=== PATIENT | female | born 1960 | race Hispanic/Latino ===

== ENCOUNTER 2017-02-26 17:15 | Observation (INO) | payer MEDICARE ==
[2017-02-26] MEDS ORDERED: Ondansetron HCl/PF 4 MG/2 ML Vial ONE (17:44)
[2017-02-26 17:45] LABS: #Basophils 0.1 thou/uL (0.0-0.2); #Eosinphils 0.2 thou/uL (0.0-0.7); #Lymphocytes 1.8 thou/uL (1.20-3.40); #Monocytes 0.5 thou/uL (0.11-0.59); #Neutrophils 5.7 thou/uL (1.40-6.50); %Basophils 0.7 % (0.0-1.0); %Eosinophils 2.9 % (0.0-10.0); %Lymphocytes 21.5 % (21.0-51.0); %Monocytes 6.2 % (0.0-10.0); Hematocrit 33.7 % (36.0-47.0); Red Blood Cell (RBC) Count 3.42 mill/uL (4.20-5.40); White Blood Cell (WBC) Count 8.3 thou/uL (4.8-10.8)
[2017-02-26 18:09] LABS: ALT (SGPT) 11 U/L (8-55); AST (SGOT) 10 U/L (5-34); Alkaline Phosphatase 232 U/L (40-150); Anion Gap 18 mmol/L (10-20); BUN (Urea Nitrogen) 46 mg/dL (9.8-20.1); Bilirubin, Total 0.7 mg/dL (0.2-1.2); CK (CPK) 34 U/L (29-168); Calc. Creatinine Clearance 0 mL/min (70-130); Calcium 9.4 mg/dL (7.8-10.44); Carbon Dioxide 32 mmol/L (22-29); Chloride 95 mmol/L (98-107); Estimated GFR-MDRD 6; Globulin 4.1 g/dL (2.4-3.5); Protein, Total 8.2 g/dL (6.0-8.3)
[2017-02-26 18:13] LABS: Troponin I Less than 0.010 ng/mL (< 0.028)
--- NOTE | 2017-02-26 20:18 | RAD ---
RADIOGRAPH CHEST 1 VIEW: Date: 02/26/17 Time: 5:49 p.m. HISTORY: 56-year-old female with acute chest pain. COMPARISON: 10/01/16. FINDINGS: Again demonstrated is the moderate to severe cardiomegaly. Previously, there were air space densities in the left lower lung zone. These are again demonstrated but appear to have improved. Left pleural effusion is again demonstrated, similar size to the previous study. There is haziness and increased a ttenuation in general of the right mid and lower lung zones laterally. Left perihilar increased atten uation. No pneumothorax. IMPRESSION: 1. Cardiomegaly. 2. Nonspecific, mild pulmonary densities at the bilateral lower lung zones. 3. Left pleural effusion. FOREIGN [] POS: [facility]
--- NOTE | 2017-02-26 20:50 | PDOC.EVN ---
Event Note - Event Note Event Note: [id number] H&p Dictated 1. ESRD 2. HTN 3. AOCD 4. DM type 2 5. Chest pain plan: see orders
[2017-02-26] MEDS ORDERED: Ondansetron ODT 4 MG TAB SL PRN (21:04)
[2017-02-26] MEDS ORDERED: Ondansetron HCl/PF 4 MG/2 ML Vial IVP PRN (21:04)
[2017-02-26] MEDS ORDERED: Acetaminophen 325 MG TAB PO PRN (21:04)
[2017-02-26 21:26] LABS: Troponin I 0.014 ng/mL (< 0.028)
[2017-02-26] MEDS ORDERED: ALPRAZolam 0.25 MG TAB PO PRN (21:47)
[2017-02-26] MEDS: Nitroglycerin 2% Ointment 1 INCH/1 GM Packet TOP SCH (22:07)
[2017-02-26 22:13] VITALS: BMI 41.7
[2017-02-27 00:26] LABS: Troponin I 0.018 ng/mL (< 0.028)
[2017-02-27 04:57] LABS: Troponin I 0.016 ng/mL (< 0.028)
[2017-02-27] MEDS ORDERED: Carvedilol 6.25 MG TAB PO SCH ×3 (08:00→20:15)
[2017-02-27] MEDS: Nitroglycerin 2% Ointment 1 INCH/1 GM Packet TOP SCH ×3 (08:09→20:30)
--- NOTE | 2017-02-27 08:10 | HP ---
DATE OF ADMISSION: 02/26/2017 CHIEF COMPLAINT: Chest pain, dyspnea. HISTORY OF PRESENT ILLNESS: The patient is a 56-year-old female with past medical history of end-stage renal disease, hypertension, diabetes type 2, coronary artery disease, now came to the ER because of chest pain and dyspnea. The patient all of a sudden started having chest pain, dyspnea, substernal pressure kind of pain, moderate in intensity, initial 10/10, currently the pain resolved. No aggravating factors. No alleviating factors. Denies any radiation. Chest pain associated with an episode of vomiting also, the whole episode lasted a few minutes. Denies any sweating, denies any dizziness. PAST MEDICAL HISTORY: As per HPI. PAST SURGICAL HISTORY: AV fistula placement, cardiac stent, cholecystectomy, left great toe amputation. SOCIAL HISTORY: Denies smoking, denies alcohol, denies any drugs. MEDICATIONS: Reviewed. FAMILY HISTORY: Positive for heart problems. REVIEW OF SYSTEMS: Constitutional: Denies any fever, denies any chills. Ears: Denies any vision problems. Ears: Denies any hearing loss. Neck: Denies any neck pain. Cardiovascular System: Positive for chest pain. Respiratory System: Positive for dyspnea. Gastrointestinal: Denies nausea. Positive for vomiting. Musculoskeletal: Denies any joint deformities. Cranial Nerve System: Denies syncope. Psychiatric: Denies anxiety. Integumentary: Denies any rash. All other review of systems are reviewed and are negative. PHYSICAL EXAMINATION: CONSTITUTIONAL/VITAL SIGNS: At the time of H&P performed, blood pressure is 167 /73, pulse ox 100%, heart rate 72. GENERAL: The patient appears tired. HEENT: Anterior nares patent, nose normal, and positive for nasal cannula. NECK: Supple. No JVD. CARDIOVASCULAR SYSTEM: S1, S2 present. Positive for murmur. No rubs, no gallops. Regular rate and rhythm. RESPIRATORY SYSTEM: Diminished breath sounds present bilaterally. No wheezing , no rhonchi, occasional crackles. GASTROINTESTINAL: Soft, nontender, no guarding, no organomegaly, no masses felt. MUSCULOSKELETAL: Trace edema. Positive for left great toe partial amputation. PSYCHIATRIC: Mood is appropriate at this time. INTEGUMENTARY: No rashes seen. CRANIAL NERVE SYSTEM: Cranial nerves intact. Follows commands. Strength intact, sensory intact. LABORATORY DATA: At the time of H&P performed, sodium 140, potassium 4.5, chloride 95, CO2 of 32, BUN of 46, creatinine 6.92, glucose 206, calcium 9.4, AST 10, ALT 11, alkaline phosphatase 232. CK-MB 0.7. Serum protein 8.2, albumin 4.1. White count 8.3, hemoglobin 11.1, platelet count is 118. Chest x- ray, no obvious infiltrates seen. EKG: Positive for normal sinus rhythm, positive for T-wave inversion. ASSESSMENT AND PLAN: The patient is a 56-year-old female. 1. Chest pain, need to rule out cardiac etiology. Plan to check cardiac enzymes. Plan to consult Cardiology as an outpatient. Plan to monitor the patient closely. 2. Hypertension. Monitor blood pressures. Continue home blood pressure meds. 3. End-stage renal disease plus left pleural effusion. Monitor closely. Plan to consult Nephrology patient. 4. Diabetes mellitus type 2. Monitor blood sugars. We will give insulin sliding scale. 5. Coronary artery disease. Continue aspirin. The case was discussed in detail with the patient. RODOLFO
[2017-02-27] MEDS: Docusate 100 MG CAP PO SCH ×2 (08:20→20:29)
[2017-02-27] MEDS: Aspirin 325 mg Enteric Coated Tablet PO SCH (08:21)
[2017-02-27] MEDS: Clopidogrel Bisulfate 75 MG TAB PO SCH (08:21)
[2017-02-27] MEDS: Insulin NPH/Reg Insulin Hm 300 UNITS/3 ML VIAL SC SCH ×2 (08:24→17:34)
[2017-02-27] MEDS: Sevelamer Carbonate 800 MG TAB PO SCH ×3 (08:25→17:35)
[2017-02-27] MEDS: cloNIDine 0.2 MG TAB PO SCH ×2 (08:25→20:27)
[2017-02-27] MEDS ORDERED: Aspirin 325 MG TAB PO SCH (09:00)
--- NOTE | 2017-02-27 12:19 | CON ---
DATE OF CONSULTATION: 02/27/2017 RENAL MEDICINE HISTORY OF PRESENT ILLNESS: Ms. Avila is a 56-year-old female with history of ESRD and a dmitted for chest pain. She was also seemed to be in mild shortness of breath. The pain described a s epigastric and as a burning characteristics, which goes and radiates to the throat. Denies any syn copal episode with this. Previously, patient has been evaluated by her contact lens technician and was told mina t from a cardiac statue she remains stable. We are being consulted for her maintenance hemodialysis. REVIEW OF SYSTEMS: Positive for chest pain. No nausea, no vomiting, mild shortness of breath. No s yncopal episode, no productive fever, positive for epigastric discomfort - with burping. No diarrhea , no constipation, no gross hematuria, no headache, no sore throat. No fever or chills. Occasional joint pains. No new skin rash, no diplopia, no earache, no hematochezia, no melena, no hematemesis, no gross hematuria. MEDICATIONS: Currently on Xanax 0.25 mg daily p.r.n., Ecotrin 325 mg once a day, Coreg 6.25 mg b.i.d ., Catapres 0.2 mg p.o. b.i.d., Plavix 75 mg once a day, Humulin 70/30 thirty units subcutaneous b.i. d., Imdur ER 30 mg daily, famotidine 40 mg tab once a day, Nitro-Bid 2% half an inch q.8, Protonix 40 mg tab daily, Renvela 800 mg 4 tabs t.i.d. with meals. PAST MEDICAL HISTORY: 1. ESRD, currently on maintenance hemodialysis. 2. Status post CHF. 3. Coronary artery disease. 4. GERD. 5. Type 2 diabetes mellitus. 6. Peripheral vascular disease. 7. Diabetic neuropathy. PAST SURGICAL HISTORY: 1. Status post upper GI endoscopy. 2. Status post cholecystectomy. 3. Status post cardiac catheterization. 4. Status post coronary stent placement. 5. Status post PD catheter with subsequent removal. 6. Status post AV fistula placement. 7. Status post cuffed dialysis catheter. ALLERGIES: LEVAQUIN, LATEX, and SHELLFISH. TRAUMA: None. IMMUNIZATIONS: Up to date. HOSPITALIZATIONS: Please see past medical history. 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 Four children. Marri ed, sedentary lifestyle. Education, high school. Status post blood transfusion. No alcohol use. N o history of smoking, no drug abuse. FAMILY HISTORY: No family history of ESRD. PHYSICAL EXAMINATION: VITAL SIGNS: Blood pressure is noted at 151/66, heart rate 70, respiratory rate 20, pulse ox 96%, te mperature 97.5. GENERAL: Awake, alert, obese, not in distress. SKIN: Adequate turgor. HEENT: Pinkish conjunctivae, anicteric sclerae. NECK: No neck mass, no carotid bruits, no JVD. CHEST: No deformities. LUNGS: Clear breath sounds. No wheezing, no crackles. HEART: Normal sinus rhythm. No murmur, no gallops, no rubs. ABDOMEN: Globular, soft, nontender, no masses. EXTREMITIES: No edema, no deformities. NEUROLOGIC: Moving all extremities. No tremors, no asterixis, no ataxia. LABORATORY DATA: Laboratories of 02/26/2017; white count 8.3, hemoglobin 11.1. Sodium 140, potassiu m 4.5, chloride 95, carbon dioxide 32, BUN 46, creatinine 6.92, glucose 206, calcium 9.4, AST 10, and ALT 11. Troponin I 0.016. IMAGING DATA: On 02/26/2017, chest x-ray shows left pleural effusion, cardiomegaly, and nonspecific mild pulmonary densities. ASSESSMENT AND PLAN: 1. End-stage renal disease - we will schedule her for her regular 4-hour hemodialysis with fluid rem oval. In the past, the patient has been in volume overload. We will try to max out fluid as tolerat ed by the patient. 2. Chest pain, being ruled out for myocardial infarction. Cardiology consult has been done. 3. Type 2 diabetes mellitus. Continue current insulin regimen. 4. Review of the last Kt/V suggests she is adequately dialyzed with current dialysis regimen.
[2017-02-27] MEDS ORDERED: Lidocaine 2% Viscous Solution 20 ML, Aluminum & Magnesium Hydroxide 30 ML, Donnatal Eli... SSW SCH ×3 (14:30)
--- NOTE | 2017-02-27 14:54 | PRG ---
DATE OF SERVICE: 02/27/2017 SUBJECTIVE: The patient is seen and examined at the bedside. She is having some chest discomfort, w hich is located under her left breast, which is worse when she takes deep breath and gets better when she exhales and she also has some abdominal discomfort in the left part of the abdomen in the mid po rtion. Apparently, she vomited once yesterday. She has run out of her Protonix couple of days ago. OBJECTIVE: VITAL SIGNS: Blood pressure is 172/68, pulse is 75, temperature is 98.6, respiratory rate is 20, O2 saturation is 95% on room air. GENERAL: She is obese lady with a BMI of 41.7. HEENT: Head is atraumatic, normocephalic. Eyes PERRLA. Conjunctivae pinkish. Oral mucosa is moist . NECK: Supple. LUNGS: Clear. HEART: S1, S2 normal, no S3, no S4. ABDOMEN: Obese, soft, mildly tender in the left part of the abdomen. There is no guarding or masses . EXTREMITIES: No clubbing, cyanosis or edema. NEUROLOGIC: She is alert and oriented x4. There is no any motor deficit. Cranial nerves are intact . LABORATORY DATA: Showed a glycemia ranging from 178-260. She had 3 sets of troponins, all of them a re negative. Lipids showed triglycerides 122, cholesterol 114, LDL 48 and HDL 42. Microbiology nega tive testing for type A and B influenza. IMPRESSION: 1. Chest pain, which is atypical, more pleuritic than cardiac with normal troponins x3, very unlikel y this is cardiac in origin. 2. Hypertension, labile. We will try to modify her blood pressure regimen. 3. End-stage renal disease with some left pleural effusion. 4. Diabetes mellitus type 2. Her diabetes is not controlled yet, but she used to run more than 300 on her Accu-Cheks, now she is down to 180s-190s and when she gets down to 150, she gets clammy and di zzy and she does not feel good. 5. Coronary artery disease. PLAN: So plan is to obtain Cardiology consultation regarding her chest pain. We also will try to mo dify her blood pressure regimen and she will have to gradually work on her Accu-Cheks and glycemia wi th weight reduction.
[2017-02-27] MEDS: Acetaminophen 325 MG TAB PO PRN (21:32)
[2017-02-28] MEDS: Acetaminophen 325 MG TAB PO PRN (04:07)
[2017-02-28] MEDS: Nitroglycerin 2% Ointment 1 INCH/1 GM Packet TOP SCH (04:42)
[2017-02-28] MEDS ORDERED: Carvedilol 6.25 MG TAB PO SCH (08:00)
[2017-02-28] MEDS: Insulin NPH/Reg Insulin Hm 300 UNITS/3 ML VIAL SC SCH (09:31)
[2017-02-28] MEDS: Docusate 100 MG CAP PO SCH (09:32)
[2017-02-28] MEDS: Sevelamer Carbonate 800 MG TAB PO SCH (09:32)
[2017-02-28] MEDS: cloNIDine 0.2 MG TAB PO SCH (09:33)
[2017-02-28] MEDS: Aspirin 325 mg Enteric Coated Tablet PO SCH (09:33)
[2017-02-28] MEDS: Clopidogrel Bisulfate 75 MG TAB PO SCH (09:33)
[2017-02-28 11:15] VITALS: BP 147/68; TEMP 97.9
[2017-02-28] MEDS ORDERED: Ibuprofen 200 MG TAB PO SCH (11:45)
--- NOTE | 2017-02-28 13:41 | CON ---
DATE OF CONSULTATION: 02/28/2017 HISTORY: Danielle Avila is a 56-year-old female with end- stage renal disease and coronary artery disease. In 09/2011, she underwent placement of a Taxus 3.0 x 16 mm stent in the proximal LAD, postdilated with 3.5 mm balloon. In 11/2014, she underwent catheterization again. She was premedicated due to DYE allergy. The proximal LAD stent continues to show good result; however, there was a 70%-80% lesion distal to the stent. She underwent placement of a Taxus 3.0 x 12 mm stent postdilated with a 3.5 x 8 mm noncompliant balloon. In 11/2015, she again presented with atypical chest discomfort that will last for several seconds at a time. She did undergo Lexiscan Cardiolite testing in 12/2015, which was probably abnormal with scar present on the inferior wall as well as small area of ischemia present along the anteroseptal wall. She did well until she was admitted again in 06/2016 with central chest pressure associated with diaphoresis with episodes lasting approximately 5 minutes. Her usual product inspection coordinator is Dr. Lerma; however, in his absence, I took her to the microbiological laboratory technician on 06/26/2016. This revealed minimal coronary artery disease with continued good LAD stent result and normal left ventricular function. She now presents complaining of left lower rib discomfort. She states she has had the flu with coughing of clear sputum. She then began to develop pain in his left lower rib area which is definitely worse with deep breath. The pain would last for hours at a time. She came to the hospital and cardiac enzymes have been fairly unremarkable. PAST MEDICAL HISTORY: End-stage renal disease, coronary artery disease, placement of LAD stents in 2011 and 2014, diabetes, hypertension, hyperlipidemia , obesity. OPERATIONS: Cholecystectomy, peritoneal dialysis catheter placement with subsequent removal, incision and drainage of nasal abscesses, adenoidectomy, amputation of left big toe due to nonhealing diabetic ulcer and tonsillectomy. MEDICATIONS: Xanax 0.25 b.i.d. p.r.n., carvedilol 6.25 b.i.d., aspirin 325 daily, insulin, Colace 100 b.i.d., Plavix 75 daily, Renvela 3200 mg t.i.d., Protonix 40 daily, Nitrostat p.r.n., Cozaar 50 mg daily, isosorbide mononitrate 30 daily, clonidine 0.2 b.i.d. ALLERGIES: SHELLFISH, IODINE, LEVAQUIN, and LATEX. SOCIAL HISTORY: She does not smoke or drink. FAMILY HISTORY: Positive for coronary artery disease. REVIEW OF SYSTEMS: Twelve point review of systems otherwise unremarkable. PHYSICAL EXAMINATION: VITAL SIGNS: 151/87, pulse of 70. HEENT: PERRL. NECK: Supple. LUNGS: Chest is clear. CARDIAC: S1 and S2 are normal, without any S3, S4 or murmurs. ABDOMEN: Normal bowel sounds, without tenderness. The abdomen is obese. EXTREMITIES: Revealed no clubbing, cyanosis or edema. NEUROLOGIC: Grossly intact. SKIN: Warm and dry. MUSCULOSKELETAL: Examination revealed palpable lower left rib pain that reproduces her symptoms. IMAGING DATA AND LABORATORY DATA: EKG revealed normal sinus rhythm with nonspecific ST and T-wave changes. Hemoglobin 11.1, hematocrit 33.7, white count 8,300, platelets 188,000. Cholesterol 114, triglycerides 122, HDL 42, and LDL 48. Cardiac enzymes are unremarkable x4. Sodium 140, potassium 4.5, chloride 95, carbon dioxide 32, BUN 46, creatinine 6.92. IMPRESSION: 1. Pleuritic chest pain with palpable chest wall tenderness, probably related to increased coughing from upper respiratory infection. 2. History of proximal LAD stent placement in 09/2011 and placement of another stent distal to this in 11/2014. In 06/2016, she underwent catheterization and had continued good results with only minimal disease. 3. Hypertension. 4. End-stage renal disease on dialysis. 5. Hyperlipidemia. 6. Diabetes. 7. Positive family history. 8. DYE allergy. RECOMMENDATIONS: With cardiac catheterization 8 months ago without significant disease and with this episode being pleuritic in nature with negative cardiac enzymes and lasting for hours, I do not feel any further cardiac evaluation is warranted. Consideration can be given to treat her with nonsteroidal anti- inflammatory drugs. MTDD
--- NOTE | 2017-02-28 19:44 | DIS ---
DATE OF ADMISSION: 02/26/2017 DATE OF DISCHARGE: 02/28/2017 MATERIAL CONTROLLER: Jacobo Angel M.D., Cardiology Service and Florian Talley M.D., Nephrology service. IMAGES: 1. Chest x-ray showed cardiomegaly and left pleural effusion and nonspecific mild pulmonary densitie s at the bilateral lower lung bases. 2. Echocardiogram showed technically difficult examination. Overall, left ventricular function is m ildly depressed. Ejection fraction visualized estimated at 40%-45%. The left atrium was mildly dila yohana and there was mild mitral regurgitation and mild tricuspid regurgitation. FINAL DIAGNOSES AT THE TIME OF DISCHARGE: 1. Chest pain of noncardiac origin, most likely is GI related since response to Protonix, acute chacho nary syndrome was ruled out with troponins x3. 2. Hypertension, labile 3. End-stage renal disease. 4. Diabetes mellitus type 2. 5. Coronary artery disease, stable. 6. Peripheral vascular disease. 7. Diabetic neuropathy. 8. Gastroesophageal reflux disease. HOSPITAL COURSE: The patient is a 56-year-old female who was admitted to the hospital with chest pain and dyspnea. She has a history of end-stage renal disease, hypertension, diabetes mellitu s type 2, coronary artery disease. She presented with sudden onset of chest pain, dyspnea and subste rnally located pressure, moderate in intensity without any aggravating factors, without any radiation . Chest pain was associated with an episode of vomiting and the whole episode lasted approximately a few minutes. She denied any sweating. Denied any dizziness. At the time of emergency room evaluat ion, her sodium was 140, potassium 4.5, chloride 95, CO2 of 32, BUN 46 and creatinine 6.92, glucose w as 206. Liver function tests were within normal limits. CK-MB was 0.7. EKG showed normal sinus rhy thm with positive T-wave inversion and chest x-ray did not show any obvious infiltrate. The patient got admitted to the observation [place]. Cardiology was consulted and Dr. Talley, Nephrology was consulted . She was continued on aspirin. She had additional 2 sets of cardiac enzymes which included troponi n I and all of them were within normal limits. Her cholesterol came back at 114, LDL 48, HDL 42 and heart disease risk ratio was 2.7. Her blood glucose was 206. [facility] showed decreased left ventricle systolic function, estimated visually at 45%. The patient was s een by business continuity strategy director who did not feel that this was related to her heart and he offered nonsteroidal a nti-inflammatory agents since the pain sounded to him like more pleuritic. The pain improved with Pr otonix and apparently somebody took her Protonix from the pharmacy and the insurance did not want to pay for a new prescription, but definitely she got some relief from Protonix which was used in the ho spital which is more suggestive of GI as etiology of the pain than anything else. PHYSICAL EXAMINATION: GENERAL: She is doing well. VITAL SIGNS: Her blood pressure is 147/68, pulse is 63, temperature is 97.9, respirations 20, O2 sat uration is 92. She is obese, BMI of more than 30. Her weight is 238 pounds. LUNGS: Showed decreased breath sounds at the left base, a few crackles, no wheezing. CARDIOVASCULAR: S1, S2 normal. ABDOMEN: Obese, nontender, bowel sounds are present, no organomegaly. The patient is discharged home on diabetic diet. ACTIVITIES: As tolerated. MEDICATIONS: At the time of discharge, prescription for Protonix 40 mg once a day, then continue alp razolam 0.25 mg twice a day as needed, aspirin 325 mg once a day, carvedilol 6.25 mg twice a day, lashanda nidine 0.2 mg tablets twice a day, clopidogrel 75 mg once a day, docusate 100 mg twice a day. Insuli n 30 units, this is 70/30 insulin 30 units twice a day, isosorbide mononitrate 30 mg once a day, nathan lamer carbonate 3200 mg 3 times a day, vitamin D3 of 2000 units once a day, losartan 50 mg once a day , nitroglycerin p.r.n. 0.4 mg sublingual every 5 minutes, and pantoprazole 40 mg once a day as thalia aldridge above. The patient was seen and examined before she was discharged and discharge time is less than 30 minute s.
--- NOTE | 2017-03-13 15:00 | EKG ---
Test Reason : CP Blood Pressure : / mmHG Vent. Rate : 098 BPM Atrial Rate : 098 BPM P-R Int : 174 ms QRS Dur : 090 ms QT Int : 372 ms P-R-T Axes : 050 006 103 degrees QTc Int : 474 ms Normal sinus rhythm Nonspecific ST and T wave abnormality Prolonged QT Abnormal ECG Confirmed by GWEN DEGROOT D.O. ([id number]), offline editor SUSY VIDAL ([id number]) on 03/13/2017 2:59:24 PM Referred By: Confirmed By:GWEN DEGROOT D.O.
== END 2017-02-28 14:01 | disposition home or self-care (01) ==
LOC: ERS 17:15 → 2SW 19:00
PROVIDERS: ADMIT Internal Medicine Addiction Medicine; ATTEND Internal Medicine Addiction Medicine
DX: R07.89 Other chest pain (principal); I12.0 Hypertensive chronic kidney disease with stage 5 chronic kidney disease or end stage renal disease; E11.22 Type 2 diabetes mellitus with diabetic chronic kidney disease; N18.6 End stage renal disease; I25.10 Atherosclerotic heart disease of native coronary artery without angina pectoris; E11.51 Type 2 diabetes mellitus with diabetic peripheral angiopathy without gangrene; E11.40 Type 2 diabetes mellitus with diabetic neuropathy, unspecified; K21.9 Gastro-esophageal reflux disease without esophagitis; Z88.1 Allergy status to other antibiotic agents; Z88.8 Allergy status to other drugs, medicaments and biological substances; Z91.040 Latex allergy status; Z91.048 Other nonmedicinal substance allergy status; Z79.82 Long term (current) use of aspirin; Z79.899 Other long term (current) drug therapy; Z95.5 Presence of coronary angioplasty implant and graft; Z90.49 Acquired absence of other specified parts of digestive tract; Z98.890 Other specified postprocedural states; Z99.2 Dependence on renal dialysis
CPT/HCPCS: 71010; 80053; 80061; 82550; 82553; 82962 ×2; 84484 ×3; 85025; 87804 ×2; 93005; 93306; 94760 ×4; 96374; 99285; G0378; 36415; 36416; 90935; A4216; G0257; J2405

== ENCOUNTER 2017-03-02 10:27 | Inpatient (IN) | payer MEDICARE ==
[2017-03-02 10:55] LABS: #Eosinphils 0.1 thou/uL (0.0-0.7); #Lymphocytes 0.3 thou/uL (1.20-3.40); #Monocytes 0.5 thou/uL (0.11-0.59); #Neutrophils 4.9 thou/uL (1.40-6.50); %Basophils 0.1 % (0.0-1.0); %Eosinophils 0.9 % (0.0-10.0); %Lymphocytes 5.4 % (21.0-51.0); %Monocytes 8.2 % (0.0-10.0); %Neutrophils 85.4 % (42.0-75.0); Hemoglobin 10.7 g/dL (12.0-16.0); Mean Corpuscular Hemoglobin 31.8 pg (27.0-31.0); Mean Corpuscular Volume 96.6 fl (81.0-99.0); Mean Platelet Volume 10.4 fL (7.4-10.4); Platelet Count 188 thou/uL (130-400); RBC Distribution Width 16.1 % (11.5-14.5); Red Blood Cell (RBC) Count 3.36 mill/uL (4.20-5.40); White Blood Cell (WBC) Count 5.8 thou/uL (4.8-10.8)
[2017-03-02 11:17] LABS: ALT (SGPT) 7 U/L (8-55); AST (SGOT) 9 U/L (5-34); Albumin 3.9 g/dL (3.5-5.0); Alkaline Phosphatase 193 U/L (40-150); Anion Gap 24 mmol/L (10-20); BUN (Urea Nitrogen) 95 mg/dL (9.8-20.1); Bilirubin, Total 0.6 mg/dL (0.2-1.2); Calc. Creatinine Clearance 0 mL/min (70-130); Calcium 8.5 mg/dL (7.8-10.44); Carbon Dioxide 24 mmol/L (22-29); Chloride 95 mmol/L (98-107); Estimated GFR-MDRD 4; Globulin 3.5 g/dL (2.4-3.5); Glucose 251 mg/dL (70-105); Lipase 25 U/L (8-78); Potassium 5.6 mmol/L (3.5-5.1); Protein, Total 7.4 g/dL (6.0-8.3); Sodium 137 mmol/L (136-145)
[2017-03-02] MEDS ORDERED: Morphine 4 MG/ML VIAL ONE ×2 (11:37→16:21)
[2017-03-02] MEDS ORDERED: Ondansetron HCl/PF 4 MG/2 ML Vial ONE (11:37)
--- NOTE | 2017-03-02 12:00 | RAD ---
ONE VIEW CHEST: Date: 02-26-17 History: Sepsis activation. FINDINGS: Portable upright chest demonstrates cardiomegaly. Pulmonary vessels are slightly prominent. Patchy in terstitial and alveolar opacities. Minimal blunting of the left costophrenic angle, unchanged. Right costophrenic angle is clear. No pneumothorax. IMPRESSION: 1. Cardiomegaly. Pulmonary vascular prominence. Interstitial and alveolar opacities. Congestive heart failure. 2. Small left sided pleural effusion. POS: [facility]
[2017-03-02] MEDS ORDERED: Labetalol HCl 100 MG/20 ML VIAL ONE (12:32)
[2017-03-02] MEDS ORDERED: Fentanyl 100 MCG/2 ML VIAL ONE ×2 (12:32→14:03)
[2017-03-02] MEDS ORDERED: Calcium Gluc 4.6 MEQ/10 ML (100 MG/ML) ONE (15:16)
--- NOTE | 2017-03-02 15:57 | CT ---
CT ABDOMEN AND PELVIS NONCONTRAST: History: Right flank pain. FINDINGS: Each renal collecting system, ureter, and urinary bladder are decompressed without stone apparent. Lack of contrast limits evaluation for other abnormalities. There is calcification within the arteria l structures, including the renal arteries. Minimal scarring remains at the left lung base. No signif icant pleural fluid is visible. There is no evidence of bowel obstruction. Degenerative changes invol ve the lumbar spine. IMPRESSION: 1. No CT evidence of urinary tract obstruction or calcification. 2. Atherosclerosis. POS: [facility]
[2017-03-02 16:18] LABS: Bilirubin Negative (Negative); Blood, Urine Negative (Negative); Clarity CLEAR (Clear); Glucose, Urine (Dipstick) 250 mg/dL (Negative); Leukocyte Negative (Negative); Nitrite Negative (Negative); Protein, Urine (Dipstick) > or equal to 300 mg/dL (Neg-Trace); Specific Gravity, Urine 1.015 (1.002-1.036); Urobilinogen 0.2 mg/dL (0.2-1.0)
[2017-03-02 16:21] LABS: Bacteria/HPF 1+ HPF (None Seen); Hyaline Casts/LPF 7-10 HYALINE CAST LPF (0-3 Hyaline); WBC/HPF 0-3 HPF (0-3)
[2017-03-02] MEDS ORDERED: Lidocaine 2% Viscous Solution 10 ML, Aluminum & Magnesium Hydroxide 20 ML, Donnatal Eli... SSW SCH ×3 (16:30)
[2017-03-02] MEDS ORDERED: Nitroglycerin 2% Ointment 1 INCH/1 GM Packet ONE (17:35)
[2017-03-02] MEDS ORDERED: Nitroglycerin 0.4 MG TAB (25 Tab Bottle) ONE (18:08)
[2017-03-02] MEDS ORDERED: Acetaminophen 325 MG TAB PO PRN (19:34)
[2017-03-02 19:46] VITALS: BMI 40.9
[2017-03-02] MEDS ORDERED: Clopidogrel Bisulfate 75 MG TAB PO SCH (23:45)
[2017-03-03] MEDS ORDERED: cloNIDine 0.2 MG TAB PO SCH (00:15)
[2017-03-03] MEDS ORDERED: HumaLOG 300 UNITS/3 ML VIAL SC PRN (01:11)
[2017-03-03] MEDS ORDERED: Dextrose 5% in Water 1,000 ML IV PRN (01:11)
[2017-03-03] MEDS ORDERED: ALPRAZolam 0.25 MG TAB PO PRN (01:11)
[2017-03-03] MEDS ORDERED: Insulin Regular 300 UNITS/3 ML VIAL SC PRN (01:11)
[2017-03-03] MEDS ORDERED: Ondansetron HCl/PF 4 MG/2 ML Vial IVP PRN (01:11)
[2017-03-03] MEDS ORDERED: Guaifenesin DM 100-10/5 ML UDCUP PO PRN (01:11)
[2017-03-03] MEDS ORDERED: Dextrose 50% Abboject 50 ML SYRINGE SLOW IVP PRN (01:11)
[2017-03-03] MEDS ORDERED: Nitroglycerin 0.4 MG TAB (25 Tab Bottle) SL PRN (01:11)
[2017-03-03] MEDS ORDERED: Sodium Chloride 0.9% 1,000 ML IV SCH (01:15)
--- NOTE | 2017-03-03 03:04 | HP ---
REASON FOR ADMISSION: Nausea, vomiting, and abdominal pain along with volume overload, missing hemodialysis yesterday. HISTORY OF PRESENT ILLNESS: Patient gives history of getting discharged on Wednesday. She says around 2 in the morning, she started developing nausea, vomiting, and had diarrheal episodes. She states nearly eight episodes of diarrhea from Wednesday morning. She has not been able to keep anything down. Complaints of epigastric pain, which is 4-5/10 in intensity. She could not go for dialysis yesterday that is Wednesday. No complaints of fever. No blood in either stool or vomitus. PAST MEDICAL AND SURGICAL HISTORY: History of end-stage renal disease on hemodialysis, hypertension, coronary artery disease with prior stent, cholecystectomy, left great toe amputation, dialysis access procedures, cataract surgery, dyslipidemia, diabetes mellitus type 2. PERSONAL HISTORY: Does not abuse alcohol or drugs. No history of smoking. CURRENT MEDICATIONS: Patient is on Xanax 0.25 mg p.o. q.6 hourly, aspirin 325 mg p.o. daily, Coreg 6.25 mg p.o. twice daily, vitamin D3 of 2000 units p.o. daily, clonidine 0.2 mg p.o. twice daily, Plavix 75 mg p.o. daily, Colace 100 mg p.o. twice daily, NovoLog 70/30 of 30 units subcutaneous twice daily, Imdur extended release 30 mg p.o. daily, Cozaar 50 mg p.o. daily, Singulair 10 mg p.o. at bedtime, Protonix 40 mg p.o. daily, Renvela 2400 mg p.o. 3 times daily. ALLERGIES: LATEX, LEVAQUIN, ADHESIVE IODINE, SHELLFISH. FAMILY HISTORY: There is history of coronary artery disease in the family. There is also diabetes and hypertension as well. REVIEW OF SYSTEMS: The following complete review of systems was negative, unless otherwise mentioned in the HPI or below: Constitutional: Weight loss or gain, ability to conduct usual activities. Skin: Rash, itching. Eyes: Double vision, pain. ENT/Mouth: Nose bleeding, neck stiffness, pain, tenderness. Cardiovascular: Palpitations, dyspnea on exertion, orthopnea. Respiratory: Shortness of breath, wheezing, cough, hemoptysis, fever, or night sweats. Gastrointestinal: Poor appetite, abdominal pain, heartburn, nausea, vomiting, constipation, or diarrhea. Genitourinary: Urgency, frequency, dysuria, nocturia. Musculoskeletal: Pain, swelling. Neurologic/Psychiatric: Anxiety, depression. Allergy/Immunologic: Skin rash, bleeding tendency. PHYSICAL EXAMINATION: GENERAL: Patient is a 56-year-old female who is currently in [id number] distress from abdominal discomfort in the epigastric area. VITAL SIGNS: Blood pressure on arrival was 200/70, currently 140/70, pulse 90 per minute, respiratory rate 20 per minute, temperature 98.1 degrees Fahrenheit , saturating 98% on room air. NECK: Supple, no elevated JVD. HEENT: Extraocular muscles intact. Pupils reacting to light. Oral cavity, mucous membranes are dry. No exudates or congestion. CARDIOVASCULAR SYSTEM: S1, S2 heard. RESPIRATORY SYSTEM: Air entry 1+ bilateral. No rales or rhonchi. ABDOMEN: Soft. The patient has tenderness in the epigastric area, otherwise, no rigidity or guarding. Bowel sounds are heard. EXTREMITIES: No peripheral edema or calf tenderness. VASCULAR SYSTEM: Peripheral pulses 1+ bilateral. No ischemic ulcerations or gangrene. CENTRAL NERVOUS SYSTEM: No gross focal deficits seen. Patient is alert, awake , oriented x3. PSYCHIATRIC SYSTEM: Patient's mood is a bit anxious, otherwise, no hallucinations or delusions. LABORATORY AND X-RAY FINDINGS: Chest x-ray done shows mild pulmonary vascular congestion. CT of the abdomen and pelvis without contrast done showed no urinary obstruction or calcification. White count of 5, H&H 10 and 32, platelet count 188 with 85% neutrophils. BUN 95, creatinine 10.6, serum bicarbonate 24, glucose 251. AST, ALT within normal limits. BNP is 1116, albumin is 3.9. CLINICAL IMPRESSION AND PLAN: Patient will be admitted to telemetry for intractable nausea and vomiting along with epigastric pain and volume overload with her missing hemodialysis yesterday. We will consult Dr. Talley for dialysis and likely patient will be getting it this morning. Her CT of the abdomen and pelvis has not revealed any acute abnormalities. She will be placed on Reglan 10 mg a.c. and at bedtime. We will also gently hydrate her and she will be closely monitored for volume overload in view of her missing dialysis yesterday. We will continue her Singulair, sevelamer, Cozaar, Imdur, clonidine , Coreg, aspirin, and Xanax as before. She will be on clear liquid diet until her epigastric pain resolves. We will obtain stool studies along with blood and urine cultures as well. The patient does not appear to be septic at present and she will be closely monitored. Please note I have seen and examined patient on 03/02/2017. RODOLFO
[2017-03-03 05:44] LABS: #Eosinphils 0.2 thou/uL (0.0-0.7); #Lymphocytes 1.5 thou/uL (1.20-3.40); #Monocytes 0.9 thou/uL (0.11-0.59); %Basophils 0.4 % (0.0-1.0); %Eosinophils 2.7 % (0.0-10.0); %Lymphocytes 22.4 % (21.0-51.0); %Monocytes 13.7 % (0.0-10.0); %Neutrophils 60.8 % (42.0-75.0); Mean Corpuscular HGB CONC 33.5 g/dL (32.0-36.0); Mean Corpuscular Hemoglobin 32.7 pg (27.0-31.0); Mean Corpuscular Volume 97.4 fl (81.0-99.0); Mean Platelet Volume 11.5 fL (7.4-10.4); Platelet Count 125 thou/uL (130-400); RBC Distribution Width 16.4 % (11.5-14.5); Red Blood Cell (RBC) Count 2.77 mill/uL (4.20-5.40); White Blood Cell (WBC) Count 6.6 thou/uL (4.8-10.8)
[2017-03-03 06:10] LABS: Anion Gap 25 mmol/L (10-20); BUN (Urea Nitrogen) 109 mg/dL (9.8-20.1); Calc. Creatinine Clearance 10 mL/min (70-130); Calcium 8.1 mg/dL (7.8-10.44); Carbon Dioxide 21 mmol/L (22-29); Chloride 95 mmol/L (98-107); Estimated GFR-MDRD 3; Glucose 180 mg/dL (70-105); Potassium 6.3 mmol/L (3.5-5.1); Sodium 135 mmol/L (136-145)
[2017-03-03 07:15] LABS: HBSAg Index 0.13 S/CO (0-0.99); Hep B Surf Ag Non-Reactive S/CO (NonReactive)
[2017-03-03] MEDS: Sevelamer Carbonate 800 MG TAB PO SCH ×3 (08:00→18:30)
[2017-03-03] MEDS: Carvedilol 6.25 MG TAB PO SCH ×2 (08:00→15:48)
[2017-03-03] MEDS: Metoclopramide HCl 10 MG TAB PO SCH ×4 (08:00→21:22)
[2017-03-03] MEDS ORDERED: Acetaminophen/Codeine 30-300mg Tablet PO PRN (08:36)
[2017-03-03] MEDS ORDERED: FLU VACC QS2017-18 36 mo. & older 0.5 ML SYRINGE IM ONE (09:00)
[2017-03-03] MEDS ORDERED: Heparin 5,000 UNITS/ML VIAL SC SCH (09:00)
[2017-03-03] MEDS: Docusate 100 MG CAP PO SCH ×2 (09:00→21:22)
[2017-03-03] MEDS ORDERED: Epoetin (ESRD) 20,000 UNITS/ML SC SCH (09:00)
[2017-03-03] MEDS: Insulin NPH/Reg Insulin Hm 300 UNITS/3 ML VIAL SC SCH ×2 (09:00→21:25)
[2017-03-03] MEDS: cloNIDine 0.2 MG TAB PO SCH ×2 (09:00→21:22)
--- NOTE | 2017-03-03 09:27 | PRG ---
DATE OF SERVICE: 03/03/2017. SUBJECTIVE: Ms. Avila is a 56-year-old female with ESRD, admitted for abdominal pain. S he underwent CT scan of the abdomen, which essentially showed no significant abdominal pathology. We are being consulted for her maintenance hemodialysis. She missed dialysis yesterday. Her potassium was noted to be 6.3 today. I am currently at the bedside dialyzing this patient. Her abdominal pain is much improved. She denies any chest pain or shortness of breath. PHYSICAL EXAMINATION: VITAL SIGNS: Blood pressure is 143/67, heart rate 73, respiratory rate 18, temperature 97.7, pulse o x 94%. GENERAL: Noted to be awake, alert, comfortable, not in overt distress. SKIN: Adequate turgor. HEENT: She has slightly pale conjunctivae, anicteric sclerae. NECK: No neck mass, no carotid bruits, no JVD. CHEST: No deformities. LUNGS: Clear breath sounds. No wheezing, no crackles. HEART: Normal sinus rhythm. No murmur, no gallops or rubs. ABDOMEN: Globular, soft, nontender, no masses. EXTREMITIES: Trace edema. NEUROLOGIC: Moving all extremities. No tremors or asterixis, no ataxia. MEDICATIONS: 03/03/2017 - Reviewed. LABORATORY: 03/03/2017 - White count 6.6, hemoglobin 9, sodium 135, potassium 6.3, chloride 95, carb on dioxide 21, BUN 109, creatinine 11.55, glucose 180, calcium is 8.1. BNP of 1116.7. CT scan of the abdomen and pelvis showed no evidence of intra-abdominal abnormality. Chest x-ray of 03/02/2017 shows cardiomegaly with increased lung markings. PHYSICAL EXAMINATION: 1. End-stage renal disease, stable. Currently undergoing 4-hour hemodialysis. The patient missed h er dialysis yesterday. We will attempt to max out fluid removal with this patient. Chest x-ray did show increased lung markings. We will then continue the 3 times a week hemodialysis with this patien t. 2. Anemia. Start Epogen 10,000 units subcu every week. 3. Abdominal pain - CT scan is negative. The pain is somewhat resolved spontaneously. 4. ? Congestive heart failure - maxing out fluid removal with dialysis.
[2017-03-03] MEDS: Acetaminophen 325 MG TAB PO PRN ×2 (10:12→15:45)
--- NOTE | 2017-03-03 12:22 | PDOC.PN ---
- Subjective Encounter Start Date: 03/03/17 Encounter Start Time: 09:40 -: old records requested/rev pt seen in dialysis room, she has nausea but no vomiting now, diarrhoea resolved , abdomen pain resolved, no chest pain or dyspnea - Objective Resuscitation Status: Resuscitation Status FULL:Full Resuscitation MAR Reviewed: Yes Vital Signs & Weight: Vital Signs (12 hours) Temp Pulse Resp BP Pulse Ox 03/03/17 12:00 97.1 F L 76 20 135/60 100 03/03/17 08:00 97.8 F 74 22 H 03/03/17 04:00 97.7 F 73 18 143/67 H 94 L 03/03/17 02:06 78 18 123/60 Weight Weight 246 lb Result Diagrams: 03/03/17 04:16 03/03/17 04:16 Additional Labs: Accuchecks 03/03/17 03/03/17 03/02/17 10:13 06:02 20:48 POC Glucose 119 H 185 H 184 H EKG Reviewed by me: Yes (nsr) Phys Exam - Physical Examination Constitutional: NAD HEENT: PERRLA, moist MMs, sclera anicteric Neck: no JVD, supple Respiratory: no wheezing, no rales, no rhonchi Cardiovascular: RRR, no significant murmur, no rub Gastrointestinal: soft, non-tender, no distention, positive bowel sounds Musculoskeletal: no edema, pulses present Neurological: non-focal, normal sensation, moves all 4 limbs Lymphatic: no nodes Psychiatric: normal affect, A&O x 3 Skin: no rash, normal turgor Dx/Plan (1) Abdominal pain Code(s): R10.9 - UNSPECIFIED ABDOMINAL PAIN Status: Resolved (2) Chronic combined systolic and diastolic congestive heart failure Code(s): I50.42 - CHRONIC COMBINED SYSTOLIC AND DIASTOLIC HRT FAIL Status: Chronic (3) Hyperkalemia, diminished renal excretion Code(s): E87.5 - HYPERKALEMIA Status: Acute (4) Metabolic acidosis Code(s): E87.2 - ACIDOSIS Status: Acute (5) Nausea & vomiting Code(s): R11.2 - NAUSEA WITH VOMITING, UNSPECIFIED Status: Acute (6) Thrombocytopenia Code(s): D69.6 - THROMBOCYTOPENIA, UNSPECIFIED Status: Acute (7) Volume overload Code(s): E87.70 - FLUID OVERLOAD, UNSPECIFIED Status: Acute (8) Anemia of renal disease Code(s): D63.1 - ANEMIA IN CHRONIC KIDNEY DISEASE Status: Chronic (9) DM type 2 (diabetes mellitus, type 2) Status: Chronic Comment: Continue NPH 30u SC BID, ISS, ADA (10) ESRD (end stage renal disease) on dialysis Code(s): N18.6 - END STAGE RENAL DISEASE; Z99.2 - DEPENDENCE ON RENAL DIALYSIS Status: Chronic Comment: HD per Renal service (11) HTN (hypertension) Code(s): I10 - ESSENTIAL (PRIMARY) HYPERTENSION Status: Chronic Comment: Continue Coreg and Clonidine, monitor clinical response (12) Peripheral neuropathy Code(s): G62.9 - POLYNEUROPATHY, UNSPECIFIED Status: Chronic (13) Secondary hyperparathyroidism of renal origin Code(s): N25.81 - SECONDARY HYPERPARATHYROIDISM OF RENAL ORIGIN Status: Chronic - Plan cont current plan of care * continue HD today and tomorrow * medication reviewed as below * symptomatic treatment * will adjust her meds * repeat labs tomorrow * monitor on tele today. Review of Systems - Review of Systems Constitutional: negative: fever, chills, sweats, weakness, malaise, other Eyes: negative: Pain, Vision Change, Conjunctivae Inflammation, Eyelid Inflammation, Redness, Other ENT: negative: Ear Pain, Ear Discharge, Nose Pain, Nose Discharge, Nose Congestion, Mouth Pain, Mouth Swelling, Throat Pain, Throat Swelling, Other Respiratory: negative: Cough, Dry, Shortness of Breath, Hemoptysis, SOB with Excertion, Pleuritic Pain, Sputum, Wheezing Cardiovascular: negative: chest pain, palpitations, orthopnea, paroxysmal nocturnal dyspnea, edema, light headedness, other Gastrointestinal: Nausea Genitourinary: negative: Dysuria, Frequency, Incontinence, Hematuria, Retention , Other Musculoskeletal: negative: Neck Pain, Shoulder Pain, Arm Pain, Back Pain, Hand Pain, Leg Pain, Foot Pain, Other Skin: negative: Rash, Lesions, Basilio, Bruising, Other - Medications/Allergies Allergies/Adverse Reactions: Allergies Allergy/AdvReac Type Severity Reaction Status Date / Time Latex, Natural Rubber Allergy Mild Rash Verified 06/25/16 02:59 levofloxacin [From Levaquin] Allergy Mild Hives Verified 06/25/16 02:59 adhesive tape Allergy Verified 02/26/17 21:45 Iodinated Contrast- Oral and Allergy Rash Verified 06/25/16 02:59 IV Dye [Iodinated Contrast Media - IV Dye] shellfish derived Allergy Rash Verified 06/25/16 02:59 Medications: Current Medications Acetaminophen (Tylenol) 650 mg PO Q4H PRN PRN Reason: Headache/Fever or Pain Last Admin: 03/03/17 10:12 Dose: 650 mg Acetaminophen/Codeine Phosphate (Tylenol #3) 1 tab PO Q4H PRN PRN Reason: Pain Alprazolam (Xanax) 0.25 mg PO Q6H PRN PRN Reason: anxiety Aspirin (Ecotrin) 325 mg PO DAILY [facility] Carvedilol (Coreg) 6.25 mg PO BID-WM [facility] Cholecalciferol (Vitamin D3) 2,000 units PO DAILY [facility] Clonidine (Catapres) 0.2 mg PO BID [facility] Clopidogrel Bisulfate (Plavix) 75 mg PO DAILY [facility] Dextrose/Water (Dextrose 50%) 25 gm SLOW IVP PRN PRN PRN Reason: Hypoglycemia Docusate Sodium (Colace) 100 mg PO BID [facility] Epoetin Krishna (Procrit) 10,000 units SC Q7D@0900 [facility] Famotidine (Pepcid) 20 mg PO DAILY [facility] Glucagon (Glucagon) 1 mg IM PRN PRN PRN Reason: Hypoglycemia Guaifenesin/Dextromethorphan (Robitussin Dm) 15 ml PO Q4H PRN PRN Reason: Cough Dextrose/Water (D5w) 1,000 mls @ 0 mls/hr IV .Q0M PRN; As Directed PRN Reason: Hypoglycemia Insulin Human Isoph/Insulin Regular (Humulin 70/30) 30 units SC BID [facility] Insulin Human Lispro (Humalog) 0 units SC .MODERATE SLIDING SC PRN PRN Reason: Moderate Correctional Scale Insulin Human Regular (Humulin R) 0 units SC .BEDTIME SLIDING SC PRN PRN Reason: Bedtime Correctional Scale Isosorbide Mononitrate (Imdur Er) 30 mg PO DAILY [facility] Losartan Potassium (Cozaar) 50 mg PO DAILY [facility] Metoclopramide HCl (Reglan) 10 mg PO ACHS [facility] Montelukast Sodium (Singulair) 10 mg PO HS [facility] Nitroglycerin (Nitrostat) 0.4 mg SL Q5MIN PRN PRN Reason: Chest Pain Ondansetron HCl (Zofran) 4 mg IVP Q6H PRN PRN Reason: Nausea/Vomiting Pantoprazole Sodium (Protonix) 40 mg PO DAILY [facility] Sevelamer Carbonate (Renvela) 2,400 mg PO TID-WM [facility] Sodium Chloride (Flush - Normal Saline) 10 ml IVF Q12HR [facility] Sodium Chloride (Flush - Normal Saline) 10 ml IVF PRN PRN PRN Reason: Saline Flush
[2017-03-03] MEDS: Losartan Potassium 25 MG TAB PO SCH (14:12)
[2017-03-03] MEDS: Famotidine 20 MG TAB PO SCH (15:45)
[2017-03-03] MEDS: Aspirin 325 mg Enteric Coated Tablet PO SCH (15:45)
[2017-03-03] MEDS: Clopidogrel Bisulfate 75 MG TAB PO SCH (15:45)
[2017-03-03] MEDS ORDERED: Montelukast Sodium 10 mg Tablet PO SCH (21:00)
[2017-03-04 05:27] LABS: #Eosinphils 0.3 thou/uL (0.0-0.7); #Lymphocytes 1.9 thou/uL (1.20-3.40); #Monocytes 0.9 thou/uL (0.11-0.59); #Neutrophils 3.4 thou/uL (1.40-6.50); %Basophils 0.6 % (0.0-1.0); %Eosinophils 4.3 % (0.0-10.0); %Lymphocytes 28.9 % (21.0-51.0); %Monocytes 13.6 % (0.0-10.0); %Neutrophils 52.6 % (42.0-75.0); Hemoglobin 9.4 g/dL (12.0-16.0); Mean Corpuscular HGB CONC 32.4 g/dL (32.0-36.0); Mean Corpuscular Hemoglobin 32.1 pg (27.0-31.0); Mean Corpuscular Volume 99.2 fl (81.0-99.0); Mean Platelet Volume 10.5 fL (7.4-10.4); Platelet Count 188 thou/uL (130-400); RBC Distribution Width 16.1 % (11.5-14.5); Red Blood Cell (RBC) Count 2.91 mill/uL (4.20-5.40); White Blood Cell (WBC) Count 6.5 thou/uL (4.8-10.8)
[2017-03-04 05:45] LABS: Albumin 3.4 g/dL (3.5-5.0); Anion Gap 19 mmol/L (10-20); BUN (Urea Nitrogen) 38 mg/dL (9.8-20.1); BUN/Creatinine Ratio 5.69; Calc. Creatinine Clearance 17 mL/min (70-130); Calcium 8.4 mg/dL (7.8-10.44); Carbon Dioxide 26 mmol/L (22-29); Chloride 98 mmol/L (98-107); Estimated GFR-MDRD 6; Glucose 180 mg/dL (70-105); Phosphorus 4.2 mg/dL (2.3-4.7); Potassium 4.7 mmol/L (3.5-5.1); Sodium 138 mmol/L (136-145)
--- NOTE | 2017-03-04 08:31 | PRG ---
DATE OF SERVICE: 03/04/2017 SUBJECTIVE: Ms. Avila is a 56-year-old female being followed up for her maintenance hemo dialysis. I am at the bedside supervising her dialysis. She was admitted for severe abdominal pain. Initial workup which included a CT scan of the abdomen was essentially negative. In review of her history, she had nausea, vomiting, and diarrhea after eating a certain food. She most likely had acu te gastroenteritis. Her abdominal pain is much better this morning. No other complaints. No chest pain or shortness of breath. PHYSICAL EXAMINATION: VITAL SIGNS: Blood pressure is 140/65, heart rate 67, respiratory rate 18, temperature 98.1, pulse o x 93%. GENERAL: Noted to be awake, alert, comfortable, not in distress. SKIN: Adequate turgor. HEENT: She has pinkish conjunctivae, anicteric sclerae. NECK: No neck mass, no carotid bruits, no JVD. CHEST: No deformities. LUNGS: Clear breath sounds. No wheezing, no crackles. HEART: Normal sinus rhythm. No murmur, no gallops, no rubs. ABDOMEN: Globular, soft, nontender, no masses. EXTREMITIES: No edema or deformities. MEDICATIONS: 03/04/2017 - Reviewed. LABORATORY: 03/04/2017 - White count 6.5, hemoglobin 9.4, sodium 138, potassium 4.7, chloride 98, ca rbon dioxide 26, BUN 38, creatinine 6.68, glucose 180, calcium 8.4, phosphorus 4.2, albumin 3.4. ASSESSMENT AND PLAN: 1. Abdominal pain - resolved, most likely from acute gastroenteritis. CT scan of the abdomen was n egative. 2. End-stage renal disease, stable. Tolerating current hemodialysis regimen. Fluid removal only as tolerated. No changes with the current dialysis bath. 3. Anemia on weekly Epogen.
[2017-03-04] MEDS: Acetaminophen 325 MG TAB PO PRN (09:53)
[2017-03-04] MEDS ORDERED: Heparin 10,000 UNITS/ 10 ML VIAL ONE ×2 (10:00→11:00)
--- NOTE | 2017-03-04 11:00 | DIS ---
PRIMARY CARE PHYSICIAN: [facility]. DATE OF ADMISSION: 03/02/2017 DATE OF DISCHARGE: 03/04/2017 DISCHARGE DISPOSITION: Home. PRIMARY DISCHARGE DIAGNOSES: 1. Nausea, vomiting, abdominal pain, likely due to gastroenteritis, resolved. 2. Hyperkalemia due to decrease renal excretion, resolved. 3. Thrombocytopenia volume overload, improved. SECONDARY DISCHARGE DIAGNOSES: Secondary hyperparathyroidism of renal origin, peripheral neuropathy, hypertension, end-stage renal disease on hemodialysis, diabetes type 2, chronic systolic and diastol ic heart failure, anemia of renal disease. PRIMARY PROCEDURE/OPERATION: Maintenance hemodialysis while in hospital. RADIOLOGICAL INVESTIGATION: Chest x-ray on admission showed cardiomegaly, pulmonary vascular promine nce; congestive heart failure, type of changes and left-sided pleural effusion. Abdomen and pelvis C T scan was negative for an acute abdominal process. SIGNIFICANT LABORATORY DATA: WBC 6.5, hemoglobin 9.4, platelets 188. Sodium 138, potassium 4.7, BUN 38, creatinine 6.68, calcium 8.4, phosphorus 4.2, albumin 3.4. Urinalysis unremarkable. Hepatitis B surface antigen negative. Blood culture showed gram positive jaclyn of 2 which is contaminant. Urine culture negative. Influenza negative. DISCHARGE MEDICATIONS: Tylenol 650 mg p.o. q.4 hourly p.r.n., Tylenol No. 3 one tablet q.4 hours p.r .n., Xanax 0.25 mg p.o. q.6 hourly p.r.n., aspirin 325 mg p.o. daily, Coreg 6.25 mg p.o. b.i.d., karyn min D3 2000 units p.o. daily, clonidine 0.2 mg p.o. b.i.d., Plavix 75 mg p.o. daily, Colace 100 mg p. o. b.i.d., NovoLog 70/30, 30 units subcu b.i.d., Imdur ER 30 mg p.o. daily, Cozaar 50 mg p.o. daily, Singulair 10 mg p.o. at bedtime, Protonix 40 mg p.o. daily, Renvela 2400 mg t.i.d. with meals and 160 0 mg p.o. b.i.d. with snack. CONTRAINDICATION: None. CODE STATUS: FULL CODE. INPATIENT CAR REPAIRMAN: Dr. Talley was consulted for dialysis. TEST RESULTS PENDING ON DISCHARGE: None. ALLERGIES: LEVOFLOXACIN. DISCHARGE PLAN: Post hospital, the patient will follow up with [facility]. The patient will res ume her maintenance hemodialysis. HOSPITAL COURSE: A 56-year-old female with above-mentioned medical problem who was admitted by Dr. Zavala, please see his H&P for further details. The patient was presented to emergency room with nausea, vomiting, abdominal pain. The patient also missed her hemodialysis yesterday becau se of these symptoms. In the emergency room, they did CT of the abdomen and pelvis, which was comple tely unremarkable. The patient had diarrhea at home, but since admission, she did not have any furth er diarrhea. We suspected viral gastroenteritis versus food poisoning, but the patient's symptomatol ogy clinically improved in hospital. She was not given any antibiotic therapy while in hospital, we consulted Dr. Talley for her volume overload and the Dr. Talley did 2 dialysis back to back and after that patient became euvolemic. The patient's symptomatology completely improved, her abdominal pain, reso lved, her nausea and vomiting resolved and she is tolerating p.o. well. At this point, the patient i s medically stable for discharge. Her hyperkalemia and metabolic acidosis also improved. Her thromb ocytopenia also resolved. The patient is advised to resume her regular maintenance dialysis. The patient is seen and examined at bedside today. All review of system was reviewed with her and sonu vernon. PHYSICAL EXAMINATION: VITAL SIGNS: Currently, temperature 98.1, pulse 67, respiratory rate 18, saturation 93%, blood press ure 140/65. Weight 236 pounds. GENERAL: The patient is currently alert, oriented, no acute distress. HEENT: Head: Normocephalic, atraumatic. LUNGS: Clear to auscultation without any rhonchi or rales. CARDIAC: S1, S2 regular without any murmur. ABDOMEN: Soft, bowel sounds present, nontender, nondistended. No organomegaly, no mass. EXTREMITIES: No edema. NEUROLOGIC: Nonfocal examination. Overall, the patient is medically stable for discharge today. We are not making any change in his [facility] medication.
--- NOTE | 2017-03-04 12:14 | PDOC.PN ---
- Subjective Encounter Start Date: 03/04/17 Encounter Start Time: 10:10 Patient seen and examined. No new complaints. No overnight events - Objective Resuscitation Status: Resuscitation Status FULL:Full Resuscitation MAR Reviewed: Yes Vital Signs & Weight: Vital Signs (12 hours) Temp Pulse Resp BP Pulse Ox 03/04/17 04:00 98.1 F 67 18 140/65 93 L Weight Weight 236 lb 8.896 oz I&O: 03/03/17 03/04/17 03/05/17 06:59 06:59 06:59 Intake Total 500 Balance 500 Result Diagrams: 03/04/17 04:09 03/04/17 04:09 Additional Labs: Accuchecks 03/04/17 03/03/17 03/03/17 05:39 20:42 16:09 POC Glucose 163 H 181 H 218 H 03/03/17 11:26 POC Glucose 160 H Phys Exam - Physical Examination Constitutional: NAD HEENT: PERRLA, moist MMs, sclera anicteric Neck: no JVD, supple Respiratory: no wheezing, no rales, no rhonchi Cardiovascular: RRR, no significant murmur, no rub Gastrointestinal: soft, non-tender, no distention, positive bowel sounds Musculoskeletal: no edema, pulses present Neurological: non-focal, normal sensation Psychiatric: normal affect, A&O x 3 Skin: no rash, normal turgor Dx/Plan (1) Abdominal pain Code(s): R10.9 - UNSPECIFIED ABDOMINAL PAIN Status: Resolved (2) Chronic combined systolic and diastolic congestive heart failure Code(s): I50.42 - CHRONIC COMBINED SYSTOLIC AND DIASTOLIC HRT FAIL Status: Chronic (3) Hyperkalemia, diminished renal excretion Code(s): E87.5 - HYPERKALEMIA Status: Acute (4) Metabolic acidosis Code(s): E87.2 - ACIDOSIS Status: Acute (5) Nausea & vomiting Code(s): R11.2 - NAUSEA WITH VOMITING, UNSPECIFIED Status: Acute (6) Thrombocytopenia Code(s): D69.6 - THROMBOCYTOPENIA, UNSPECIFIED Status: Acute (7) Volume overload Code(s): E87.70 - FLUID OVERLOAD, UNSPECIFIED Status: Acute (8) Anemia of renal disease Code(s): D63.1 - ANEMIA IN CHRONIC KIDNEY DISEASE Status: Chronic (9) DM type 2 (diabetes mellitus, type 2) Status: Chronic Comment: Continue NPH 30u SC BID, ISS, ADA (10) ESRD (end stage renal disease) on dialysis Code(s): N18.6 - END STAGE RENAL DISEASE; Z99.2 - DEPENDENCE ON RENAL DIALYSIS Status: Chronic Comment: HD per Renal service (11) HTN (hypertension) Code(s): I10 - ESSENTIAL (PRIMARY) HYPERTENSION Status: Chronic Comment: Continue Coreg and Clonidine, monitor clinical response (12) Peripheral neuropathy Code(s): G62.9 - POLYNEUROPATHY, UNSPECIFIED Status: Chronic (13) Secondary hyperparathyroidism of renal origin Code(s): N25.81 - SECONDARY HYPERPARATHYROIDISM OF RENAL ORIGIN Status: Chronic - Plan cont current plan of care * medication reviewed as below * symptomatic treatment * see discharge summery * medically stable for discharge.. Review of Systems - Review of Systems Respiratory: negative: Cough, Dry, Shortness of Breath, Hemoptysis, SOB with Excertion, Pleuritic Pain, Sputum, Wheezing Cardiovascular: negative: chest pain, palpitations, orthopnea, paroxysmal nocturnal dyspnea, edema, light headedness, other Gastrointestinal: negative: Nausea, Vomiting, Abdominal Pain, Diarrhea, Constipation, Melena, Hematochezia, Other Genitourinary: negative: Dysuria, Frequency, Incontinence, Hematuria, Retention , Other Musculoskeletal: negative: Neck Pain, Shoulder Pain, Arm Pain, Back Pain, Hand Pain, Leg Pain, Foot Pain, Other Skin: negative: Rash, Lesions, Basilio, Bruising, Other - Medications/Allergies Allergies/Adverse Reactions: Allergies Allergy/AdvReac Type Severity Reaction Status Date / Time Latex, Natural Rubber Allergy Mild Rash Verified 06/25/16 02:59 levofloxacin [From Levaquin] Allergy Mild Hives Verified 06/25/16 02:59 adhesive tape Allergy Verified 02/26/17 21:45 Iodinated Contrast- Oral and Allergy Rash Verified 06/25/16 02:59 IV Dye [Iodinated Contrast Media - IV Dye] shellfish derived Allergy Rash Verified 06/25/16 02:59 Medications: Current Medications Acetaminophen (Tylenol) 650 mg PO Q4H PRN PRN Reason: Headache/Fever or Pain Last Admin: 03/04/17 09:53 Dose: 650 mg Acetaminophen/Codeine Phosphate (Tylenol #3) 1 tab PO Q4H PRN PRN Reason: Pain Alprazolam (Xanax) 0.25 mg PO Q6H PRN PRN Reason: anxiety Aspirin (Ecotrin) 325 mg PO DAILY [facility] Last Admin: 03/03/17 15:45 Dose: 325 mg Carvedilol (Coreg) 6.25 mg PO BID-[facility] Last Admin: 03/03/17 15:48 Dose: 6.25 mg Cholecalciferol (Vitamin D3) 2,000 units PO DAILY [facility] Last Admin: 03/03/17 09:00 Dose: Not Given Clonidine (Catapres) 0.2 mg PO BID [facility] Last Admin: 03/03/17 21:22 Dose: 0.2 mg Clopidogrel Bisulfate (Plavix) 75 mg PO DAILY [facility] Last Admin: 03/03/17 15:45 Dose: 75 mg Dextrose/Water (Dextrose 50%) 25 gm SLOW IVP PRN PRN PRN Reason: Hypoglycemia Docusate Sodium (Colace) 100 mg PO BID [facility] Last Admin: 03/03/17 21:22 Dose: 100 mg Epoetin Krishna (Procrit) 10,000 units SC Q7D@0900 [facility] Last Admin: 03/03/17 13:03 Dose: 10,000 units Famotidine (Pepcid) 20 mg PO DAILY [facility] Last Admin: 03/03/17 15:45 Dose: 20 mg Glucagon (Glucagon) 1 mg IM PRN PRN PRN Reason: Hypoglycemia Guaifenesin/Dextromethorphan (Robitussin Dm) 15 ml PO Q4H PRN PRN Reason: Cough Dextrose/Water (D5w) 1,000 mls @ 0 mls/hr IV .Q0M PRN; As Directed PRN Reason: Hypoglycemia Insulin Human Isoph/Insulin Regular (Humulin 70/30) 30 units SC BID [facility] Last Admin: 03/03/17 21:25 Dose: Not Given Insulin Human Lispro (Humalog) 0 units SC .MODERATE SLIDING SC PRN PRN Reason: Moderate Correctional Scale Insulin Human Regular (Humulin R) 0 units SC .BEDTIME SLIDING SC PRN PRN Reason: Bedtime Correctional Scale Isosorbide Mononitrate (Imdur Er) 30 mg PO DAILY [facility] Last Admin: 03/03/17 09:00 Dose: Not Given Losartan Potassium (Cozaar) 50 mg PO DAILY [facility] Last Admin: 03/03/17 14:12 Dose: Not Given Metoclopramide HCl (Reglan) 10 mg PO ACHS [facility] Last Admin: 03/03/17 21:22 Dose: 10 mg Montelukast Sodium (Singulair) 10 mg PO HS [facility] Last Admin: 03/03/17 21:22 Dose: 10 mg Nitroglycerin (Nitrostat) 0.4 mg SL Q5MIN PRN PRN Reason: Chest Pain Ondansetron HCl (Zofran) 4 mg IVP Q6H PRN PRN Reason: Nausea/Vomiting Pantoprazole Sodium (Protonix) 40 mg PO DAILY [facility] Last Admin: 03/03/17 15:46 Dose: 40 mg Sevelamer Carbonate (Renvela) 2,400 mg PO TID-WM [facility] Last Admin: 03/03/17 18:30 Dose: Not Given Sodium Chloride (Flush - Normal Saline) 10 ml IVF Q12HR [facility] Last Admin: 03/03/17 21:25 Dose: 10 ml Sodium Chloride (Flush - Normal Saline) 10 ml IVF PRN PRN PRN Reason: Saline Flush
[2017-03-04] MEDS: Metoclopramide HCl 10 MG TAB PO SCH ×2 (12:26→12:28)
[2017-03-04] MEDS: Sevelamer Carbonate 800 MG TAB PO SCH ×2 (12:26→12:29)
[2017-03-04] MEDS: Carvedilol 6.25 MG TAB PO SCH (12:27)
[2017-03-04] MEDS: cloNIDine 0.2 MG TAB PO SCH (12:27)
[2017-03-04] MEDS: Aspirin 325 mg Enteric Coated Tablet PO SCH (12:27)
[2017-03-04] MEDS: Famotidine 20 MG TAB PO SCH (12:28)
[2017-03-04] MEDS: Clopidogrel Bisulfate 75 MG TAB PO SCH (12:28)
[2017-03-04] MEDS: Insulin NPH/Reg Insulin Hm 300 UNITS/3 ML VIAL SC SCH (12:28)
[2017-03-04] MEDS: Losartan Potassium 25 MG TAB PO SCH (12:28)
[2017-03-04] MEDS: Docusate 100 MG CAP PO SCH (12:31)
[2017-03-04 14:25] VITALS: BP 153/68
[2017-03-04 15:02] VITALS: TEMP 98.7
--- NOTE | 2017-03-11 18:36 | PQF ---
DIAMOND BUSH SALIM NOORJIBHAI MD [id number] [facility] [id number] CLINICAL DOCUMENTATION CLARIFICATION FORM: POST DISCHARGE Addendum to original discharge summary date: ____ Late entry note date: __ DATE: 03/11/17 ATTN: Ezra Alonzo MD Please exercise your independent, professional judgment in responding to the clarification form. Clinical indicators are provided on the bottom of this form for your review Patient with a history of CHF and ESRD presents with abdominal pain, fluid overload and missing dialysis. BNP was 1116.7, CXR showed congestive heart failure and Dr. Talley's progress note dated 03/04 states, "CHF, max out fluid removal with dialysis Please check appropriate box(s): Fluid overload is cardiogenic Fluid overload is noncardiogenic Unable to clinicaly determing Other [ ] addition, please specify: Present on Admission (POA): [ ] Yes [ ] No [ x ] Unable to determine (This form is maintained as a part of the permanent medical record) 2014 [employer]. All Rights Reserved Lucille [email or web address] [phone] RODOLFO
== END 2017-03-04 14:41 | disposition home or self-care (01) | DRG 640 ==
LOC: ERS 10:27 → 2NO 17:16
PROVIDERS: ADMIT Internal Medicine; ATTEND Internal Medicine
PROC: 5A1D70Z Performance of Urinary Filtration, Intermittent, Less than 6 Hours Per Day (ICD-10-PCS; principal; 2017-03-03)
DX: E87.70 Fluid overload, unspecified (principal); N18.6 End stage renal disease; I13.2 Hypertensive heart and chronic kidney disease with heart failure and with stage 5 chronic kidney disease, or end stage renal disease; D69.59 Other secondary thrombocytopenia; E87.2 Acidosis; N25.81 Secondary hyperparathyroidism of renal origin; I50.42 Chronic combined systolic (congestive) and diastolic (congestive) heart failure; E11.9 Type 2 diabetes mellitus without complications; E78.5 Hyperlipidemia, unspecified; E87.5 Hyperkalemia; D63.1 Anemia in chronic kidney disease; I25.10 Atherosclerotic heart disease of native coronary artery without angina pectoris; R19.7 Diarrhea, unspecified; Z91.15 Patient's noncompliance with renal dialysis; Z89.412 Acquired absence of left great toe; Z99.2 Dependence on renal dialysis; Z90.49 Acquired absence of other specified parts of digestive tract; Z88.1 Allergy status to other antibiotic agents; Z91.040 Latex allergy status; Z91.013 Allergy to seafood; Z91.09 Other allergy status, other than to drugs and biological substances; Z83.3 Family history of diabetes mellitus; Z82.49 Family history of ischemic heart disease and other diseases of the circulatory system
CPT/HCPCS: 36415; 36416; 71010; 74176; 80048; 80053; 80061; 80069; 81003; 81015; 82553; 83605; 83690; 83880; 84484; 85025; 87040; 87086; 87340; 90935; 93005; 93306; 94760; 96372; 96374; 96375; 96376; A4216; G0257; G0378; J1644; J2270; J2405; J3010; Q4081

== ENCOUNTER 2017-05-14 03:53 | Emergency (ER) | payer MEDICARE | END 2017-05-14 04:11 | disposition home or self-care (01) | LOC: ERS 03:53 | DX: L02.01 Cutaneous abscess of face (principal); I12.0 Hypertensive chronic kidney disease with stage 5 chronic kidney disease or end stage renal disease; N18.6 End stage renal disease; E11.9 Type 2 diabetes mellitus without complications; F41.9 Anxiety disorder, unspecified | CPT/HCPCS: 99283 ==

== ENCOUNTER 2017-05-28 00:34 | Inpatient (IN) | payer MEDICARE ==
[2017-05-28 01:07] LABS: #Eosinphils 0.2 thou/uL (0.0-0.7); #Lymphocytes 0.7 thou/uL (1.20-3.40); #Monocytes 0.8 thou/uL (0.11-0.59); #Neutrophils 9.1 thou/uL (1.40-6.50); %Basophils 0.3 % (0.0-1.0); %Eosinophils 1.7 % (0.0-10.0); %Lymphocytes 6.2 % (21.0-51.0); %Monocytes 7.2 % (0.0-10.0); %Neutrophils 84.6 % (42.0-75.0); Hemoglobin 9.9 g/dL (12.0-16.0); Mean Corpuscular HGB CONC 33.4 g/dL (32.0-36.0); Mean Corpuscular Hemoglobin 31.6 pg (27.0-31.0); Mean Corpuscular Volume 94.7 fl (81.0-99.0); Mean Platelet Volume 9.8 fL (7.4-10.4); Platelet Count 191 thou/uL (130-400); RBC Distribution Width 15.4 % (11.5-14.5); Red Blood Cell (RBC) Count 3.13 mill/uL (4.20-5.40); White Blood Cell (WBC) Count 10.7 thou/uL (4.8-10.8)
[2017-05-28 01:31] LABS: ALT (SGPT) Less than 7 U/L (8-55); AST (SGOT) 11 U/L (5-34); Albumin 3.8 g/dL (3.5-5.0); Alkaline Phosphatase 175 U/L (40-150); Anion Gap 15 mmol/L (10-20); BUN (Urea Nitrogen) 35 mg/dL (9.8-20.1); Bilirubin, Total 0.6 mg/dL (0.2-1.2); CK (CPK) 30 U/L (29-168); Calc. Creatinine Clearance 0 mL/min (70-130); Calcium 9.2 mg/dL (7.8-10.44); Carbon Dioxide 34 mmol/L (22-29); Chloride 93 mmol/L (98-107); Estimated GFR-MDRD 8; Globulin 3.9 g/dL (2.4-3.5); Glucose 172 mg/dL (70-105); Lipase 22 U/L (8-78); Magnesium 2.1 mg/dL (1.6-2.6); Potassium 4.8 mmol/L (3.5-5.1); Protein, Total 7.7 g/dL (6.0-8.3); Sodium 137 mmol/L (136-145)
[2017-05-28 01:35] LABS: CKMB 0.4 ng/mL (0-6.6); Troponin I 0.011 ng/mL (< 0.028)
[2017-05-28] MEDS ORDERED: Metoclopramide HCl 10 MG/2 ML VIAL ONE (02:25)
[2017-05-28] MEDS ORDERED: Nitroglycerin 0.4 MG TAB (25 Tab Bottle) ONE (02:25)
[2017-05-28] MEDS ORDERED: Ondansetron ODT 4 MG TAB ONE (02:25)
[2017-05-28] MEDS ORDERED: Morphine 4 MG/ML VIAL ONE (04:54)
[2017-05-28] MEDS ORDERED: Acetaminophen 325 MG TAB PO PRN (06:32)
[2017-05-28] MEDS ORDERED: Nitroglycerin 0.4 MG TAB (25 Tab Bottle) SL PRN (06:32)
[2017-05-28] MEDS ORDERED: Ondansetron ODT 4 MG TAB SL PRN ×2 (06:32→21:12)
[2017-05-28] MEDS ORDERED: Ondansetron HCl/PF 4 MG/2 ML Vial IVP PRN (06:32)
[2017-05-28 06:43] VITALS: BMI 41.5
[2017-05-28 06:50] LABS: Troponin I 0.028 ng/mL (< 0.028)
--- NOTE | 2017-05-28 08:48 | CT ---
PRELIMINARY REPORT/[facility]/EMERGENCY AFTER HOURS PROCEDURE: Addendum created by Bandar Ocasio MD on 05/28/2017 4:18 AM Central Time ([place] & [place]) Also included in the IMPRESSION should be "Hydrostatic interstitial pulmonary edema/CHF." Initial Report created on 05/28/2017 4:17 AM Central Time ([place] & [place]) EXAM: CT Abdomen and Pelvis Without Intravenous Contrast EXAM DATE/TIME: Exam ordered 05/28/2017 3:16 AM CLINICAL HISTORY: 57 years old, female; Pain; Abdominal pain; Generalized; Patient HX: 57 yo hf with pmh dm2 and esrd. Presents with chest pain that started at approximately 1000 on 05/27 at the end of her hd treatment. R eports substernal chest pressure, nausea, vomiting, and tingling in arms and hands. Reports this nicolle n feels similar to previous angina prior to stenting. Has had similar pain during hd in past. F/u wit h dr. Lerma who she says plans on performing stress test in next 2-3 weeks. TECHNIQUE: Axial computed tomography images of the abdomen and pelvis without intravenous contrast. All CT scans at this facility use one or more dose reduction techniques, viz.: automated exposure control; ma/kV adjustment per patient size (including targeted exams where dose is matched to indication; i.e. head) ; or iterative reconstruction technique. Coronal reformatted images were created and reviewed. COMPARISON: No relevant prior studies available. FINDINGS: Lower thorax: Mild ground glass opacity in the medial right lower lobe is suspicious for pneumonia/as piration. Cardiomegaly. Mild smooth interlobular septal thickening evident at the lung bases, compati ble with hydrostatic interstitial pulmonary edema/CHF. Left basilar subsegmental atelectasis. ABDOMEN: Liver: Unremarkable. Gallbladder and bile ducts: Gallbladder not visualized. No ductal dilation. Pancreas: Unremarkable. No ductal dilation. Spleen: Borderline splenomegaly. Adrenals: Unremarkable. No mass. Kidneys and ureters: Bilateral renal vascular calcifications. Chronic medical renal disease. No hydro nephrosis. Stomach and bowel: No bowel wall thickening or intestinal obstruction. Appendix: Appendix not visualized. No evidence of appendicitis. PELVIS: Bladder: Unremarkable. No stones. Reproductive: Uterus and ovaries are unremarkable. ABDOMEN and PELVIS: Intraperitoneal space: Unremarkable. No free air. No significant fluid collection. Bones/joints: No acute fracture. No dislocation. Soft tissues: Unremarkable. Vasculature: See above. Lymph nodes: Unremarkable. No enlarged lymph nodes. IMPRESSION: 1. Mild ground glass opacity in the medial right lower lobe is suspicious for pneumonia/aspiration. 2. Borderline splenomegaly. Thank you for allowing us to participate in the care of your patient. Dictated and Authenticated by: Bandar Ocasio MD 05/28/2017 4:17 AM Central Time ([place] & [place]) FINAL REPORT CT ABDOMEN AND PELVIS WITHOUT CONTRAST: Date: 05/28/17 HISTORY: Abdominal pain. COMPARISON: CT abdomen and pelvis without contrast dated 03/02/17. FINDINGS: Findings and impression are concordant with the preliminary report by Noé. Compression deformity at L1 is similar to the comparison examination.
--- NOTE | 2017-05-28 08:58 | RAD ---
CHEST 1 VIEW: Date: 05/28/17 HISTORY: Chest pain. COMPARISON: 03/02/17. FINDINGS: Cardiac silhouette is magnified and enlarged. Pulmonary vasculature is upper limits of normal with pa tchy bibasilar infiltrates. Mediastinum is midline. No lobar consolidation or evidence of pneumothora x. IMPRESSION: Patchy bibasilar infiltrates are favored to be related to pulmonary vascular congestion. Continued ra diographic follow-up is suggested. POS: [facility]
[2017-05-28 09:43] LABS: Troponin I 0.012 ng/mL (< 0.028)
[2017-05-28] MEDS ORDERED: Morphine 5 MG/ML SYRINGE SLOW IVP PRN (13:46)
[2017-05-28] MEDS ORDERED: Lidocaine 2% Viscous Solution 20 ML, Aluminum & Magnesium Hydroxide 30 ML, Donnatal Eli... SSW SCH ×3 (14:00)
[2017-05-28] MEDS: Metoclopramide HCl 10 MG/2 ML VIAL IVP SCH ×2 (14:32→21:26)
[2017-05-28] MEDS: ALPRAZolam 0.25 MG TAB PO SCH (14:39)
[2017-05-28 14:46] LABS: INR-International Normal Ratio 1.1; PTT 34.2 SEC (22.9-36.1); Prothrombin Time 14.6 SEC (12.0-14.7)
[2017-05-28] MEDS: Carvedilol 6.25 MG TAB PO SCH (15:20)
[2017-05-28] MEDS ORDERED: Labetalol HCl 100 MG/20 ML VIAL SLOW IVP PRN (16:17)
[2017-05-28] MEDS: Sevelamer Carbonate 800 MG TAB PO SCH ×2 (17:46→20:28)
--- NOTE | 2017-05-28 18:56 | HP ---
DATE OF ADMISSION: 05/28/2017 CHIEF COMPLAINT: Abdominal pain. PRIMARY CARE PHYSICIAN: Patient's PCP is close to [facility]. HISTORY OF PRESENT ILLNESS: The patient is a 57-year-old female with medical history of end-stage re nal disease on dialysis who comes in with complaints of abdominal pain, nausea, and vomiting x1 day. The patient also complains of chest pain during her dialysis session. The patient states that she n ormally at baseline, has some abdominal pain; however, yesterday she started having intense sharp-lik e abdominal pain and also had nausea and vomited about 5 times. The patient states that she has been nauseated every time she eats food. The patient denies any eating outside. She denies any diarrhea . Patient also states that she does have some dull chest pain; however, currently her chest pain has resolved. Patient denies any fevers or chills; however, complains of intense abdominal pain and is currently crying. Patient states that she did have her gallbladder removed a long time ago. The patient in the ED had an abdominal CAT scan without any contrast which indicated just splenomegal y, otherwise essentially normal. PAST MEDICAL HISTORY: 1. Patient has a history of end-stage renal disease, on dialysis. 2. Hypertension. 3. Diabetes type 2. 4. Coronary artery disease. 5. Has a history of abdominal pain. PAST SURGICAL HISTORY: AV fistula placement, cardiac stents, cholecystectomy and also left toe amput ation. SOCIAL HISTORY: She denies any smoking, alcohol or drug use. MEDICATIONS: Are as the following: She takes Xanax 0.25 mg p.o. q.6 h., she takes Renvela 1600 mg p .o. b.i.d., she also takes Renvela 2400 mg t.i.d., Singulair 10 mg at bedtime, isosorbide 30 mg daily , Colace 10 mg b.i.d., Protonix 40 mg daily, Plavix 75 mg daily, clonidine 0.2 mg p.o. b.i.d., losart an 50 mg p.o. daily, vitamin D3 2000 units p.o. daily, Coreg 6.25 mg p.o. b.i.d., aspirin 325 mg jim y, and she also takes NovoLog 70/30, 30 units b.i.d. REVIEW OF SYSTEMS: The following complete review of systems was negative, unless otherwise mentioned in the HPI or below: Constitutional: Weight loss or gain, ability to conduct usual activities. Sk in: Rash, itching. Eyes: Double vision, pain. ENT/Mouth: Nose bleeding, neck stiffness, pain, te nderness. Cardiovascular: Palpitations, dyspnea on exertion, orthopnea. Respiratory: Shortness of breath, wheezing, cough, hemoptysis, fever or night sweats. Gastrointestinal: Poor appetite, abdom inal pain, heartburn, nausea, vomiting, constipation, or diarrhea. Genitourinary: Urgency, frequenc y, dysuria, nocturia. Musculoskeletal: Pain, swelling. Neurologic/Psychiatric: Anxiety, depressio n. Allergy/Immunologic: Skin rash, bleeding tendency. FAMILY HISTORY: She also is positive heart disease. PHYSICAL EXAMINATION: VITAL SIGNS: Patient currently is afebrile at 99.5, pulse is 69, respirations are 24, 98% on room ai r. Blood pressure currently is very high at 204/86. GENERAL: Patient is complaining of significant abdominal pain, appears in distress. HEENT: Normocephalic, atraumatic. NECK: No lymphadenopathy noted. RESPIRATORY: Clear to auscultation. No rhonchi, wheezes noted. CARDIOVASCULAR: S1, S2 present. No murmurs, rubs or gallops. ABDOMEN: Obese. Bowel sounds are present x2. She does have significant palpation on her epigastric area on her right upper quadrant and on her left lower quadrant and she also has it on her right low er quadrant and umbilical area. EXTREMITIES: Left great toe amputation, otherwise pedal pulses are present. LABORATORY DATA: Are as the following: White cells of 10.7, hemoglobin of 9.9, hematocrit of 29.7, platelets of 191. Chemistry shows a sodium 137, potassium 4.8, anion gap of 15, BUN of 35, creatinin e 5.69, glucose is 172. AST and ALT are normal. Alkaline phosphatase is mildly elevated at 175. CK is 30, her lipase is 22. TSH is normal. Troponins are intermediate at 0.011 and 0.028 and 0.012. ASSESSMENT AND PLAN: The patient is a very pleasant 57-year-old woman who complains of abdominal nicolle n. 1. Abdominal pain, etiology included a possible peptic ulcer disease versus significant reflux versu s possibly some kind of vascular disease given her history of diabetes, end-stage renal disease and c ardiac history. I did speak with Nephrology who stated that the patient does have severe reflux and never had an endoscopy. We will start patient on Protonix IV b.i.d. We will also give patient GI co cktail. 2. We will also give patient pain medications as needed. CAT scan does not show any abnormalities. Her labs are pretty much normal, not sure what is causing her to have such significant amount of nicolle n. Also, she did have significant amount of stool in her colon. We will give her some Reglan, could this be possible gastroparesis and if her abdominal pain does not resolve until tomorrow, may consid er consulting GI. She does have allergy to IV contrast. If pain does not improve, may consider pedro armando a CTA of the abdomen to kind of rule out any mesenteric issues. 3. Hypertension, uncontrolled. We will continue her home medications. 4. Anemia which appears to be stable. 5. End-stage renal disease. The patient will be started on dialysis. 6. Deep venous thrombosis prophylaxis. We will put patient on subcu heparin. 7. Intermediate levels of troponins. EKG, no significant changes. We will continue to monitor. I do not think patient is having any sort of a cardiac event. I will continue to monitor.
[2017-05-28] MEDS ORDERED: Sodium Chloride 0.9% 500 ML IV SCH (20:00)
[2017-05-28] MEDS: Montelukast Sodium 10 mg Tablet PO SCH (20:28)
[2017-05-28] MEDS: Pantoprazole 40 MG VIAL IVP SCH (20:28)
[2017-05-28] MEDS: Docusate 100 MG CAP PO SCH (20:29)
[2017-05-28] MEDS: cloNIDine 0.2 MG TAB PO SCH (20:29)
[2017-05-28] MEDS: Acetaminophen 325 MG TAB PO PRN (21:26)
[2017-05-28] MEDS: Ondansetron HCl/PF 4 MG/2 ML Vial IVP PRN (21:26)
--- NOTE | 2017-05-28 23:03 | CON ---
DATE OF CONSULTATION: 05/28/2017 CONSULTING PHYSICIAN: Dr. Nimesh Hicks. REQUESTING PHYSICIAN: Dr. Alonzo. REASON FOR CONSULTATION: The need for maintenance hemodialysis. IMPRESSION: 1. End-stage renal disease, hemodialysis dependent, Wednesday, , and Wednesday, last dialyzed y . 2. Abdominal pain, query cause, possible dyspepsia in the context of possible peptic ulcer disease; however, I cannot completely rule out any ischemic mesenteric problem. 3. Diabetes mellitus. PLAN: 1. There is no emergent indication for renal replacement therapy (hemodialysis). Therefore, patient to remain on her normal schedule of Wednesday, , and Wednesday and will be due for dialysis cody orrow. 2. Further management will be dependent on the clinical course. Patient likely to benefit from prot on pump inhibitor parenterally given the nausea and vomiting in this patient. HISTORY OF PRESENT ILLNESS: History is that of a 57-year-old female patient with end-stage renal dis ease, hemodialysis dependent, last dialyzed yesterday who presented with chest pain that started off at dialysis and now complaining more of abdominal pain. Pain localized around the epigastric area; h owever, the generalized abdomen is feeling tender to touch. In any case, the patient could not . PAST MEDICAL HISTORY: Significant for end stage renal disease, hemodialysis dependent, hypertension, diabetes, secondary hyperparathyroidism. MEDICATIONS: Reviewed and as documented on [facility]. ALLERGIES: IODINE, LATEX GLOVES, LEVAQUIN and SHELLFISH. FAMILY HISTORY: Not significantly related to presenting illness. SOCIAL HISTORY: . Denies alcohol, tobacco or illicit drug use. PHYSICAL EXAMINATION: GENERAL: The patient was found to be in physical distress, reasoning pain. VITAL SIGNS: Afebrile, temperature 98.4, pulse 97, respiratory rate 24, O2 sat 93%, blood pressure 2 02/86. HEENT: Unremarkable. CARDIOVASCULAR SYSTEM: First and second heart sounds were heard. RESPIRATORY SYSTEM: Clear to auscultation. DIGESTIVE SYSTEM: Revealed tender abdomen on palpation, especially around the epigastric area; howev er, the rest of the abdomen tends to be tender to touch. EXTREMITIES: No peripheral edema. SKIN: No new gross rash. LYMPHATICS: No peripheral lymphadenopathy. SUMMARY: A 57-year-old female patient with end-stage renal disease, hemodialysis dependent, who pres ented here with chest pain and eventually settled down as abdominal pain. Thank you for this consultation. We will follow with you.
[2017-05-29] MEDS: ALPRAZolam 0.25 MG TAB PO SCH ×4 (03:41→19:24)
[2017-05-29] MEDS: Metoclopramide HCl 10 MG/2 ML VIAL IVP SCH ×2 (05:05→17:43)
[2017-05-29] MEDS: Acetaminophen 325 MG TAB PO PRN ×2 (05:05→20:34)
[2017-05-29] MEDS: Ondansetron HCl/PF 4 MG/2 ML Vial IVP PRN (05:09)
[2017-05-29 05:53] LABS: ALT (SGPT) 12 U/L (8-55); AST (SGOT) 19 U/L (5-34); Albumin 3.5 g/dL (3.5-5.0); Alkaline Phosphatase 159 U/L (40-150); Anion Gap 20 mmol/L (10-20); BUN (Urea Nitrogen) 56 mg/dL (9.8-20.1); Bilirubin, Total 0.5 mg/dL (0.2-1.2); Calc. Creatinine Clearance 14 mL/min (70-130); Calcium 8.2 mg/dL (7.8-10.44); Carbon Dioxide 27 mmol/L (22-29); Chloride 93 mmol/L (98-107); Estimated GFR-MDRD 5; Globulin 3.5 g/dL (2.4-3.5); Glucose 208 mg/dL (70-105); Potassium 5.9 mmol/L (3.5-5.1); Sodium 134 mmol/L (136-145)
[2017-05-29 06:37] LABS: Band 10 % (5-11); Hemoglobin 8.8 g/dL (12.0-16.0); Lymphocytes 20 % (21-51); MDiff Complete? YES; Mean Corpuscular HGB CONC 33.7 g/dL (32.0-36.0); Mean Corpuscular Hemoglobin 32.2 pg (27.0-31.0); Mean Corpuscular Volume 95.5 fl (81.0-99.0); Mean Platelet Volume 10.4 fL (7.4-10.4); Monocytes 10 % (0-10); Neutrophil 60 % (42-75); Platelet Count 159 thou/uL (130-400); RBC Distribution Width 15.5 % (11.5-14.5); Red Blood Cell (RBC) Count 2.74 mill/uL (4.20-5.40); White Blood Cell (WBC) Count 6.2 thou/uL (4.8-10.8)
[2017-05-29] MEDS ORDERED: Heparin 1,000 UNITS/ML VIAL ONE (11:11)
[2017-05-29] MEDS ORDERED: Azithromycin 500 MG in Syringe 0 ML IVPB SCH (13:00)
[2017-05-29] MEDS ORDERED: cefTRIAXone Sodium 1 MG in Syringe 0 ML IVPB SCH (13:00)
[2017-05-29] MEDS: Aspirin 325 MG TAB PO SCH (13:06)
[2017-05-29] MEDS: Losartan 25 MG TAB PO SCH (13:06)
[2017-05-29] MEDS: Sevelamer Carbonate 800 MG TAB PO SCH ×5 (13:07→20:47)
[2017-05-29] MEDS: Clopidogrel Bisulfate 75 MG TAB PO SCH (13:07)
[2017-05-29] MEDS: cloNIDine 0.2 MG TAB PO SCH ×2 (13:07→20:33)
[2017-05-29] MEDS: Carvedilol 6.25 MG TAB PO SCH ×2 (13:08→17:40)
[2017-05-29] MEDS: Pantoprazole 40 MG VIAL IVP SCH ×2 (13:09→20:33)
[2017-05-29] MEDS: Docusate 100 MG CAP PO SCH ×2 (13:12→20:33)
[2017-05-29] MEDS: cefTRIAXone\\ROCEPHIN 1 GM, Syringe 0.4 ML in Sterile Water 9.6 ML SLOW IVP SCH (13:39)
[2017-05-29] MEDS: Azithromycin 500 MG in Sodium Chloride 0.9% 250 ML 250 ML IVPB SCH (13:39)
--- NOTE | 2017-05-29 14:35 | PDOC.PN ---
- Subjective Encounter Start Date: 05/29/17 Encounter Start Time: 10:00 Subjective: pt in chair in dialysis, no complains of abdominal pain - Objective Resuscitation Status: Resuscitation Status FULL:Full Resuscitation Vital Signs & Weight: Vital Signs (12 hours) Temp Pulse Resp BP BP Pulse Ox 05/29/17 13:20 99.1 F 80 20 148/63 H 100 05/29/17 08:00 99.3 F 78 24 H 05/29/17 07:12 99.3 F 78 24 H 164/67 H 91 L 05/29/17 04:54 101.7 F H 92 24 H 159/70 H 96 Weight Weight 254 lb 11.2 oz I&O: 05/28/17 05/29/17 05/30/17 06:59 06:59 06:59 Intake Total 860 20 Balance 860 20 Result Diagrams: 05/29/17 04:51 05/29/17 04:51 Phys Exam - Physical Examination HEENT: PERRLA Neck: no nodes, no JVD Respiratory: no wheezing, no rales Cardiovascular: RRR, no significant murmur Gastrointestinal: soft, non-tender Musculoskeletal: no edema Dx/Plan - Plan 1) abdominal pain/nausea 2) fever overnight 3) possible pna 4) dm type 2 5) esrd plan: pt's ctabd/pel is normal, lipase normal. pt was given gi cocktail ( i was told by renal that she has a hx of severe reflux and has never had a egd). Also put her on reglan for possible gastroparesis. pt's abdominal pain has improved. 2) she had a fever of 101. possible infiltrate on cxr. will order abx and check procalcitonin. 3) pt is on abx but she did have a prolong QT, ekg today QTC stable. Will order ekg on wednesday. She is on zofran, reglan and on azith. 4) continue ss insulin 5) dialysis per nephro * . Review of Systems - Review of Systems Eyes: negative: Pain, Vision Change, Conjunctivae Inflammation, Eyelid Inflammation, Redness, Other ENT: negative: Ear Pain, Ear Discharge, Nose Pain, Nose Discharge, Nose Congestion, Mouth Pain, Mouth Swelling, Throat Pain, Throat Swelling, Other Gastrointestinal: Nausea Genitourinary: negative: Dysuria, Frequency, Incontinence, Hematuria, Retention , Other Musculoskeletal: negative: Neck Pain, Shoulder Pain, Arm Pain, Back Pain, Hand Pain, Leg Pain, Foot Pain, Other - Medications/Allergies Allergies/Adverse Reactions: Allergies Allergy/AdvReac Type Severity Reaction Status Date / Time Latex, Natural Rubber Allergy Mild Rash Verified 05/28/17 06:34 levofloxacin [From Levaquin] Allergy Mild Hives Verified 05/28/17 06:34 adhesive tape Allergy Verified 05/28/17 06:34 Iodinated Contrast- Oral and Allergy Rash Verified 05/28/17 06:34 IV Dye [Iodinated Contrast Media - IV Dye] shellfish derived Allergy Rash Verified 05/28/17 06:34 Medications: Current Medications Acetaminophen (Tylenol) 650 mg PO Q6H PRN PRN Reason: Fever or Pain Last Admin: 05/29/17 05:05 Dose: 650 mg Alprazolam (Xanax) 0.25 mg PO Q6HR [facility] Last Admin: 05/29/17 13:09 Dose: Not Given Aspirin (Aspirin) 325 mg PO DAILY [facility] Last Admin: 05/29/17 13:06 Dose: 325 mg Carvedilol (Coreg) 6.25 mg PO BID-[facility] Last Admin: 05/29/17 13:08 Dose: 6.25 mg Cholecalciferol (Vitamin D3) 2,000 units PO DAILY [facility] Last Admin: 05/29/17 13:06 Dose: 2,000 units Clonidine (Catapres) 0.2 mg PO BID [facility] Last Admin: 05/29/17 13:07 Dose: 0.2 mg Clopidogrel Bisulfate (Plavix) 75 mg PO DAILY [facility] Last Admin: 05/29/17 13:07 Dose: 75 mg Docusate Sodium (Colace) 100 mg PO BID [facility] Last Admin: 05/29/17 13:12 Dose: 100 mg Ceftriaxone Sodium 1 gm/ (Syringe 0.4 ml/ Sterile Water) 10 mls @ 120 mls/hr SLOW IVP Q24HR [facility] Last Admin: 05/29/17 13:39 Dose: 10 mls Azithromycin 500 mg/ Sodium (Chloride) 250 mls @ 250 mls/hr IVPB Q24HR [facility] Last Admin: 05/29/17 13:39 Dose: 250 mls Isosorbide Mononitrate (Imdur Er) 30 mg PO DAILY [facility] Last Admin: 05/29/17 13:07 Dose: 30 mg Labetalol HCl (Normodyne) 10 mg SLOW IVP Q4H PRN PRN Reason: SBP Greater Than 180 Losartan Potassium (Cozaar) 50 mg PO DAILY [facility] Last Admin: 05/29/17 13:06 Dose: 50 mg Metoclopramide HCl (Reglan) 10 mg IVP Q8HR [facility] Last Admin: 05/29/17 05:05 Dose: 10 mg Montelukast Sodium (Singulair) 10 mg PO HS [facility] Last Admin: 05/28/17 20:28 Dose: 10 mg Morphine Sulfate (Morphine) 2 mg SLOW IVP Q4H PRN PRN Reason: Moderate Pain (4-6) Last Admin: 05/28/17 15:18 Dose: 2 mg Ondansetron HCl (Zofran Odt) 4 mg SL Q6H PRN PRN Reason: Nausea/Vomiting Ondansetron HCl (Zofran) 4 mg IVP Q6H PRN PRN Reason: Nausea/Vomiting Last Admin: 05/29/17 05:09 Dose: 4 mg Pantoprazole Sodium (Protonix) 40 mg IVP Q12HR [facility] Last Admin: 05/29/17 13:09 Dose: 40 mg Sevelamer Carbonate (Renvela) 1,600 mg PO BID [facility] Last Admin: 05/29/17 13:08 Dose: Not Given Sevelamer Carbonate (Renvela) 2,400 mg PO TID-[facility] Last Admin: 05/29/17 13:08 Dose: Not Given
[2017-05-29] MEDS: Montelukast Sodium 10 mg Tablet PO SCH (20:33)
[2017-05-30] MEDS: ALPRAZolam 0.25 MG TAB PO SCH ×5 (00:28→21:21)
[2017-05-30] MEDS: Metoclopramide HCl 10 MG/2 ML VIAL IVP SCH ×4 (00:38→21:20)
[2017-05-30] MEDS ORDERED: Dextrose 5% in Water 1,000 ML IV PRN (05:13)
[2017-05-30] MEDS ORDERED: Dextrose 50% Abboject 50 ML SYRINGE IVP PRN (05:13)
[2017-05-30] MEDS ORDERED: HumaLOG 300 UNITS/3 ML VIAL SC PRN (05:13)
--- NOTE | 2017-05-30 06:44 | PRG ---
DATE OF SERVICE: 05/29/2017 The patient was seen and examined, seems to be doing much better, tolerating dialysis very well. Hem odynamically stable. Abdominal discomfort seems to have subsided, noted with the following vital sig ns. PHYSICAL EXAMINATION: VITAL SIGNS: Afebrile with a temperature maximum of 101.7, pulse 78, respiratory rate 24, blood pres sure 164/67. HEENT EXAMINATION: Unremarkable. CARDIOVASCULAR SYSTEM: First and second heart sounds were heard. RESPIRATORY SYSTEM: Clear to auscultation. DIGESTIVE SYSTEM: Revealed a benign abdomen. EXTREMITIES: No peripheral edema. SKIN EXAMINATION: No new gross rash. LYMPHATICS: No peripheral lymphadenopathy. IMPRESSION: 1. End-stage renal disease, on hemodialysis. 2. Abdominal pain, possibly related to dyspepsia/peptic ulcer disease. 3. Hypertension. PLAN: 1. The patient to continue with scheduled dialysis Wednesday, , and Wednesday. 2. Further management will be dependent on the clinical course.
[2017-05-30] MEDS: Acetaminophen 325 MG TAB PO PRN (07:58)
[2017-05-30] MEDS: Aspirin 325 MG TAB PO SCH (09:14)
[2017-05-30] MEDS: Pantoprazole 40 MG VIAL IVP SCH ×2 (09:14→21:21)
[2017-05-30] MEDS: cloNIDine 0.2 MG TAB PO SCH ×2 (09:14→21:21)
[2017-05-30] MEDS: Losartan 25 MG TAB PO SCH (09:14)
[2017-05-30] MEDS: Sevelamer Carbonate 800 MG TAB PO SCH ×4 (09:15→17:39)
[2017-05-30] MEDS: Docusate 100 MG CAP PO SCH ×2 (09:15→21:21)
[2017-05-30] MEDS: Carvedilol 6.25 MG TAB PO SCH ×2 (09:15→17:15)
[2017-05-30] MEDS: Clopidogrel Bisulfate 75 MG TAB PO SCH (09:15)
[2017-05-30] MEDS: HumaLOG 300 UNITS/3 ML VIAL SC PRN (10:59)
--- NOTE | 2017-05-30 11:04 | PRG ---
DATE OF SERVICE: 05/30/2017 Patient was seen and examined and seems to be feeling much better, as she relates to the abdominal pa in, noted with the following vital signs. PHYSICAL EXAMINATION: VITAL SIGNS: Temperature maximum 100.2, pulse 76, respiratory rate 16, O2 saturation of 94% with blo od pressure 154/69. HEENT EXAMINATION: Unremarkable with moist oral mucosa. NECK: Supple. No conjunctival injection or icterus. CARDIOVASCULAR SYSTEM: First and second heart sounds were heard. RESPIRATORY SYSTEM: Clear to auscultation. DIGESTIVE SYSTEM: Revealed a benign abdomen with positive bowel sounds. EXTREMITIES: No peripheral edema. SKIN EXAMINATION: No new gross rash. LYMPHATICS: No peripheral lymphadenopathy. IMPRESSION: 1. End-stage renal disease, on hemodialysis. 2. Abdominal pain, which seems to be much improved. PLAN: 1. We will continue with hemodialysis as per patient's schedule. 2. There is no emergent indication for renal replacement therapy. 3. Further management to be dependent on the clinical course as well as further recommendations from the primary service.
[2017-05-30] MEDS: cefTRIAXone\\ROCEPHIN 1 GM, Syringe 0.4 ML in Sterile Water 9.6 ML SLOW IVP SCH (13:14)
[2017-05-30] MEDS: Azithromycin 500 MG in Sodium Chloride 0.9% 250 ML 250 ML IVPB SCH (13:43)
--- NOTE | 2017-05-30 13:45 | PDOC.PN ---
- Subjective Encounter Start Date: 05/30/17 Encounter Start Time: 13:52 Subjective: c/o dizziness after being moved to a different room. -: No acute events overnight. - Objective MAR Reviewed: Yes Vital Signs & Weight: Vital Signs (12 hours) Temp Pulse Resp BP BP Pulse Ox 05/30/17 12:10 92 L 05/30/17 11:52 98.0 F 71 14 103/49 L 93 L 05/30/17 09:15 98.5 F 05/30/17 08:00 100.2 F H 76 16 05/30/17 07:19 100.2 F H 76 16 154/69 H 94 L 05/30/17 04:00 98.6 F 79 20 168/76 H 97 Weight Weight 243 lb 11.2 oz I&O: 05/29/17 05/30/17 05/31/17 06:59 06:59 06:59 Intake Total 50 Balance 50 Result Diagrams: 05/29/17 04:51 05/29/17 04:51 Additional Labs: Accuchecks 05/30/17 05/30/17 05/29/17 10:55 05:47 23:55 POC Glucose 216 H 216 H 272 H Phys Exam - Physical Examination Constitutional: NAD HEENT: PERRLA, moist MMs, sclera anicteric Neck: no JVD, supple, full ROM Respiratory: no wheezing, no rales, no rhonchi, clear to auscultation bilateral Cardiovascular: RRR, no significant murmur, no rub Gastrointestinal: soft, non-tender, no distention, positive bowel sounds Musculoskeletal: no edema, pulses present Neurological: non-focal, moves all 4 limbs Psychiatric: normal affect, A&O x 3 Skin: no rash, normal turgor Dx/Plan (1) Nausea & vomiting Code(s): R11.2 - NAUSEA WITH VOMITING, UNSPECIFIED Status: Acute Qualifiers: Vomiting type: unspecified Vomiting Intractability: non-intractable Qualified Code(s): R11.2 - Nausea with vomiting, unspecified Comment: Resolving. Will monitor. (2) Hyperkalemia, diminished renal excretion Code(s): E87.5 - HYPERKALEMIA Status: Acute Comment: 2/2 ESRD. (3) Anemia of renal disease Code(s): D63.1 - ANEMIA IN CHRONIC KIDNEY DISEASE Status: Chronic Comment: Monitor. EPO with HD. (4) Chronic combined systolic and diastolic congestive heart failure Code(s): I50.42 - CHRONIC COMBINED SYSTOLIC AND DIASTOLIC HRT FAIL Status: Chronic Comment: Stable, not in acute exacerbation. Will continue current regimen. (5) DM type 2 (diabetes mellitus, type 2) Status: Chronic Qualifiers: Diabetes mellitus complication status: with kidney complications Diabetes mellitus complication detail: with chronic kidney disease Chronic kidney disease stage: on chronic dialysis Comment: Continue current regimen. (6) ESRD (end stage renal disease) on dialysis Code(s): N18.6 - END STAGE RENAL DISEASE; Z99.2 - DEPENDENCE ON RENAL DIALYSIS Status: Chronic Comment: HD per Renal service (7) HTN (hypertension) Code(s): I10 - ESSENTIAL (PRIMARY) HYPERTENSION Status: Chronic Qualifiers: Hypertension type: essential hypertension Qualified Code(s): I10 - Essential (primary) hypertension Comment: Continue Coreg and Clonidine, Losartan (8) Pneumonia Code(s): J18.9 - PNEUMONIA, UNSPECIFIED ORGANISM Status: Acute Qualifiers: Pneumonia type: due to unspecified organism Laterality: unspecified laterality Lung location: lower lobe of lung Qualified Code(s): J18.1 - Lobar pneumonia, unspecified organism Comment: Continue Azithromycini and Ceftriaxone. - Plan cont current plan of care, continue antibiotics * . Review of Systems - Medications/Allergies Allergies/Adverse Reactions: Allergies Allergy/AdvReac Type Severity Reaction Status Date / Time Latex, Natural Rubber Allergy Mild Rash Verified 05/28/17 06:34 levofloxacin [From Levaquin] Allergy Mild Hives Verified 05/28/17 06:34 adhesive tape Allergy Verified 05/28/17 06:34 Iodinated Contrast- Oral and Allergy Rash Verified 05/28/17 06:34 IV Dye [Iodinated Contrast Media - IV Dye] shellfish derived Allergy Rash Verified 05/28/17 06:34 Medications: Current Medications Acetaminophen (Tylenol) 650 mg PO Q6H PRN PRN Reason: Fever or Pain Last Admin: 05/30/17 07:58 Dose: 650 mg Alprazolam (Xanax) 0.25 mg PO Q6HR [facility] Last Admin: 05/30/17 12:05 Dose: Not Given Aspirin (Aspirin) 325 mg PO DAILY [facility] Last Admin: 05/30/17 09:14 Dose: 325 mg Carvedilol (Coreg) 6.25 mg PO BID[facility] Last Admin: 05/30/17 09:15 Dose: 6.25 mg Cholecalciferol (Vitamin D3) 2,000 units PO DAILY [facility] Last Admin: 05/30/17 09:14 Dose: 2,000 units Clonidine (Catapres) 0.2 mg PO BID [facility] Last Admin: 05/30/17 09:14 Dose: 0.2 mg Clopidogrel Bisulfate (Plavix) 75 mg PO DAILY [facility] Last Admin: 05/30/17 09:15 Dose: 75 mg Dextrose/Water (Dextrose 50%) 25 gm IVP PRN PRN PRN Reason: HYPOGLYCEMIA PROTOCOL Docusate Sodium (Colace) 100 mg PO BID [facility] Last Admin: 05/30/17 09:15 Dose: 100 mg Glucagon (Glucagon) 1 mg IM PRN PRN PRN Reason: HYPOGLYCEMIA PROTOCOL Ceftriaxone Sodium 1 gm/ (Syringe 0.4 ml/ Sterile Water) 10 mls @ 120 mls/hr SLOW IVP Q24HR [facility] Last Admin: 05/30/17 13:14 Dose: 10 mls Azithromycin 500 mg/ Sodium (Chloride) 250 mls @ 250 mls/hr IVPB Q24HR [facility] Last Admin: 05/30/17 13:43 Dose: 250 mls Dextrose/Water (D5w) 1,000 mls @ 0 mls/hr IV INF PRN; As Directed PRN Reason: HYPOGLYCEMIA PROTOCOL Insulin Human Lispro (Humalog) 0 units SC .MILD SLIDING SCALE PRN; Protocol PRN Reason: MILD SLIDING SCALE Last Admin: 05/30/17 10:59 Dose: 3 unit Insulin Human Lispro (Humalog) 0 units SC .BEDTIME SLIDING SC PRN; Protocol PRN Reason: BEDTIME SLIDING SCALE Isosorbide Mononitrate (Imdur Er) 30 mg PO DAILY [facility] Last Admin: 05/30/17 09:14 Dose: 30 mg Labetalol HCl (Normodyne) 10 mg SLOW IVP Q4H PRN PRN Reason: SBP Greater Than 180 Losartan Potassium (Cozaar) 50 mg PO DAILY [facility] Last Admin: 05/30/17 09:14 Dose: 50 mg Metoclopramide HCl (Reglan) 10 mg IVP Q8HR [facility] Last Admin: 05/30/17 13:42 Dose: 10 mg Montelukast Sodium (Singulair) 10 mg PO HS [facility] Last Admin: 05/29/17 20:33 Dose: 10 mg Morphine Sulfate (Morphine) 2 mg SLOW IVP Q4H PRN PRN Reason: Moderate Pain (4-6) Last Admin: 05/28/17 15:18 Dose: 2 mg Ondansetron HCl (Zofran Odt) 4 mg SL Q6H PRN PRN Reason: Nausea/Vomiting Ondansetron HCl (Zofran) 4 mg IVP Q6H PRN PRN Reason: Nausea/Vomiting Last Admin: 05/29/17 05:09 Dose: 4 mg Pantoprazole Sodium (Protonix) 40 mg IVP Q12HR [facility] Last Admin: 05/30/17 09:14 Dose: 40 mg Sevelamer Carbonate (Renvela) 2,400 mg PO TID[facility] Last Admin: 05/30/17 12:05 Dose: Not Given
[2017-05-30] MEDS: Montelukast Sodium 10 mg Tablet PO SCH (21:21)
[2017-05-31] MEDS: Diabetic Tussin 200 MG/10 ML UDCUP PO PRN ×2 (00:16→16:48)
[2017-05-31] MEDS: HumaLOG 300 UNITS/3 ML VIAL SC PRN (05:32)
[2017-05-31] MEDS: ALPRAZolam 0.25 MG TAB PO SCH ×3 (05:33→17:24)
[2017-05-31] MEDS: Metoclopramide HCl 10 MG/2 ML VIAL IVP SCH ×2 (05:33→15:00)
[2017-05-31 06:05] LABS: Anion Gap 20 mmol/L (10-20); BUN (Urea Nitrogen) 62 mg/dL (9.8-20.1); Calc. Creatinine Clearance 13 mL/min (70-130); Carbon Dioxide 25 mmol/L (22-29); Chloride 93 mmol/L (98-107); Estimated GFR-MDRD 5; Glucose 219 mg/dL (70-105); Potassium 5.1 mmol/L (3.5-5.1); Sodium 133 mmol/L (136-145)
[2017-05-31 06:36] LABS: Band 5 % (5-11); Eosinophils 1 % (0-10); Hemoglobin 8.3 g/dL (12.0-16.0); Lymphocytes 24 % (21-51); MDiff Complete? YES; Mean Corpuscular HGB CONC 33.7 g/dL (32.0-36.0); Mean Corpuscular Hemoglobin 32.7 pg (27.0-31.0); Mean Corpuscular Volume 96.9 fl (81.0-99.0); Mean Platelet Volume 11.2 fL (7.4-10.4); Monocytes 7 % (0-10); Neutrophil 63 % (42-75); Platelet Count 151 thou/uL (130-400); RBC Distribution Width 15.5 % (11.5-14.5); Red Blood Cell (RBC) Count 2.55 mill/uL (4.20-5.40); White Blood Cell (WBC) Count 5.2 thou/uL (4.8-10.8)
[2017-05-31] MEDS ORDERED: Epoetin (ESRD) 20,000 UNITS/ML SC SCH (10:00)
--- NOTE | 2017-05-31 10:01 | PRG ---
DATE OF SERVICE: 05/31/2017 RENAL MEDICINE SUBJECTIVE: Ms. Avila is a 57-year-old female with ESRD and admitted for atypical chest pain with nausea and vomiting. We are consulted for her maintenance hemodialysis. No new complaints today. Her shortness of breath is actually much improved. PHYSICAL EXAMINATION: VITAL SIGNS: Blood pressure is 144/63, heart rate 65, respiratory rate 16, temperature 98.8, pulse o x 97%. GENERAL: Awake, alert, comfortable, supine, not in distress. SKIN: Adequate turgor. HEENT: Slightly pale conjunctivae, anicteric sclerae. NECK: No neck mass, no carotid bruits, no JVD. CHEST: No deformities. LUNGS: Decreased breath sounds. HEART: Normal sinus rhythm. No murmur, no gallops, no rubs. ABDOMEN: Globular, soft, nontender, no masses. EXTREMITIES: Trace edema. MEDICATIONS: Medications of 05/31/2017 reviewed. LABORATORY DATA: Laboratories of 05/31/2017; white count 5.2, hemoglobin 8.3. Sodium 133, potassium 5.1, chloride 93, carbon dioxide 25, BUN 62, creatinine 8.74, glucose 219, and calcium 8.0. ASSESSMENT AND PLAN: 1. End-stage renal disease, stable. No indication for emergent hemodialysis. We will schedule kamran ent for hemodialysis in a.m. 2. Anemia. Start Epogen 7,500 units subcu every week. 3. Chest pain/nausea and vomiting - clinically improved.
[2017-05-31] MEDS: Pantoprazole 40 MG VIAL IVP SCH (11:23)
[2017-05-31] MEDS: Aspirin 325 MG TAB PO SCH (11:23)
[2017-05-31] MEDS: Carvedilol 6.25 MG TAB PO SCH ×2 (11:23→17:23)
[2017-05-31] MEDS: Sevelamer Carbonate 800 MG TAB PO SCH ×3 (11:23→17:23)
[2017-05-31] MEDS: Losartan 25 MG TAB PO SCH (11:24)
[2017-05-31] MEDS: cloNIDine 0.2 MG TAB PO SCH (11:24)
[2017-05-31] MEDS: Docusate 100 MG CAP PO SCH (11:24)
[2017-05-31] MEDS: Clopidogrel Bisulfate 75 MG TAB PO SCH (11:24)
[2017-05-31] MEDS: Azithromycin 500 MG in Sodium Chloride 0.9% 250 ML 250 ML IVPB SCH (14:59)
[2017-05-31] MEDS: cefTRIAXone\\ROCEPHIN 1 GM, Syringe 0.4 ML in Sterile Water 9.6 ML SLOW IVP SCH (14:59)
[2017-05-31 15:40] VITALS: TEMP 98.6
--- NOTE | 2017-05-31 16:57 | DIS ---
DATE OF ADMISSION: 05/28/2017 DATE OF DISCHARGE: 05/31/2017 DISCHARGE DIAGNOSES: Nausea; vomiting; hyperkalemia; anemia of renal disease; chronic combined systo lic and diastolic congestive heart failure; type 2 diabetes mellitus; end-stage renal disease, on alejandro lysis; hypertension; and pneumonia. HISTORY OF PRESENT ILLNESS/HOSPITAL COURSE: A 57-year-old female with a history of end-stage renal d cresencio, on dialysis who comes to the hospital complaining of abdominal pain, nausea, and vomiting of 1-day duration. She also had chest pain during hemodialysis session. She complains of usually havin g some abdominal pain at baseline, but yesterday before admission, she was having intense sharp like abdominal pain, nausea and vomiting with about 5 episodes, it is associated with meals. No other com plaints. No diarrhea. In the emergency room, her labs were largely unremarkable. AST and ALT were normal with alkaline phosphatase mildly elevated at 175, lipase was 22. Troponins were intermediate. Assessments of abdominal pain were made and the patient was scheduled for hemodialysis and Nephrolo gy was consulted, who stated the patient has a history of severe reflux, but had never had a colonosc opy. She was started on IV Protonix and given a GI cocktail. She had a CT scan which showed no abno rmalities. Blood pressure was also uncontrolled and she was restarted on home medications. She is i mproved and was deemed stable for discharge on 05/31/2017. DISCHARGE MEDICATIONS: Tylenol 650 mg every 4 hours p.r.n., Tylenol with codeine 1 tab every 4 hours p.r.n., Xanax 0.25 mg every 6 hours, aspirin 325 mg daily, carvedilol 6.25 mg b.i.d., cefdinir 300 m g q.12 hours, vitamin D3 2000 units daily, clonidine 0.2 b.i.d., Plavix 75 mg daily, docusate 100 mg b.i.d., insulin aspart 30 units b.i.d., isosorbide mononitrate 30 mg daily, losartan 50 mg daily, mon telukast 10 mg at bedtime, nitroglycerin 0.4 mg sublingually every 5 minutes p.r.n. for chest pain, Z ofran 4 mg sublingually every 6 hours p.r.n. for nausea/vomiting, Protonix 40 mg daily, sevelamer car bonate 2400 mg p.o. t.i.d. with 1600 mg b.i.d. PHYSICAL EXAMINATION: She was examined on the day of discharge. VITAL SIGNS: Temperature 98.1, pulse rate 65, respiratory rate 20, oxygen saturation 100% on room ai r, BP 150/66. GENERAL: Not in acute distress, lying comfortably in bed. HEENT: PERRLA. Moist mucous membranes. Anicteric sclerae. Normocephalic, atraumatic. NECK: Full range of movement. RESPIRATORY: No wheezes, rales or rhonchi. LUNGS: Clear to auscultation bilaterally. CARDIOVASCULAR: S1, S2 with regular rate and rhythm. No murmurs, rubs or gallops. GASTROINTESTINAL: Soft, nontender, nondistended with positive bowel sounds. No hepatosplenomegaly. MUSCULOSKELETAL: No edema. Pulses present. NEUROLOGICAL: Nonfocal. Moves all limbs. Alert and well oriented to time, place and person. PSYCHIATRIC: Normal mood and affect. SKIN: Warm, dry, well perfused. No rashes or lesions. LABORATORY DATA: Sodium 133, potassium 5.1, chloride 93, carbon dioxide 25, anion gap 20, BUN 62, cr eatinine 8.74, glucose 219, calcium 8.2. Hemoglobin 8.3, WBC 5.2, platelet count 151. IMAGING: Abdomen/pelvis CT and chest x-ray result as stated in HPI. CONSULTS: Nephrology. CONDITION AT DISCHARGE: Stable and improved. PROCEDURES: Hemodialysis. DIET: Heart healthy, diabetic, renal. CARE GOAL: She is to follow up with her primary care physician within 1 week of discharge for repeat labs. ACTIVITY: To resume as tolerated. Discharge time 65 minutes including chart review and documentation.
[2017-05-31 17:24] VITALS: BP 147/72
--- NOTE | 2017-05-31 20:05 | EKG ---
Test Reason : Blood Pressure : / mmHG Vent. Rate : 063 BPM Atrial Rate : 063 BPM P-R Int : 180 ms QRS Dur : 096 ms QT Int : 466 ms P-R-T Axes : 050 019 103 degrees QTc Int : 476 ms Normal sinus rhythm Prolonged QT Abnormal ECG When compared with ECG of 30-MAY-2017 11:57, (Unconfirmed) No significant change was found Confirmed by ROSEANNA FISHER, DR. S. (4) on 05/31/2017 8:04:41 PM Referred By: SANTIAGO Confirmed By:DR. Shania CONDON MD
--- NOTE | 2017-06-01 20:17 | EKG ---
Test Reason : Blood Pressure : / mmHG Vent. Rate : 099 BPM Atrial Rate : 099 BPM P-R Int : 164 ms QRS Dur : 096 ms QT Int : 388 ms P-R-T Axes : 053 013 101 degrees QTc Int : 497 ms Normal sinus rhythm Nonspecific ST and T wave abnormality Prolonged QT Abnormal ECG When compared with ECG of 28-MAY-2017 00:40, (Unconfirmed) No significant change was found Confirmed by YOSSI RODAS (2) on 06/01/2017 8:16:39 PM Referred By: ZAID Confirmed By:YOSSI RODAS
--- NOTE | 2017-06-01 20:18 | EKG ---
Test Reason : Blood Pressure : / mmHG Vent. Rate : 085 BPM Atrial Rate : 085 BPM P-R Int : 174 ms QRS Dur : 092 ms QT Int : 408 ms P-R-T Axes : 045 022 107 degrees QTc Int : 485 ms Poor data quality, interpretation may be adversely affected Normal sinus rhythm Prolonged QT Abnormal ECG When compared with ECG of 28-MAY-2017 14:58, (Unconfirmed) No significant change was found Confirmed by YOSSI RODAS (2) on 06/01/2017 8:18:00 PM Referred By: Confirmed By:YOSSI RODAS
--- NOTE | 2017-06-01 20:19 | EKG ---
Test Reason : Blood Pressure : / mmHG Vent. Rate : 059 BPM Atrial Rate : 059 BPM P-R Int : 190 ms QRS Dur : 094 ms QT Int : 496 ms P-R-T Axes : 059 031 101 degrees QTc Int : 491 ms Sinus bradycardia Abnormal QRS-T angle, consider primary T wave abnormality Prolonged QT Abnormal ECG Confirmed by YOSSI RODAS (2) on 06/01/2017 8:19:32 PM Referred By: ZAID Confirmed By:YOSSI RODAS
== END 2017-05-31 18:46 | disposition home or self-care (01) | DRG 193 ==
LOC: ERS 00:34 → 2SW 03:26 → OBSVTOIN 05-29 14:36 → 2SW 05-30 08:51
PROVIDERS: ADMIT Internal Medicine; ATTEND Internal Medicine
PROC: 5A1D70Z Performance of Urinary Filtration, Intermittent, Less than 6 Hours Per Day (ICD-10-PCS; principal; 2017-05-29)
DX: J18.1 Lobar pneumonia, unspecified organism (principal); N18.6 End stage renal disease; I13.2 Hypertensive heart and chronic kidney disease with heart failure and with stage 5 chronic kidney disease, or end stage renal disease; E11.22 Type 2 diabetes mellitus with diabetic chronic kidney disease; E87.5 Hyperkalemia; I50.42 Chronic combined systolic (congestive) and diastolic (congestive) heart failure; Z99.2 Dependence on renal dialysis; I25.10 Atherosclerotic heart disease of native coronary artery without angina pectoris; D64.9 Anemia, unspecified; D63.1 Anemia in chronic kidney disease; R11.2 Nausea with vomiting, unspecified; K21.9 Gastro-esophageal reflux disease without esophagitis
CPT/HCPCS: 36415; 36416; 71045; 74176; 80048; 80053; 82550; 82553; 83690; 83735; 84145; 84443; 84484; 85025; 85610; 85730; 87040; 90935; 93005; 93010; 96374; 96375; J2270; A4216; C9113; G0257; J0456; J0696; J1644; J2405; J2765; J7050; Q0162; Q4081

== ENCOUNTER 2017-09-02 21:20 | Inpatient (IN) | payer MEDICARE ==
[2017-09-02] MEDS ORDERED: Nitroglycerin 2% Ointment 1 INCH/1 GM Packet ONE (21:56)
[2017-09-02 22:14] LABS: #Basophils 0.1 thou/uL (0.0-0.2); #Eosinphils 0.1 thou/uL (0.0-0.7); #Lymphocytes 1.1 thou/uL (1.20-3.40); #Monocytes 0.6 thou/uL (0.11-0.59); #Neutrophils 5.2 thou/uL (1.40-6.50); %Basophils 0.8 % (0.0-1.0); %Eosinophils 1.8 % (0.0-10.0); %Monocytes 8.3 % (0.0-10.0); %Neutrophils 73.1 % (42.0-75.0); Mean Corpuscular HGB CONC 33.5 g/dL (32.0-36.0); Mean Corpuscular Hemoglobin 32.5 pg (27.0-31.0); Mean Platelet Volume 11.2 fL (7.4-10.4); Platelet Count 173 thou/uL (130-400); RBC Distribution Width 17.2 % (11.5-14.5); Red Blood Cell (RBC) Count 3.37 mill/uL (4.20-5.40); White Blood Cell (WBC) Count 7.1 thou/uL (4.8-10.8)
[2017-09-02] MEDS ORDERED: hydrALAZINE 20 MG/ML VIAL ONE (22:17)
[2017-09-02 22:32] LABS: Anion Gap 19 mmol/L (10-20); BUN (Urea Nitrogen) 42 mg/dL (9.8-20.1); Calc. Creatinine Clearance 0 mL/min (70-130); Calcium 8.9 mg/dL (7.8-10.44); Carbon Dioxide 30 mmol/L (22-29); Chloride 94 mmol/L (98-107); Estimated GFR-MDRD 8; Glucose 396 mg/dL (70-105); Potassium 4.3 mmol/L (3.5-5.1); Sodium 139 mmol/L (136-145)
[2017-09-02 22:37] LABS: CKMB 0.8 ng/mL (0-6.6); Troponin I Less than 0.010 ng/mL (< 0.028)
--- NOTE | 2017-09-02 22:38 | RAD ---
RADIOGRAPH CHEST 1 VIEW: Date: 09/02/17 Time: 9:32 p.m. HISTORY: 57-year-old female with chest tightness and dyspnea. COMPARISON: 02/26/17 and 06/24/16. FINDINGS: Cardiomegaly on the current study is similar to the appearance on the prior studies. There appears to be diffuse pulmonary vascular engorgement, worse than on 06/24/16. There are mild ill-defined faint p ulmonary patchy pulmonary densities in the bilateral mid and lower lung zones, new or worse than on , and probably slightly worse than on 02/26/17. These probably represent pulmonary edema. Blunt ing of the left lateral costophrenic angle is similar to 02/26/17, and new compared to 06/24/16. IMPRESSION: 1. Cardiomegaly and probable congestive heart failure. 2. Small left pleural effusion versus left basilar pleural thickening. FOREIGN [] POS: MELVI
[2017-09-02] MEDS ORDERED: Insulin Regular 300 UNITS/3 ML VIAL ONE (23:40)
[2017-09-03] MEDS ORDERED: Ondansetron HCl/PF 4 MG/2 ML Vial IVP PRN (00:33)
[2017-09-03] MEDS ORDERED: Ondansetron ODT 4 MG TAB SL PRN (00:40)
[2017-09-03] MEDS ORDERED: Nitroglycerin 0.4 MG TAB (25 Tab Bottle) SL PRN (00:40)
[2017-09-03] MEDS ORDERED: Dextrose 5% in Water 1,000 ML IV PRN (01:24)
[2017-09-03] MEDS ORDERED: Dextrose 50% Abboject 50 ML SYRINGE SLOW IVP PRN (01:24)
[2017-09-03] MEDS ORDERED: HumaLOG 300 UNITS/3 ML VIAL SC PRN (01:24)
[2017-09-03] MEDS ORDERED: Labetalol HCl 100 MG/20 ML VIAL SLOW IVP PRN (01:27)
[2017-09-03 01:42] VITALS: BMI 43.7
--- NOTE | 2017-09-03 02:31 | HP ---
PRIMARY CARE PHYSICIAN: [facility]. CODE STATUS: FULL CODE. TIME OF EVALUATION: 11:35 p.m. CHIEF COMPLAINT: Chest pain. HISTORY OF PRESENT ILLNESS: This is a 57-year-old female patient with past medical history of end-stage renal disease, hypertension, patient on hemodialysis, TTS, follows with Dr. Talley, history of coronary artery disease, diabetes, came to the hospital after having severe chest pain retrosternal, started around 2:00 a.m., the pain has been on and off, the chest pain and shortness of breath worsened during dialysis early this morning, no relieving factors. Character is sharp, sudden onset, associated with nausea. also associated with high BP. REVIEW OF SYSTEMS: Constitutional: The patient had no fever, no chills, no weakness. Respiratory: No cough, no sputum production, patient reported shortness of breath. Cardiovascular: Chest pain, no palpitation, reported shortness of breath. Gastrointestinal: No nausea, no vomiting, no diarrhea, no abdominal pain. Central nervous system: No dizziness, no headache, no feeling lightheaded. Genitourinary: No burning with urination. Extremities: The patient has bilateral leg swelling. PAST MEDICAL HISTORY: Hypertension, end-stage renal disease on hemodialysis, TTS, coronary artery disease, diabetes type 2. PAST SURGICAL HISTORY: Cholecystectomy, tonsillectomy, cataracts bilaterally, cardiac stents, left toe amputation, left arm AV fistula. PSYCHIATRIC HISTORY: Anxiety. SOCIAL HISTORY: No alcohol. Former drug user. He uses crack. Former tobacco user. FAMILY HISTORY: Mother and father with heart problems. ALLERGIES: ADHESIVE TAPE, IODINE, LATEX, LEVAQUIN, and SHELLFISH. MEDICATIONS: NovoLog 70/30 of 30 units subcu 2 times a day, clonidine 0.2 mg 2 times a day, losartan 50 mg once a day, carvedilol 6.25 mg a twice a day, Renvela 800 mg 3 times a day, vitamin D3 of 5000 units unknown dose, aspirin 325 mg once a day, Protonix 40 mg once a day, Colace 100 mg 2 times a day, Plavix 75 mg once a day. PHYSICAL EXAMINATION: VITAL SIGNS: On presentation; blood pressure was 254/124 with heart rate 92, respiratory rate was 20, and temperature 98.5. GENERAL APPEARANCE: The patient is in distress, reporting chest pain after blood pressure drop because of the hydralazine given, the patient experienced some headache due to the medication. HEENT: Eye, normal conjunctivae. Moist oral mucosa. RESPIRATORY: Bilateral air entry. No rales, no wheezing, symmetrical expansion. CARDIOVASCULAR: Normal rate, regular rhythm, no murmurs, no gallops or edema. ABDOMEN: Soft. Normal bowel sounds. MUSCULOSKELETAL: Baseline range of motion and strength. No tenderness. SKIN: Warm and intact. No pallor, no rash, no redness. NEUROLOGIC: Baseline sensorium. No evidence of any new focal weakness. Baseline speech. Cranial nerves seem to be intact. PSYCHIATRIC: Good mood. No anxiety. Oriented. Optimal judgment. LABORATORY DATA: Reviewed. White count 7.1, hemoglobin 11, MCV 97, platelet count 173. Sodium 139, potassium 4.3, chloride 94, carbon dioxide was 30, anion gap 19, BUN 42, creatinine 5.66, GFR 8, glucose 296. X-ray was reviewed. The patient had cardiomegaly and probably congestive heart failure, small left pleural effusion versus left basilar pleural thickening. EKG was discussed with the performing physician from ER. The patient has normal sinus rhythm with a rate of 93, possible left atrial enlargement, ST-T wave changes, consider lateral ischemia and prolonged QT. ASSESSMENT AND PLAN: The patient will be placed in the hospital with the following medical problems. 1. Chest pain, rule out acute coronary syndrome, patient has a history of previous stents, initial troponin is negative, will trend troponins, monitor on tele. If negative troponin, the patient might benefit from a stress test in the morning. 2. Hypertensive urgency, the patient presented with very high blood pressure, initially had no symptoms, hydralazine was given. Blood pressure had dropped significantly and the patient has developed some headache and has been feeling very uncomfortable after the medication was given, blood pressure has remained after initial approach in the 130s, will monitor, adjust treatment as needed. 3. End-stage renal disease on hemodialysis, patient follows with Dr. Talley, that will need to be consulted in the morning for hemodialysis. 4. Normocytic anemia, hemoglobin 11, this is likely due to kidney failure, we will defer to Nephrology for further management. 5. Uncontrolled diabetes, with hyperglycemia, blood sugar 396, reconcile home meds, low carb diet, place the patient on sliding scale for edema control. 6. History of coronary artery disease, reconcile home medications. Rest of treatment and plan as above. 7. History of gastroesophageal reflux disease, we place the patient on pantoprazole. 8. Deep venous thrombosis prophylaxis. MTDD
[2017-09-03] MEDS: Acetaminophen 325 MG TAB PO PRN ×2 (03:20→08:19)
[2017-09-03 05:10] LABS: #Basophils 0.1 thou/uL (0.0-0.2); #Eosinphils 0.2 thou/uL (0.0-0.7); #Lymphocytes 1.1 thou/uL (1.20-3.40); #Monocytes 0.8 thou/uL (0.11-0.59); #Neutrophils 5.8 thou/uL (1.40-6.50); %Eosinophils 3.1 % (0.0-10.0); %Monocytes 10.2 % (0.0-10.0); %Neutrophils 71.8 % (42.0-75.0); Hemoglobin 10.3 g/dL (12.0-16.0); Mean Corpuscular HGB CONC 32.7 g/dL (32.0-36.0); Mean Corpuscular Hemoglobin 32.3 pg (27.0-31.0); Mean Corpuscular Volume 98.7 fL (78.0-98.0); Mean Platelet Volume 11.5 fL (7.4-10.4); Platelet Count 161 thou/uL (130-400); RBC Distribution Width 17.4 % (11.5-14.5); White Blood Cell (WBC) Count 8.1 thou/uL (4.8-10.8)
[2017-09-03 05:31] LABS: Anion Gap 18 mmol/L (10-20); BUN (Urea Nitrogen) 48 mg/dL (9.8-20.1); Calc. Creatinine Clearance 20 mL/min (70-130); Calcium 8.8 mg/dL (7.8-10.44); Carbon Dioxide 27 mmol/L (22-29); Chloride 98 mmol/L (98-107); Estimated GFR-MDRD 7; Glucose 196 mg/dL (70-105); Potassium 4.2 mmol/L (3.5-5.1); Sodium 139 mmol/L (136-145)
[2017-09-03 05:33] LABS: Troponin I 0.013 ng/mL (< 0.028)
[2017-09-03] MEDS ORDERED: ALPRAZolam 0.25 MG TAB PO SCH (06:00)
--- NOTE | 2017-09-03 08:04 | CON ---
DATE OF CONSULTATION: 09/03/2017 HISTORY OF PRESENT ILLNESS: Ms. Avila is a 57-year-old female with ESRD and admitted for chest pains/shortness of breath. She was also initially noted to be hypertensive at the ER. We are now being consulted for her maintenance hemodialysis. She did receive dialysis yesterday. She was said to have finished her treatment. However, chest x-ray shows some degree of CHF. Our plan is to give her another short course of dialysis 2 hours with 2-3 liters of fluid removal. This morning she is feeling better. REVIEW OF SYSTEMS: Positive for mild shortness of breath. Positive for chest pain. Positive for he adache. No nausea, no vomiting, no syncopal episode, no diarrhea, no productive cough, no fever or c hills. No gross hematuria, no dysuria, no urinary frequency, no abdominal pain. Appetite and energy level is fair. No diplopia, no sore throat, occasional joint pains. No hematochezia, no melena, no hematemesis. MEDICATIONS: The patient is currently on Xanax 0.25 mg q.6 hours as needed, aspirin 325 mg once a da y, Coreg 6.25 mg b.i.d., Catapres 0.2 mg p.o. b.i.d., Plavix 75 mg once a day, heparin 5000 units sub cu t.i.d., Humalog sliding scale, Imdur ER 30 mg tab once a day, losartan 50 mg every day, Singulair 10 mg at bedtime, Zofran 4 mg IV q.6 hours, Protonix 40 mg daily, Renvela 800 mg [address] with m lane. PAST MEDICAL HISTORY: 1. End-stage renal disease, currently on maintenance hemodialysis Wednesday, , and Wednesday. 2. Diabetic neuropathy. 3. Type 2 diabetes mellitus. 4. Peripheral vascular disease. 5. Gastroesophageal reflux disease. 6. Coronary artery disease, status post congestive heart failure. 7. ? Chronic obstructive pulmonary disease. PAST SURGICAL HISTORY: 1. Status post AV fistula placement. 2. Status post cardiac catheterization. 3. Status post coronary stent placement. 4. Status post PD catheter placement with subsequent removal. 5. Status post cholecystectomy. 6. Status post upper GI endoscopy. 7. Status post cuffed dialysis catheter. ALLERGIES: LEVAQUIN, LATEX, SHELLFISH. TRAUMA: None. IMMUNIZATIONS: Up to date. HOSPITALIZATIONS: Please see past medical history. 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 Lives in [place]. , 4 children . Sedentary lifestyle. Education high school. Status post blood transfusion. No alcohol use. No history of smoking, no IV drug abuse. FAMILY HISTORY: No family history of ESRD. PHYSICAL EXAMINATION: VITAL SIGNS: Blood pressure 151/68, heart rate 76, respiratory rate 18, temperature 97.9, pulse ox 9 3%. GENERAL: Noted to be awake, alert, comfortable, not in overt distress. SKIN: Adequate turgor. HEENT: She has a slightly pale conjunctivae, anicteric sclerae. NECK: No neck mass, no carotid bruits, no JVD. CHEST: No deformities. LUNGS: Decreased breath sounds. HEART: Normal sinus rhythm. No murmur, no gallops or rubs. ABDOMEN: Globular, soft, nontender, no masses. EXTREMITIES: Trace edema, no deformities. NEUROLOGIC: Moving all extremities. No tremors, no asterixis, oriented to 3 spheres. Chest x-ray on 09/02/2017, cardiomegaly with probable CHF, small pleural effusion. LABORATORY: 09/03/2017 - White count 8.1, hemoglobin 10.3. Sodium 139, potassium 4.2, chloride 98, carbon dioxide 27, BUN 48, creatinine 6, glucose 196, calcium 8.8. ASSESSMENT AND PLAN: 1. End-stage renal disease. We will continue current Wednesday, , and Wednesday dialysis regim en. Review of the last Kt/V suggests she is adequately dialyzed with the current dialysis regimen. 2. Congestive heart failure - the patient will receive an extra dialysis. I have scheduled her for a 2-hour hemodialysis with fluid removal between 2 and 3 liters as tolerated. 3. Chest pain - rule out myocardial infarction. 4. Borderline anemia. We will continue to observe. Hold Epogen. 5. Hypertension. Continue current blood pressure meds. I agree with current management.
[2017-09-03] MEDS: Heparin 5,000 UNITS/ML VIAL SC SCH ×2 (08:20→15:51)
[2017-09-03] MEDS: Carvedilol 6.25 MG TAB PO SCH ×2 (08:21→16:32)
[2017-09-03] MEDS ORDERED: ALPRAZolam 0.25 MG TAB PO PRN (08:55)
[2017-09-03] MEDS ORDERED: Clopidogrel Bisulfate 75 MG TAB PO SCH (09:00)
[2017-09-03] MEDS ORDERED: Docusate 100 MG CAP PO SCH (09:00)
[2017-09-03] MEDS ORDERED: Losartan 25 MG TAB PO SCH (09:00)
[2017-09-03] MEDS ORDERED: Aspirin 325 MG TAB PO SCH (09:00)
[2017-09-03] MEDS ORDERED: Sevelamer Carbonate 800 MG TAB PO SCH (09:00)
[2017-09-03] MEDS ORDERED: cloNIDine 0.2 MG TAB PO SCH (09:00)
[2017-09-03 10:19] LABS: Troponin I 0.011 ng/mL (< 0.028)
[2017-09-03 15:50] VITALS: TEMP 97.9
[2017-09-03] MEDS ORDERED: cloNIDine 0.1 MG TAB PO PRN (15:55)
[2017-09-03 17:32] VITALS: BP 149/69
[2017-09-03] MEDS ORDERED: Montelukast Sodium 10 mg Tablet PO SCH (21:00)
--- NOTE | 2017-09-05 21:38 | DIS ---
DATE OF DISCHARGE: 09/03/2017 DISCHARGE DISPOSITION: Home. FOLLOWUP: 1. Follow up with primary care physician at [facility] as scheduled. 2. Follow up with Nephrology, Dr. Talley, for maintenance hemodialysis. The patient was seen and examined on the day of discharge. Denies any new complaints. DISCHARGE MEDICATIONS: As same as admission medication with addition of clonidine 0.1 mg as needed f or systolic blood pressure more than 180. No other changes in her medications were made. BRIEF HOSPITAL COURSE: The patient is a 57-year-old female with hypertension; end-stage renal diseas e, on hemodialysis; coronary artery disease; and diabetes mellitus, type 2; presented to the hospital with a chest discomfort. Please refer to the history and physical for further details. The patient was admitted to the hospital with a diagnosis of chest discomfort as well as hypertensive urgency. Blood pressure in the emergency room was 254/124. She was monitored on the telemetry unit . She was started on her routine home medications with clonidine as needed. Blood pressure has stab ilized and at discharge is 149/69. She also underwent hemodialysis per Nephrology. The patient has been cleared by Nephrology for discharge. She was extensively counseled to be compliant with diet an d medications. Potassium on the day of discharge was 4.2. Troponins were normal. FINAL DIAGNOSES: 1. Hypertensive urgency, resolved. 2. Chest discomfort, probably secondary to #1, resolved. 3. Diabetes mellitus, type 2. 4. Coronary artery disease. 5. End-stage renal disease, on hemodialysis. 6. Dyslipidemia. 7. Anxiety. 8. Chronic anemia, probably secondary to renal insufficiency. 9. Morbid obesity with a BMI of 43.8. Plan of care was discussed with the patient in detail. She stated understanding.
== END 2017-09-03 19:00 | disposition home or self-care (01) | DRG 304 ==
LOC: ERS 21:20 → 2NO 23:20
PROVIDERS: ADMIT Hospitalist; ATTEND Hospitalist
PROC: 5A1D70Z Performance of Urinary Filtration, Intermittent, Less than 6 Hours Per Day (ICD-10-PCS; principal; 2017-09-02)
DX: I16.0 Hypertensive urgency (principal); N18.6 End stage renal disease; Z68.41 Body mass index [BMI] 40.0-44.9, adult; I13.2 Hypertensive heart and chronic kidney disease with heart failure and with stage 5 chronic kidney disease, or end stage renal disease; E11.22 Type 2 diabetes mellitus with diabetic chronic kidney disease; Z99.2 Dependence on renal dialysis; I25.10 Atherosclerotic heart disease of native coronary artery without angina pectoris; E78.5 Hyperlipidemia, unspecified; F41.9 Anxiety disorder, unspecified; D63.1 Anemia in chronic kidney disease; E66.01 Morbid (severe) obesity due to excess calories; I50.9 Heart failure, unspecified; E11.40 Type 2 diabetes mellitus with diabetic neuropathy, unspecified; E11.51 Type 2 diabetes mellitus with diabetic peripheral angiopathy without gangrene; K21.9 Gastro-esophageal reflux disease without esophagitis; J44.9 Chronic obstructive pulmonary disease, unspecified; Z88.1 Allergy status to other antibiotic agents; Z91.040 Latex allergy status; Z91.013 Allergy to seafood
CPT/HCPCS: 36415; 36416; 71045; 80048; 82553; 84484; 85025; 93005; 96360; 96372; J0360; J1644; J1815

== ENCOUNTER 2017-09-12 22:53 | Emergency (ER) | payer MEDICARE ==
[2017-09-13] MEDS ORDERED: HYDROcodone/Acetaminophen 5/325 mg Tablet ONE ×2 (00:21→01:48)
[2017-09-13] MEDS ORDERED: Lidocaine 1% w/Epinephrine 1:100K 20 ML VIAL ONE (00:21)
[2017-09-13] MEDS ORDERED: Bacitracin Zinc 1 Packet ONE (00:34)
[2017-09-13] MEDS ORDERED: cloNIDine 0.1 MG TAB ONE (00:50)
== END 2017-09-13 02:00 | disposition home or self-care (01) ==
LOC: ERS 22:53
DX: L02.811 Cutaneous abscess of head [any part, except face] (principal); L03.811 Cellulitis of head [any part, except face]; I12.0 Hypertensive chronic kidney disease with stage 5 chronic kidney disease or end stage renal disease; E11.22 Type 2 diabetes mellitus with diabetic chronic kidney disease; N18.6 End stage renal disease; I25.10 Atherosclerotic heart disease of native coronary artery without angina pectoris; F41.9 Anxiety disorder, unspecified; Z87.891 Personal history of nicotine dependence; Z99.2 Dependence on renal dialysis; Z79.4 Long term (current) use of insulin; Z79.899 Other long term (current) drug therapy; Z79.82 Long term (current) use of aspirin
CPT/HCPCS: 10060; J2001

== ENCOUNTER 2017-12-13 07:44 | Observation (INO) | payer MEDICARE ==
[2017-12-13] MEDS ORDERED: Nitroglycerin 0.4 MG TAB (25 Tab Bottle) ONE (08:22)
--- NOTE | 2017-12-13 08:43 | RAD ---
AP CHEST: Indication: History of dyspnea and intermittent chest pain, shortness of breath. FINDINGS: The exam is compared to prior dated 11-28-17. There is cardiomegaly with pulmonary vascular congestion, perihilar and interstitial prominence suspi cious for edema. There is small left pleural effusion. No pneumothorax is evident. IMPRESSION: Findings suggesting mild CHF. POS: [facility]
[2017-12-13 09:17] LABS: ALT (SGPT) 17 U/L (8-55); AST (SGOT) 19 U/L (5-34); Albumin 3.9 g/dL (3.5-5.0); Alkaline Phosphatase 191 U/L (40-150); Anion Gap 19 mmol/L (10-20); BUN (Urea Nitrogen) 70 mg/dL (9.8-20.1); Bilirubin, Total 0.7 mg/dL (0.2-1.2); CK (CPK) 36 U/L (29-168); Calc. Creatinine Clearance 0 mL/min (70-130); Carbon Dioxide 27 mmol/L (22-29); Chloride 93 mmol/L (98-107); Estimated GFR-MDRD 5; Globulin 3.7 g/dL (2.4-3.5); Glucose 210 mg/dL (70-105); Lipase 29 U/L (8-78); Potassium 4.7 mmol/L (3.5-5.1); Protein, Total 7.6 g/dL (6.0-8.3); Sodium 134 mmol/L (136-145)
[2017-12-13 09:21] LABS: #Eosinphils 0.3 thou/uL (0.0-0.7); #Lymphocytes 1.2 thou/uL (1.20-3.40); #Monocytes 0.5 thou/uL (0.11-0.59); #Neutrophils 6.3 thou/uL (1.40-6.50); %Basophils 0.3 % (0.0-1.0); %Lymphocytes 14.6 % (21.0-51.0); %Monocytes 6.2 % (0.0-10.0); Hemoglobin 11.3 g/dL (12.0-16.0); Mean Corpuscular HGB CONC 31.3 g/dL (32.0-36.0); Mean Corpuscular Hemoglobin 30.3 pg (27.0-31.0); Mean Corpuscular Volume 96.6 fL (78.0-98.0); Mean Platelet Volume 12.1 fL (7.4-10.4); Platelet Count 156 thou/uL (130-400); RBC Distribution Width 17.7 % (11.5-14.5); Red Blood Cell (RBC) Count 3.72 mill/uL (4.20-5.40); White Blood Cell (WBC) Count 8.3 thou/uL (4.8-10.8)
[2017-12-13 09:22] LABS: CKMB 1.1 ng/mL (0-6.6); Troponin I 0.026 ng/mL (< 0.028)
[2017-12-13] MEDS ORDERED: Nitroglycerin 2% Ointment 1 INCH/1 GM Packet ONE (10:30)
[2017-12-13] MEDS ORDERED: cloNIDine 0.1 MG TAB PO PRN (13:16)
[2017-12-13] MEDS ORDERED: ALPRAZolam 0.25 MG TAB PO PRN (13:18)
[2017-12-13] MEDS ORDERED: Nitroglycerin 0.4 MG TAB (25 Tab Bottle) PO PRN (13:20)
[2017-12-13] MEDS ORDERED: Dextrose 50% Abboject 50 ML SYRINGE SLOW IVP PRN (13:20)
[2017-12-13] MEDS ORDERED: Dextrose 5% in Water 1,000 ML IV PRN (13:20)
[2017-12-13] MEDS ORDERED: Insulin Regular 300 UNITS/3 ML VIAL SC PRN ×2 (13:20)
[2017-12-13] MEDS ORDERED: Calcium Carbonate 500 MG ChewTAB PO PRN (13:22)
[2017-12-13] MEDS ORDERED: Senokot 8.6 MG TAB PO PRN (13:22)
[2017-12-13] MEDS ORDERED: Acetaminophen 325 MG TAB PO PRN (13:22)
[2017-12-13] MEDS ORDERED: Ondansetron HCl/PF 4 MG/2 ML Vial IVP PRN (13:22)
[2017-12-13] MEDS ORDERED: Ondansetron ODT 4 MG TAB PO PRN (13:22)
[2017-12-13] MEDS ORDERED: hydrALAZINE 20 MG/ML VIAL SLOW IVP PRN (13:26)
--- NOTE | 2017-12-13 13:57 | HP ---
DATE OF ADMISSION: 12/13/2017 PRIMARY CARE PHYSICIAN: [facility]. CHIEF COMPLAINT: Chest discomfort. PRIMARY LEVEL VIAL MARKER: Esteban Lerma M.D. PRIMARY HOSPITAL CLINIC ASSISTANT: Florian Talley M.D. HISTORY OF PRESENT ILLNESS: The patient is a 57-year-old female with end-stage renal disease on hemo dialysis, coronary artery disease, status post LAD stent in 2014, diabetes mellitus type 2, hypertens ion, hyperlipidemia and morbid obesity who presented to the emergency room with chest discomfort that started this morning. The patient normally developed chest discomfort during dialysis. This morning, the patient developed a new onset of left-sided chest discomfort associated with mild diaphoresis and some shortness of br eath. She felt generally weak and lightheaded. The pain was dull in nature, more or less constant, without any aggravating or relieving factor. She denies any palpitations or syncope. No recent immo bilization or travel reported. She has chronically bilateral lower extremity edema, which is unchang ed. No heartburn, fever or chills reported. In the emergency room, her initial vital signs showed temperature 97.7, respiration 19, pulse rate of 67, blood pressure of 233/111 with O2 saturation of 93% on room air. Her EKG showed sinus rhythm wi thout significant ST-T wave changes. EKG showed mild pulmonary vascular congestion. She received ni troglycerin sublingual x2 and 1 inch nitropatch was placed. PAST MEDICAL HISTORY: 1. Hypertension with hospitalization for hypertensive urgency in the past. 2. Diabetes mellitus type 2. 3. Coronary artery disease, status post LAD stent in 2014. The patient had a repeat cardiac cathete rization in 2016 that showed patent stent. 4. Diabetes mellitus type 2. 5. End-stage renal disease on hemodialysis. 6. Hypertension. 7. Hyperlipidemia. 8. Morbid obesity with a BMI of 41. 9. Anxiety. PAST SURGICAL HISTORY: 1. Cardiac catheterization. 2. Dialysis access. 3. Cholecystectomy. 4. Peritoneal dialysis placement with subsequent removal. 5. Incision and drainage of nasal abscess in 2005. 6. Adenoidectomy. 7. Amputation of the left big toe due to nonhealing diabetic ulcer. 8. Tonsillectomy. ALLERGIES: The patient is allergic to LEVAQUIN, LATEX, IODINE and SHELLFISH. FAMILY HISTORY: Mother of [place] in 60s. SOCIAL HISTORY: She currently lives at home with her . No smoking, alcohol or drug use. CURRENT HOME MEDICATIONS: The patient is unable to recall all of her home medications. I called the dialysis center as well as Dr. Talley. She is currently on, 1. Cozaar 100 mg daily. 2. Imdur 30 mg daily 3. Carvedilol 6.25 mg b.i.d. 4. Procardia XL was recently increased to 90 mg daily from 60 mg daily. Please note that over the l ast 5 days, the patient is out of Procardia XL. 5. Clonidine 0.2 mg twice a day. 6. Aspirin and Plavix daily. REVIEW OF SYSTEMS: The following complete review of systems was negative, unless otherwise mentioned in the HPI or below: Constitutional: Weight loss or gain, ability to conduct usual activities. Sk in: Rash, itching. Eyes: Double vision, pain. ENT/Mouth: Nose bleeding, neck stiffness, pain, te nderness. Cardiovascular: Palpitations, dyspnea on exertion, orthopnea. Respiratory: Shortness of breath, wheezing, cough, hemoptysis, fever or night sweats. Gastrointestinal: Poor appetite, abdom inal pain, heartburn, nausea, vomiting, constipation, or diarrhea. Genitourinary: Urgency, frequenc y, dysuria, nocturia. Musculoskeletal: Pain, swelling. Neurologic/Psychiatric: Anxiety, depressio n. Allergy/Immunologic: Skin rash, bleeding tendency. PHYSICAL EXAMINATION: VITAL SIGNS: As discussed above. Her blood pressure is in systolic 170s now. HEENT: Atraumatic, normocephalic. Sclerae are anicteric. Moist mucous membrane. No oral lesion. NECK: Supple, no JVD, no carotid bruit. LUNGS: Essentially clear to auscultation bilaterally. No wheezing, rales or rhonchi. HEART: S1, S2 present. Regular rate and rhythm. No rubs or gallops appreciated. ABDOMEN: Soft, nontender. Bowel sounds present. EXTREMITIES: Chronic bilateral lower extremity 2+ edema without any calf tenderness. SKIN: Warm and dry with chronic ulceration in bilateral extremities. LYMPH NODES: No palpable lymph nodes in the neck. NEUROLOGIC: Grossly nonfocal. Moves all four extremities. PSYCHIATRY: Alert, awake, oriented x3. LABORATORY FINDINGS: Troponin x1 was negative. CBC showed WBC 8.3 with hemoglobin 11.3, platelet of 156,000. BNP of 2917. Troponin negative. BUN 70, creatinine 8.2, sodium 130, potassium 4.7. EKG by my review as discussed above. Chest x-ray by my review as discussed above. IMPRESSION: 1. Chest discomfort, probably secondary to uncontrolled blood pressure. Please note that the patien t is out of Procardia XL over the last [address] Talley increased Procardia XL to 90 mg daily from 60 mg daily 5 days ago. She has not picked up the prescription from the pharmacy yet. 2. Hypertensive urgency. 3. End-stage renal disease on hemodialysis. 4. Diabetes mellitus type 2. 5. Coronary artery disease, status post LAD stent in 2014. 6. End-stage renal disease on hemodialysis. 7. Anxiety. 8. Dyslipidemia. 9. Chronic anemia secondary to renal insufficiency. 10. Morbid obesity with a BMI over 40. PLAN: The patient will be monitored in the telemetry unit as a 23-hour observation. I discussed wit h Dr. Lerma as well as Dr. Talley. We will resume her home antihypertensives. She has taken all of her a.m. meds except for Procardia XL. We will start her on Procardia XL 60 mg once a day, which wi ll be changed to 90 mg from tomorrow. She will undergo stress test as scheduled on 12/15/[address] Lerma's office. We will continue aspirin and Plavix. She will undergo dialysis tomorrow at [facility] at 11:25. I changed her dialysis chair time to 11:25 from 6:00 a.m. in case if she requires overnight monitoring. I discussed with Dr. Talley. Per Dr. Talley, the patient is chronicall y volume overloaded and sometimes requires dialysis 4 times a week. There is no indication for dialy sis today per Dr. Talley. We will continue to trend her troponins. We will resume all of her home medi cations. We will discontinue nitropatch later today. Plan of care was discussed with the patient. She stated understanding. We will start her on insulin sliding scale.
[2017-12-13] MEDS ORDERED: NIFEdipine XL 60 MG TAB PO SCH (14:00)
[2017-12-13 14:10] LABS: CKMB 1.1 ng/mL (0-6.6); Troponin I 0.045 ng/mL (< 0.028)
[2017-12-13] MEDS ORDERED: cloNIDine 0.1 MG TAB ONE (15:16)
[2017-12-13 16:18] VITALS: BMI 44.3
[2017-12-13] MEDS ORDERED: Carvedilol 6.25 MG TAB PO SCH (17:00)
[2017-12-13] MEDS ORDERED: NIFEdipine XL 30 MG TAB PO SCH (18:00)
[2017-12-13 19:23] LABS: Troponin I 0.045 ng/mL (< 0.028)
[2017-12-13] MEDS ORDERED: NPH, Human Insulin Isophane 300 UNIT/3 ML VIAL SC SCH (21:00)
[2017-12-13] MEDS ORDERED: Famotidine 20 MG TAB PO SCH (21:00)
[2017-12-13] MEDS ORDERED: Docusate 100 MG CAP PO SCH (21:00)
[2017-12-14 07:55] VITALS: BP 179/75; TEMP 98
[2017-12-14] MEDS ORDERED: Losartan 25 MG TAB PO SCH (09:00)
[2017-12-14] MEDS ORDERED: NIFEdipine XL 90 MG TAB PO SCH (09:00)
[2017-12-14] MEDS ORDERED: Clopidogrel Bisulfate 75 MG TAB PO SCH (09:00)
[2017-12-14] MEDS ORDERED: Aspirin 325 MG TAB PO SCH (09:00)
--- NOTE | 2017-12-14 09:18 | DIS ---
DATE OF ADMISSION: 12/13/2017 DATE OF DISCHARGE: 12/14/2017 DISCHARGE DISPOSITION: Home. FOLLOWUP: Follow up with primary care physician at [facility]. Follow up with Dr. Radha smas. She will have a stress test tomorrow at Dr. Lerma's office. She will undergo hemodialysis at [facility] at 11:25 today. The patient was seen and examined on the day of discharge, denies any new complaints, no chest pain, shortness of breath, palpitations reported. BRIEF HOSPITAL COURSE: The patient is a 57-year-old female with end-stage renal disease on hemodialysis, coronary artery disease, status post left anterior descending stent in 2014, diabetes m ellitus type 2, hypertension, and hyperlipidemia who presented to the emergency room with chest disco mfort along with uncontrolled blood pressure. Her blood pressure in the emergency room was 233/111. Please refer to the history and physical for further details. Please note that patient was out of Procardia-XL as well as Imdur ER. Dr. Talley recently increased Pro cardia-XL to 90 mg daily from 60 mg daily. The patient was admitted to the hospital with a diagnosis of chest discomfort, probably secondary to uncontrolled blood pressure. She showed good improvement after resuming Procardia-XL and Imdur. Her blood pressure this morning was 138/65. Her troponins were in the indeterminate range at 0.045. Th e plan of care was discussed with Nephrology, Dr. Talley as well as Cardiology, Dr. Lerma. She will undergo stress test tomorrow. She will undergo hemodialysis today. The patient was extensively cou nseled to monitor her blood pressure on a daily basis. She was counseled on medication compliance as well. She appears stable for discharge. Plan of care was discussed with the patient in detail. Sh e stated understanding. FINAL DIAGNOSES: 1. Chest discomfort secondary to hypertensive urgency, resolved. The patient denies any chest disco mfort at this time. 2. Elevated troponins in the indeterminate range secondary to uncontrolled blood pressure. Her maxi mum troponin was 0.045 with normal CK-MB. 3. Morbid obesity with a BMI 44.1. 4. Diabetes mellitus type 2. 5. End-stage renal disease on hemodialysis. 6. Coronary artery disease, status post left anterior descending stent in 2014. 7. Anxiety. 8. Dyslipidemia. 9. Chronic anemia secondary to renal insufficiency. 10. Secondary hyperparathyroidism. 11. Gastroesophageal reflux disease. Plan of care was discussed with the patient in detail. She stated understanding.
== END 2017-12-14 09:51 | disposition home or self-care (01) ==
LOC: ERS 07:44 → 2SW 15:58
PROVIDERS: ADMIT Internal Medicine; ATTEND Internal Medicine
DX: I16.0 Hypertensive urgency (principal); E66.01 Morbid (severe) obesity due to excess calories; E11.22 Type 2 diabetes mellitus with diabetic chronic kidney disease; I12.0 Hypertensive chronic kidney disease with stage 5 chronic kidney disease or end stage renal disease; N18.6 End stage renal disease; D63.1 Anemia in chronic kidney disease; I25.10 Atherosclerotic heart disease of native coronary artery without angina pectoris; E78.5 Hyperlipidemia, unspecified; F41.9 Anxiety disorder, unspecified; N25.81 Secondary hyperparathyroidism of renal origin; K21.9 Gastro-esophageal reflux disease without esophagitis; Z68.41 Body mass index [BMI] 40.0-44.9, adult; Z95.5 Presence of coronary angioplasty implant and graft; Z87.891 Personal history of nicotine dependence; Z79.4 Long term (current) use of insulin; Z79.899 Other long term (current) drug therapy; Z91.041 Radiographic dye allergy status; Z91.011 Allergy to milk products
CPT/HCPCS: 71045; 80053; 82550; 82553 ×2; 82962 ×2; 83690; 83880; 84484 ×2; 85025; 93005; 94760 ×2; 99285; G0378 ×2; 36415; 36416; J0360; J1815

== ENCOUNTER 2018-01-05 00:43 | Emergency (ER) | payer MEDICARE ==
[2018-01-05] MEDS ORDERED: hydrOXYzine 25 MG TAB ONE (01:31)
[2018-01-05 01:41] LABS: #Basophils 0.1 thou/uL (0.0-0.2); #Eosinphils 0.2 thou/uL (0.0-0.7); #Monocytes 0.6 thou/uL (0.11-0.59); #Neutrophils 5.9 thou/uL (1.40-6.50); %Basophils 0.6 % (0.0-1.0); %Eosinophils 2.5 % (0.0-10.0); %Lymphocytes 13.4 % (21.0-51.0); %Monocytes 7.5 % (0.0-10.0); Hemoglobin 10.6 g/dL (12.0-16.0); Mean Corpuscular HGB CONC 31.4 g/dL (32.0-36.0); Mean Corpuscular Hemoglobin 31.2 pg (27.0-31.0); Mean Corpuscular Volume 99.5 fL (78.0-98.0); Mean Platelet Volume 12.1 fL (7.4-10.4); Platelet Count 153 thou/uL (130-400); Red Blood Cell (RBC) Count 3.38 mill/uL (4.20-5.40); White Blood Cell (WBC) Count 7.7 thou/uL (4.8-10.8)
[2018-01-05 01:50] LABS: ALT (SGPT) 21 U/L (8-55); AST (SGOT) 22 U/L (5-34); Albumin 3.7 g/dL (3.5-5.0); Alkaline Phosphatase 240 U/L (40-150); Anion Gap 19 mmol/L (10-20); BUN (Urea Nitrogen) 60 mg/dL (9.8-20.1); Calc. Creatinine Clearance 0 mL/min (70-130); Calcium 9.1 mg/dL (7.8-10.44); Carbon Dioxide 29 mmol/L (22-29); Chloride 94 mmol/L (98-107); Estimated GFR-MDRD 5; Globulin 3.4 g/dL (2.4-3.5); Glucose 338 mg/dL (70-105); Potassium 4.8 mmol/L (3.5-5.1); Protein, Total 7.1 g/dL (6.0-8.3); Sodium 137 mmol/L (136-145)
--- NOTE | 2018-01-08 11:52 | EKG ---
Test Reason : Blood Pressure : / mmHG Vent. Rate : 075 BPM Atrial Rate : 075 BPM P-R Int : 176 ms QRS Dur : 090 ms QT Int : 438 ms P-R-T Axes : 046 004 096 degrees QTc Int : 489 ms Normal sinus rhythm Nonspecific ST and T wave abnormality Prolonged QT Abnormal ECG Confirmed by RUIZ LEWIS DO ([id number]), publications editor JOSE RAUL ELAM ([id number]) on 01/08/2018 11:52:14 AM Referred By: Confirmed By:RUIZ LEWIS DO
== END 2018-01-05 02:14 | disposition home or self-care (01) ==
LOC: ERS 00:43
DX: L23.9 Allergic contact dermatitis, unspecified cause (principal); L29.8 Other pruritus; I25.10 Atherosclerotic heart disease of native coronary artery without angina pectoris; I12.0 Hypertensive chronic kidney disease with stage 5 chronic kidney disease or end stage renal disease; N18.6 End stage renal disease; E11.22 Type 2 diabetes mellitus with diabetic chronic kidney disease; Z99.2 Dependence on renal dialysis; F41.9 Anxiety disorder, unspecified; Z87.891 Personal history of nicotine dependence; Z79.4 Long term (current) use of insulin; Z79.899 Other long term (current) drug therapy; Z79.82 Long term (current) use of aspirin
CPT/HCPCS: 80053; 85025; 93005

== ENCOUNTER 2018-03-03 15:22 | Emergency (ER) | payer MEDICARE ==
[2018-03-03] MEDS ORDERED: Vancomycin HCl 1.5 GM in Sodium Chloride 0.9% 250 ML 300 ML IVPB SCH (17:45)
== END 2018-03-03 20:35 | disposition home or self-care (01) ==
LOC: ERS 15:22
DX: L02.811 Cutaneous abscess of head [any part, except face] (principal); L03.811 Cellulitis of head [any part, except face]; L98.9 Disorder of the skin and subcutaneous tissue, unspecified; I25.10 Atherosclerotic heart disease of native coronary artery without angina pectoris; E11.22 Type 2 diabetes mellitus with diabetic chronic kidney disease; I12.0 Hypertensive chronic kidney disease with stage 5 chronic kidney disease or end stage renal disease; N18.6 End stage renal disease; F41.9 Anxiety disorder, unspecified; Z87.891 Personal history of nicotine dependence
CPT/HCPCS: 10061; 87070; 87186; 87205; 96365; 96366; J3370; J7050

== ENCOUNTER 2018-03-26 03:34 | Emergency (ER) | payer MEDICARE ==
[2018-03-26] MEDS ORDERED: Morphine 4 MG/ML VIAL ONE (03:49)
[2018-03-26] MEDS ORDERED: Morphine 2 MG/ML SYRINGE ONE (03:50)
[2018-03-26] MEDS ORDERED: Gabapentin 300 MG CAP PO SCH (04:15)
[2018-03-26 04:32] LABS: #Basophils 0.1 thou/uL (0.0-0.2); #Eosinphils 0.2 thou/uL (0.0-0.7); #Monocytes 0.6 thou/uL (0.11-0.59); #Neutrophils 5.4 thou/uL (1.40-6.50); %Basophils 0.9 % (0.0-1.0); %Eosinophils 2.6 % (0.0-10.0); %Lymphocytes 13.3 % (21.0-51.0); %Monocytes 8.1 % (0.0-10.0); %Neutrophils 75.1 % (42.0-75.0); Hemoglobin 10.7 g/dL (12.0-16.0); Mean Corpuscular HGB CONC 32.2 g/dL (32.0-36.0); Mean Platelet Volume 10.9 fL (7.4-10.4); Platelet Count 180 thou/uL (130-400); RBC Distribution Width 16.2 % (11.5-14.5); Red Blood Cell (RBC) Count 3.47 mill/uL (4.20-5.40); White Blood Cell (WBC) Count 7.2 thou/uL (4.8-10.8)
[2018-03-26 04:46] LABS: Magnesium 2.6 mg/dL (1.6-2.6); Phosphorus 4.5 mg/dL (2.3-4.7)
[2018-03-26 04:49] LABS: ALT (SGPT) 9 U/L (8-55); AST (SGOT) 15 U/L (5-34); Albumin 3.7 g/dL (3.5-5.0); Alkaline Phosphatase 319 U/L (40-150); Anion Gap 19 mmol/L (10-20); BUN (Urea Nitrogen) 34 mg/dL (9.8-20.1); Bilirubin, Total 1.3 mg/dL (0.2-1.2); Calc. Creatinine Clearance 0 mL/min (70-130); Calcium 10.2 mg/dL (7.8-10.44); Carbon Dioxide 27 mmol/L (22-29); Chloride 95 mmol/L (98-107); Estimated GFR-MDRD 8; Glucose 247 mg/dL (70-105); Potassium 4.3 mmol/L (3.5-5.1); Protein, Total 7.7 g/dL (6.0-8.3); Sodium 137 mmol/L (136-145)
--- NOTE | 2018-03-26 08:36 | RAD ---
PORTABLE UPRIGHT FRONTAL CHEST RADIOGRAPH: DATE: 03/26/2018. COMPARISON: 12/13/2017. HISTORY: Bilateral foot swelling. FINDINGS: Body habitus, shallow inspiration, portable technique, and rotation to the right limit detailed asses sment. There is prominence of the bilateral hilar shadows. There is pulmonary vascular congestion w ith perihilar and bibasilar interstitial prominence. IMPRESSION: Limited portable examination suggesting pulmonary edema. Infectious pneumonitis cannot be excluded. Recommend further assessment with PA and lateral imaging of the chest. POS: [facility]
== END 2018-03-26 05:22 | disposition home or self-care (01) ==
LOC: ERS 03:34
DX: L98.429 Non-pressure chronic ulcer of back with unspecified severity (principal); I12.0 Hypertensive chronic kidney disease with stage 5 chronic kidney disease or end stage renal disease; N18.6 End stage renal disease; I25.10 Atherosclerotic heart disease of native coronary artery without angina pectoris; E11.22 Type 2 diabetes mellitus with diabetic chronic kidney disease; F41.9 Anxiety disorder, unspecified; Z87.891 Personal history of nicotine dependence
CPT/HCPCS: 36415; 71045; 80053; 83735; 83880; 84100; 84484; 85025; 93005; 96372; J2270

== ENCOUNTER 2018-04-09 09:43 | Observation (INO) | payer MEDICARE ==
[2018-04-09] MEDS ORDERED: Fentanyl 100 MCG/2 ML VIAL ONE (09:56)
[2018-04-09] MEDS ORDERED: Lorazepam 2 MG/ML VIAL ONE (10:00)
[2018-04-09 10:10] LABS: #Basophils 0.1 thou/uL (0.0-0.2); #Eosinphils 0.2 thou/uL (0.0-0.7); #Monocytes 0.7 thou/uL (0.11-0.59); #Neutrophils 4.9 thou/uL (1.40-6.50); %Basophils 0.7 % (0.0-1.0); %Eosinophils 2.5 % (0.0-10.0); %Lymphocytes 15.2 % (21.0-51.0); %Monocytes 9.6 % (0.0-10.0); Hemoglobin 11.3 g/dL (12.0-16.0); Mean Corpuscular HGB CONC 31.1 g/dL (32.0-36.0); Mean Corpuscular Hemoglobin 30.6 pg (27.0-31.0); Mean Corpuscular Volume 98.2 fL (78.0-98.0); Mean Platelet Volume 10.9 fL (7.4-10.4); Platelet Count 182 thou/uL (130-400); RBC Distribution Width 15.4 % (11.5-14.5); Red Blood Cell (RBC) Count 3.69 mill/uL (4.20-5.40); White Blood Cell (WBC) Count 6.9 thou/uL (4.8-10.8)
[2018-04-09] MEDS ORDERED: diphenhydrAMINE 50 MG/ML VIAL ONE (10:11)
[2018-04-09] MEDS ORDERED: Famotidine/PF 20 mg/2ml Vial ONE (10:11)
[2018-04-09] MEDS ORDERED: methylPREDNISolone Sod Succ/PF 125 MG/2 ML VIAL ONE (10:12)
[2018-04-09] MEDS ORDERED: ISOVUE-370 76%-LOCM 1 ML ONE (10:15)
[2018-04-09] MEDS ORDERED: Lorazepam 2 MG/ML VIAL SLOW IVP SCH (10:30)
[2018-04-09] MEDS ORDERED: Famotidine/PF 20 mg/2ml Vial IVPB SCH (10:30)
[2018-04-09] MEDS ORDERED: Fentanyl 100 MCG/2 ML VIAL SLOW IVP SCH (10:30)
[2018-04-09 10:33] LABS: ALT (SGPT) Less than 7 U/L (8-55); AST (SGOT) 9 U/L (5-34); Albumin 3.7 g/dL (3.5-5.0); Alkaline Phosphatase 243 U/L (40-150); Anion Gap 16 mmol/L (10-20); BUN (Urea Nitrogen) 14 mg/dL (9.8-20.1); Bilirubin, Total 1.2 mg/dL (0.2-1.2); CK (CPK) 29 U/L (29-168); Calc. Creatinine Clearance 0 mL/min (70-130); Carbon Dioxide 28 mmol/L (22-29); Chloride 102 mmol/L (98-107); Estimated GFR-MDRD 14; Globulin 3.8 g/dL (2.4-3.5); Glucose 143 mg/dL (70-105); Potassium 4.1 mmol/L (3.5-5.1); Protein, Total 7.5 g/dL (6.0-8.3); Sodium 142 mmol/L (136-145)
--- NOTE | 2018-04-09 13:02 | RAD ---
RADIOGRAPH CHEST 1 VIEW: Date: 04/09/2018. Time: 10:23 a.m. HISTORY: A 58-year-old female with chest pain status post dialysis this morning. COMPARISON: 03/26/2018. FINDINGS: Lungs are again hypoinflated. The patient is no longer rotated to the right. There are diffuse bila teral mixed interstitial-alveolar pulmonary densities throughout both lungs. Cardiomegaly again note d. No pneumothorax. IMPRESSION: 1. Diffuse interstitial-alveolar infiltrates could either represent pulmonary edema or pneumonia. 2. Cardiomegaly. FOREIGN [] POS: [facility]
[2018-04-09] MEDS ORDERED: Senokot S 8.6-50 MG TAB PO PRN (13:29)
[2018-04-09] MEDS ORDERED: Guaifenesin DM 100-10/5 ML UDCUP PO PRN (13:29)
[2018-04-09] MEDS ORDERED: Dextrose 5% in Water 1,000 ML IV PRN (13:29)
[2018-04-09] MEDS ORDERED: Dextrose 50% Abboject 50 ML SYRINGE SLOW IVP PRN (13:29)
[2018-04-09] MEDS ORDERED: Ondansetron PF 4 MG/2 ML Vial IVP PRN (13:29)
[2018-04-09] MEDS ORDERED: HumaLOG 300 UNITS/3 ML VIAL SC PRN ×2 (13:29)
--- NOTE | 2018-04-09 14:29 | CT ---
CTA THORAX WITH CONTRAST CTA ABDOMEN WITH CONTRAST: (Computed Tomographic Angiography, chest(noncoronary) with contrast material, and image postprocessin g) (Computed Tomographic Angiography, abdomen with contrast material, and image postprocessing) DATE: 04/09/2018. TIME: 11:21 a.m. HISTORY: A 58-year-old female in end stage renal disease presents with left upper extremity, left shoulder, an d mid back pain. TECHNIQUE: IV injection of iodinated contrast: 100 mL of Isovue 370. Arterial phase bolus chasing technique. Scan acquisition from top of top of aortic arch to iliac crests. coronal and sagittal 3D MIP reconstructions. FINDINGS: There is no aortic dissection or aneurysm. There is ectasia and tortuosity of the thoracic aorta. N o aortic rupture. At least 2 stents in the left anterior descending coronary artery. Dilated pulmon nat arteries and their branches. No central pulmonary thromboembolism. Cardiomegaly with 4-chamber dilation. Diffuse patchy ground-glass densities throughout the bilateral upper lobes, especially low er lobes, and middle lobes. The lower lobe ground-glass densities have mosaic patterns. This probab ly represents pulmonary interstitial edema. No pleural effusion or pneumothorax. Hepatomegaly. Low hepatic attenuation suggestive of fatty liver. Splenomegaly. Bilaterally somewhat atrophic kidneys . Atherosclerotic calcification of bilateral renal arteries. No high-grade stenosis of celiac arter y, superior mesenteric artery, or common iliac arteries. No small bowel dilation. Very extensive mo derate to severe edema throughout the subcutaneous fat surrounding the abdominal cavity and pelvis. No retroperitoneal hematoma. No adrenal mass. No gross evidence of pancreatitis or pancreatic mass. No stenosis or occlusion involving left subclavian artery or brachiocephalic artery. Multiple nonspe cific mildly enlarged mediastinal lymph nodes. IMPRESSION: 1. No aortic dissection. 2. Evidence for coronary atherosclerotic disease with coronary artery stents. 3. Cardiomegaly and extensive pulmonary densities which are probably pulmonary edema: Evidence of c ongestive heart failure. 4. Pulmonary artery dilation raising the possibility of pulmonary arterial hypertension. 5. Hepatomegaly and splenomegaly. 6. Anasarca. erin[] POS: [facility]
[2018-04-09 15:02] VITALS: BMI 38.7
--- NOTE | 2018-04-09 16:59 | HP ---
REASON FOR ADMISSION: Volume overload and left upper extremity pain. HISTORY OF PRESENTING ILLNESS: The patient gives history of severe left upper extremity pain, which woke her up around 4 a.m. Despite this, she went to get her hemodialysis and was 3 hours into dialysis, could not tolerate it and was brought to emergency room. She has some mild shortness of breath. The patient is currently very drowsy due to fentanyl that she received in the ER. She has received nearly 100 mcg of fentanyl along with diphenhydramine, Ativan, and methylprednisolone in the ER. No complaints of chest pain, palpitation, PND. The patient's attention span is very limited and drifts back into sleep before she finishes answering her questions. PAST MEDICAL AND SURGICAL HISTORY: History of end-stage renal disease, on hemodialysis on the last 4 years. She is initially on peritoneal dialysis, which was switched over to hemodialysis for last 2 years or so per family at bedside. Diabetes mellitus type 2, hypertension, tonsillectomy, history of coronary artery disease with prior stent to left anterior descending artery in 2014, dyslipidemia, obesity, multiple dialysis access procedures, adenoidectomy, foot/toe surgeries for nonhealing diabetic ulcers. CURRENT MEDICATIONS: The patient is on; 1. Imdur 30 mg daily. 2. Coreg 6.25 mg twice daily. 3. Procardia XL daily. 4. Clonidine 0.2 mg twice daily. 5. Aspirin daily. 6. Plavix daily. 7. Cozaar 100 mg daily. ALLERGIES: ALLERGIC TO LEVAQUIN, LATEX, IODINE, AND SHELLFISH. PERSONAL HISTORY: Does not abuse alcohol or drugs. She ambulates with a cane at times. FAMILY HISTORY: Mother in her 50s, she had diabetes and its complications. Father in his 60s, he had postsurgical complications after amputation. CODE STATUS: Full. Power of corporate attorney is her . REVIEW OF SYSTEMS: CONSTITUTIONAL: Negative for weight loss or gain, ability to conduct usual activities. SKIN: Negative for rash, itching. EYES: Negative for double vision, pain. ENT/MOUTH: Negative for nose bleeding, neck stiffness, pain, tenderness. CARDIOVASCULAR: Negative for palpitations, dyspnea on exertion, orthopnea. RESPIRATORY: Negative for shortness of breath, wheezing, cough, hemoptysis, fever or night sweats. GASTROINTESTINAL: Negative for poor appetite, abdominal pain, heartburn, nausea , vomiting, constipation, or diarrhea. GENITOURINARY: Negative for urgency, frequency, dysuria, nocturia. MUSCULOSKELETAL: Negative for pain, swelling. NEUROLOGIC/PSYCHIATRIC: Negative for anxiety, depression. ALLERGY/IMMUNOLOGIC: Negative for skin rash, bleeding tendency. PHYSICAL EXAMINATION: GENERAL: The patient is a 58-year-old female, who is currently not in any acute distress. VITAL SIGNS: Blood pressure 168/90, pulse 80 per minute, respiratory rate 20 per minute, saturating 89% on room air and 98% on 2 L nasal cannula, temperature 97.4 degrees Fahrenheit. NECK: Supple. No elevated JVD. HEENT: Eyes; extraocular muscles intact. Pupils reacting to light. Oral cavity, mucous membranes are moist. No exudates or congestion. CARDIOVASCULAR SYSTEM: S1 and S2 heard. Regular rhythm. RESPIRATORY SYSTEM: Air entry 1+ bilateral. Scattered rales in the infrascapular area bilaterally. ABDOMEN: Soft. Bowel sounds heard. No tenderness, rigidity, or guarding. EXTREMITIES: The patient is extremely sensitive to touch in the left chest and left upper extremity area. There are no obvious abscess or ulcers seen. Peripheral pulses are 1+ bilateral. The patient has chronic wounds on her toes. CENTRAL NERVOUS SYSTEM: No gross focal deficits noted. The patient is moving all four extremities. PSYCHIATRIC SYSTEM: The patient is a bit lethargic at present, but no obvious hallucinations or delusions. LABORATORY DATA: BUN 14, creatinine 3.3, serum bicarb 28, serum glucose 143. Liver enzymes; AST, ALT within normal limits. Alkaline phosphatase is 243. White count of 6, H and H are 11 and 36, platelet count 182, MCV is 98 with 72% neutrophils. BNP is 3845. Albumin is 3.7. Troponin I less than 0.010. Chest x-ray done shows pulmonary vascular congestion, cardiomegaly. CT dissection protocol done shows no aortic dissection. There was cardiomegaly and extensive pulmonary density/ pulmonary edema. Hepatomegaly and splenomegaly were seen. Anasarca seen. EKG done shows normal sinus rhythm at 78 beats per minute. There is nonspecific ST-T wave changes. CLINICAL IMPRESSION AND PLAN: The patient will be under observation on telemetry for volume overload. She also has nonspecific left upper extremity pain. She will be on aspirin, Coreg, Plavix, clonidine, Humulin 70/30, Imdur, Procardia XL, and sevelamer as before. Dr. Talley has been consulted from ER. The plan is to remove volume with hemodialysis in the morning. Once the patient is euvolemic, she will be discharged home tomorrow. She is currently very somnolent after receiving multiple medications in the ER and will closely monitor for airway. Currently, has no airway compromise. Job ID: [id number] MTDD
[2018-04-09] MEDS: Sevelamer Carbonate 800 MG TAB PO SCH (17:02)
[2018-04-09] MEDS: Metoclopramide HCl 10 MG TAB PO SCH (17:03)
[2018-04-09] MEDS: Carvedilol 6.25 MG TAB PO SCH (17:03)
[2018-04-09] MEDS: HumuLIN 70/30 (300 UNITS/3 ML VIAL) SC SCH (21:46)
[2018-04-09] MEDS: Heparin 5,000 UNITS/ML VIAL SC SCH (21:46)
[2018-04-09] MEDS: Docusate 100 MG CAP PO SCH (21:47)
[2018-04-09] MEDS: cloNIDine 0.2 MG TAB PO SCH (21:47)
[2018-04-10] MEDS: Acetaminophen 325 MG TAB PO PRN ×3 (01:00→21:54)
[2018-04-10] MEDS: ALPRAZolam 0.25 MG TAB PO PRN ×2 (01:00→21:52)
[2018-04-10] MEDS: hydrOXYzine 25 MG TAB PO PRN ×3 (01:27→21:52)
[2018-04-10] MEDS ORDERED: Fentanyl 100 MCG/2 ML VIAL SLOW IVP SCH (03:15)
[2018-04-10 06:24] LABS: #Eosinphils 0.1 thou/uL (0.0-0.7); #Lymphocytes 1.2 thou/uL (1.20-3.40); #Monocytes 0.8 thou/uL (0.11-0.59); #Neutrophils 4.3 thou/uL (1.40-6.50); %Basophils 0.6 % (0.0-1.0); %Lymphocytes 18.9 % (21.0-51.0); %Monocytes 12.4 % (0.0-10.0); %Neutrophils 66.2 % (42.0-75.0); Mean Corpuscular HGB CONC 31.7 g/dL (32.0-36.0); Mean Corpuscular Hemoglobin 31.5 pg (27.0-31.0); Mean Corpuscular Volume 99.5 fL (78.0-98.0); Mean Platelet Volume 11.2 fL (7.4-10.4); Platelet Count 162 thou/uL (130-400); RBC Distribution Width 15.2 % (11.5-14.5); White Blood Cell (WBC) Count 6.4 thou/uL (4.8-10.8)
[2018-04-10 06:45] LABS: Albumin 3.4 g/dL (3.5-5.0); Anion Gap 20 mmol/L (10-20); BUN (Urea Nitrogen) 26 mg/dL (9.8-20.1); BUN/Creatinine Ratio 5.68; Calc. Creatinine Clearance 26 mL/min (70-130); Carbon Dioxide 23 mmol/L (22-29); Chloride 98 mmol/L (98-107); Estimated GFR-MDRD 10; Glucose 177 mg/dL (70-105); Phosphorus 4.3 mg/dL (2.3-4.7); Potassium 4.3 mmol/L (3.5-5.1); Sodium 137 mmol/L (136-145)
[2018-04-10] MEDS ORDERED: Aspirin 325 MG TAB PO SCH (08:00)
[2018-04-10] MEDS: Metoclopramide HCl 10 MG TAB PO SCH ×3 (08:32→17:15)
[2018-04-10] MEDS: Sevelamer Carbonate 800 MG TAB PO SCH ×3 (08:32→17:16)
[2018-04-10] MEDS: cloNIDine 0.2 MG TAB PO SCH ×2 (08:33→21:51)
[2018-04-10] MEDS: Carvedilol 6.25 MG TAB PO SCH ×2 (08:33→17:15)
[2018-04-10] MEDS: Docusate 100 MG CAP PO SCH (08:33)
[2018-04-10] MEDS: HumuLIN 70/30 (300 UNITS/3 ML VIAL) SC SCH (08:34)
[2018-04-10] MEDS: Heparin 5,000 UNITS/ML VIAL SC SCH (08:34)
[2018-04-10] MEDS ORDERED: Clopidogrel Bisulfate 75 MG TAB PO SCH (09:00)
[2018-04-10] MEDS ORDERED: NIFEdipine XL 90 MG TAB PO SCH (09:00)
--- NOTE | 2018-04-10 11:45 | PDOC.PN ---
- Subjective Encounter Start Date: 04/10/18 Encounter Start Time: 09:00 Subjective: no new complaints - Objective Resuscitation Status - Order Detail: 04/09/18 13:24 Resuscitation Status Routine Resuscitation Status: FULL: Full Resuscitation MAR Reviewed: Yes Vital Signs & Weight: Vital Signs (12 hours) Temp Pulse Resp BP BP Pulse Ox 04/10/18 07:52 97.5 F L 60 20 128/80 99 04/10/18 03:20 97.3 F L 62 24 H 166/69 H 93 L Weight Weight 269 lb 8 oz I&O: 04/09/18 04/10/18 04/11/18 06:59 06:59 06:59 Intake Total 1000 Balance 1000 Result Diagrams: 04/10/18 06:03 04/10/18 06:03 Additional Labs: Accuchecks 04/10/18 04/09/18 04/09/18 05:16 21:04 16:59 POC Glucose 189 H 237 H 181 H Phys Exam - Physical Examination HEENT: PERRLA, moist MMs Neck: no JVD, supple Respiratory: no wheezing, no rales Cardiovascular: RRR, no significant murmur Gastrointestinal: soft, non-tender, positive bowel sounds Musculoskeletal: pulses present Neurological: non-focal, moves all 4 limbs Psychiatric: normal affect, A&O x 3 Dx/Plan (1) Left upper limb pain Code(s): M79.602 - PAIN IN LEFT ARM Status: Acute (2) Volume overload Code(s): E87.70 - FLUID OVERLOAD, UNSPECIFIED Status: Acute (3) Anemia of renal disease Code(s): D63.1 - ANEMIA IN CHRONIC KIDNEY DISEASE Status: Chronic Comment: Monitor. EPO with HD. (4) Chronic combined systolic and diastolic congestive heart failure Code(s): I50.42 - CHRONIC COMBINED SYSTOLIC AND DIASTOLIC HRT FAIL Status: Chronic Comment: Stable, not in acute exacerbation. Will continue current regimen. (5) DM type 2 (diabetes mellitus, type 2) Status: Chronic Qualifiers: Diabetes mellitus mcc insulin use: with mcc use Diabetes mellitus complication status: with kidney complications Diabetes mellitus complication detail: with chronic kidney disease Chronic kidney disease stage : on chronic dialysis Qualified Code(s): E11.22 - Type 2 diabetes mellitus with diabetic chronic kidney disease; N18.6 - End stage renal disease; Z79.4 - snf (current) use of insulin; Z99.2 - Dependence on renal dialysis Comment: Continue current regimen. (6) ESRD (end stage renal disease) on dialysis Code(s): N18.6 - END STAGE RENAL DISEASE; Z99.2 - DEPENDENCE ON RENAL DIALYSIS Status: Chronic Comment: HD per Renal service (7) HTN (hypertension) Code(s): I10 - ESSENTIAL (PRIMARY) HYPERTENSION Status: Chronic Qualifiers: (8) Peripheral neuropathy Code(s): G62.9 - POLYNEUROPATHY, UNSPECIFIED Status: Chronic - Plan will left UE usg to r/o dvt -: for HD today, d/w -: may dc home after HD -: needs to wear yohana hose for LE -: continue asp, plavix, coreg, clonidine, procardia, imdur and insulins * . Review of Systems - Medications/Allergies Allergies/Adverse Reactions: Allergies Allergy/AdvReac Type Severity Reaction Status Date / Time Latex, Natural Rubber Allergy Mild Rash Verified 12/13/17 16:04 levofloxacin [From Levaquin] Allergy Mild Hives Verified 12/13/17 16:04 adhesive tape Allergy Verified 12/13/17 16:04 Iodinated Contrast- Oral and Allergy Rash Verified 12/13/17 16:04 IV Dye [Iodinated Contrast Media - IV Dye] shellfish derived Allergy Rash Verified 12/13/17 16:04 Medications: Current Medications Acetaminophen (Tylenol) 650 mg PO Q4H PRN PRN Reason: Headache/Fever/Mild Pain (1-3) Last Admin: 04/10/18 01:00 Dose: 650 mg Alprazolam (Xanax) 0.25 mg PO Q6H PRN PRN Reason: Anxiety Last Admin: 04/10/18 01:00 Dose: 0.25 mg Aspirin (Aspirin) 325 mg PO QAM-[facility] Last Admin: 04/10/18 08:32 Dose: 325 mg Carvedilol (Coreg) 6.25 mg PO BID-[facility] Last Admin: 04/10/18 08:33 Dose: 6.25 mg Clonidine (Catapres) 0.2 mg PO BID [facility] Last Admin: 04/10/18 08:33 Dose: 0.2 mg Clopidogrel Bisulfate (Plavix) 75 mg PO DAILY [facility] Last Admin: 01/27/19 08:33 Dose: 75 mg Dextrose/Water (Dextrose 50%) 25 gm SLOW IVP PRN PRN PRN Reason: Hypoglycemia Docusate Sodium (Colace) 100 mg PO BID [facility] Last Admin: 04/10/18 08:33 Dose: 100 mg Glucagon (Glucagon) 1 mg IM PRN PRN PRN Reason: Hypoglycemia Guaifenesin/Dextromethorphan (Robitussin Dm) 15 ml PO Q4H PRN PRN Reason: Cough Heparin Sodium (Porcine) (Heparin) 5,000 units SC BID [facility] Last Admin: 04/10/18 08:34 Dose: 5,000 units Hydroxyzine HCl (Atarax) 25 mg PO Q8H PRN PRN Reason: .ITCHING Last Admin: 04/10/18 01:27 Dose: 25 mg Dextrose/Water (D5w) 1,000 mls @ 0 mls/hr IV .Q0M PRN PRN Reason: Hypoglycemia Insulin Human Isoph/Insulin Regular (Humulin 70/30) 30 units SC BID [facility] Last Admin: 04/10/18 08:34 Dose: 30 unit Insulin Human Lispro (Humalog) 0 units SC .MODERATE SLIDING SC PRN PRN Reason: Moderate Correctional Scale Last Admin: 04/09/18 17:03 Dose: 2 unit Insulin Human Lispro (Humalog) 0 units SC .BEDTIME SLIDING SC PRN PRN Reason: Bedtime Correctional Scale Isosorbide Mononitrate (Imdur Er) 30 mg PO DAILY [facility] Last Admin: 04/10/18 08:33 Dose: 30 mg Metoclopramide HCl (Reglan) 5 mg PO [facility] Last Admin: 04/10/18 08:32 Dose: 5 mg Nifedipine (Procardia Xl) 90 mg PO DAILY [facility] Last Admin: 04/10/18 08:33 Dose: 90 mg Ondansetron HCl (Zofran) 4 mg IVP Q6H PRN PRN Reason: Nausea/Vomiting Pantoprazole Sodium (Protonix) 40 mg PO DAILY [facility] Last Admin: 04/10/18 08:33 Dose: 40 mg Senna/Docusate Sodium (Senokot S) 2 tab PO BID PRN PRN Reason: Constipation Sevelamer Carbonate (Renvela) 2,400 mg PO TID-[facility] Last Admin: 04/10/18 08:32 Dose: 2,400 mg
--- NOTE | 2018-04-10 13:46 | CON ---
DATE OF CONSULTATION: HISTORY OF PRESENT ILLNESS: Ms. Avila is a 58-year-old female with ESRD on maintenance hemodialysis, who was admitted for severe left upper extremity pain. According to the patient, the pain started when the needle was inserted on dialysis yesterday. However, the pain was persistent for that reason, the dialysis treatment was shortened. She is here for further evaluation. We are now being consulted for her maintenance hemodialysis. Of interest, this patient on admission showed some increased lung markings on chest x-ray and the BNP was significantly elevated. My plan is to do an extra hemodialysis for this chronic volume overload for this patient. We are scheduling her for 2 to 4-hour dialysis today. REVIEW OF SYSTEMS: Positive for left upper extremity pain - resolved at this moment. No chest pain. Positive for chronic shortness of breath. No nausea. No vomiting. No diarrhea. No constipation. No productive cough. No fever or chills. MEDICATIONS: 1. Imdur 30 mg daily. 2. Coreg 6.25 mg twice a day. 3. Procardia XL 90 mg once a day. 4. Clonidine 0.2 mg twice a day. 5. Aspirin 81 mg tablet once a day. 6. Plavix 75 mg once a day. 7. Cozaar 100 mg daily. PAST MEDICAL HISTORY: 1. ESRD, currently on maintenance hemodialysis. 2. History of hypertension, status post CHF, type 2 diabetes mellitus, diabetic neuropathy, peripheral vascular disease, GERD, coronary artery disease, ?COPD. PAST SURGICAL HISTORY: Status post AV fistula placement, status post AV fistulogram, status post cuffed hemodialysis catheter placement, status post cardiac cath, status post coronary artery stent placement, status post cholecystectomy, status post PD catheter placement with subsequent removal, and status post upper GI endoscopy. ALLERGIES: LEVAQUIN, LATEX, AND SHELLFISH. TRAUMA: None. IMMUNIZATION: Up-to-date. HOSPITALIZATIONS: Please see past medical history. 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 . Lives in [place]. Four children. Sedentary lifestyle. Education, high school. Status post blood transfusion. No alcohol use. No history of smoking. No IV drug abuse. FAMILY HISTORY: No family history of ESRD. PHYSICAL EXAMINATION: VITAL SIGNS: Blood pressure 128/80 with heart rate of 60, respiratory rate 20, temperature 97.5, and pulse ox 99%. GENERAL: The patient is awake, alert, comfortable, obese, not in distress. SKIN: Numerous skin lesions noted. HEENT: She has a pinkish conjunctivae. Anicteric sclerae. NECK: No neck mass. No carotid bruits. No JVD. CHEST: No deformities. LUNGS: Clear breath sounds. HEART: Normal sinus rhythm. No murmur. No gallops. No rubs. ABDOMEN: Globular, soft, and nontender. No masses. EXTREMITIES: No edema. No deformities. LABORATORY DATA: Laboratories of April 10, 2018, white count 6.4 and hemoglobin 11. Sodium 137, potassium 4.3, chloride 98, carbon dioxide 23, BUN 26, creatinine 4.58, glucose 177, calcium 9, phosphorus 4.3, and albumin 3.4. April 09, 2018, BNP is 3845. Chest x-ray of April 09, 2018, shows diffuse interstitial infiltrates - suggestion of pulmonary edema. CT scan of the thorax - negative for any aortic dissection. ASSESSMENT AND PLAN: 1. Congestive heart failure - we will schedule the patient for 2 to 4-hour hemodialysis with maximal fluid removal as tolerated by the patient. 2. Left upper extremity pain - this could be a diabetic neuropathy. Examination of the left upper extremity AV fistula shows to be normal with no evidence of any infection. 3. End-stage renal disease, extra hemodialysis today for volume overload. We will then resume this patient on 3 times a week hemodialysis. If the patient is still here in a.m., we will consider another dialytic intervention. 4. Overall, agree with current management. Job ID: [id number]
--- NOTE | 2018-04-10 16:56 | ULT ---
ULTRASOUND VENOUS LEFT UPPER EXTREMITY: History: 58-year-old female with left upper extremity pain. Rule out DVT. Technique: Grayscale, color flow, and spectral analysis of major veins of left upper extremity. Compression and release applied to all veins except the subclavian. FINDINGS: There is a radial artery to cephalic vein AV hemodialysis fistula. The fistula is patent. There is no thrombosis of the internal jugular, subclavian, brachial, basilic, cephalic, radial, or ulnar veins. IMPRESSION: 1. No deep venous thrombosis of the left upper extremity. 2. Patent arteriovenous hemodialysis fistula. POS: [facility]ELVI
[2018-04-10 21:53] VITALS: BP 189/83
[2018-04-10 22:19] VITALS: TEMP 97.7
--- NOTE | 2018-04-11 15:52 | DIS ---
DATE OF ADMISSION: 04/09/2018 DATE OF DISCHARGE: 04/10/2018 DISCHARGE DISPOSITION: Home. PRIMARY DISCHARGE DIAGNOSES: 1. Volume overload with acute on chronic congestive heart failure exacerbation with systolic and diastolic dysfunction. 2. End-stage renal disease, on hemodialysis. 3. Left upper extremity pain with no evidence of DVT with patent arteriovenous fistula. 4. Chronic anemia due to renal disease. 5. Diabetes mellitus type 2. 6. Peripheral neuropathy. 7. Hypertension. PROCEDURES DONE DURING HOSPITALIZATION: Initial CT dissection done on the day of admission showed no evidence of aortic dissection; there is coronary artery atherosclerotic disease with coronary artery stent seen; cardiomegaly with extensive pulmonary densities, likely due to pulmonary edema; hepatomegaly, splenomegaly, anasarca were all seen on the CT dissection protocol. Ultrasound venous Doppler of left upper extremity done showed no evidence of thrombosis. Her AV fistula was patent. H and H 11 and 34, platelet count 162, white count of 6. BUN and creatinine 26 and 4.5, albumin 3.4. BNP 3845. DISCHARGE MEDICATIONS: 1. Xanax 0.25 mg p.o. q.6 hourly p.r.n. 2. Aspirin 325 mg p.o. daily. 3. Vitamin D3 of 2000 units p.o. daily. 4. Clonidine 0.2 mg p.o. twice daily. 5. Plavix 75 mg p.o. daily. 6. Colace 100 mg twice daily p.r.n. 7. Imdur extended release 30 mg p.o. daily. 8. NovoLog 70/30 of 30 units subcu twice daily. 9. Cozaar 100 mg p.o. daily. 10. Reglan 5 mg p.o. before meals. 11. Procardia XL 90 mg p.o. daily. 12. Protonix 40 mg p.o. daily. 13. Renvela 2400 mg p.o. three times daily. 14. Coreg 6.25 mg p.o. twice daily. ALLERGIES: LATEX, ADHESIVE, LEVAQUIN, IODINE, SHELLFISH. INPATIENT CONSULT: Dr. Talley for Nephrology. DISCHARGE PLAN: The patient to follow up with her primary care physician in 1 week. BRIEF COURSE DURING HOSPITALIZATION: The patient initially came to ER with complaints of severe left upper extremity pain. Her initial workup including clinical exam was consistent with volume overload with acute on chronic congestive heart failure exacerbation. The patient had a CT dissection protocol done, which did not reveal any dissection. The patient also had a left upper extremity venous ultrasound done, which had not revealed any DVT. The patient had her hemodialysis with removal of fluid per Dr. Talley's direction. She is hemodynamically stable and has been counseled with regard to medication and dietary compliance. She needs followup with Dr. Talley as advised. The patient also has been advised to wear SONALI hose for the lower extremity edema. Please see a [id number] documentation for the day of discharge on [facility]. Job ID: [id number] [facility]
== END 2018-04-10 22:49 | disposition home or self-care (01) ==
LOC: ERS 09:43 → ERHOLD 11:30 → 2SW 11:32
PROVIDERS: ADMIT Internal Medicine; ATTEND Internal Medicine
DX: I13.2 Hypertensive heart and chronic kidney disease with heart failure and with stage 5 chronic kidney disease, or end stage renal disease (principal); E11.22 Type 2 diabetes mellitus with diabetic chronic kidney disease; N18.6 End stage renal disease; I50.43 Acute on chronic combined systolic (congestive) and diastolic (congestive) heart failure; D63.1 Anemia in chronic kidney disease; E87.70 Fluid overload, unspecified; M79.602 Pain in left arm; I25.10 Atherosclerotic heart disease of native coronary artery without angina pectoris; E78.5 Hyperlipidemia, unspecified; E11.40 Type 2 diabetes mellitus with diabetic neuropathy, unspecified; E11.51 Type 2 diabetes mellitus with diabetic peripheral angiopathy without gangrene; E66.9 Obesity, unspecified; Z68.38 Body mass index [BMI] 38.0-38.9, adult; Z87.891 Personal history of nicotine dependence; Z79.02 Long term (current) use of antithrombotics/antiplatelets; Z79.82 Long term (current) use of aspirin; Z79.899 Other long term (current) drug therapy; Z99.2 Dependence on renal dialysis; Z88.8 Allergy status to other drugs, medicaments and biological substances; Z91.013 Allergy to seafood; Z91.040 Latex allergy status; Z91.041 Radiographic dye allergy status; Z91.048 Other nonmedicinal substance allergy status; Z95.5 Presence of coronary angioplasty implant and graft
CPT/HCPCS: 71045; 71275; 80053; 80069; 82550; 82962 ×2; 83880; 84484; 85025 ×2; 93005; 93971; 96374; 96375; 96376; 97139; 99285; G0378 ×2; 36415; 36416; 90935; G0257; J1200; J1644; J1815; J2060; J2930; J3010; J8597; Q9966; S0028

== ENCOUNTER 2018-04-12 03:50 | Emergency (ER) | payer MEDICARE | END 2018-04-12 05:05 | disposition home or self-care (01) | LOC: ERS 03:50 | DX: G89.29 Other chronic pain (principal); M25.512 Pain in left shoulder; I10 Essential (primary) hypertension; E11.22 Type 2 diabetes mellitus with diabetic chronic kidney disease; I12.0 Hypertensive chronic kidney disease with stage 5 chronic kidney disease or end stage renal disease; N18.6 End stage renal disease; Z99.2 Dependence on renal dialysis; F41.9 Anxiety disorder, unspecified; Z87.891 Personal history of nicotine dependence | CPT/HCPCS: 36415; 84484; 93005 ==

== ENCOUNTER 2018-05-06 23:22 | Inpatient (IN) | payer MEDICARE ==
[~2018-05-06 23:22] MED LIST: ISOVUE-370 76%-LOCM 1 ML ONE
[2018-05-06 23:56] LABS: #Lymphocytes 0.5 thou/uL (1.20-3.40); #Monocytes 0.2 thou/uL (0.11-0.59); #Neutrophils 9.3 thou/uL (1.40-6.50); %Eosinophils 0.3 % (0.0-10.0); %Lymphocytes 5.1 % (21.0-51.0); %Monocytes 2.3 % (0.0-10.0); %Neutrophils 92.3 % (42.0-75.0); Hemoglobin 12.3 g/dL (12.0-16.0); Mean Corpuscular HGB CONC 30.6 g/dL (32.0-36.0); Mean Corpuscular Hemoglobin 30.8 pg (27.0-31.0); Mean Platelet Volume 11.5 fL (7.4-10.4); Platelet Count 165 thou/uL (130-400); RBC Distribution Width 16.7 % (11.5-14.5); White Blood Cell (WBC) Count 10.1 thou/uL (4.8-10.8)
--- NOTE | 2018-05-06 23:57 | RAD ---
CHEST ONE VIEW: 05/06/18 HISTORY: Chest pain. COMPARISON: Radiograph 04/09/18. FINDINGS: The heart size is enlarged. Mild edema. No pneumothorax. Small effusions. IMPRESSION: Cardiomegaly and mild pulmonary edema. POS: [facility]
[2018-05-07] MEDS ORDERED: Morphine 4 MG/ML VIAL ONE (00:06)
[2018-05-07 00:21] LABS: ALT (SGPT) 11 U/L (8-55); AST (SGOT) 17 U/L (5-34); Alkaline Phosphatase 256 U/L (40-150); Anion Gap 24 mmol/L (10-20); BUN (Urea Nitrogen) 32 mg/dL (9.8-20.1); Bilirubin, Total 2.1 mg/dL (0.2-1.2); Calc. Creatinine Clearance 0 mL/min (70-130); Calcium 9.9 mg/dL (7.8-10.44); Carbon Dioxide 23 mmol/L (22-29); Chloride 96 mmol/L (98-107); Estimated GFR-MDRD 8; Globulin 3.5 g/dL (2.4-3.5); Glucose 209 mg/dL (70-105); Lipase 8 U/L (8-78); Potassium 4.6 mmol/L (3.5-5.1); Protein, Total 7.5 g/dL (6.0-8.3); Sodium 138 mmol/L (136-145)
[2018-05-07] MEDS ORDERED: Lorazepam 2 MG/ML VIAL ONE (00:36)
[2018-05-07 00:38] LABS: CKMB 0.9 ng/mL (0-6.6)
[2018-05-07 00:50] LABS: Actual Bicarbonate (HCO3a) 26.4 mEq/L (22-28); Analyzer IN Cardio ER; Base Excess (BEa) 1.5 mEq/L (-2.0 to +3.0); CO2 Tension 42.9 mmHg (35.0-45.0); Calcium, Ionized 1.12 mmol/L (1.12-1.30); Carboxyhemoglobin (COHb) 2.1 gm% (0.0-3.0); Hemoglobin (Hb) 11.4 g/dL (12.0-16.0); Potassium - ABG Lab 4.18 mmol/L (3.70-5.30); pH, Arterial 7.41 (7.35-7.45)
[2018-05-07 00:52] LABS: O2 Tension (PaO2) 29.4 mmHg (80.0-100.0)
[2018-05-07 00:53] LABS: ALV-art Gradient 145.135 (0-20); Puncture Site RBA
[2018-05-07] MEDS ORDERED: Cefepime 2 GM in Sodium Chloride 0.9% 100 ML IVPB SCH (01:00)
[2018-05-07] MEDS ORDERED: Vancomycin HCl 1.5 GM in Sodium Chloride 0.9% 250 ML 300 ML IVPB SCH (01:30)
[2018-05-07 03:18] LABS: Bilirubin Small (Negative); Blood, Urine Moderate (Negative); Glucose, Urine (Dipstick) 500 mg/dL (Negative); Leukocyte Negative (Negative); Nitrite Negative (Negative); Protein, Urine (Dipstick) > or equal to 300 mg/dL (Neg-Trace); Specific Gravity, Urine 1.015 (1.005-1.030); Urobilinogen 0.2 mg/dL (0.2-1.0)
[2018-05-07 03:20] LABS: Bacteria/HPF None Seen HPF (None Seen); Clarity Cloudy (Clear); Hyaline Casts/LPF NONE SEEN LPF (0-3 Hyaline); RBC/HPF 0-3 HPF (0-3); Renal Epithelial 0-3 HPF (0-3); WBC/HPF 0-3 HPF (0-3)
[2018-05-07 03:21] LABS: Other Microscopic Description Less than 2 mL rec'd
[2018-05-07 04:20] LABS: Lactic Acid 1.8 mmol/L (0.5-2.2)
[2018-05-07 04:38] LABS: Troponin I 0.033 ng/mL (< 0.028)
--- NOTE | 2018-05-07 05:15 | HP ---
PRIMARY CARE PHYSICIAN: Dr. Vandana Beard. CHIEF COMPLAINT: The patient is here for abdominal pain. HISTORY OF PRESENT ILLNESS: The patient is a 58-year-old female with past medical history of ESRD, diabetes, hypertension, multiple diabetic wounds, and ulcers, who presents to the emergency department for severe lower abdominal pain. The patient's pain started like around 5 hours ago and has been constant. The patient has a history of peritoneal dialysis that was removed. The [id number] is present at bedside who provided most of the history. She reports that the patient started to have this wound and ulcer throughout her body and has been continuous. Since she has been on dialysis, she gets wound care whenever she goes to [facility] where they placed some patches on her. The patient has also a history of diabetes that is being managed by insulin. The patient is noted to be in severe pain and she was crying throughout the admission. The patient in the ER was given vancomycin and cefepime. She was given pain control medication and Ativan. PAST MEDICAL HISTORY: Hypertension, diabetes, ESRD, and coronary artery disease. PAST SURGICAL HISTORY: Cholecystectomy, tonsillectomy, cataracts in bilateral eyes, cardiac stent, first toe amputation. SOCIAL HISTORY: The patient is a former smoker and stopped smoking before she got very sick. The patient is a former drug user. The patient denies any alcohol use. FAMILY HISTORY: Mother in her 50s of diabetes. ALLERGIES: THE PATIENT IS ALLERGIC TO LEVAQUIN, LATEX, IODINE, SHELLFISH. CURRENT MEDICATIONS: Include, 1. Imdur. 2. Xanax. 3. Aspirin. 4. Vitamin D. 5. Plavix. 6. Clonidine. 7. Colace. 8. NovoLog. 9. Cozaar. 10. Reglan. 11. Procardia. 12. Protonix. 13. Renvela. 14. Coreg. The patient follows up with Dr. Talley who is her master police detective. PHYSICAL EXAMINATION: VITAL SIGNS: Blood pressure 177/124, pulse 96, respiration rate 23, O2 saturation 90% on room air which improved to 95% on 4 L oxygen. GENERAL: The patient appeared to be in distress due to pain and noted to be crying. HEENT: Head; atraumatic. Eyes; extraocular movements intact. Ears and nose; no exudate noted. Mouth; no exudate noted. NECK: No lymphadenopathy. CARDIOVASCULAR: No murmurs, rubs, or gallops. Heart sounds are intact. Regular rate and rhythm. RESPIRATORY: Clear bilaterally. No wheezes noted. ABDOMEN: Soft. Diffuse tenderness. No distention noted. Bowel sounds were diminished. EXTREMITIES: Lower extremities; no edema noted. NEUROLOGICAL: The patient is alert and noted to be crying. SKIN: The patient noted to have multiple wounds throughout her body. LABORATORY DATA: The patient's hemoglobin 12.3, white blood cell count 10.1, hematocrit 40.3, and platelets 165. Sodium 138, potassium 4.2, chloride 96, carbon dioxide 23, BUN 32, creatinine 5.41, glucose 209, lactic acid 2.5, total bilirubin 2.1, alkaline phosphatase of 256. Troponin 0.034. Lipase 8. Urinalysis, glucose present, negative for leukocyte esterase, bacteria, and nitrites. The patient' s ABG reviewed pH 7.41, pCO2 of 42, pO2 of 29.4, and bicarb is 26. No previous ABG available. CT of the abdomen and pelvis was reviewed. The patient noted to have moderate amount of free fluid which is new compared to prior examination, attenuation of fluid is slightly above simple level. This could be mild hemorrhagic fluid, hazy strands noted in the right upper quadrant between the yamini hepatis, pylorus of the stomach, and duodenum. Clinical correlation of a GI symptoms, its differential may include cholangitis and hepatitis, and hepatobiliary finding discussed above in detail, hepatic splenomegaly, cardiac enlargement, pulmonary opacity. Abdomen; there is slight gas-filled distention visualized in the distal esophagus. No hiatal hernia, stomach is mildly distended with fluid gas and ingested material. The stomach is not sufficiently distended to exclude wall thickening or fold thickening, and there is mild haziness associated with pylorus and proximal duodenum extended to the yamini hepatis and undersurface of the liver, mild portal inflammation or duodenitis cannot be excluded. No appearance of bowel obstruction, perianal soft tissue thickening or inflammation cannot be ruled out , scattered fecal material within portion of the colon and rectum could be correlated for mild constipation. Cecum is distended up to 7.7 cm with fecal material, apposition of cecum is anterior with the right lower quadrant consistent with mobile cecum. No associated inflammation secondary to this position. Rectum is distended up to 6.5 cm of the fecal material. No pericolonic inflammatory stranding. No evidence of acute diverticulitis of the appendix that does not appear to be inflamed, portion of distal colon is not sufficiently distended to evaluate wall thickening. Lungs; bibasilar scattered ground-glass and reticular opacities are noticed which could be secondary to atelectasis and/or pulmonary edema, mild pneumonitis cannot be excluded, clinical correlation is advised. A chest x-ray is also reviewed. ASSESSMENT AND PLAN: 1. Severe abdominal pain, possibly concerning for duodenitis versus cholangitis. 2. Acute on chronic respiratory failure due to hypoxemia. 3. End-stage renal disease. 4. Hypertension. 5. Diabetes. 6. Coronary artery disease. PLAN: The patient was given antibiotics in the ER. We will continue vancomycin and Zosyn at this point. We will order ultrasound of the liver given the findings on the CT examination. Blood cultures ordered. We will keep the patient n.p.o. at this point. We will avoid fluid given history of ESRD at this point. The patient was noted to have fever on admission. We will consider the patient was septic on admission, possibly due to GI infection. Acute on chronic respiratory failure, unclear etiology, but the patient's O2 was 29 on ABG. We will repeat ABG at this point. Continue nasal cannula oxygen as the patient's O2 saturation has improved since she has been on oxygen. We will add nebulizers. CT Chest w/o contrast We will repeat ABG again. If the patient is not improving, she may need BiPAP. ESRD. The patient is noted to have a history of ESRD. She is due for dialysis today. We will consult Dr. Talley who is patient's master police detective. The patient would need dialysis as she received a contract with the CT scan. Diabetes. We will continue insulin. We will restart her home medication once it has been verified. Wound Care has been consulted for multiple wounds/ulcers noted throughout her body. Review of the chart indicated the patient has multiple admissions recently, consider palliative care consult. Constipation noted on the CT scan. We will add a suppository and stool softeners. The patient is a full code at this point. Medical power of jig box operator is patient' s son. DVT prophylaxis, SCD. Job ID: [id number] [facility]
[2018-05-07] MEDS ORDERED: Acetaminophen 325 MG TAB PO PRN (06:39)
[2018-05-07] MEDS ORDERED: HumaLOG 300 UNITS/3 ML VIAL SC PRN (06:39)
[2018-05-07] MEDS ORDERED: Dextrose 50% Abboject 50 ML SYRINGE SLOW IVP PRN (06:39)
[2018-05-07] MEDS ORDERED: Ondansetron PF 4 MG/2 ML Vial IVP PRN (06:39)
[2018-05-07] MEDS ORDERED: Dextrose 5% in Water 1,000 ML IV PRN (06:39)
[2018-05-07] MEDS: Morphine 4 MG/ML VIAL SLOW IVP PRN ×2 (06:57→11:07)
--- NOTE | 2018-05-07 07:34 | CT ---
NONCONTRAST CT OF THE THORAX: INDICATION: A 58-year-old female with end-stage renal disease, dialysis, abdominal pain, nausea, vomiting, tachyc ardia, hypertension, tachypnea, and a febrile illness. COMPARISON: Prior CT of the thorax dated 10/01/[address] of the abdomen and pelvis dated 05/07/2018 perf ormed at 12:57 a.m. Additional comparison is made with a recently performed CTA of the thorax and ab domen dated 04/09/2018. FINDINGS: As seen on the comparison studies is prominent cardiomegaly with small bilateral pleural effusions an d bilateral perihilar airspace opacities that are suspicious for edema. No lebron confluent opacity i s seen to suggest the presence of pneumonia. Certainly, portions of the patchy airspace opacities wi thin the lower lobes could reflect a pneumonia in light of the patient's history of febrile illness. Continued followup is recommended. There are some shotty-appearing lymph nodes seen within the medi astinum in all regions that appear stable to the comparison study in 2016 and the CTA evaluation 04/09. These are nonspecific. Coronary artery stents are seen within the region of the LAD. The vi sualized upper abdomen has not appreciably changed from the recent comparison performed earlier this morning at 12:57 a.m. There is scattered degenerative and osteoarthritic change. There is slight di ffuse sclerosis of the visualized skeletal structures which can be seen with renal osteodystrophy. T here is body wall edema present. IMPRESSION: 1. Cardiomegaly with bilateral pleural effusion and perihilar airspace opacity suspicious for volume overload or congestive heart failure. There is also mild anasarca. 2. There are some fluffy airspace opacities seen bilaterally which is most suspicious for edema; how ever, in light of the report of the patient's febrile illness, an atypical pneumonia is not excluded. Continued followup is recommended. POS: [facility]
[2018-05-07] MEDS ORDERED: Piperacillin/Tazobactam 3.375 GM in Sodium Chloride 0.9% 100 ML IVPB SCH (08:00)
[2018-05-07 08:24] LABS: Troponin I 0.042 ng/mL (< 0.028)
[2018-05-07] MEDS: Heparin 5,000 UNITS/ML VIAL SC SCH ×3 (09:00→21:03)
--- NOTE | 2018-05-07 09:32 | ULT ---
RIGHT UPPER QUADRANT ULTRASOUND: HISTORY: Pain. COMPARISON: None. TECHNIQUE: Utilizing a multihertz transducer, sonographic imaging of the right upper quadrant is performed in th e longitudinal and transverse plane. FINDINGS: The gallbladder is surgically absent. The common bile duct is dilated, which may be due to a post ch olecystectomy state. Common bile duct diameter is 1 cm. Pancreas is obscured by bowel gas. Increased echogenicity of the liver limits evaluation for hepatic masses and intrahepatic biliary dil atation. Contour of the hepatic margin is maintained. Right hepatic lobe is enlarged measuring 20 c m. Coarsening of the hepatic parenchymal echotexture may be due to hepatocellular disease. There is no CT evidence of significant hepatic steatosis. No hydronephrosis. The right kidney measures 7.9 x 4.5 x 4.1 cm. There is renal cortical thinning. IMPRESSION: 1. Enlarged liver with coarsened echotexture likely due to hepatocellular disease. Correlate clinic ally. 2. Atrophic right kidney without evidence of hydronephrosis. POS: [facility]
--- NOTE | 2018-05-07 09:52 | CT ---
PRELIMINARY REPORT/[facility]/EMERGENTY AFTER-HOURS PROCEDURE CT Abdomen and Pelvis With Contrast EXAM DATE/TIME: 05/07/2018 12:57 AM CLINICAL HISTORY: 58 years old, female; Pain; Abdominal pain; Localized; Lower; Prior surgery; Patient HX: Er 9; PT rep orts abdominal pain, abd soft and tender, symptoms are localized, most severe in the lower abdomen. P T reports n/v. Surgical history of cholecystectomy TECHNIQUE: Axial computed tomography images of the abdomen and pelvis with intravenous contrast. Coronal reforma tted images were created and reviewed. COMPARISON: No relevant prior studies available. Study limitations: Evaluation is slightly compromised secondary to body habitus artifact and positioning of the patient' s arms alongside the body wall resulting in streak artifact. The entire body wall is not included in the [id number]. FINDINGS: LUNG BASES: Bibasal scattered groundglass and reticular opacities are noted which could be secondary to atelectas is and/or pulmonary edema. Mild pneumonitis cannot be excluded. Clinical correlation is advised. Cons ider radiographic correlation as indicated. 4.9 mm nodular opacity within the right middle lobe (imag e 3, series 2) is of uncertain significance. This area may not have been included on the prior exam. Correlation with clinical risk factors is recommended. Nonemergent formal chest CT is recommended to evaluate for any additional nodules. VASCULAR: Mild to moderate cardiac enlargement. There is some calcification of the mitral valve. No abdominal a ortic aneurysm, dissection, or retroperitoneal hematoma. There is aortoiliac, femoral and visceral ar terial atherosclerosis PERITONEAL: No free air. Moderate amount of scattered free fluid within the peritoneal cavity. Attenuation of fluid ranges bet ween 11-27 Hounsfield units. This could indicate slightly complex free fluid such as mildly hemorrhag ic. This is new compared to the prior exam. GI: There is slight gas filled distention of the visualized distal esophagus. No hiatal hernia. The stoma ch is mildly distended with fluid, gas and ingested material. The stomach is not sufficiently distend ed to exclude wall thickening or fold thickening. There is mild haziness associated with the pylorus and proximal duodenum extending to the yamini hepat is and undersurface of the liver. Mild pyloral inflammation or duodenitis cannot be excluded. No appearance of bowel obstruction. Perianal soft tissue thickening or inflammation cannot be excluded. Scattered fecal material within portions of the colon and rectum could be correlated for mild constip ation. The cecum is distended up to 7.7 cm with fecal material. Position of the cecum is anteriorly w ithin the right lower quadrant, consistent with a mobile cecum. No associated inflammation secondary to this position. The rectum is distended up to 6.5 cm with fecal material. No pericolonic inflammatory stranding. No evidence of acute diverticulitis. The appendix does not appear inflamed. Portions of the distal colon are not sufficiently distended to evaluate wall thickening. HEPATOBILIARY, PANCREAS, SPLEEN: Sagittal hepatic length is 21.5 cm. There is heterogeneity of hepatic parenchyma. Clinical correlatio n with LFTs. Hepatitis cannot be excluded. The gallbladder has been removed. The common bile duct measures up to 14.3 mm in diameter. There is mild common bile duct wall enhancement. Clinical correlation for any possibility of mild cho langitis. There is some fluid and soft tissue stranding at the yamini hepatis. No pancreatic inflammation. Splenic diameter is 16.8 cm. ADRENALS, KIDNEYS, BLADDER, RETROPERITONEAL: Adrenals within normal limits. No hydronephrosis. The kidneys are diminished in size which could be correlated with renal function. Renal calcifications are seen bilaterally but felt likely to be vascular. Nonspecific perinephric earl ma and stranding. The urinary bladder is not well assessed as it is decompressed. PELVIC: No dominant cystic pelvic mass seen. MUSCULOSKELETAL: There is mild body wall edema, greatest within the pelvis. Degenerative changes of the spine and within the pelvis are noted. There is mild scoliosis. Mild compression fracture at L1 is similar to the prior exam. IMPRESSION: Moderate amount of free fluid which is new compared to the prior exam. Attenuation of fluid is slightly above simple level. This could indicate mildly hemorrhagic fluid. Hazy stranding is noted in the right upper quadrant between the yamini hepatis, pylorus of stomach and duodenum. Clinical correlation with GI symptoms. Differential may include cholangitis and/or hepatitis. Gastrointestinal and hepatobiliary findings are discussed above in detail. Hepatosplenomegaly. Cardiac enlargement and atherosclerosis. Pulmonary opacities, differential as given above. Other findings and limitations discussed above. Thank you for allowing us to participate in the care of your patient. Dictated and Authenticated by: Jay Arcos MD 05/07/2018 2:12 AM Central Time ([place] & [place]) FINAL REPORT ABDOMEN CT WITH CONTRAST PELVIC CT WITH CONTRAST: HISTORY: Previous cholecystectomy. Abdominal pain. COMPARISON: 04/09/2018 CT dissection protocol. FINDINGS: This report is in agreement with the preliminary report by [facility]. Chronic changes lung bases. There i s cardiomegaly with a probable component of congestive heart failure. Essentially stable perihepatic fluid. Questionable mild inflammatory changes involving the duodenum and pylorus. No evidence of b owel obstruction. There is soft tissue edema. Liver and spleen are enlarged. POS: [facility]
--- NOTE | 2018-05-07 10:44 | PDOC.EVN ---
Event Note - Event Note Event Note: Patient seen and examined, HD being done, no changes in initial plan of care for now, will FU with results of abd US as well as BP post HD. Work up not completed, continue current plan of care.
[2018-05-07] MEDS: Piperacillin/Tazobactam 2.25 GM in Sodium Chloride 0.9% 100 ML IVPB SCH ×3 (12:37→22:41)
[2018-05-07] MEDS ORDERED: Vancomycin HCl 1.75 GM in Sodium Chloride 0.9% 500 ML IVPB SCH (13:00)
[2018-05-07] MEDS: hydrALAZINE 20 MG/ML VIAL SLOW IVP PRN (13:11)
[2018-05-07] MEDS ORDERED: cloNIDine 0.1 MG TAB PO PRN (23:51)
[2018-05-08 05:45] LABS: Anion Gap 20 mmol/L (10-20); BUN (Urea Nitrogen) 28 mg/dL (9.8-20.1); Calc. Creatinine Clearance 27 mL/min (70-130); Calcium 9.1 mg/dL (7.8-10.44); Carbon Dioxide 22 mmol/L (22-29); Chloride 97 mmol/L (98-107); Estimated GFR-MDRD 10; Glucose 125 mg/dL (70-105); Potassium 4.8 mmol/L (3.5-5.1); Sodium 134 mmol/L (136-145)
[2018-05-08 05:46] LABS: Vancomycin, Trough 11.3 ug/mL
[2018-05-08 05:48] LABS: #Eosinphils 0.1 thou/uL (0.0-0.7); #Lymphocytes 0.6 thou/uL (1.20-3.40); #Monocytes 0.5 thou/uL (0.11-0.59); #Neutrophils 3.6 thou/uL (1.40-6.50); %Basophils 0.4 % (0.0-1.0); %Eosinophils 1.2 % (0.0-10.0); %Lymphocytes 12.7 % (21.0-51.0); %Monocytes 10.1 % (0.0-10.0); %Neutrophils 75.5 % (42.0-75.0); Band 8 % (5-11); Elliptocytes SLIGHT = 2-5 cells (100X) (0-1/hpf); Eosinophils 1 % (0-10); Hemoglobin 10.8 g/dL (12.0-16.0); Hypochromia SLIGHT = 6-15 cells (100X) (0-5/hpf); Lymphocytes 13 % (21-51); MDiff Complete? YES; Mean Corpuscular HGB CONC 30.8 g/dL (32.0-36.0); Mean Corpuscular Hemoglobin 31.1 pg (27.0-31.0); Mean Platelet Volume 12.1 fL (7.4-10.4); Monocytes 11 % (0-10); Neutrophil 66 % (42-75); Nucleated RBC 1 % (0); Platelet Count 101 thou/uL (130-400); Platelet Morphology Comment Appears Decreased; RBC Distribution Width 16.5 % (11.5-14.5); Reactive Lymphocytes 1 % (0-10); Red Blood Cell (RBC) Count 3.46 mill/uL (4.20-5.40); White Blood Cell (WBC) Count 4.7 thou/uL (4.8-10.8)
[2018-05-08 05:51] LABS: ALT (SGPT) 16 U/L (8-55); AST (SGOT) 33 U/L (5-34); Albumin 3.3 g/dL (3.5-5.0); Alkaline Phosphatase 198 U/L (40-150); Bilirubin, Direct 1.4 mg/dL (0.1-0.3); Protein, Total 6.9 g/dL (6.0-8.3)
[2018-05-08] MEDS: HYDROcodone/Acetaminophen 5/325 mg Tablet PO PRN ×2 (06:08→17:27)
[2018-05-08] MEDS: Ondansetron ODT 4 MG TAB PO PRN (06:08)
[2018-05-08] MEDS: Piperacillin/Tazobactam 2.25 GM in Sodium Chloride 0.9% 100 ML IVPB SCH ×2 (06:11→11:19)
[2018-05-08] MEDS: Heparin 5,000 UNITS/ML VIAL SC SCH (09:31)
--- NOTE | 2018-05-08 10:12 | PRG ---
DATE OF SERVICE: 05/08/2018 SUBJECTIVE: Ms. Avila is a 58-year-old female with ESRD and currently on maintenance hemodialysis. She underwent hemodialysis yesterday. The patient is still complaining of diffuse myalgia. She is getting p.r.n. pain medications. She has closed her IV access. For that reason, morphine will be converted to subcu at the same dose and frequency. No complaints of chest pain or shortness of breath. OBJECTIVE: VITAL SIGNS: Blood pressure is noted at 149/67, heart rate 75, respiratory rate 21, temperature 94.3, and pulse ox 95%. GENERAL: Awake, alert, comfortable, not in distress. SKIN: Adequate turgor. HEENT: She has slightly pale conjunctivae. Anicteric sclerae. NECK: No neck mass. No carotid bruits. No JVD. CHEST: No deformities. LUNGS: Decreased breath sounds. HEART: Normal sinus rhythm. No murmurs. No gallops. No rubs. ABDOMEN: Globular, soft, and nontender. No masses. EXTREMITIES: Trace edema. MEDICATIONS: Medications of May 08, 2018, was reviewed. LABORATORY DATA: Laboratories of May 08, 2018, white count 4.7 and hemoglobin 10.8. Sodium 134, potassium 4.8, chloride 97, carbon dioxide 22, BUN 28, creatinine 4.39, glucose 125, calcium 9.1, AST 33, ALT 16, alkaline phosphatase 198, and albumin 3.3. ASSESSMENT AND PLAN: 1. Diffuse myalgia - unclear etiology. P.R.N. pain medications. 2. End-stage renal disease, stable. Received dialysis yesterday and removed about 4 L. Due to the congestive heart failure, my plan is to reschedule her back on an extra dialysis tomorrow. 3. Borderline anemia. Continue to observe. 4. We will recheck CBC and basic metabolic tomorrow. 5. Agree with current management. Job ID: [id number] [facility]
[2018-05-08] MEDS: hydrALAZINE 20 MG/ML VIAL SLOW IVP PRN ×2 (11:27→15:36)
[2018-05-08] MEDS ORDERED: Acetaminophen 500 MG TAB PO PRN (16:10)
--- NOTE | 2018-05-08 16:14 | PDOC.PN ---
- Subjective Encounter Start Date: 05/08/18 Encounter Start Time: 16:00 Subjective: f/u for abd pain of unclear source. Feeling better overall and tolerated -: clear liquids. BP labile per nursing. No diarrhea or emesis. - Objective Resuscitation Status - Order Detail: 05/07/18 03:39 Resuscitation Status Routine Resuscitation Status: FULL: Full Resuscitation MAR Reviewed: Yes Vital Signs & Weight: Vital Signs (12 hours) Temp Pulse Resp BP Pulse Ox 05/08/18 15:34 96.2 F L 72 19 208/95 H 99 05/08/18 12:12 69 180/87 H 05/08/18 11:22 95.3 F L 70 13 217/95 H 97 05/08/18 09:29 94.3 F L 75 21 H 201/143 H 95 Weight Admit Weight 267 lb 12.8 oz Weight 267 lb 12.8 oz I&O: 05/07/18 05/08/18 05/09/18 06:59 06:59 06:59 Intake Total 850 Output Total 4700 Balance -3850 Result Diagrams: 05/08/18 04:13 05/08/18 04:13 Additional Labs: Accuchecks 05/08/18 05/07/18 05/07/18 11:00 20:20 16:56 POC Glucose 105 144 H 134 H Microbiology 05/06/18 23:37 Venous blood - Right Hand Blood Culture - Preliminary Specimen has been received and culture in progress. No Growth to date. 05/06/18 00:06 Venous blood - Right Arm Blood Culture - Preliminary Specimen has been received and culture in progress. No Growth to date. Laboratory Tests 05/06/18 05/06/18 05/06/18 23:37 23:37 23:37 WBC 10.1 Neutrophils % 92.3 H Total Bilirubin 2.1 H Alkaline Phosphatase 256 H Troponin I 0.034 H Lipase 8 05/07/18 05/07/18 05/08/18 03:57 07:49 04:13 WBC Neutrophils % Total Bilirubin 2.0 H Alkaline Phosphatase 198 H Troponin I 0.033 H 0.042 H Lipase Radiology Reviewed by me: Yes (ABD sono - no acute process, hepatocellular dz) EKG Reviewed by me: Yes (Tele - SR) Phys Exam - Physical Examination Constitutional: NAD HEENT: PERRLA, sclera anicteric, oral pharynx no lesions Neck: no nodes, no JVD, supple, full ROM Respiratory: no wheezing, no rales, no rhonchi, clear to auscultation bilateral S1, S2 Cardiovascular: RRR, no significant murmur, no rub, gallop morbid obesity Gastrointestinal: soft, non-tender, no distention, positive bowel sounds Musculoskeletal: pulses present, edema present Neurological: normal sensation, moves all 4 limbs Psychiatric: normal affect, A&O x 3 Skin: normal turgor, cap refill <2 seconds Dx/Plan (1) Abdominal pain Code(s): R10.9 - UNSPECIFIED ABDOMINAL PAIN Status: Acute Qualifiers: Abdominal location: generalized Qualified Code(s): R10.84 - Generalized abdominal pain Comment: ? etiology, resolving with supportive mgmt, d/c Zosyn, serial exams (2) Nausea & vomiting Code(s): R11.2 - NAUSEA WITH VOMITING, UNSPECIFIED Status: Acute Qualifiers: Vomiting type: unspecified Vomiting Intractability: non-intractable Qualified Code(s): R11.2 - Nausea with vomiting, unspecified Comment: Resolved, monitor, ADAT (3) DM type 2 (diabetes mellitus, type 2) Status: Chronic Qualifiers: Diabetes mellitus termite control servicer insulin use: with care home use Diabetes mellitus complication status: with kidney complications Diabetes mellitus complication detail: with chronic kidney disease Chronic kidney disease stage : on chronic dialysis Qualified Code(s): E11.22 - Type 2 diabetes mellitus with diabetic chronic kidney disease; N18.6 - End stage renal disease; Z79.4 - emt intermediate (current) use of insulin; Z99.2 - Dependence on renal dialysis Comment: NPH 70/30, 30u SC BID, ISS (4) ESRD (end stage renal disease) on dialysis Code(s): N18.6 - END STAGE RENAL DISEASE; Z99.2 - DEPENDENCE ON RENAL DIALYSIS Status: Chronic Comment: HD per Renal service (5) HTN (hypertension) Code(s): I10 - ESSENTIAL (PRIMARY) HYPERTENSION Status: Chronic Qualifiers: Comment: labile, resume home BP regimen, Hydralazine/Clonidine prn - Plan plan discussed w/ family, social economist, out of bed/ambulate Stable currently -: Resume home BP regimen -: OOB/ambulate -: D/C Zosyn -: HD per Renal service * Continue ASA/Plavix * AM lab: BMP, CBC * Likely home in am 05/09/18
[2018-05-08] MEDS ORDERED: Calcitriol 0.25 MCG CAP PO SCH (16:15)
[2018-05-08] MEDS: Carvedilol 6.25 MG TAB PO SCH (17:24)
[2018-05-08] MEDS: Metoclopramide HCl 10 MG TAB PO SCH (17:24)
[2018-05-08] MEDS: cloNIDine 0.2 MG TAB PO SCH ×2 (21:19→21:31)
[2018-05-08] MEDS: ALPRAZolam 0.25 MG TAB PO PRN (21:20)
[2018-05-08] MEDS: HumuLIN 70/30 (300 UNITS/3 ML VIAL) SC SCH (21:20)
[2018-05-08] MEDS: Morphine 4 MG/ML VIAL SLOW IVP PRN (21:24)
[2018-05-09] MEDS: Clopidogrel Bisulfate 75 MG TAB PO SCH (08:40)
[2018-05-09] MEDS: Metoclopramide HCl 10 MG TAB PO SCH ×3 (08:40→18:38)
[2018-05-09] MEDS: cloNIDine 0.2 MG TAB PO SCH ×3 (08:41→20:57)
[2018-05-09] MEDS: Carvedilol 6.25 MG TAB PO SCH ×2 (08:41→18:37)
[2018-05-09] MEDS: Losartan 25 MG TAB PO SCH (08:41)
[2018-05-09] MEDS: Aspirin 325 MG TAB PO SCH (08:42)
[2018-05-09] MEDS: HumuLIN 70/30 (300 UNITS/3 ML VIAL) SC SCH ×2 (08:43→20:57)
--- NOTE | 2018-05-09 09:50 | CON ---
DATE OF CONSULTATION: 05/07/2018 HISTORY OF PRESENT ILLNESS: Ms. Avila is a 58-year-old female with ESRD - on maintenance hemodialysis and admitted for abdominal pain. Imaging was done at the ER. An abdominal ultrasound was done, which showed enlarged liver with coarsened echotexture secondary to presumed hepatocellular disease and a right atrophic kidney noted. CT of the chest shows a pulmonary edema. In addition, CT scan of the abdomen and pelvis showed some mild inflammation. CT scan showed mild inflammation involving the duodenum and pylorus. The patient is complaining of abdominal pain this morning. She is teary eyed. However, when the abdomen was examined, she is very sensitive on just touching the skin. No complaints of shortness of breath. PHYSICAL EXAMINATION: VITAL SIGNS: The blood pressure is noted at 190/86 with a heart rate of 87, respiratory rate 20, temperature 99.5, and pulse ox 98%. GENERAL: Noted to be awake, alert, comfortable, not in overt distress, obese. SKIN: Adequate turgor. HEENT: She has a pinkish conjunctivae. Anicteric sclerae. NECK: No neck mass. No carotid bruits. No JVD. CHEST: No deformities. LUNGS: Clear breath sounds. No wheezing. No crackles. HEART: Normal sinus rhythm. No murmur. No gallops or rubs. ABDOMEN: Globular, soft. Positive for bowel sounds. Mild tenderness on deep palpation. EXTREMITIES: Trace edema. NEUROLOGIC: Awake and oriented to 3 spheres. Teary eyed. Not in distress. Moving all extremities. REVIEW OF SYSTEMS: Positive for abdominal pain. No nausea. No vomiting. No diarrhea. No constipation. Appetite and energy levels decreased. No headache. No diplopia. No syncopal episode. No productive cough. No hematochezia. No melena. No hematemesis. MEDICATIONS: 1. Vancomycin 1.75 g IV q.12 - currently on hold. 2. [place] 5/325 q.4 h. 3. Heparin 5000 units subcutaneously t.i.d. 4. Hydralazine 10 mg IV p.r.n. 5. Zofran 4 mg IV q.6. 6. Zosyn 3.375 g IV q.6. PAST MEDICAL HISTORY: 1. ESRD from presumed diabetic nephropathy. 2. CHF. 3. Noncompliance with fluid intake. 4. Longstanding hypertension. 5. Type 2 diabetes mellitus. 6. Diabetic neuropathy. 7. Peripheral vascular disease. 8. Coronary artery disease. 9. GERD. 10. ? COPD. PAST SURGICAL HISTORY: 1. Status post upper GI endoscopy. 2. Status post PD catheter placement with subsequent removal. 3. Status post cholecystectomy. 4. Status post cardiac cath. 5. Status post coronary artery stent placement. 6. Status post AV fistula placement. 7. Status post cuffed dialysis catheter placement. ALLERGIES: LEVAQUIN AND LATEX. TRAUMA: None. IMMUNIZATION: Up-to-date. HOSPITALIZATIONS: Please see past medical history. 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 . Lives in [place]. Four children. Sedentary lifestyle. Education, high school. Status post blood transfusion. No alcohol use. No history of smoking. No IV drug abuse. FAMILY HISTORY: No family history of ESRD. LABORATORY DATA: Laboratories of 05/06/2018: White count 10.1 and hemoglobin 12.3. Sodium 138, potassium 4.6, chloride 96, carbon dioxide 23, BUN 32, creatinine 5.41, glucose 209, calcium 9.9, AST 17, and ALT 11. ASSESSMENT AND PLAN: 1. Abdominal pain - unclear etiology. Imaging did not show any acute obstruction per se or an acute intraabdominal lesion. However, she is being treated with empiric IV antibiotics for possible underlying infection. 2. End-stage renal disease, currently undergoing dialysis. I am maxing out fluid removal as tolerated by the patient. It is possible. 3. Congestive heart failure - I can consider extra dialysis tomorrow for fluid removal. Overall, I agree with current management. ADDENDUM: I held off the vancomycin. We will check a vancomycin level in a.m. Job ID: [id number]
--- NOTE | 2018-05-09 09:50 | PRG ---
DATE OF SERVICE: 05/09/2018 SUBJECTIVE: Ms. Avila is a 58-year-old female with known history of ESRD and being followed by the Renal Service for her maintenance hemodialysis. Ms. Avila was initially admitted for diffuse myalgia and abdominal pain. The pain is now better. Initial workup was also been negative. We will do an extra hemodialysis with this patient due to her volume overload. No other complaints today. She tells me the diffuse myalgia is better. OBJECTIVE: VITAL SIGNS: Blood pressure is 160/72, heart rate 65, respiratory rate 18, temperature 97.7, pulse ox 95%. GENERAL: Awake, alert, comfortable, not in overt distress. SKIN: Adequate turgor. HEENT: Pinkish conjunctivae. Anicteric sclerae. No neck mass. No carotid bruits. No JVD. CHEST: No deformities. LUNGS: Clear breath sounds. No wheezing. No crackles. HEART: Normal sinus rhythm. No murmur. No gallops. No rubs. ABDOMEN: Globular, soft, nontender. No masses. EXTREMITIES: No edema. No deformities. MEDICATIONS: Medications of May 09, 2018, reviewed. LABORATORY DATA: Laboratories of May 08, 2018, glucose 198, sodium 134, potassium 4.8, chloride 97, carbon dioxide 22, BUN 28, creatinine 4.39. ASSESSMENT AND PLAN: 1. Diffuse myalgia-clinically improving. Continue supportive care. 2. Congestive heart failure-reviewed. Chest x-ray shows increased lung markings/increased fluid-we will do extra hemodialysis for 3 hours with fluid removal as tolerated. 3. End-stage renal disease-continue Wednesday, , and Wednesday dialysis. Fluid removal as tolerated. She will receive extra dialysis due to volume overload. 4. Borderline anemia. We will recheck CBC in a.m. Job ID: [id number]
--- NOTE | 2018-05-09 10:22 | PDOC.PN ---
- Subjective Encounter Start Date: 05/09/18 Encounter Start Time: 10:05 Subjective: f/u for DM gastroparesis, constipation and N/V. Feels better overall -: and tolerated po intake. Last BM on 05/06/18. Plan for HD today. - Objective Resuscitation Status - Order Detail: 05/07/18 03:39 Resuscitation Status Routine Resuscitation Status: FULL: Full Resuscitation MAR Reviewed: Yes Vital Signs & Weight: Vital Signs (12 hours) Temp Pulse Resp BP BP BP Pulse Ox 05/09/18 08:42 141/65 H 05/09/18 08:41 199/91 H 05/09/18 04:00 97.7 F 65 18 160/72 H 95 05/08/18 22:57 98.4 F 66 18 137/63 100 Weight Admit Weight 267 lb 12.8 oz Weight 257 lb 12.8 oz I&O: 05/08/18 05/09/18 05/10/18 06:59 06:59 06:59 Intake Total 850 1582 Output Total 4700 0 Balance -3850 1582 Result Diagrams: 05/08/18 04:13 05/08/18 04:13 Additional Labs: Accuchecks 05/08/18 05/08/18 05/08/18 20:43 16:36 11:00 POC Glucose 198 H 129 H 105 05/08/18 05:37 POC Glucose 147 H Microbiology 10/01/16 16:05 Pleural fluid Acid Fast Bacilli Smear - Final 10/01/16 16:05 Pleural fluid Body Fluid Culture - Preliminary 10/01/16 16:05 Pleural fluid Body Fluid Culture - Preliminary 05/06/18 23:37 Venous blood - Right Hand Blood Culture - Preliminary Specimen has been received and culture in progress. No Growth to date. 05/06/18 00:06 Venous blood - Right Arm Blood Culture - Preliminary Specimen has been received and culture in progress. No Growth to date. Laboratory Tests 09/30/16 09/30/16 10/01/16 21:30 21:30 07:50 WBC 11.4 H Hgb 11.2 L Neutrophils % Potassium 5.7 H BUN 62 H Creatinine 9.76 H Total Bilirubin Alkaline Phosphatase Troponin I Lipase Hep Bs Antigen Non-Reactive 05/06/18 05/06/18 05/06/18 23:37 23:37 23:37 WBC 10.1 Hgb Neutrophils % 92.3 H Potassium BUN Creatinine Total Bilirubin 2.1 H Alkaline Phosphatase 256 H Troponin I 0.034 H Lipase 8 Hep Bs Antigen 05/07/18 05/07/18 05/08/18 03:57 07:49 04:13 WBC Hgb Neutrophils % Potassium BUN Creatinine Total Bilirubin 2.0 H Alkaline Phosphatase 198 H Troponin I 0.033 H 0.042 H Lipase Hep Bs Antigen EKG Reviewed by me: Yes (Tele - SR) Phys Exam - Physical Examination Constitutional: NAD alert, responsive HEENT: PERRLA, sclera anicteric, oral pharynx no lesions Neck: no nodes, no JVD, supple, full ROM few basilar crackles Respiratory: no wheezing S1, S2 Cardiovascular: RRR, no significant murmur, no rub, gallop morbidly obese mild TTP diffusely Gastrointestinal: soft, no distention, positive bowel sounds R great toe with kerlex bandages in place, macerated, with discharge Musculoskeletal: pulses present, edema present Neurological: normal sensation, moves all 4 limbs Psychiatric: A&O x 3 Skin: normal turgor, cap refill <2 seconds Dx/Plan (1) Abdominal pain Code(s): R10.9 - UNSPECIFIED ABDOMINAL PAIN Status: Acute Qualifiers: Abdominal location: generalized Qualified Code(s): R10.84 - Generalized abdominal pain Comment: ? etiology, resolving with supportive mgmt, d/c Zosyn, suspect secondary to DM gastroparesis (2) Nausea & vomiting Code(s): R11.2 - NAUSEA WITH VOMITING, UNSPECIFIED Status: Acute Qualifiers: Vomiting type: unspecified Vomiting Intractability: non-intractable Qualified Code(s): R11.2 - Nausea with vomiting, unspecified Comment: Resolved, monitor, ADAT (3) Toe ulcer due to DM Code(s): E11.621 - TYPE 2 DIABETES MELLITUS WITH FOOT ULCER; L97.509 - NON- PRESSURE CHRONIC ULCER OTH PRT UNSP FOOT W UNSP SEVERITY Status: Acute Qualifiers: Diabetes mellitus type: type 2 Comment: Advanced ulceration of R great toe, consult Gen surgery for potential debridement, WCT for local care (4) DM type 2 (diabetes mellitus, type 2) Status: Chronic Qualifiers: Diabetes mellitus fdc insulin use: with fdc use Diabetes mellitus complication status: with kidney complications Diabetes mellitus complication detail: with chronic kidney disease Chronic kidney disease stage : on chronic dialysis Qualified Code(s): E11.22 - Type 2 diabetes mellitus with diabetic chronic kidney disease; N18.6 - End stage renal disease; Z79.4 - intermediate accountant (current) use of insulin; Z99.2 - Dependence on renal dialysis Comment: NPH 70/30, 30u SC BID, ISS (5) ESRD (end stage renal disease) on dialysis Code(s): N18.6 - END STAGE RENAL DISEASE; Z99.2 - DEPENDENCE ON RENAL DIALYSIS Status: Chronic Comment: HD per Renal service today (6) HTN (hypertension) Code(s): I10 - ESSENTIAL (PRIMARY) HYPERTENSION Status: Chronic Qualifiers: Comment: labile, resume home BP regimen, Hydralazine/Clonidine prn (7) Constipation Code(s): K59.00 - CONSTIPATION, UNSPECIFIED Status: Acute Comment: Start Sennakot-S BID - Plan PT/OT, social media sr strategy manager, out of bed/ambulate Stable currently -: Increase Reglan 10mg po ACHS -: HD per Renal service -: WCT for local care of R great toe -: Consult Gen Surgery for potential debridement of R great toe * AM lab: BMP, CBC
[2018-05-09] MEDS ORDERED: Senokot S 8.6-50 MG TAB PO SCH (10:30)
[2018-05-09 15:09] LABS: #Eosinphils 0.2 thou/uL (0.0-0.7); #Lymphocytes 0.6 thou/uL (1.20-3.40); #Monocytes 0.5 thou/uL (0.11-0.59); #Neutrophils 2.6 thou/uL (1.40-6.50); %Basophils 0.9 % (0.0-1.0); %Eosinophils 4.5 % (0.0-10.0); %Lymphocytes 14.8 % (21.0-51.0); %Monocytes 13.3 % (0.0-10.0); %Neutrophils 66.5 % (42.0-75.0); Hemoglobin 9.9 g/dL (12.0-16.0); Mean Corpuscular HGB CONC 31.5 g/dL (32.0-36.0); Mean Corpuscular Hemoglobin 31.1 pg (27.0-31.0); Mean Platelet Volume 11.7 fL (7.4-10.4); Platelet Count 107 thou/uL (130-400); Red Blood Cell (RBC) Count 3.17 mill/uL (4.20-5.40)
[2018-05-09 15:21] LABS: Anion Gap 17 mmol/L (10-20); BUN (Urea Nitrogen) 43 mg/dL (9.8-20.1); Calc. Creatinine Clearance 22 mL/min (70-130); Calcium 8.6 mg/dL (7.8-10.44); Carbon Dioxide 26 mmol/L (22-29); Chloride 95 mmol/L (98-107); Estimated GFR-MDRD 8; Glucose 90 mg/dL (70-105); Potassium 4.5 mmol/L (3.5-5.1); Sodium 133 mmol/L (136-145)
[2018-05-09] MEDS: Senokot S 8.6-50 MG TAB PO SCH (20:57)
[2018-05-09] MEDS: hydrOXYzine 25 MG TAB PO PRN (23:57)
[2018-05-09] MEDS: Morphine 4 MG/ML VIAL SLOW IVP PRN (23:57)
--- NOTE | 2018-05-10 00:07 | CON ---
DATE OF CONSULTATION: REASON FOR CONSULT: Diabetic foot wounds. HISTORY OF PRESENT ILLNESS: Ms. Avila is a 58-year-old woman known to me from previous admissions. She has multiple medical issues including end-stage renal failure, diabetes, congestive heart failure, peripheral vascular disease, coronary artery disease, and noncompliance. She states that she tore off her right first toenail sometime ago and has been doctoring it at home, but that it has not healed or grown back since her injury. She cannot recall any particular trauma to it, but states that she just repeatedly stubbed it on things and one day, it fell off. She also has a chronic wound on the dorsum of her left second toe. She sees Dr. Velasquez for this, as well as a wound on her heel and states that he is thinking about doing surgery on that toe to keep it from poking up so much above the other toes. She was not admitted this hospitalization for any of her wounds, but is here instead because of abdominal pain. She was not complaining of any abdominal pain when I saw her this morning, however. PAST MEDICAL HISTORY: Diabetes, end-stage renal failure, hypertension, CHF, coronary artery disease, peripheral vascular disease, GERD, noncompliance especially with fluid intake. PAST SURGICAL HISTORY: Cholecystectomy, tonsillectomy, cataracts, stents, left first toe amputation, AV fistula, peritoneal dialysis catheter with later removal. SOCIAL HISTORY: Former smoker. Former multidrug user. No alcohol. No current tobacco or drug use. FAMILY HISTORY: Diabetes. ALLERGIES: THE PATIENT HAS MULTIPLE ALLERGIES INCLUDING LATEX, LEVOFLOXACIN, ADHESIVE TAPE, IODINE, AND SHELLFISH. OUTPATIENT MEDICATIONS: Include: 1. P.r.n. nitroglycerin. 2. P.r.n. Xanax. 3. Aspirin. 4. Calcitriol. 5. Carvedilol. 6. Clonidine. 7. Plavix. 8. Hydroxyzine. 9. 70/30 insulin. 10. Isosorbide mononitrate. 11. Losartan. 12. Reglan. 13. Pantoprazole. 14. P.r.n. Tylenol. REVIEW OF SYSTEMS: Negative except for the following. She has some general malaise and low energy. She has abdominal pain but no nausea, vomiting, diarrhea, or constipation. Her lower extremity swelling has been worse recently, but she denies shortness of breath or chest pain. IMAGING: Abdominal ultrasound showed enlarged liver with coarsened echotexture and atrophic right kidney consistent with her renal failure. CT of the abdomen and pelvis showed some ascites with fluid density suggesting possible mild hemorrhage and some stranding around the yamini hepatis, pylorus and duodenum. She was incidentally noticed to have cardiac enlargement and atherosclerosis and body wall edema. Chronic changes in lung bases. In comparison with past images, the amount of fluid in the belly was felt to be stable, but her liver and spleen were more enlarged. PHYSICAL EXAMINATION: VITAL SIGNS: The patient is afebrile, hypertensive, maintaining saturations on room air. She has multiple excoriations on her face and body, which are chronic and did not appear actively infected. HEENT: Unremarkable. Otherwise, heart is regular. Breath sounds are equal, but distant. ABDOMEN: Soft and nondistended. She has some mild diffuse tenderness, but nothing focal. EXTREMITIES: Warm to touch, but have no palpable pulses in the feet. Her edema is worse than the last time I saw her. She is sitting in a chair with her feet completely dependent. Her right toenail is missing, but the toenail bed is healthy in appearance. There is no expressible drainage or palpable bone. Her left second toe chronic ulcer is also unchanged. There is no associated erythema. No drainage. No palpable bone. She has a small ulcer in a callus on her left heel, which is clean with no expressible drainage or erythema. Multiple excoriations on her legs including one on her left calf, which is dressed with an absorbent dressing. The rest appear to be scabbed over without any significant drainage. Her AV fistula in the arm has an excellent thrill. There are some pseudoaneurysms, but no skin erosion. NEUROLOGIC: Dense peripheral neuropathy. There is a small scab on her left great toe amputation site with no expressible drainage or erythema. ASSESSMENT: Multiple chronic ulcers on her feet. She is currently under the care of Dr. Velasquez of Podiatry and none appear acutely surgical. She can follow up with Dr. Velasquez as an outpatient and undergo basic wound care through the Wound Care team while here in the hospital. I have recommended she elevate her legs whenever she is not ambulating. Her lower extremity edema appears symmetric and is likely just due to her congestive heart failure, but lower extremity duplex should be checked as well. Job ID: [id number]
[2018-05-10] MEDS: ALPRAZolam 0.25 MG TAB PO PRN ×2 (02:46→19:30)
[2018-05-10] MEDS: HYDROcodone/Acetaminophen 5/325 mg Tablet PO PRN ×3 (02:46→19:31)
[2018-05-10] MEDS: Morphine 4 MG/ML VIAL SLOW IVP PRN ×2 (06:04→23:30)
[2018-05-10 08:16] LABS: #Basophils 0.1 thou/uL (0.0-0.2); #Eosinphils 0.1 thou/uL (0.0-0.7); #Lymphocytes 0.7 thou/uL (1.20-3.40); #Monocytes 0.5 thou/uL (0.11-0.59); #Neutrophils 2.5 thou/uL (1.40-6.50); %Basophils 1.4 % (0.0-1.0); %Eosinophils 2.8 % (0.0-10.0); %Lymphocytes 17.2 % (21.0-51.0); %Monocytes 13.5 % (0.0-10.0); %Neutrophils 65.2 % (42.0-75.0); Hemoglobin 10.5 g/dL (12.0-16.0); Mean Corpuscular HGB CONC 31.6 g/dL (32.0-36.0); Mean Corpuscular Hemoglobin 31.1 pg (27.0-31.0); Mean Corpuscular Volume 98.5 fL (78.0-98.0); Mean Platelet Volume 11.6 fL (7.4-10.4); Platelet Count 120 thou/uL (130-400); RBC Distribution Width 15.9 % (11.5-14.5); Red Blood Cell (RBC) Count 3.38 mill/uL (4.20-5.40); White Blood Cell (WBC) Count 3.8 thou/uL (4.8-10.8)
[2018-05-10 08:38] LABS: Anion Gap 15 mmol/L (10-20); BUN (Urea Nitrogen) 26 mg/dL (9.8-20.1); Calc. Creatinine Clearance 29 mL/min (70-130); Carbon Dioxide 28 mmol/L (22-29); Chloride 96 mmol/L (98-107); Estimated GFR-MDRD 12; Glucose 143 mg/dL (70-105); Potassium 4.1 mmol/L (3.5-5.1); Sodium 135 mmol/L (136-145)
[2018-05-10] MEDS: cloNIDine 0.2 MG TAB PO SCH ×2 (08:48→19:30)
[2018-05-10] MEDS: Metoclopramide HCl 10 MG TAB PO SCH ×3 (08:52→16:43)
[2018-05-10] MEDS: HumuLIN 70/30 (300 UNITS/3 ML VIAL) SC SCH ×2 (08:52→22:15)
--- NOTE | 2018-05-10 09:12 | PRG ---
DATE OF SERVICE: 05/10/2018 SUBJECTIVE: Ms. Avila is a 58-year-old female being followed by the Renal Service for her maintenance hemodialysis. She was admitted with diffuse myalgia and severe pain. The pain is much improved with supportive care. She also underwent extra hemodialysis for volume overload yesterday. We are currently dialyzing her for regular dialysis schedule. We are attempting about 5 L of fluid removal. No new complaints today. Breathing is better. No chest pain. OBJECTIVE: VITAL SIGNS: Blood pressure 186/82, heart rate 85, and respiratory rate 20. GENERAL: Awake, supine, comfortable, and obese, not in distress. SKIN: Adequate turgor. HEENT: Pinkish conjunctivae. Anicteric sclerae. NECK: No neck mass. No carotid bruits. No JVD. CHEST: No deformities. LUNGS: Clear breath sounds. HEART: Normal sinus rhythm. No murmur. No gallops. No rubs. ABDOMEN: Globular, soft, and nontender. No masses. EXTREMITIES: No edema. No deformities. MEDICATIONS: Medications of May 10, 2018, were reviewed. LABORATORY DATA: Laboratories of May 10, 2018; sodium 135, potassium 4.1, chloride 96, carbon dioxide 28, BUN 26, creatinine 3.94, glucose 143, calcium 9. White count 3.8 and hemoglobin 10.5. ASSESSMENT AND PLAN: 1. End-stage renal disease, stable. We will continue current hemodialysis regimen Wednesday, , and Wednesday. Max out fluid removal. 2. Congestive heart failure - maxing out fluid removal. She received extra dialysis for extra fluid removal yesterday. 3. Diffuse myalgia/chronic pain, much improved. 4. Agree with current management. Job ID: [id number]
[2018-05-10] MEDS: Aspirin 325 MG TAB PO SCH (13:17)
[2018-05-10] MEDS: Clopidogrel Bisulfate 75 MG TAB PO SCH (13:17)
[2018-05-10] MEDS: Carvedilol 6.25 MG TAB PO SCH ×2 (13:17→16:43)
[2018-05-10] MEDS: Senokot S 8.6-50 MG TAB PO SCH ×2 (13:17→19:30)
[2018-05-10 13:18] VITALS: BMI 42.9
[2018-05-10] MEDS: hydrOXYzine 25 MG TAB PO PRN ×2 (13:38→23:30)
[2018-05-10] MEDS: Losartan 25 MG TAB PO SCH (14:41)
--- NOTE | 2018-05-10 18:25 | PDOC.PN ---
- Subjective Encounter Start Date: 05/10/18 Encounter Start Time: 15:20 Subjective: f/u for ESRD on HD, abd pain likely due to gastroparesis. Feels ok overall -: tolerated HD today. No acute surgical intervention recommended for toe -: ulcer. - Objective Resuscitation Status - Order Detail: 05/07/18 03:39 Resuscitation Status Routine Resuscitation Status: FULL: Full Resuscitation MAR Reviewed: Yes Vital Signs & Weight: Vital Signs (12 hours) Temp Pulse Resp BP BP Pulse Ox 05/10/18 16:40 97.9 F 74 18 131/63 95 05/10/18 13:17 97.8 F 85 18 173/78 H 98 05/10/18 13:00 97 Weight Admit Weight 267 lb 12.8 oz Weight 257 lb 12.8 oz I&O: 05/09/18 05/10/18 05/11/18 06:59 06:59 06:59 Intake Total 1582 1451 Output Total 0 3000 Balance 1582 -1549 Result Diagrams: 05/10/18 08:10 05/10/18 08:10 Additional Labs: Accuchecks 05/10/18 05/10/18 05/10/18 17:41 10:28 04:54 POC Glucose 141 H 128 H 156 H 05/09/18 05/09/18 20:15 05:31 POC Glucose 130 H 90 Microbiology 10/01/16 16:05 Pleural fluid Acid Fast Bacilli Smear - Final 10/01/16 16:05 Pleural fluid Body Fluid Culture - Preliminary 10/01/16 16:05 Pleural fluid Body Fluid Culture - Preliminary 05/06/18 23:37 Venous blood - Right Hand Blood Culture - Preliminary Specimen has been received and culture in progress. No Growth to date. 05/06/18 00:06 Venous blood - Right Arm Blood Culture - Preliminary Specimen has been received and culture in progress. No Growth to date. Laboratory Tests 09/30/16 09/30/16 10/01/16 21:30 21:30 07:50 WBC 11.4 H Hgb 11.2 L Neutrophils % Potassium 5.7 H BUN 62 H Creatinine 9.76 H Total Bilirubin Alkaline Phosphatase Troponin I Lipase Hep Bs Antigen Non-Reactive 05/06/18 05/06/18 05/06/18 23:37 23:37 23:37 WBC 10.1 Hgb Neutrophils % 92.3 H Potassium BUN Creatinine Total Bilirubin 2.1 H Alkaline Phosphatase 256 H Troponin I 0.034 H Lipase 8 Hep Bs Antigen 05/07/18 05/07/18 05/08/18 03:57 07:49 04:13 WBC Hgb Neutrophils % Potassium BUN Creatinine Total Bilirubin 2.0 H Alkaline Phosphatase 198 H Troponin I 0.033 H 0.042 H Lipase Hep Bs Antigen EKG Reviewed by me: Yes (Tele - SR) Phys Exam - Physical Examination Constitutional: NAD HEENT: PERRLA, sclera anicteric, oral pharynx no lesions Neck: no nodes, no JVD, supple, full ROM diminished in bases Respiratory: no wheezing, no rales S1, S2 Cardiovascular: RRR, no significant murmur, no rub, gallop Gastrointestinal: soft, non-tender, no distention, positive bowel sounds Musculoskeletal: pulses present, edema present Neurological: normal sensation, moves all 4 limbs Psychiatric: A&O x 3 Skin: normal turgor, cap refill <2 seconds Dx/Plan (1) Abdominal pain Code(s): R10.9 - UNSPECIFIED ABDOMINAL PAIN Status: Acute Qualifiers: Abdominal location: generalized Qualified Code(s): R10.84 - Generalized abdominal pain Comment: ? etiology, resolving with supportive mgmt, d/c Zosyn, suspect secondary to DM gastroparesis (2) Nausea & vomiting Code(s): R11.2 - NAUSEA WITH VOMITING, UNSPECIFIED Status: Acute Qualifiers: Vomiting type: unspecified Vomiting Intractability: non-intractable Qualified Code(s): R11.2 - Nausea with vomiting, unspecified Comment: Resolved, monitor, ADAT (3) Toe ulcer due to DM Code(s): E11.621 - TYPE 2 DIABETES MELLITUS WITH FOOT ULCER; L97.509 - NON- PRESSURE CHRONIC ULCER OTH PRT UNSP FOOT W UNSP SEVERITY Status: Acute Qualifiers: Diabetes mellitus type: type 2 Comment: Advanced ulceration of R great toe, outpt evaluation and likely debridement, WCT for local care (4) DM type 2 (diabetes mellitus, type 2) Status: Chronic Qualifiers: Diabetes mellitus intermediate project manager insulin use: with usp use Diabetes mellitus complication status: with kidney complications Diabetes mellitus complication detail: with chronic kidney disease Chronic kidney disease stage : on chronic dialysis Qualified Code(s): E11.22 - Type 2 diabetes mellitus with diabetic chronic kidney disease; N18.6 - End stage renal disease; Z79.4 - roasterman (current) use of insulin; Z99.2 - Dependence on renal dialysis Comment: NPH 70/30, 30u SC BID, ISS (5) ESRD (end stage renal disease) on dialysis Code(s): N18.6 - END STAGE RENAL DISEASE; Z99.2 - DEPENDENCE ON RENAL DIALYSIS Status: Chronic Comment: HD per Renal service today (6) HTN (hypertension) Code(s): I10 - ESSENTIAL (PRIMARY) HYPERTENSION Status: Chronic Qualifiers: Comment: labile, resume home BP regimen, Hydralazine/Clonidine prn (7) Constipation Code(s): K59.00 - CONSTIPATION, UNSPECIFIED Status: Acute Comment: Start Sennakot-S BID - Plan PT/OT, social worker palliative care, out of bed/ambulate Stable overall -: HD per Renal service -: WCT for local care of L foot -: Continue Reglan 10mg po AC -: AM lab: BMP, CBC * Likely home in am
[2018-05-10] MEDS ORDERED: Bisacodyl 10 MG SUPP PR PRN (19:54)
[2018-05-11 05:56] LABS: Band 1 % (5-11); Eosinophils 3 % (0-10); Lymphocytes 34 % (21-51); MDiff Complete? YES; Mean Corpuscular HGB CONC 30.7 g/dL (32.0-36.0); Mean Corpuscular Hemoglobin 30.4 pg (27.0-31.0); Mean Corpuscular Volume 98.9 fL (78.0-98.0); Mean Platelet Volume 11.9 fL (7.4-10.4); Monocytes 9 % (0-10); Neutrophil 53 % (42-75); Platelet Count 117 thou/uL (130-400); Platelet Morphology Comment Appears Decreased; Red Blood Cell (RBC) Count 3.61 mill/uL (4.20-5.40); White Blood Cell (WBC) Count 4.2 thou/uL (4.8-10.8)
[2018-05-11 06:00] LABS: Anion Gap 15 mmol/L (10-20); BUN (Urea Nitrogen) 20 mg/dL (9.8-20.1); Calc. Creatinine Clearance 30 mL/min (70-130); Calcium 8.7 mg/dL (7.8-10.44); Carbon Dioxide 28 mmol/L (22-29); Chloride 94 mmol/L (98-107); Estimated GFR-MDRD 12; Glucose 150 mg/dL (70-105); Potassium 4.1 mmol/L (3.5-5.1); Sodium 133 mmol/L (136-145)
--- NOTE | 2018-05-11 08:17 | PRG ---
DATE OF SERVICE: 05/11/2018 SUBJECTIVE: Ms. Avila is a 58-year-old female with ESRD - on maintenance hemodialysis, and admitted for diffuse myalgia and abdominal pain. The pain is much improved. She is tolerating hemodialysis. We did give her extra treatment for fluid removal last Wednesday. She voices no new complaints today. No chest pain or shortness of breath. OBJECTIVE: VITAL SIGNS: Blood pressure is 148/80, heart rate 72, respiratory rate 18, temperature 98.8, and pulse ox 92%. GENERAL: Noted to be awake, alert, sitting comfortable, obese, not in distress. SKIN: Adequate turgor. Multiple scarring on the skin. HEENT: She has pinkish conjunctivae. Anicteric sclerae. NECK: No neck mass. No carotid bruits. No JVD. CHEST: No deformities. LUNGS: Clear breath sounds. No wheezing. No crackles. HEART: Normal sinus rhythm. No murmur. No gallops. No rubs. ABDOMEN: Globular, soft, and nontender. No masses. EXTREMITIES: No edema. No deformities. MEDICATIONS: Medications of May 11, 2018, was reviewed. LABORATORY DATA: Laboratories of May 11, 2018; sodium 133, potassium 4.1, chloride 94, carbon dioxide 28, BUN 20, creatinine 3.86, glucose 150, and calcium 8.7. ASSESSMENT AND PLAN: 1. End-stage renal disease, stable, continuing current hemodialysis regimen. Fluid removal only as tolerated. She did receive extra dialysis treatment for fluid removal due to the CHF. 2. Congestive heart failure, clinically asymptomatic. 3. Chronic myalgia/abdominal pain, resolved. 4. Hyperphosphatemia - restart Renvela 800 mg 1 tablet t.i.d. with meals. Job ID: [id number]
[2018-05-11] MEDS: HumuLIN 70/30 (300 UNITS/3 ML VIAL) SC SCH (08:31)
[2018-05-11] MEDS: Carvedilol 6.25 MG TAB PO SCH (08:32)
[2018-05-11] MEDS: hydrOXYzine 25 MG TAB PO PRN (08:32)
[2018-05-11] MEDS: Metoclopramide HCl 10 MG TAB PO SCH ×2 (08:32→12:26)
[2018-05-11] MEDS: Sevelamer Carbonate 800 MG TAB PO SCH ×2 (08:33→12:26)
[2018-05-11] MEDS: HYDROcodone/Acetaminophen 5/325 mg Tablet PO PRN (08:33)
[2018-05-11] MEDS: Senokot S 8.6-50 MG TAB PO SCH (08:33)
[2018-05-11] MEDS: cloNIDine 0.2 MG TAB PO SCH (08:33)
[2018-05-11] MEDS: Clopidogrel Bisulfate 75 MG TAB PO SCH (08:34)
[2018-05-11] MEDS: ALPRAZolam 0.25 MG TAB PO PRN (08:34)
[2018-05-11] MEDS: Ondansetron ODT 4 MG TAB PO PRN (08:34)
[2018-05-11] MEDS: Aspirin 325 MG TAB PO SCH (08:34)
[2018-05-11] MEDS: Losartan 25 MG TAB PO SCH (08:34)
[2018-05-11 09:00] VITALS: TEMP 98.1
[2018-05-11 13:26] VITALS: BP 148/100
--- NOTE | 2018-05-11 15:01 | DIS ---
DATE OF ADMISSION: 05/07/2018 DATE OF DISCHARGE: 05/11/2018 DISCHARGE DIAGNOSES: 1. Abdominal pain, multifactorial, improved. 2. Nausea and vomiting, resolved. 3. Diabetic gastroparesis. 4. Right great toe diabetic ulcer, chronic. 5. 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 6. End-stage renal disease with hemodialysis. 7. Hypertension, labile. 8. Constipation, resolved. CONSULTATIONS: 1. Dr. Talley with Nephrology Service. 2. Dr. Martinez with General Surgery Service. PERTINENT LABORATORY AND X-RAY FINDINGS: Creatinine ranged between 3.86 to 5.41. Estimated GFR ranged between 8 to 12. Lactic acid level ranged between 1.8 to 2.5. Lipase level 8. CBC showed a white blood cell count ranging between 3.8 to 10.1, hemoglobin ranged between 9.9 to 12.3. Blood cultures x2 dated 05/06/2018, showed no growth at [address] of the abdomen and pelvis dated 05/06/2018, showed question of mild inflammatory process in the duodenum and pylorus. No evidence for bowel obstruction. Portable chest x-ray dated 05/06/2018, showed mild pulmonary edema. CT of the chest dated 05/07/2018, showed cardiomegaly with bilateral pleural effusions. Abdominal ultrasound dated 05/07/2018, showed enlarged liver, likely due to fatty infiltration. Atrophic right kidney without hydronephrosis. HOSPITAL COURSE: The patient was initially admitted after presenting with abdominal pain with associated nausea and vomiting. The patient underwent extensive evaluation including CT imaging of the abdomen and pelvis showing no clear etiology of source. The patient was treated symptomatically and supportively and placed on empiric IV antibiotic therapy after concern for potential infectious process. Serial monitoring showed overall improving abdominal pain with persistent nausea and vomiting. The patient was restarted on Reglan as well as given antiemetics due to diabetic gastroparesis. The patient also received IV and oral pain medications including morphine sulfate and [place]. The patient had varying degrees of improvement with pain medication and supportive management. The patient was transitioned from clear liquids to regular oral intake, tolerating without difficulty. The patient was also evaluated due to history of multiple diabetic wound ulcers as well as ulceration of the right great toe. General Surgery did not recommend any acute surgical intervention and may follow up with her primary outpatient coder on an outpatient basis. The patient continued to receive maintenance hemodialysis during her hospital course, tolerating without complication. Overall, the patient had remained clinically stable through the remainder of the hospital course. I have examined the patient at the time of discharge and discussed followup instructions. The patient overall clinically stable and ready for discharge on 05/11/2018. DISCHARGE MEDICATIONS: 1. Xanax 0.25 mg p.o. q.6 hours p.r.n. 2. Tylenol 500 mg p.o. daily p.r.n. 3. Enteric-coated aspirin 325 mg p.o. daily. 4. Calcitriol 3 tablets p.o. daily. 5. Catapres 0.2 mg p.o. b.i.d. 6. Plavix 75 mg p.o. daily. 7. Hydroxyzine 25 mg p.o. t.i.d. p.r.n. 8. NovoLog 70/30 of 30 units subcutaneously b.i.d. 9. Isosorbide mononitrate 30 mg p.o. daily. 10. Cozaar 100 mg p.o. daily. 11. Reglan 5 mg p.o. t.i.d. with meals. 12. Protonix 40 mg p.o. daily. 13. Coreg 6.25 mg p.o. b.i.d. 14. Renvela 800 mg p.o. t.i.d. FOLLOW UP: The patient may follow up with her primary care provider, Vandana Beard, within 7 days of discharge. The patient may follow up with Dr. Florian talley with Nephrology Service with hemodialysis 3 times per week. The patient may follow up with her primary outpatient coder, Dr. Franky Velasquez and to call his office for appointment, time, and date. CONDITION ON DISCHARGE: Stable. ACTIVITY: Ad marcia. DIET: ADA and heart healthy. CODE STATUS: Full. DISPOSITION: Home on 05/11/2018. TIME SPENT: Total time preparing and coordinating discharge, 36 minutes. Job ID: [id number]
--- NOTE | 2018-05-13 09:37 | PQF ---
DIAMOND BUSHRODY DO [id number] [facility] [id number] CLINICAL DOCUMENTATION CLARIFICATION FORM: POST DISCHARGE Addendum to original discharge summary date: ____ Late entry note date: __ DATE: 05/13/18 ATTN: Dr. Oliver Please exercise your independent, professional judgment in responding to the clarification form. Clinical indicators are provided on the bottom of this form for your review Please check appropriate box(s): Conflicting documentation was noted in the Medical Record, please clarify if patient is being treated/monitored for: [ ] Sepsis [ x ] Diabetic Gastroparesis [ ] Other diagnosis [ ] Unable to determine In addition, please specify: Present on Admission (POA): [ x ] Yes [ ] No [ ] Unable to determine For continuity of documentation, please document condition throughout progress notes and discharge summary. Thank You. CLINICAL INDICATORS - SIGNS / SYMPTOMS/ LABS Consider patient was septic on admission, possibly due to GI infection--H&P Sepsis---05/07 ED physician note Sepsis--05/07 Admission order Concern for potential infections process--Discharge Summary Abdominal pain likely due to diabetic gastroparesis--05/09,05/10 Progress notes RISK FACTORS Diabetic mellitus type 2 with end stage renal disease, insulin requiring Severe abdominal pain possibly concerning for duodenitis vs cholangitis---H&P CT abdominal pelvis mild question mild inflammatory process--Discharge Summary TREATMENT Empiric IV antibiotics--Zosyn, Vancomycin-ordered 05/07/18 Started on Reglan and antiementis---Discharge Summary Thank you, Sonia Montes [facility] 05/13/18 10:33 AM (This form is maintained as a part of the permanent medical record) 2014 [employer]. All Rights Reserved [email or web address] [phone] [email or web address]
--- NOTE | 2018-05-13 09:47 | PQF ---
DIAMOND BUSHRODY DO [id number] [facility] [id number] CLINICAL DOCUMENTATION CLARIFICATION FORM: POST DISCHARGE Addendum to original discharge summary date: ____ Late entry note date: __ DATE: 05/13/18 ATTN: Dr. Oliver, Please exercise your independent, professional judgment in responding to the clarification form. Clinical indicators are provided on the bottom of this form for your review Please check appropriate box(s): HEART FAILURE: A. TYPE: [ ] Systolic / HFrEF [ ] Diastolic / HFpEF [ ] Combined Systolic / Diastolic B. ACUITY [ ] Acute [ ] Acute on Chronic [ ] Chronic [ x ] Other diagnosis __Volume overload due to ESRD [ ] Unable to determine In addition, please specify: Present on Admission (POA): [ x ] Yes [ ] No [ ] Unable to determine For continuity of documentation, please document condition throughout progress notes and discharge summary. Thank You. CLINICAL INDICATORS - SIGNS / SYMPTOMS / LABS Congestive Heart Failure---05/11 Progress note Cardiomegaly with bilateral pleural effusions---05/07 CT chest RISKS: History of CAD--H&P ESRD on Hemodialysis--05/07 H&P Hypertension--H&P TREATMENTS: Extra dialysis treatment for fluid removal due to CHF--05/11 Progress notes Thank you, Sonia Montes, [facility] 05/13/18 9:45AM (This form is maintained as a part of the permanent medical record) 2014 [email or web address]. All Rights Reserved [email or web address] [phone] MTDD
== END 2018-05-11 14:38 | disposition home health service (06) | DRG 73 ==
LOC: ERS 23:22 → 2NO 05-07 05:42
PROVIDERS: ADMIT Family Medicine; ATTEND Family Medicine
PROC: 5A1D70Z Performance of Urinary Filtration, Intermittent, Less than 6 Hours Per Day (ICD-10-PCS; principal; 2018-05-10)
DX: E11.43 Type 2 diabetes mellitus with diabetic autonomic (poly)neuropathy (principal); J96.21 Acute and chronic respiratory failure with hypoxia; N18.6 End stage renal disease; I13.2 Hypertensive heart and chronic kidney disease with heart failure and with stage 5 chronic kidney disease, or end stage renal disease; E11.22 Type 2 diabetes mellitus with diabetic chronic kidney disease; K31.84 Gastroparesis; I50.9 Heart failure, unspecified; E83.39 Other disorders of phosphorus metabolism; I25.10 Atherosclerotic heart disease of native coronary artery without angina pectoris; K59.00 Constipation, unspecified; D64.9 Anemia, unspecified; M79.10 Myalgia, unspecified site; I73.9 Peripheral vascular disease, unspecified; K21.9 Gastro-esophageal reflux disease without esophagitis; E11.40 Type 2 diabetes mellitus with diabetic neuropathy, unspecified; E11.621 Type 2 diabetes mellitus with foot ulcer; L97.519 Non-pressure chronic ulcer of other part of right foot with unspecified severity; Z99.2 Dependence on renal dialysis; Z79.4 Long term (current) use of insulin; Z79.82 Long term (current) use of aspirin; Z79.02 Long term (current) use of antithrombotics/antiplatelets; Z79.899 Other long term (current) drug therapy; Z95.5 Presence of coronary angioplasty implant and graft; Z87.891 Personal history of nicotine dependence; Z91.19 Patient's noncompliance with other medical treatment and regimen; Z89.422 Acquired absence of other left toe(s); Z88.8 Allergy status to other drugs, medicaments and biological substances; Z91.040 Latex allergy status
CPT/HCPCS: 36415; 36416; 51701; 71045; 71250; 74177; 76705; 80048; 80053; 80076; 80202; 81003; 81015; 82553; 82805; 83605; 83690; 84484; 85025; 86850; 86900; 86901; 87040; 90935; 93005; 93306; 96361; 96365; 96367; 96375; A4353; G0257; J0360; J0692; J1644; J1815; J2060; J2270; J2405; J2543; J3370; J7050; J8597; Q0162; Q9966

== ENCOUNTER 2018-06-02 23:35 | Emergency (ER) | payer MEDICARE ==
[2018-06-03 00:32] LABS: #Eosinphils 0.1 thou/uL (0.0-0.7); #Lymphocytes 0.8 thou/uL (1.20-3.40); #Monocytes 0.8 thou/uL (0.11-0.59); #Neutrophils 6.6 thou/uL (1.40-6.50); %Basophils 0.2 % (0.0-1.0); %Eosinophils 1.6 % (0.0-10.0); %Lymphocytes 9.9 % (21.0-51.0); %Monocytes 9.8 % (0.0-10.0); %Neutrophils 78.5 % (42.0-75.0); Hemoglobin 11.1 g/dL (12.0-16.0); Mean Corpuscular HGB CONC 31.7 g/dL (32.0-36.0); Mean Corpuscular Volume 97.6 fL (78.0-98.0); Mean Platelet Volume 11.5 fL (7.4-10.4); Platelet Count 141 thou/uL (130-400); RBC Distribution Width 15.2 % (11.5-14.5); Red Blood Cell (RBC) Count 3.59 mill/uL (4.20-5.40); White Blood Cell (WBC) Count 8.4 thou/uL (4.8-10.8)
[2018-06-03 00:55] LABS: ALT (SGPT) 7 U/L (8-55); AST (SGOT) 10 U/L (5-34); Albumin 3.7 g/dL (3.5-5.0); Alkaline Phosphatase 183 U/L (40-150); Anion Gap 14 mmol/L (10-20); BUN (Urea Nitrogen) 16 mg/dL (9.8-20.1); Calc. Creatinine Clearance 0 mL/min (70-130); Calcium 9.7 mg/dL (7.8-10.44); Carbon Dioxide 30 mmol/L (22-29); Chloride 96 mmol/L (98-107); Estimated GFR-MDRD 13; Globulin 3.7 g/dL (2.4-3.5); Glucose 185 mg/dL (70-105); Potassium 4.1 mmol/L (3.5-5.1); Protein, Total 7.4 g/dL (6.0-8.3); Sodium 136 mmol/L (136-145)
[2018-06-03] MEDS ORDERED: Morphine 4 MG/ML VIAL ONE (01:15)
[2018-06-03] MEDS ORDERED: Nitroglycerin 2% Ointment 1 INCH/1 GM Packet ONE (01:15)
--- NOTE | 2018-06-03 07:39 | RAD ---
CHEST 1 VIEW: Date: 06/02/18 INDICATION: History of dialysis patient with back pain. COMPARISON: Prior chest radiograph dated 05/06/18. FINDINGS: There is cardiomegaly, pulmonary vascular congestion, and perihilar edema. There are tiny bilateral p leural effusions. No pneumothorax is evident. IMPRESSION: Findings of CHF or volume overload. POS: [facility]
--- NOTE | 2018-06-03 08:26 | CT ---
PRELIMINARY REPORT/[facility]/EMERGENCY AFTER HOURS PROCEDURE: EXAM: CT Abdomen and Pelvis Without Contrast EXAM DATE/TIME: 06/03/2018 1:30 AM CLINICAL HISTORY: 58 years old, female; Epigastric abdominal pain; Prior surgery; ER 2; Dialysis patient; Reports back pain that radiates to chest and lt upper quadrant; 2 episodes of vomiting today; No complications at dialysis today other than stomach cramping. HX cholecystectomy TECHNIQUE: Imaging protocol: Axial computed tomography images of the abdomen and pelvis without contrast. Mendoza l reformatted images were created and reviewed. COMPARISON: CT Abdomen Pelvis W Con 05/07/2018 12:57 AM FINDINGS: Lower thorax: Left basilar linear parenchymal scarring or subsegmental c as ollapse / atelectasis. Mitral valve annulus calcification. ABDOMEN: Liver: Normal. No mass. Gallbladder and bile ducts: Status post cholecystectomy. No biliary tract dilatation. Pancreas: Pancreatic atrophy. No pancreatic ductal dilatation. Spleen: Mild splenomegaly (14.8 cm CC dimension). Adrenals: Mild adrenal gland thickening. Kidneys and ureters: Renal vascular calcifications. No hydronephrosis. Stomach and bowel: No generalized ileus or bowel obstruction. Scattered sigmoid colon diverticuli wit hout evidence of diverticulitis. Appendix: No evidence of appendicitis. PELVIS: Bladder: Unremarkable as visualized. Reproductive: Atrophic uterus and ovaries. ABDOMEN and PELVIS: Intraperitoneal space: Minimal free fluid in the abdomen and pelvis. Bones/joints: No acute fracture. No dislocation. Soft tissues: Subcutaneous soft tissue edema. Vasculature: Normal. No abdominal aortic aneurysm. Lymph nodes: Normal. No enlarged lymph nodes. IMPRESSION: 1. No generalized ileus or bowel obstruction. 2. Mild splenomegaly (14.8 cm CC dimension). 3. Scattered sigmoid colon diverticuli without evidence of diverticulitis. Thank you for allowing us to participate in the care of your patient. Dictated and Authenticated by: Alexys Ding MD 06/03/2018 2:24 AM Central Time ([place] & [place]) FINAL REPORT CT OF THE ABDOMEN AND PELVIS WITHOUT IV CONTRAST: HISTORY: History of diffuse abdominal pain. IMPRESSION: I agree with the preliminary report provided. There is nonspecific mild diffuse anasarca and mild as cites. There is hepatosplenomegaly. There are prominent vascular calcifications involving the abdom inopelvic vasculature. There are scattered diverticula involving the colon without evidence of activ e diverticulitis. There is nonspecific splenomegaly with the spleen measuring up to 16.1 cm on my me asurement in the greatest CC dimension. POS: BH
== END 2018-06-03 02:20 | disposition home or self-care (01) ==
LOC: ERS 23:35
DX: R10.9 Unspecified abdominal pain (principal); I25.10 Atherosclerotic heart disease of native coronary artery without angina pectoris; F41.9 Anxiety disorder, unspecified; E11.22 Type 2 diabetes mellitus with diabetic chronic kidney disease; I12.0 Hypertensive chronic kidney disease with stage 5 chronic kidney disease or end stage renal disease; N18.6 End stage renal disease; Z87.891 Personal history of nicotine dependence; Z79.899 Other long term (current) drug therapy; Z79.891 Long term (current) use of opiate analgesic
CPT/HCPCS: 36415; 71045; 74176; 80053; 83880; 84484; 85025; 93005; 96374; J2270

== ENCOUNTER 2018-06-05 04:49 | Observation (INO) | payer MEDICARE ==
[2018-06-05 05:16] LABS: #Eosinphils 0.2 thou/uL (0.0-0.7); #Monocytes 0.9 thou/uL (0.11-0.59); %Basophils 0.5 % (0.0-1.0); %Eosinophils 2.8 % (0.0-10.0); %Lymphocytes 12.1 % (21.0-51.0); %Monocytes 11.5 % (0.0-10.0); %Neutrophils 73.1 % (42.0-75.0); Hemoglobin 11.2 g/dL (12.0-16.0); Mean Corpuscular Hemoglobin 31.1 pg (27.0-31.0); Mean Corpuscular Volume 97.2 fL (78.0-98.0); Mean Platelet Volume 11.2 fL (7.4-10.4); Platelet Count 148 thou/uL (130-400); RBC Distribution Width 15.1 % (11.5-14.5); Red Blood Cell (RBC) Count 3.59 mill/uL (4.20-5.40); White Blood Cell (WBC) Count 8.2 thou/uL (4.8-10.8)
[2018-06-05] MEDS ORDERED: Famotidine/PF 20 mg/2ml Vial ONE (05:33)
[2018-06-05] MEDS ORDERED: diphenhydrAMINE 50 MG/ML VIAL ONE (05:33)
[2018-06-05] MEDS ORDERED: methylPREDNISolone Sod Succ/PF 125 MG/2 ML VIAL ONE (05:33)
[2018-06-05 05:39] LABS: ALT (SGPT) Less than 7 U/L (8-55); AST (SGOT) 10 U/L (5-34); Albumin 3.7 g/dL (3.5-5.0); Alkaline Phosphatase 190 U/L (40-150); Anion Gap 17 mmol/L (10-20); BUN (Urea Nitrogen) 20 mg/dL (9.8-20.1); Bilirubin, Total 0.9 mg/dL (0.2-1.2); CK (CPK) 32 U/L (29-168); Calc. Creatinine Clearance 0 mL/min (70-130); Carbon Dioxide 27 mmol/L (22-29); Chloride 95 mmol/L (98-107); Estimated GFR-MDRD 12; Globulin 3.6 g/dL (2.4-3.5); Glucose 192 mg/dL (70-105); Potassium 4.4 mmol/L (3.5-5.1); Protein, Total 7.3 g/dL (6.0-8.3); Sodium 135 mmol/L (136-145)
[2018-06-05] MEDS ORDERED: HYDROcodone/Acetaminophen 5/325 mg Tablet ONE (07:31)
[2018-06-05] MEDS ORDERED: Dextrose 50% Abboject 50 ML SYRINGE SLOW IVP PRN (08:17)
[2018-06-05] MEDS ORDERED: Calcium Carbonate 500 MG ChewTAB PO PRN (08:17)
[2018-06-05] MEDS ORDERED: hydrALAZINE 20 MG/ML VIAL SLOW IVP PRN (08:17)
[2018-06-05] MEDS ORDERED: Senokot S 8.6-50 MG TAB PO PRN (08:17)
[2018-06-05] MEDS ORDERED: Sevelamer Carbonate 800 MG TAB PO SCH (08:17)
[2018-06-05] MEDS ORDERED: HumaLOG 300 UNITS/3 ML VIAL SC PRN ×2 (08:17)
[2018-06-05] MEDS ORDERED: Dextrose 5% in Water 1,000 ML IV PRN (08:17)
[2018-06-05] MEDS ORDERED: Cepastat Lozenges 1 LOZ PO PRN (08:17)
[2018-06-05] MEDS ORDERED: Zolpidem Tartrate 5 MG TAB PO PRN (08:17)
[2018-06-05] MEDS ORDERED: Loratadine 10 MG TAB PO PRN (08:17)
[2018-06-05] MEDS ORDERED: Ondansetron ODT 4 MG TAB PO PRN (08:17)
[2018-06-05] MEDS ORDERED: Nitroglycerin 0.4 MG TAB (25 Tab Bottle) SL PRN (08:17)
[2018-06-05] MEDS ORDERED: Eucerin (Mineral Oil/Petrolatum,White) 30 gm Jar TOP PRN (08:17)
[2018-06-05] MEDS ORDERED: Bisacodyl 10 MG SUPP PR PRN (08:17)
[2018-06-05] MEDS ORDERED: Non-Formulary Item 1 EACH (Metoclopramide Hcl [Metoclopramide Hcl] 5 MG) PO SCH (08:17)
[2018-06-05] MEDS ORDERED: Diabetic Tussin 200 MG/10 ML UDCUP PO PRN (08:17)
[2018-06-05] MEDS ORDERED: Ondansetron PF 4 MG/2 ML Vial IVP PRN (08:17)
[2018-06-05] MEDS ORDERED: Sodium Chloride 0.65% Nasal 44 ML BOT EA NARE PRN (08:17)
[2018-06-05] MEDS ORDERED: Artificial Tears 18 DROP/0.9 ML EA EYE PRN (08:17)
[2018-06-05] MEDS ORDERED: Loperamide HCl 2 MG CAP PO PRN (08:17)
[2018-06-05] MEDS ORDERED: Non-Formulary Item 1 EACH (Insulin Aspart Prot/Insuln Asp [Novolog Mix 70-30 Flexpen Syrn SQ SCH (09:00)
[2018-06-05 09:15] LABS: Anion Gap 15 mmol/L (10-20); BUN (Urea Nitrogen) 21 mg/dL (9.8-20.1); Calc. Creatinine Clearance 0 mL/min (70-130); Calcium 10.2 mg/dL (7.8-10.44); Carbon Dioxide 31 mmol/L (22-29); Chloride 94 mmol/L (98-107); Estimated GFR-MDRD 12; Glucose 188 mg/dL (70-105); Potassium 4.8 mmol/L (3.5-5.1); Sodium 135 mmol/L (136-145)
[2018-06-05] MEDS: Carvedilol 6.25 MG TAB PO SCH ×2 (09:52→19:28)
[2018-06-05] MEDS: Sevelamer Carbonate 800 MG TAB PO SCH ×3 (09:52→19:28)
[2018-06-05] MEDS: hydrOXYzine 25 MG TAB PO PRN (09:53)
[2018-06-05] MEDS: cloNIDine 0.2 MG TAB PO SCH ×2 (09:53→21:11)
[2018-06-05] MEDS: Clopidogrel Bisulfate 75 MG TAB PO SCH (09:53)
[2018-06-05] MEDS: Famotidine 20 MG TAB PO SCH (09:53)
[2018-06-05] MEDS: Aspirin Chewable 81 MG TAB PO SCH (09:53)
[2018-06-05] MEDS: ALPRAZolam 0.25 MG TAB PO PRN ×2 (09:53→23:21)
--- NOTE | 2018-06-05 09:54 | RAD ---
PORTABLE CHEST: 06/05/2018 PROVIDED CLINICAL HISTORY: Chest pain. COMPARISON: 06/03/2018 FINDINGS: The cardiac and mediastinal silhouette is unchanged in appearance. Prominence of the pulmonary vascu lature and pulmonary interstitium are redemonstrated. No focal consolidation, pleural fluid, or pneu mothorax apparent. IMPRESSION: Cardiomegaly and findings suggestive congestive failure or volume overload, similar to the prior stud y. POS: MELVI
[2018-06-05 11:34] LABS: Troponin I 0.011 ng/mL (< 0.028)
[2018-06-05] MEDS: HumuLIN 70/30 (300 UNITS/3 ML VIAL) SC SCH ×2 (12:32→21:10)
[2018-06-05] MEDS: Metoclopramide HCl 10 MG TAB PO SCH ×2 (12:37→19:28)
[2018-06-05] MEDS: diphenhydrAMINE 50 MG/ML VIAL IVP PRN (12:40)
--- NOTE | 2018-06-05 13:00 | HP ---
PRIMARY CARE PHYSICIAN: [facility] Call Admission. REASON FOR ADMISSION: Chest pain, volume overload. HISTORY OF PRESENT ILLNESS: A 58-year-old female, who has ESRD, on Wednesday, , and Wednesday hemodialysis. Yesterday, she had dialysis and she was not feeling good and that is why they did only short period of dialysis. Last night, she was feeling shortness of breath and she was having chest pain and that is why she decided to come to emergency room. She describes chest pain as left-sided and radiating to back. She denies any palpitation, dizziness, or syncope. She was having associated shortness of breath. She did not have any nausea, vomiting, or diaphoresis. In the emergency room, she had CT dissection protocol which was negative for any dissection, but after contrast dye, the patient was having more worsening of itching. She does have chronic itching, which is controlled with medication, but after contrast, she was having more pruritus that required Solu-Medrol, Benadryl in the emergency room. She did not have any rash, problem of urticaria, but she does have chronic diabetic spot in her body, which has not changed. She denies any fever, chills, cough, flu-like illness. She denies any UTI symptoms. She denies any constipation, diarrhea, melena, or hematochezia. In the emergency room, chest x-ray showed pulmonary vascular congestion and she appeared fluid overload status and that is why the patient required admission. Her initial troponin was negative. Her initial oxygen saturation was low, but improved after oxygen. PAST MEDICAL HISTORY: Hypertension with several admission for hypertensive urgency; diabetes type 2; coronary artery disease with history of stent in 2014, subsequently, the patient had repeat cardiac catheterization in 2017, which showed patent stent; ESRD, on hemodialysis Wednesday, , and Wednesday; dyslipidemia; obesity; diabetic nephropathy. PAST PSYCHIATRIC HISTORY: Anxiety and depression. PAST SURGICAL HISTORY: Dialysis access; AV fistula; PD catheter placement and subsequent removal; incision and drainage of nasal abscess; adenoidectomy; tonsillectomy; amputation of left big great toe due to nonhealing diabetic ulcer; cardiac catheterization with stent placement. FAMILY HISTORY: Mother from heart attack in her 60s. ALLERGIES: THE PATIENT IS ALLERGIC TO LEVAQUIN, LATEX, IODINE, AND SHELLFISH. SOCIAL HISTORY: The patient lives at home with her . No history of tobacco, alcohol, or illicit drug abuse. CURRENT HOME MEDICATION: 1. Tramadol 50 mg q.4 hourly p.r.n. 2. Clonidine 0.2 mg twice daily. 3. Losartan 100 mg daily. 4. Coreg 6.25 mg twice daily. 5. Aspirin 325 mg daily. 6. Protonix 40 mg daily. 7. Plavix 75 mg daily. 8. Nitroglycerin p.r.n. 9. Xanax 0.25 mg as needed. 10. Imdur 30 mg daily. 11. Calcitriol 0.25 mcg on non dialysis days. 12. Reglan 5 mg three times daily. 13. Atarax 25 mg three times daily. 14. Benadryl 25 mg as needed. 15. MiraLAX 17 g p.o. daily. EMERGENCY ROOM COURSE: The patient is given hydrocodone, Solu-Medrol 125 mg, Pepcid 20 mg, Benadryl 50 mg. REVIEW OF SYSTEMS: CONSTITUTIONAL: Negative for weight loss or gain, ability to conduct usual activities. SKIN: Negative for rash, itching. EYES: Negative for double vision, pain. ENT/MOUTH: Negative for nose bleeding, neck stiffness, pain, tenderness. CARDIOVASCULAR: Negative for palpitations, dyspnea on exertion, orthopnea. RESPIRATORY: Negative for shortness of breath, wheezing, cough, hemoptysis, fever or night sweats. GASTROINTESTINAL: Negative for poor appetite, abdominal pain, heartburn, nausea, vomiting, constipation, or diarrhea. GENITOURINARY: Negative for urgency, frequency, dysuria, nocturia. MUSCULOSKELETAL: Negative for pain, swelling. NEUROLOGIC/PSYCHIATRIC: Negative for anxiety, depression. ALLERGY/IMMUNOLOGIC: Negative for skin rash, bleeding tendency. Please see my HPI for pertinent positive and negative. All other review of systems reviewed and negative except as mentioned in HPI. PHYSICAL EXAMINATION: VITAL SIGNS: On arrival, blood pressure 154/70, pulse 86, respiratory rate 22, and saturation 88% on room air, and temperature 97.9. Weight 109 kg. GENERAL: The patient is currently alert and awake. Discomfort due to pruritus. HEENT: Head; normocephalic and atraumatic. Eyes; pupils are round and reactive to light. Extraocular muscle intact. ENT; oropharynx within normal limits. Moist mucous membranes. No oral lesion. No pharyngeal erythema. No exudate. NECK: Supple. No JVD. LUNGS: Bilateral scattered rales noted. No wheezing. CARDIAC: S1 and S2, regular. No murmur. ABDOMEN: Soft. Bowel sounds present. Nontender. Nondistended. No organomegaly. No mass. No suprapubic tenderness. BACK: Examination unremarkable. No CVA tenderness. EXTREMITIES: Upper extremities, passive movement of all joints are normal. Lower extremities, edema noted. Good distal pulsation. SKIN: The patient does have diffuse skin rash, which is diabetic spot. NEUROLOGIC: Nonfocal examination. SIGNIFICANT LABORATORY DATA: EKG showing normal sinus rhythm, nonspecific ST-T changes. Chest x-ray showing pulmonary vascular congestion. The patient also had abdomen and pelvis CT scan just couple of days ago, which was unremarkable other than the diverticulosis, mild splenomegaly. Echocardiography recently showed normal EF. CT dissection protocol negative for any dissection. CBC; WBC 8.2, hemoglobin 11.2, and platelet 148. D-dimer 1.43. BMP; sodium 135, potassium 4.4, chloride 95, BUN 20, creatinine 3.85, calcium 10.0. LFT; AST 10, ALT less than 7, alkaline phosphatase 190, albumin 3.7. Cardiac enzyme, negative x3. ASSESSMENT: 1. Volume overload due to reduced dialysis on Wednesday. 2. Chest pain due to hypertension with hypertensive urgency, ruled out acute coronary syndrome. 3. End-stage renal disease, on hemodialysis; Wednesday, , and Wednesday. 4. Secondary hyperparathyroidism of renal origin. 5. Anemia of renal disease. 6. Intractable pruritus after CT dissection protocol. 7. Diabetes, type 2. 8. Coronary artery disease with stent. 9. Gastroesophageal reflux disease. 10. Anxiety and depression. PLAN: Observation to telemetry floor. Home medication reconciled. Control itching with Benadryl and Pepcid. Consult Dr. Talley for hemodialysis. Diabetes, hyperglycemia protocol treatment, control blood pressure, and titrate blood pressure medication, recheck blood test tomorrow. At this point, no need of doing any cardiac testing. We will observe her today and if her symptoms are under control, then we will consider discharging her tomorrow. Plan of care discussed with the family member. CODE STATUS: The patient is full code. The patient's is surrogate decision maker. Job ID: [id number]
--- NOTE | 2018-06-05 13:34 | CT ---
PRELIMINARY REPORT/[facility]/EMERGENTY AFTER-HOURS PROCEDURE CT Angiography Chest With Contrast EXAM DATE/TIME: 06/05/2018 6:33 AM CLINICAL HISTORY: 58 years old, female; Pain; Chest pain; Abdominal pain; Epigastric; Prior surgery; Patient HX: Er 1. Patient presents for evaluation of chest pain, ongoing, patient presents for evaluation of seen 2 day s ago with similar, states the pain got better and now has gotten worse. Left sided with radiation to the back. Surgical history of cholecystectomy, 2 cardiac stents TECHNIQUE: Imaging protocol: Axial computed tomographic angiography images of the chest with intravenous contras t using CT angiography protocol. Coronal and sagittal reformatted images were created and reviewed. 3 D rendering: MIP reconstructed images were created and reviewed. COMPARISON: No relevant prior studies available. FINDINGS: Pulmonary arteries: There is no evidence of peripheral filling defects within the pulmonary arterial circulation to suggest pulmonary embolism. Aorta: The aorta is normal. There is no evidence of aortic dissection, leak, rupture, or other compli cations. Lungs: There is grimace opacification at the lung bases with interstitial thickening possibly represe nting mild pulmonary edema versus artifact from phase of respiration. Pleural space: Normal. No pneumothorax. No pleural effusion. Heart: The cardiac stents are present. No cardiomegaly. No pericardial effusion. Lymph nodes: Unremarkable. No enlarged lymph nodes. Bones/joints: Unremarkable. No acute fracture. Soft tissues: Unremarkable. IMPRESSION: 1. There is no evidence of aortic dissection, leak, rupture, or other complications. 2. There is no CT evidence of acute pulmonary embolism. CT Angiography Abdomen With Contrast EXAM DATE/TIME: 06/05/2018 6:33 AM TECHNIQUE: Imaging protocol: Axial computed tomographic angiography images of the abdomen with intravenous contr ast material, including non-contrast images if performed. Coronal and sagittal reformatted images wer e created and reviewed. 3D rendering: MIP reconstructed images were created and reviewed. COMPARISON: No relevant prior studies available. FINDINGS: Lungs: Unremarkable. No consolidation. VASCULATURE: Aorta: The aorta is normal. There is no evidence of aortic dissection, leak, rupture, or other compli cations. Celiac trunk and mesenteric arteries: There is mild atherosclerosis at the origin of the celiac arter y without significant stenosis. There is mild atherosclerosis at the origin of the SMA without signif icant stenosis. There is atherosclerotic calcification of the LUIS CARLOS. Renal arteries: There is atherosclerotic plaque at the origin of the right renal artery resulting in mild stenosis. There is atherosclerotic plaque at the origin of the left renal artery resulting in mo derate stenosis. ABDOMEN: Liver: There is moderate hepatomegaly. Gallbladder and bile ducts: No gallbladder is identified. Pancreas: The pancreas appears normal. No ductal dilatation. Spleen: The spleen is normal. Adrenals: Normal. No mass. Kidneys and ureters: Normal. No hydronephrosis. Stomach and bowel: The stomach is normal. The duodenum is unremarkable. Intraperitoneal space: Unremarkable. No free air. No significant fluid collection. Bones/joints: There is sclerosis of the endplate of L1 possibly representing age-indeterminate compre ssion fracture versus degenerative change. Soft tissues: There is soft tissue anasarca. Lymph nodes: Unremarkable. No enlarged lymph nodes. IMPRESSION: 1. There is no evidence of aortic dissection, leak, rupture, or other complications. 2. Moderate left and mild right renal artery stenosis. 3. There is moderate hepatomegaly. 4. There is sclerosis of the endplate of L1 possibly representing age-indeterminate compression fract ure versus degenerative change. Correlate clinically. Thank you for allowing us to participate in the care of your patient. Dictated and Authenticated by: Kulwant Yepez MD 06/05/2018 6:53 AM Central Time ([place] & [place]) FINAL REPORT EMERGENT AFTER HOURS CT ANGIOGRAM CHEST AND ABDOMEN WITH IV CONTRAST AND 3D MIP RECONSTRUCTIONS: I agree with the preliminary interpretation given by [facility]. No evidence for an acute process. Chronic findings, as within the preliminary report. When compared with the 04/09/2018 examination, the L1 superior endplate compression deformity is stable. POS: [facility]
--- NOTE | 2018-06-05 13:45 | CON ---
DATE OF CONSULTATION: HISTORY OF PRESENT ILLNESS: Ms. Avila is a 58-year-old female with ESRD, admitted for chest pain. The patient also complained of back pain. She was undergoing dialysis yesterday and developed back pain and shortened the treatment. We are now being consulted due to her hypoxemia and CHF. I have scheduled her for 2-hour hemodialysis today with fluid removal. REVIEW OF SYSTEMS: Positive for chest pain. Mild shortness of breath. No nausea. No vomiting. No syncopal episode. No productive cough. No fever or chills. Appetite and energy level are fair. Positive for back pain. Occasional diffuse joint pains. No diarrhea. No constipation. No dysuria. No urinary frequency. ? of abdominal pain. MEDICATIONS: The patient is currently on; 1. [place] 5/325 q.4 p.r.n. 2. Xanax 0.25 mg q.6 p.r.n. 3. Dulcolax p.r.n. 4. Carvedilol 6.25 mg b.i.d. 5. Clonidine 0.2 mg tablet b.i.d. 6. Plavix 75 mg once a day. 7. Pepcid 20 mg daily. 8. Atarax 25 mg p.o. t.i.d. 9. Humalog sliding scale. 10. Humulin 70/30 - 30 units subcu b.i.d. 11. Imdur ER 30 mg tablet once a day. 12. Claritin p.r.n. 13. Reglan 5 mg before meals and at bedtime. 14. Zofran 4 mg q.6 p.r.n. 15. Protonix 40 mg tablet daily. 16. Renvela 800 mg 1 tablet t.i.d. with meals. 17. Ambien 5 mg p.o. at bedtime p.r.n. PAST MEDICAL HISTORY: 1. ESRD and the patient is currently on maintenance hemodialysis Wednesday, , and Wednesday. 2. Status post CHF secondary to diastolic dysfunction. 3. Noncompliance with fluid intake. 4. Longstanding hypertension. 5. Type 2 diabetes mellitus. 6. Diabetic neuropathy. 7. Coronary artery disease. 8. GERD. 9. ? of COPD. 10. Peripheral vascular disease. PAST SURGICAL HISTORY: Status post cuffed dialysis catheter placement, status post AV fistula placement, status post PD catheter placement with subsequent removal, status post cardiac cath with coronary artery stent placement, status post cholecystectomy, status post upper GI endoscopy. ALLERGIES: LEVAQUIN AND LATEX. TRAUMA: None. IMMUNIZATION: Up-to-date. HOSPITALIZATIONS: Please see past medical history. SOCIAL HISTORY: The patient is . Lives in [place]. Four children. Sedentary lifestyle. Education, high school. Status post multiple blood transfusion. No alcohol use. No history of smoking. No IV drug abuse. 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 FAMILY HISTORY: No family history of ESRD. PHYSICAL EXAMINATION: VITAL SIGNS: Blood pressure is 156/136 ?, heart rate is 85, temperature 97.2, and O2 saturation 99% on 2 L. GENERAL: Awake, alert, comfortable, obese, not in overt distress. SKIN: Adequate turgor. HEENT: She has a pinkish conjunctivae. Anicteric sclerae. NECK: No neck mass. No carotid bruits. No JVD. CHEST: No deformities. LUNGS: Clear breath sounds. HEART: Normal sinus rhythm. No murmur. No gallops. No rubs. ABDOMEN: Globular, soft, and nontender. No masses. EXTREMITIES: No edema. No deformities. NEUROLOGIC: Moving all extremities. Oriented to 3 spheres. No tremors. No asterixis. LABORATORY DATA: On June 05, 2018, white count 8.2 and hemoglobin 11.2. Sodium 135, potassium 4.8, chloride 94, carbon dioxide 31, BUN 21, creatinine 3.9, glucose 188, and calcium 10.2. Chest x-ray shows CHF. Troponin I 0.011. ASSESSMENT AND PLAN: 1. Congestive heart failure - we will do a short 2-hour hemodialysis with fluid removal only as tolerated. 2. Labile hypertension - recheck of BP showed a value of 150/90. Continue current BP medications. 3. Chronic anemia. No indication for any Epogen treatment. 4. End-stage renal disease. Continuing current hemodialysis regimen Wednesday, , and Wednesday. Due to the volume overload, she will get an extra 2-hour dialysis today. Overall, agree with current management. 5. Chest pain - rule out for myocardial infarction. Job ID: [id number]
[2018-06-05] MEDS ORDERED: Iopamidol 370 76% 100 ML VIAL ONE (14:11)
[2018-06-05 17:07] LABS: HBSAg Index 0.73 S/CO (0-0.99); Hep B Surf Ag Non-Reactive S/CO (NonReactive)
[2018-06-05] MEDS: diphenhydrAMINE 25 MG CAP PO PRN (21:24)
[2018-06-05] MEDS: Acetaminophen 325 MG TAB PO PRN (23:19)
[2018-06-06] MEDS: diphenhydrAMINE 50 MG/ML VIAL IVP PRN (03:11)
[2018-06-06 05:38] LABS: #Eosinphils 0.1 thou/uL (0.0-0.7); #Lymphocytes 1.2 thou/uL (1.20-3.40); #Monocytes 0.9 thou/uL (0.11-0.59); #Neutrophils 5.7 thou/uL (1.40-6.50); %Basophils 0.1 % (0.0-1.0); %Eosinophils 0.9 % (0.0-10.0); %Lymphocytes 14.8 % (21.0-51.0); %Monocytes 11.9 % (0.0-10.0); %Neutrophils 72.3 % (42.0-75.0); Mean Corpuscular HGB CONC 30.3 g/dL (32.0-36.0); Mean Corpuscular Volume 99.2 fL (78.0-98.0); Mean Platelet Volume 11.5 fL (7.4-10.4); Platelet Count 167 thou/uL (130-400); RBC Distribution Width 15.2 % (11.5-14.5); Red Blood Cell (RBC) Count 3.67 mill/uL (4.20-5.40); White Blood Cell (WBC) Count 7.8 thou/uL (4.8-10.8)
[2018-06-06 05:54] LABS: Anion Gap 13 mmol/L (10-20); BUN (Urea Nitrogen) 24 mg/dL (9.8-20.1); Calc. Creatinine Clearance 28 mL/min (70-130); Carbon Dioxide 30 mmol/L (22-29); Chloride 97 mmol/L (98-107); Estimated GFR-MDRD 12; Glucose 128 mg/dL (70-105); Potassium 4.1 mmol/L (3.5-5.1); Sodium 136 mmol/L (136-145)
[2018-06-06] MEDS: Carvedilol 6.25 MG TAB PO SCH ×3 (07:27→17:02)
[2018-06-06] MEDS: hydrOXYzine 25 MG TAB PO PRN ×2 (07:44→17:02)
[2018-06-06] MEDS: Metoclopramide HCl 10 MG TAB PO SCH ×3 (07:49→17:02)
[2018-06-06] MEDS: Aspirin Chewable 81 MG TAB PO SCH (09:07)
[2018-06-06] MEDS: HumuLIN 70/30 (300 UNITS/3 ML VIAL) SC SCH ×3 (09:08→21:31)
[2018-06-06] MEDS: Sevelamer Carbonate 800 MG TAB PO SCH ×3 (09:08→17:02)
[2018-06-06] MEDS: Famotidine 20 MG TAB PO SCH (09:08)
[2018-06-06] MEDS: cloNIDine 0.2 MG TAB PO SCH ×2 (09:08→21:32)
[2018-06-06] MEDS: Clopidogrel Bisulfate 75 MG TAB PO SCH (09:08)
--- NOTE | 2018-06-06 10:38 | PDOC.PN ---
- Subjective Encounter Start Date: 06/06/18 Encounter Start Time: 07:30 Patient seen and examined. No new complaints. No overnight events - Objective Resuscitation Status - Order Detail: 06/05/18 07:21 Resuscitation Status Routine Resuscitation Status: FULL: Full Resuscitation MAR Reviewed: Yes Vital Signs & Weight: Vital Signs (12 hours) Temp Pulse Resp BP BP BP Pulse Ox 06/06/18 07:27 187/79 H 06/06/18 07:14 97.4 F L 65 16 177/76 H 93 L 06/06/18 03:14 97.9 F 67 20 141/63 H 95 06/05/18 23:24 97.9 F 76 18 155/66 H 98 Weight Weight 248 lb 8 oz I&O: 06/05/18 06/06/18 06/07/18 06:59 06:59 06:59 Intake Total 1370 Output Total 0 Balance 1370 Result Diagrams: 06/06/18 05:23 06/06/18 05:01 Additional Labs: Accuchecks 06/06/18 06/05/18 06/05/18 05:48 21:11 10:43 POC Glucose 148 H 274 H 218 H EKG Reviewed by me: Yes Phys Exam - Physical Examination Constitutional: NAD HEENT: PERRLA, moist MMs, sclera anicteric Neck: no JVD, supple Respiratory: no wheezing, no rales, no rhonchi Cardiovascular: RRR, no significant murmur, no rub Gastrointestinal: soft, non-tender, no distention, positive bowel sounds Musculoskeletal: no edema, pulses present Neurological: non-focal, normal sensation Lymphatic: no nodes Psychiatric: normal affect Skin: no rash, normal turgor Dx/Plan (1) Chest pain Code(s): R07.9 - CHEST PAIN, UNSPECIFIED Status: Acute (2) Toe ulcer due to DM Code(s): E11.621 - TYPE 2 DIABETES MELLITUS WITH FOOT ULCER; L97.509 - NON- PRESSURE CHRONIC ULCER OTH PRT UNSP FOOT W UNSP SEVERITY Status: Chronic Qualifiers: Diabetes mellitus type: type 2 Comment: (3) Volume overload Code(s): E87.70 - FLUID OVERLOAD, UNSPECIFIED Status: Acute (4) Anemia of renal disease Code(s): D63.1 - ANEMIA IN CHRONIC KIDNEY DISEASE Status: Chronic Comment: Monitor. EPO with HD. (5) Chronic combined systolic and diastolic congestive heart failure Code(s): I50.42 - CHRONIC COMBINED SYSTOLIC AND DIASTOLIC HRT FAIL Status: Chronic Comment: (6) DM type 2 (diabetes mellitus, type 2) Status: Chronic Qualifiers: Comment: NPH 70/30, 30u SC BID, ISS (7) ESRD (end stage renal disease) on dialysis Code(s): N18.6 - END STAGE RENAL DISEASE; Z99.2 - DEPENDENCE ON RENAL DIALYSIS Status: Chronic Comment: (8) HTN (hypertension) Code(s): I10 - ESSENTIAL (PRIMARY) HYPERTENSION Status: Chronic Qualifiers: Comment: (9) Peripheral neuropathy Code(s): G62.9 - POLYNEUROPATHY, UNSPECIFIED Status: Chronic (10) Secondary hyperparathyroidism of renal origin Code(s): N25.81 - SECONDARY HYPERPARATHYROIDISM OF RENAL ORIGIN Status: Chronic - Plan cont current plan of care, plan discussed w/ family * today stress test * if negative, will discharge today * medication reviewed as below * symptomatic treatment * HD as per nephrology. Review of Systems - Review of Systems ENT: negative: Ear Pain, Ear Discharge, Nose Pain, Nose Discharge, Nose Congestion, Mouth Pain, Mouth Swelling, Throat Pain, Throat Swelling, Other Respiratory: negative: Cough, Dry, Shortness of Breath, Hemoptysis, SOB with Excertion, Pleuritic Pain, Sputum, Wheezing Cardiovascular: negative: chest pain, palpitations, orthopnea, paroxysmal nocturnal dyspnea, edema, light headedness, other Gastrointestinal: negative: Nausea, Vomiting, Abdominal Pain, Diarrhea, Constipation, Melena, Hematochezia, Other Genitourinary: negative: Dysuria, Frequency, Incontinence, Hematuria, Retention , Other Musculoskeletal: negative: Neck Pain, Shoulder Pain, Arm Pain, Back Pain, Hand Pain, Leg Pain, Foot Pain, Other Skin: negative: Rash, Lesions, Basilio, Bruising, Other - Medications/Allergies Allergies/Adverse Reactions: Allergies Allergy/AdvReac Type Severity Reaction Status Date / Time Latex, Natural Rubber Allergy Mild Rash Verified 12/13/17 16:04 levofloxacin [From Levaquin] Allergy Mild Hives Verified 12/13/17 16:04 adhesive tape Allergy Verified 12/13/17 16:04 Iodinated Contrast- Oral and Allergy Rash Verified 12/13/17 16:04 IV Dye [Iodinated Contrast Media - IV Dye] shellfish derived Allergy Rash Verified 12/13/17 16:04 Medications: Current Medications Acetaminophen (Tylenol) 650 mg PO Q4H PRN PRN Reason: Headache/Fever/Mild Pain (1-3) Last Admin: 06/05/18 23:19 Dose: 650 mg Hydrocodone Bitart/Acetaminophen ([place] 5/325) 1 tab PO Q4H PRN PRN Reason: Moderate Pain (4-6) Alprazolam (Xanax) 0.25 mg PO Q6H PRN PRN Reason: Anxiety Last Admin: 06/05/18 23:21 Dose: 0.25 mg Artificial Tears (Tears Naturale) 2 drop EA EYE PRN PRN PRN Reason: Dry Eyes Aspirin (Aspirin Chewable) 81 mg PO DAILY [facility] Last Admin: 06/06/18 09:07 Dose: 81 mg Bisacodyl (Dulcolax) 10 mg [place] DAILYPRN PRN PRN Reason: Constipation Calcium Carbonate (Tums) 1,000 mg PO Q4H PRN PRN Reason: Heartburn or Indigestion Carvedilol (Coreg) 6.25 mg PO BID-[facility] Last Admin: 06/06/18 07:27 Dose: Not Given Clonidine (Catapres) 0.2 mg PO BID [facility] Last Admin: 06/06/18 09:08 Dose: 0.2 mg Clopidogrel Bisulfate (Plavix) 75 mg PO DAILY [facility] Last Admin: 06/06/18 09:08 Dose: 75 mg Dextrose/Water (Dextrose 50%) 25 gm SLOW IVP PRN PRN PRN Reason: Hypoglycemia Diphenhydramine HCl (Benadryl) 25 mg PO Q4H PRN PRN Reason: Itching Last Admin: 06/05/18 21:24 Dose: 25 mg Diphenhydramine HCl (Benadryl) 25 mg IVP Q6H PRN PRN Reason: Itching Last Admin: 06/06/18 03:11 Dose: 25 mg Famotidine (Pepcid) 20 mg PO DAILY [facility] Last Admin: 06/06/18 09:08 Dose: 20 mg Glucagon (Glucagon) 1 mg IM PRN PRN PRN Reason: Hypoglycemia Guaifenesin (Robitussin Sf) 200 mg PO Q4H PRN PRN Reason: Cough Hydralazine HCl (Apresoline) 10 mg SLOW IVP Q4H PRN PRN Reason: SBP > 180 and HR < 70 Hydroxyzine HCl (Atarax) 25 mg PO TID PRN PRN Reason: Itching Last Admin: 06/06/18 07:44 Dose: 25 mg Dextrose/Water (D5w) 1,000 mls @ 0 mls/hr IV .Q0M PRN PRN Reason: Hypoglycemia Insulin Human Isoph/Insulin Regular (Humulin 70/30) 30 units SC BID [facility] Last Admin: 06/06/18 09:08 Dose: Not Given Insulin Human Lispro (Humalog) 0 units SC .MODERATE SLIDING SC PRN PRN Reason: Moderate Correctional Scale Last Admin: 06/05/18 12:36 Dose: 4 unit Insulin Human Lispro (Humalog) 0 units [place] .BEDTIME SLIDING SC PRN PRN Reason: Bedtime Correctional Scale Last Admin: 06/05/18 21:15 Dose: 3 unit Isosorbide Mononitrate (Imdur Er) 30 mg PO DAILY [facility] Last Admin: 06/06/18 09:09 Dose: Not Given Loperamide HCl (Imodium) 2 mg PO PRN PRN PRN Reason: Diarrhea/Loose Stools Loratadine (Claritin) 10 mg PO DAILYPRN PRN PRN Reason: Sinus Symptoms Metoclopramide HCl (Reglan) 5 mg PO [facility] Last Admin: 06/06/18 07:49 Dose: 5 mg Mineral Oil/White Petrolatum (Eucerin Cream) 0 gm TOP BIDPRN PRN PRN Reason: Dry Skin Nitroglycerin (Nitrostat) 0.4 mg SL Q5MIN PRN PRN Reason: Chest Pain Ondansetron HCl (Zofran Odt) 4 mg PO Q6H PRN PRN Reason: Nausea/Vomiting Ondansetron HCl (Zofran) 4 mg IVP Q6H PRN PRN Reason: Nausea/Vomiting Pantoprazole Sodium (Protonix) 40 mg PO DAILY [facility] Last Admin: 06/06/18 09:08 Dose: 40 mg Senna/Docusate Sodium (Senokot S) 2 tab PO BID PRN PRN Reason: Constipation Sevelamer Carbonate (Renvela) 800 mg PO TID-[facility] Last Admin: 06/06/18 09:08 Dose: Not Given Sodium Chloride ([place] Nasal [place] 0.65%) 0 ml EA NARE QIDPRN PRN PRN Reason: Nasal Congestion Sodium Chloride (Flush - Normal Saline) 10 ml IVF Q12HR [facility] Last Admin: 06/06/18 09:09 Dose: 10 ml Sodium Chloride (Flush - Normal Saline) 10 ml IVF PRN PRN PRN Reason: Saline Flush Last Admin: 06/06/18 03:11 Dose: 10 ml Throat Lozenges (Cepastat Lozenges) 1 rosie PO Q2H PRN PRN Reason: Sore Throat Zolpidem Tartrate (Ambien) 5 mg PO HSPRN PRN PRN Reason: Insomnia
--- NOTE | 2018-06-06 11:43 | DIS ---
DATE OF ADMISSION: 06/05/2018 DATE OF DISCHARGE: 06/06/2018 PRIMARY CARE PHYSICIAN: [facility] Call admission. DISCHARGE DISPOSITION: Home. PRIMARY DISCHARGE DIAGNOSES: 1. Chest pain, ruled out acute coronary syndrome. 2. Hypertensive urgency. 3. Volume overload status. SECONDARY DISCHARGE DIAGNOSES: Chronic toe ulcer due to diabetes, secondary hyperparathyroidism of renal origin, peripheral neuropathy, hypertension, end-stage renal disease on hemodialysis, diabetes type 2, chronic combined systolic and diastolic heart failure, anemia of renal disease, and morbid obesity with BMI of 40. PRIMARY PROCEDURE/OPERATION: None. RADIOLOGICAL INVESTIGATION: Stress test will be done, result is pending. Chest x-ray showing pulmonary vascular congestion. SIGNIFICANT LABORATORY DATA: WBC 7.8, hemoglobin 11.0, and platelet 167. D-dimer 1.43. Sodium 136, creatinine 3.93, and calcium 10.0. Troponin negative. Hepatitis B surface antigen negative. DISCHARGE MEDICATIONS: 1. Xanax 0.25 mg p.o. q.6 hourly p.r.n. 2. Tylenol 500 mg p.o. daily p.r.n. 3. Aspirin 325 mg p.o. daily. 4. Calcitriol 0.25 mcg p.o. as directed. 5. Clonidine 0.2 mg p.o. b.i.d. 6. Plavix 75 mg p.o. daily. 7. Atarax 25 mg t.i.d. p.r.n. 8. Novolin insulin 30 units subcu b.i.d. 9. Imdur 30 mg daily. 10. Losartan 100 mg p.o. daily. 11. Reglan 5 mg p.o. before meals and at bedtime. 12. Coreg 6.25 mg p.o. b.i.d. 13. Nitroglycerin 0.4 mg sublingual p.r.n. 14. Protonix 40 mg p.o. daily. 15. Renvela 800 mg p.o. t.i.d. CONTRAINDICATION: None. CODE STATUS: Full code. INPATIENT DIVISION CONTROLLER: Florian Tucker MD TEST RESULTS PENDING ON DISCHARGE: Stress test result is pending by the time of dictation. ALLERGY: Latex, natural rubber, and levofloxacin. DISCHARGE PLAN: Posthospital, the patient will follow up with primary care physician in 1 week. HOSPITAL COURSE: A 58-year-old female, who was admitted by dc yesterday. Please see my HPI for further details. This patient had only last dialysis on Wednesday and she was having shortness of breath and hypertension with chest pain. The patient was observed on telemetry floor. Her serial cardiac enzymes were negative. Nephrology was consulted. This patient had a CT dissection protocol because of elevated D-dimer, which was negative for PE or dissection, but subsequently the patient was having intractable pruritus, which was controlled with medication. Today, the patient is going for stress test. Official report is pending by the time of dictation. If stress test is negative, then we will consider discharging her home on her home medication. The patient is seen and examined at bedside today. Please see my progress note from today for further detail. Job ID: [id number]
[2018-06-06 12:45] VITALS: BMI 40.1
[2018-06-06] MEDS: Acetaminophen 325 MG TAB PO PRN (22:15)
[2018-06-06] MEDS: diphenhydrAMINE 25 MG CAP PO PRN (22:15)
[2018-06-07] MEDS: HYDROcodone/Acetaminophen 5/325 mg Tablet PO PRN ×2 (01:10→10:39)
[2018-06-07] MEDS: hydrOXYzine 25 MG TAB PO PRN ×2 (04:24→13:54)
[2018-06-07] MEDS: Metoclopramide HCl 10 MG TAB PO SCH ×3 (08:21→18:26)
[2018-06-07] MEDS: Sevelamer Carbonate 800 MG TAB PO SCH ×3 (09:00→18:26)
--- NOTE | 2018-06-07 09:41 | PDOC.PN ---
- Subjective Encounter Start Date: 06/07/18 Encounter Start Time: 07:20 pt seen in HD room, Patient seen and examined. No new complaints. No overnight events - Objective Resuscitation Status - Order Detail: 06/05/18 07:21 Resuscitation Status Routine Resuscitation Status: FULL: Full Resuscitation MAR Reviewed: Yes Vital Signs & Weight: Vital Signs (12 hours) Temp Pulse Resp BP Pulse Ox 06/07/18 04:20 97.5 F L 66 20 132/75 96 06/06/18 23:50 98.6 F 67 20 156/67 H 92 L Weight Admit Weight 248 lb 8 oz Weight 248 lb 8 oz I&O: 06/06/18 06/07/18 06/08/18 06:59 06:59 06:59 Intake Total 1370 Output Total 0 1000 Balance 1370 -1000 Result Diagrams: 06/06/18 05:23 06/06/18 05:01 Additional Labs: Accuchecks 06/07/18 06/06/18 06/06/18 06:30 20:34 19:23 POC Glucose 135 H 136 H 119 H 06/06/18 06/06/18 16:43 12:14 POC Glucose 83 136 H EKG Reviewed by me: Yes Phys Exam - Physical Examination Constitutional: NAD HEENT: PERRLA, moist MMs, sclera anicteric Neck: no JVD, supple Respiratory: no wheezing, no rales, no rhonchi Cardiovascular: RRR, no significant murmur, no rub Gastrointestinal: soft, non-tender, no distention, positive bowel sounds Musculoskeletal: pulses present, edema present Neurological: non-focal, normal sensation Lymphatic: no nodes Psychiatric: normal affect, A&O x 3 Skin: normal turgor Deviation from normal: diabetic skin rash noted Dx/Plan (1) Chest pain Code(s): R07.9 - CHEST PAIN, UNSPECIFIED Status: Acute (2) Toe ulcer due to DM Code(s): E11.621 - TYPE 2 DIABETES MELLITUS WITH FOOT ULCER; L97.509 - NON- PRESSURE CHRONIC ULCER OTH PRT UNSP FOOT W UNSP SEVERITY Status: Chronic Qualifiers: Diabetes mellitus type: type 2 Comment: (3) Volume overload Code(s): E87.70 - FLUID OVERLOAD, UNSPECIFIED Status: Acute (4) Anemia of renal disease Code(s): D63.1 - ANEMIA IN CHRONIC KIDNEY DISEASE Status: Chronic Comment: Monitor. EPO with HD. (5) Chronic combined systolic and diastolic congestive heart failure Code(s): I50.42 - CHRONIC COMBINED SYSTOLIC AND DIASTOLIC HRT FAIL Status: Chronic Comment: (6) DM type 2 (diabetes mellitus, type 2) Status: Chronic Qualifiers: Comment: NPH 70/30, 30u SC BID, ISS (7) ESRD (end stage renal disease) on dialysis Code(s): N18.6 - END STAGE RENAL DISEASE; Z99.2 - DEPENDENCE ON RENAL DIALYSIS Status: Chronic Comment: (8) HTN (hypertension) Code(s): I10 - ESSENTIAL (PRIMARY) HYPERTENSION Status: Chronic Qualifiers: Comment: (9) Peripheral neuropathy Code(s): G62.9 - POLYNEUROPATHY, UNSPECIFIED Status: Chronic (10) Secondary hyperparathyroidism of renal origin Code(s): N25.81 - SECONDARY HYPERPARATHYROIDISM OF RENAL ORIGIN Status: Chronic - Plan cont current plan of care * today HD * later on today 2nd part of stress test * if negative, DC to home * medication reviewed as below * symptomatic treatment * see my discharge kranthi. Review of Systems - Review of Systems ENT: negative: Ear Pain, Ear Discharge, Nose Pain, Nose Discharge, Nose Congestion, Mouth Pain, Mouth Swelling, Throat Pain, Throat Swelling, Other Respiratory: negative: Cough, Dry, Shortness of Breath, Hemoptysis, SOB with Excertion, Pleuritic Pain, Sputum, Wheezing Cardiovascular: negative: chest pain, palpitations, orthopnea, paroxysmal nocturnal dyspnea, edema, light headedness, other Gastrointestinal: negative: Nausea, Vomiting, Abdominal Pain, Diarrhea, Constipation, Melena, Hematochezia, Other Genitourinary: negative: Dysuria, Frequency, Incontinence, Hematuria, Retention , Other Musculoskeletal: negative: Neck Pain, Shoulder Pain, Arm Pain, Back Pain, Hand Pain, Leg Pain, Foot Pain, Other - Medications/Allergies Allergies/Adverse Reactions: Allergies Allergy/AdvReac Type Severity Reaction Status Date / Time Latex, Natural Rubber Allergy Mild Rash Verified 12/13/17 16:04 levofloxacin [From Levaquin] Allergy Mild Hives Verified 12/13/17 16:04 adhesive tape Allergy Verified 12/13/17 16:04 Iodinated Contrast- Oral and Allergy Rash Verified 12/13/17 16:04 IV Dye [Iodinated Contrast Media - IV Dye] shellfish derived Allergy Rash Verified 12/13/17 16:04 Medications: Current Medications Acetaminophen (Tylenol) 650 mg PO Q4H PRN PRN Reason: Headache/Fever/Mild Pain (1-3) Last Admin: 06/06/18 22:15 Dose: 650 mg Hydrocodone Bitart/Acetaminophen ([place] 5/325) 1 tab PO Q4H PRN PRN Reason: Moderate Pain (4-6) Last Admin: 06/07/18 01:10 Dose: 1 tab Alprazolam (Xanax) 0.25 mg PO Q6H PRN PRN Reason: Anxiety Last Admin: 06/05/18 23:21 Dose: 0.25 mg Artificial Tears (Tears Naturale) 2 drop EA EYE PRN PRN PRN Reason: Dry Eyes Aspirin (Aspirin Chewable) 81 mg PO DAILY [facility] Last Admin: 06/06/18 09:07 Dose: 81 mg Bisacodyl (Dulcolax) 10 mg [place] DAILYPRN PRN PRN Reason: Constipation Calcium Carbonate (Tums) 1,000 mg PO Q4H PRN PRN Reason: Heartburn or Indigestion Carvedilol (Coreg) 6.25 mg PO BID-[facility] Last Admin: 06/06/18 17:02 Dose: 6.25 mg Clonidine (Catapres) 0.2 mg PO BID [facility] Last Admin: 06/06/18 21:32 Dose: 0.2 mg Clopidogrel Bisulfate (Plavix) 75 mg PO DAILY [facility] Last Admin: 06/06/18 09:08 Dose: 75 mg Dextrose/Water (Dextrose 50%) 25 gm SLOW IVP PRN PRN PRN Reason: Hypoglycemia Diphenhydramine HCl (Benadryl) 25 mg PO Q4H PRN PRN Reason: Itching Last Admin: 06/06/18 22:15 Dose: 25 mg Diphenhydramine HCl (Benadryl) 25 mg IVP Q6H PRN PRN Reason: Itching Last Admin: 06/06/18 03:11 Dose: 25 mg Famotidine (Pepcid) 20 mg PO DAILY [facility] Last Admin: 06/06/18 09:08 Dose: 20 mg Glucagon (Glucagon) 1 mg IM PRN PRN PRN Reason: Hypoglycemia Guaifenesin (Robitussin Sf) 200 mg PO Q4H PRN PRN Reason: Cough Hydralazine HCl (Apresoline) 10 mg SLOW IVP Q4H PRN PRN Reason: SBP > 180 and HR < 70 Hydroxyzine HCl (Atarax) 25 mg PO TID PRN PRN Reason: Itching Last Admin: 06/07/18 04:24 Dose: 25 mg Dextrose/Water (D5w) 1,000 mls @ 0 mls/hr IV .Q0M PRN PRN Reason: Hypoglycemia Insulin Human Isoph/Insulin Regular (Humulin 70/30) 30 units SC BID [facility] Last Admin: 06/06/18 21:31 Dose: Not Given Insulin Human Lispro (Humalog) 0 units SC .MODERATE SLIDING SC PRN PRN Reason: Moderate Correctional Scale Last Admin: 06/05/18 12:36 Dose: 4 unit Insulin Human Lispro (Humalog) 0 units SC .BEDTIME SLIDING SC PRN PRN Reason: Bedtime Correctional Scale Last Admin: 06/05/18 21:15 Dose: 3 unit Isosorbide Mononitrate (Imdur Er) 30 mg PO DAILY [facility] Last Admin: 06/06/18 12:54 Dose: 30 mg Loperamide HCl (Imodium) 2 mg PO PRN PRN PRN Reason: Diarrhea/Loose Stools Loratadine (Claritin) 10 mg PO DAILYPRN PRN PRN Reason: Sinus Symptoms Metoclopramide HCl (Reglan) 5 mg PO [facility] Last Admin: 06/07/18 08:21 Dose: Not Given Mineral Oil/White Petrolatum (Eucerin Cream) 0 gm TOP BIDPRN PRN PRN Reason: Dry Skin Nitroglycerin (Nitrostat) 0.4 mg SL Q5MIN PRN PRN Reason: Chest Pain Ondansetron HCl (Zofran Odt) 4 mg PO Q6H PRN PRN Reason: Nausea/Vomiting Last Admin: 06/07/18 01:14 Dose: 4 mg Ondansetron HCl (Zofran) 4 mg IVP Q6H PRN PRN Reason: Nausea/Vomiting Pantoprazole Sodium (Protonix) 40 mg PO DAILY [facility] Last Admin: 06/06/18 09:08 Dose: 40 mg Senna/Docusate Sodium (Senokot S) 2 tab PO BID PRN PRN Reason: Constipation Sevelamer Carbonate (Renvela) 800 mg PO TID-[facility] Last Admin: 06/06/18 17:02 Dose: 800 mg Sodium Chloride ([place] Nasal [place] 0.65%) 0 ml EA NARE QIDPRN PRN PRN Reason: Nasal Congestion Sodium Chloride (Flush - Normal Saline) 10 ml IVF Q12HR [facility] Last Admin: 06/06/18 21:33 Dose: 10 ml Sodium Chloride (Flush - Normal Saline) 10 ml IVF PRN PRN PRN Reason: Saline Flush Last Admin: 06/06/18 03:11 Dose: 10 ml Throat Lozenges (Cepastat Lozenges) 1 rosie PO Q2H PRN PRN Reason: Sore Throat Zolpidem Tartrate (Ambien) 5 mg PO HSPRN PRN PRN Reason: Insomnia
--- NOTE | 2018-06-07 09:49 | PRG ---
DATE OF SERVICE: 06/07/2018 SUBJECTIVE: Ms. Avila is a 58-year-old female with ESRD and being followed by [facility] for her maintenance hemodialysis. She is currently undergoing hemodialysis. No other complaints. Currently, denies any chest pain or shortness of breath. OBJECTIVE: VITAL SIGNS: Blood pressure is 132/75, heart rate 66, respiratory rate 20, temperature 97.5, and pulse ox 96%. GENERAL: Awake, alert, comfortable, not in overt distress. SKIN: Adequate turgor. HEENT: Pinkish conjunctivae. Anicteric sclerae. NECK: No neck mass. No carotid bruits. No JVD. CHEST: No deformities. LUNGS: Clear breath sounds. HEART: Normal sinus rhythm. No murmurs. No gallops. No rubs. ABDOMEN: Globular, soft, and nontender. No masses. EXTREMITIES: Positive for edema. MEDICATIONS: Medications of May 18, 2018. LABORATORY DATA: Laboratories of June 06, 2018; white count 7.8, hemoglobin 11. On June 07, 2018, glucose is 135. On June 06, 2018; potassium 4.1, BUN 24, and creatinine 3.93. ASSESSMENT AND PLAN: 1. Congestive heart failure, clinically much improved with fluid removal. Maxing out fluid removal with dialysis today. 2. End-stage renal disease, currently undergoing hemodialysis. As previously mentioned, we will max out fluid removal as tolerated. I am at the bedside supervising her dialysis. She is tolerating her current dialysis regimen. 3. Agree with current management. Job ID: [id number]
[2018-06-07] MEDS: cloNIDine 0.2 MG TAB PO SCH (13:53)
[2018-06-07] MEDS: Carvedilol 6.25 MG TAB PO SCH ×2 (13:53→18:26)
[2018-06-07] MEDS: Clopidogrel Bisulfate 75 MG TAB PO SCH (13:54)
[2018-06-07] MEDS: Aspirin Chewable 81 MG TAB PO SCH (13:54)
[2018-06-07] MEDS: Famotidine 20 MG TAB PO SCH (13:54)
[2018-06-07] MEDS: HumuLIN 70/30 (300 UNITS/3 ML VIAL) SC SCH (13:56)
[2018-06-07] MEDS: ALPRAZolam 0.25 MG TAB PO PRN (14:02)
[2018-06-07 15:54] VITALS: BP 155/65; TEMP 97.5
--- NOTE | 2018-06-07 16:08 | NM ---
[facility] medicine myocardial perfusion scan: 06/07/2018 COMPARISON: None HISTORY: Chest pain TECHNIQUE: SPECT imaging of the left ventricular myocardium obtained during stress and rest following the intravenous administration of 33.0 and 27.0 mCi technetium 99 M labeled sestamibi respectively. FINDINGS: No discrete fixed or reversible defect. TID is 1.17. Left ventricular wall motion appears within normal limits. End-diastolic volume is 139 mL and end systolic volume is 74 mL. Left ventricular ejection fraction is estimated at 47%. IMPRESSION: No discrete reversible defect. Normal left ventricular wall motion. Estimated LVEF of 47%.
--- NOTE | 2018-06-11 22:07 | EKG ---
Test Reason : Blood Pressure : / mmHG Vent. Rate : 082 BPM Atrial Rate : 082 BPM P-R Int : 184 ms QRS Dur : 100 ms QT Int : 416 ms P-R-T Axes : 047 -06 111 degrees QTc Int : 486 ms Normal sinus rhythm Nonspecific ST and T wave abnormality Prolonged QT Abnormal ECG No changes from 02-JUN-18 Confirmed by PATSY DIAZ ([id number]), telegraph editor SUSY VIDAL ([id number]) on 06/11/2018 10:07:30 PM Referred By: Confirmed By:PATSY DIAZ
== END 2018-06-07 18:30 | disposition home or self-care (01) ==
LOC: ERS 04:49 → 2SW 07:53
PROVIDERS: ADMIT Internal Medicine; ATTEND Internal Medicine
DX: I16.0 Hypertensive urgency (principal); R07.9 Chest pain, unspecified; E87.70 Fluid overload, unspecified; I13.2 Hypertensive heart and chronic kidney disease with heart failure and with stage 5 chronic kidney disease, or end stage renal disease; E11.22 Type 2 diabetes mellitus with diabetic chronic kidney disease; N18.6 End stage renal disease; I50.42 Chronic combined systolic (congestive) and diastolic (congestive) heart failure; D63.1 Anemia in chronic kidney disease; N25.81 Secondary hyperparathyroidism of renal origin; E11.42 Type 2 diabetes mellitus with diabetic polyneuropathy; E11.621 Type 2 diabetes mellitus with foot ulcer; L97.529 Non-pressure chronic ulcer of other part of left foot with unspecified severity; I25.10 Atherosclerotic heart disease of native coronary artery without angina pectoris; K21.9 Gastro-esophageal reflux disease without esophagitis; F41.8 Other specified anxiety disorders; E11.51 Type 2 diabetes mellitus with diabetic peripheral angiopathy without gangrene; E66.01 Morbid (severe) obesity due to excess calories; Z68.41 Body mass index [BMI] 40.0-44.9, adult; Z91.040 Latex allergy status; Z91.041 Radiographic dye allergy status; Z91.013 Allergy to seafood; Z88.1 Allergy status to other antibiotic agents; Z79.82 Long term (current) use of aspirin; Z79.02 Long term (current) use of antithrombotics/antiplatelets; Z79.899 Other long term (current) drug therapy; Z99.2 Dependence on renal dialysis; Z95.5 Presence of coronary angioplasty implant and graft; Z79.4 Long term (current) use of insulin; Z91.19 Patient's noncompliance with other medical treatment and regimen
CPT/HCPCS: 71045; 71275; 78452; 80048 ×2; 80053; 82550; 82962 ×3; 84484 ×2; 85025 ×2; 85379; 87340; 93005; 93017; 96374; 96375; 96376 ×2; 97139 ×2; 99285; A9500; G0378 ×2; 36415; 36416; J0153; J1200; J1815; J2930; J8597; Q0162; Q0163; Q9967; S0028

== ENCOUNTER 2018-06-09 06:04 | Emergency (ER) | payer MEDICARE ==
[2018-06-09 06:29] LABS: #Eosinphils 0.2 thou/uL (0.0-0.7); #Lymphocytes 0.9 thou/uL (1.20-3.40); #Monocytes 0.5 thou/uL (0.11-0.59); #Neutrophils 4.5 thou/uL (1.40-6.50); %Basophils 0.4 % (0.0-1.0); %Eosinophils 3.5 % (0.0-10.0); %Monocytes 8.2 % (0.0-10.0); %Neutrophils 72.9 % (42.0-75.0); Hemoglobin 11.5 g/dL (12.0-16.0); Mean Corpuscular HGB CONC 31.9 g/dL (32.0-36.0); Mean Corpuscular Hemoglobin 30.2 pg (27.0-31.0); Mean Corpuscular Volume 94.9 fL (78.0-98.0); Mean Platelet Volume 11.6 fL (7.4-10.4); Platelet Count 189 thou/uL (130-400); RBC Distribution Width 15.2 % (11.5-14.5); Red Blood Cell (RBC) Count 3.81 mill/uL (4.20-5.40); White Blood Cell (WBC) Count 6.2 thou/uL (4.8-10.8)
[2018-06-09] MEDS ORDERED: Mag-Al 1200 mg/1200 mg/30 ML UDCUP ONE (06:35)
[2018-06-09] MEDS ORDERED: Lidocaine Viscous Sol 2% 15 ml UD Cup ONE (06:35)
[2018-06-09 06:48] LABS: ALT (SGPT) 13 U/L (8-55); AST (SGOT) 19 U/L (5-34); Albumin 3.8 g/dL (3.5-5.0); Alkaline Phosphatase 267 U/L (40-150); Anion Gap 17 mmol/L (10-20); BUN (Urea Nitrogen) 39 mg/dL (9.8-20.1); Calc. Creatinine Clearance 0 mL/min (70-130); Calcium 9.7 mg/dL (7.8-10.44); Carbon Dioxide 29 mmol/L (22-29); Chloride 95 mmol/L (98-107); Estimated GFR-MDRD 8; Globulin 3.7 g/dL (2.4-3.5); Glucose 171 mg/dL (70-105); Potassium 4.9 mmol/L (3.5-5.1); Protein, Total 7.5 g/dL (6.0-8.3); Sodium 136 mmol/L (136-145)
--- NOTE | 2018-06-11 21:17 | EKG ---
Test Reason : Blood Pressure : / mmHG Vent. Rate : 065 BPM Atrial Rate : 065 BPM P-R Int : 192 ms QRS Dur : 108 ms QT Int : 486 ms P-R-T Axes : 049 015 117 degrees QTc Int : 505 ms Normal sinus rhythm Possible Left atrial enlargement Prolonged QT No changes from 05-JUN-2018 Confirmed by RUIZ LEWIS DO ([id number]), editor producer SUSY VIDAL ([id number]) on 06/11/2018 9:17:28 PM Referred By: Confirmed By:RUIZ LEWIS DO
== END 2018-06-09 07:00 | disposition home or self-care (01) ==
LOC: ERS 06:04
DX: I12.0 Hypertensive chronic kidney disease with stage 5 chronic kidney disease or end stage renal disease (principal); E11.22 Type 2 diabetes mellitus with diabetic chronic kidney disease; N18.6 End stage renal disease; I25.10 Atherosclerotic heart disease of native coronary artery without angina pectoris; R10.13 Epigastric pain; F41.9 Anxiety disorder, unspecified; Z87.891 Personal history of nicotine dependence; Z79.899 Other long term (current) drug therapy
CPT/HCPCS: 80053; 83690; 85025; 93005

== ENCOUNTER 2018-06-13 07:47 | Emergency (ER) | payer MEDICARE ==
[2018-06-13 08:49] LABS: #Eosinphils 0.2 thou/uL (0.0-0.7); #Lymphocytes 0.8 thou/uL (1.20-3.40); #Monocytes 0.7 thou/uL (0.11-0.59); #Neutrophils 4.9 thou/uL (1.40-6.50); %Basophils 0.6 % (0.0-1.0); %Eosinophils 3.1 % (0.0-10.0); %Lymphocytes 12.5 % (21.0-51.0); %Monocytes 10.9 % (0.0-10.0); %Neutrophils 72.8 % (42.0-75.0); Hemoglobin 11.3 g/dL (12.0-16.0); Mean Corpuscular HGB CONC 31.8 g/dL (32.0-36.0); Mean Corpuscular Hemoglobin 30.4 pg (27.0-31.0); Mean Corpuscular Volume 95.8 fL (78.0-98.0); Mean Platelet Volume 10.4 fL (7.4-10.4); Platelet Count 179 thou/uL (130-400); RBC Distribution Width 14.8 % (11.5-14.5); Red Blood Cell (RBC) Count 3.72 mill/uL (4.20-5.40); White Blood Cell (WBC) Count 6.7 thou/uL (4.8-10.8)
[2018-06-13 09:04] LABS: ALT (SGPT) 8 U/L (8-55); AST (SGOT) 9 U/L (5-34); Albumin 3.6 g/dL (3.5-5.0); Alkaline Phosphatase 222 U/L (40-150); Anion Gap 14 mmol/L (10-20); BUN (Urea Nitrogen) 33 mg/dL (9.8-20.1); Bilirubin, Total 0.8 mg/dL (0.2-1.2); Calc. Creatinine Clearance 0 mL/min (70-130); Calcium 9.6 mg/dL (7.8-10.44); Carbon Dioxide 31 mmol/L (22-29); Chloride 95 mmol/L (98-107); Estimated GFR-MDRD 8; Globulin 3.6 g/dL (2.4-3.5); Glucose 176 mg/dL (70-105); Potassium 4.4 mmol/L (3.5-5.1); Protein, Total 7.2 g/dL (6.0-8.3); Sodium 136 mmol/L (136-145)
[2018-06-13] MEDS ORDERED: HYDROcodone/Acetaminophen 10/325 mg Tablet ONE (09:11)
--- NOTE | 2018-06-13 09:36 | RAD ---
LEFT FOOT 3 VIEWS: DATE: 06/13/2018. COMPARISON: None. HISTORY: Injury, trauma, pain, diabetic foot wounds. FINDINGS: The patient is status post amputation of the great toe at the mid/distal 1st metatarsal shaft level. Bones appear demineralized. There is atherosclerotic calcification posterior to the distal tibia an d along the plantar aspect of the foot. No acute fracture or dislocation. IMPRESSION: Chronic findings as described above. POS: MELVI
[2018-06-13] MEDS ORDERED: Lidocaine Viscous Sol 2% 15 ml UD Cup ONE (09:38)
[2018-06-13] MEDS ORDERED: Mag-Al 1200 mg/1200 mg/30 ML UDCUP ONE (09:38)
== END 2018-06-13 10:16 | disposition home or self-care (01) ==
LOC: ERS 07:47
DX: S51.832A Puncture wound without foreign body of left forearm, initial encounter (principal); R10.9 Unspecified abdominal pain; E11.621 Type 2 diabetes mellitus with foot ulcer; I12.0 Hypertensive chronic kidney disease with stage 5 chronic kidney disease or end stage renal disease; N18.6 End stage renal disease; Z99.2 Dependence on renal dialysis; I25.10 Atherosclerotic heart disease of native coronary artery without angina pectoris; F41.9 Anxiety disorder, unspecified; Z87.891 Personal history of nicotine dependence; Z79.899 Other long term (current) drug therapy; X58.XXXA Exposure to other specified factors, initial encounter
CPT/HCPCS: 36415; 80053; 85025; 85652; 86140

== ENCOUNTER 2018-06-15 21:15 | Emergency (ER) | payer MEDICARE ==
[2018-06-15 21:43] LABS: #Eosinphils 0.1 thou/uL (0.0-0.7); #Lymphocytes 0.8 thou/uL (1.20-3.40); #Monocytes 0.7 thou/uL (0.11-0.59); #Neutrophils 8.6 thou/uL (1.40-6.50); %Basophils 0.3 % (0.0-1.0); %Eosinophils 1.1 % (0.0-10.0); %Lymphocytes 7.6 % (21.0-51.0); %Monocytes 6.8 % (0.0-10.0); %Neutrophils 84.2 % (42.0-75.0); Hemoglobin 11.4 g/dL (12.0-16.0); Mean Corpuscular Hemoglobin 30.7 pg (27.0-31.0); Mean Corpuscular Volume 95.9 fL (78.0-98.0); Platelet Count 183 thou/uL (130-400); Red Blood Cell (RBC) Count 3.72 mill/uL (4.20-5.40); White Blood Cell (WBC) Count 10.2 thou/uL (4.8-10.8)
[2018-06-15 22:02] LABS: ALT (SGPT) Less than 7 U/L (8-55); AST (SGOT) 11 U/L (5-34); Albumin 3.7 g/dL (3.5-5.0); Alkaline Phosphatase 227 U/L (40-150); Anion Gap 16 mmol/L (10-20); BUN (Urea Nitrogen) 30 mg/dL (9.8-20.1); Calc. Creatinine Clearance 0 mL/min (70-130); Calcium 9.4 mg/dL (7.8-10.44); Carbon Dioxide 30 mmol/L (22-29); Chloride 94 mmol/L (98-107); Estimated GFR-MDRD 8; Globulin 3.8 g/dL (2.4-3.5); Glucose 209 mg/dL (70-105); Lipase 15 U/L (8-78); Potassium 4.6 mmol/L (3.5-5.1); Protein, Total 7.5 g/dL (6.0-8.3); Sodium 135 mmol/L (136-145)
--- NOTE | 2018-06-15 22:03 | RAD ---
FEXAM: Portable chest PROVIDED CLINICAL HISTORY: Abdominal pain COMPARISON: 06/05/2018 FINDINGS: Cardiomegaly and prominence of the pulmonary interstitium and pulmonary vasculature are redemonstrate d. No lobar consolidation, pleural fluid or pneumothorax apparent. IMPRESSION: Stable radiographic appearance of the chest.
[2018-06-15 23:44] LABS: Bilirubin Negative (Negative); Blood, Urine Moderate (Negative); Clarity CLOUDY (Clear); Glucose, Urine (Dipstick) 250 mg/dL (Negative); Leukocyte Trace (Negative); Nitrite Negative (Negative); Protein, Urine (Dipstick) 300 mg/dL (Neg-Trace); Specific Gravity, Urine 1.014 (1.002-1.036); Urobilinogen 0.2 mg/dL (0.2-1.0)
[2018-06-15 23:46] LABS: RBC/HPF 0-3 HPF (0-3)
[2018-06-15 23:48] LABS: Pathc Cast-AUWi Flag 10.47 (0-2.49); Yeast-AUWi Flag 30.4 (0-25.0)
[2018-06-16 00:02] LABS: Bacteria/HPF 1+ HPF (None Seen); Hyaline Casts/LPF 0-3 HYALINE CAST LPF (0-3 Hyaline); Renal Epithelial 0-3 HPF (0-3); Yeast-All Forms 1+ HPF (None Seen)
[2018-06-16 00:03] LABS: Manual Microscopic Reviewed? No Path Casts Seen
== END 2018-06-16 00:55 | disposition home or self-care (01) ==
LOC: ERS 21:15
DX: S31.115A Laceration without foreign body of abdominal wall, periumbilic region without penetration into peritoneal cavity, initial encounter (principal); R10.9 Unspecified abdominal pain; E11.22 Type 2 diabetes mellitus with diabetic chronic kidney disease; I12.0 Hypertensive chronic kidney disease with stage 5 chronic kidney disease or end stage renal disease; I25.10 Atherosclerotic heart disease of native coronary artery without angina pectoris; F41.9 Anxiety disorder, unspecified; Z87.891 Personal history of nicotine dependence; Z79.891 Long term (current) use of opiate analgesic; Z79.899 Other long term (current) drug therapy; X58.XXXA Exposure to other specified factors, initial encounter
CPT/HCPCS: 51701; 71045; 80053; 81003; 81015; 83690; 85025; 93005; A4353

== ENCOUNTER 2018-06-21 17:44 | Inpatient (IN) | payer MEDICARE ==
--- NOTE | 2018-06-21 19:42 | RAD ---
LEFT FOOT THREE VIEW 06/21/18 HISTORY: Wound. Ulcer. COMPARISON: Radiograph of 06/13/18. FINDINGS: There are erosions of the proximal phalanx second toe head and neck as well as of the middle phalanx. Extensive soft tissue swelling. Prior amputation of the great toe metatarsal neck. IMPRESSION: Osteomyelitis proximal phalanx second toe head and neck as well as of the middle phalanx with septic arthritis of the proximal interphalangeal joint. POS: HOME
[2018-06-21] MEDS ORDERED: Ondansetron PF 4 MG/2 ML Vial ONE (20:31)
[2018-06-21] MEDS ORDERED: Morphine 4 MG/ML VIAL ONE (20:31)
[2018-06-21 21:00] LABS: #Basophils 0.1 thou/uL (0.0-0.2); #Eosinphils 0.1 thou/uL (0.0-0.7); #Lymphocytes 0.7 thou/uL (1.20-3.40); #Monocytes 0.8 thou/uL (0.11-0.59); %Basophils 0.7 % (0.0-1.0); %Eosinophils 1.8 % (0.0-10.0); %Lymphocytes 9.4 % (21.0-51.0); %Monocytes 10.3 % (0.0-10.0); %Neutrophils 77.9 % (42.0-75.0); Hemoglobin 11.1 g/dL (12.0-16.0); Mean Corpuscular HGB CONC 31.6 g/dL (32.0-36.0); Mean Corpuscular Hemoglobin 30.4 pg (27.0-31.0); Mean Corpuscular Volume 96.2 fL (78.0-98.0); Mean Platelet Volume 10.9 fL (7.4-10.4); Platelet Count 189 thou/uL (130-400); RBC Distribution Width 14.6 % (11.5-14.5); Red Blood Cell (RBC) Count 3.67 mill/uL (4.20-5.40); White Blood Cell (WBC) Count 7.7 thou/uL (4.8-10.8)
[2018-06-21 21:26] LABS: ALT (SGPT) Less than 7 U/L (8-55); AST (SGOT) 8 U/L (5-34); Albumin 3.5 g/dL (3.5-5.0); Alkaline Phosphatase 254 U/L (40-150); Anion Gap 13 mmol/L (10-20); BUN (Urea Nitrogen) 20 mg/dL (9.8-20.1); Bilirubin, Total 0.8 mg/dL (0.2-1.2); Calc. Creatinine Clearance 0 mL/min (70-130); Carbon Dioxide 30 mmol/L (22-29); Chloride 97 mmol/L (98-107); Estimated GFR-MDRD 12; Globulin 3.8 g/dL (2.4-3.5); Glucose 229 mg/dL (70-105); Potassium 3.9 mmol/L (3.5-5.1); Protein, Total 7.3 g/dL (6.0-8.3); Sodium 136 mmol/L (136-145)
[2018-06-21] MEDS ORDERED: cefTRIAXone\\ROCEPHIN 2 GM VIAL ONE (23:35)
[2018-06-21] MEDS ORDERED: HYDROcodone/Acetaminophen 5/325 mg Tablet PO PRN ×2 (23:39)
[2018-06-21] MEDS ORDERED: Ondansetron PF 4 MG/2 ML Vial IVP PRN (23:39)
[2018-06-21] MEDS ORDERED: Acetaminophen 325 MG TAB PO PRN (23:39)
[2018-06-21] MEDS ORDERED: Ondansetron ODT 4 MG TAB SL PRN (23:39)
[2018-06-21] MEDS: Sodium Chloride 0.9% 1,000 ML IV SCH (23:45)
[2018-06-22] MEDS ORDERED: Morphine 4 MG/ML VIAL ONE (02:51)
[2018-06-22] MEDS ORDERED: Morphine 4 MG/ML VIAL SLOW IVP PRN (02:57)
[2018-06-22] MEDS ORDERED: Dextrose 5% in Water 1,000 ML IV PRN (11:58)
[2018-06-22] MEDS ORDERED: Dextrose 50% Abboject 50 ML SYRINGE SLOW IVP PRN (11:58)
[2018-06-22] MEDS ORDERED: HumaLOG 300 UNITS/3 ML VIAL SC PRN (11:58)
[2018-06-22] MEDS ORDERED: Acetaminophen 325 MG TAB PO PRN (11:58)
[2018-06-22] MEDS ORDERED: Ondansetron ODT 4 MG TAB PO PRN (12:00)
[2018-06-22] MEDS: Piperacillin/Tazobactam 2.25 GM in Sodium Chloride 0.9% 100 ML IVPB SCH ×2 (13:03→20:04)
[2018-06-22] MEDS ORDERED: Lorazepam 2 MG/ML VIAL ONE (13:17)
[2018-06-22] MEDS ORDERED: Clopidogrel Bisulfate 75 MG TAB ONE (13:31)
[2018-06-22] MEDS ORDERED: HYDROcodone/Acetaminophen 5/325 mg Tablet ONE (13:31)
[2018-06-22] MEDS ORDERED: Aspirin 325 MG TAB ONE (13:31)
[2018-06-22] MEDS ORDERED: Ondansetron ODT 4 MG TAB ONE (13:33)
[2018-06-22] MEDS: HYDROcodone/Acetaminophen 5/325 mg Tablet PO PRN ×3 (13:41→23:53)
[2018-06-22] MEDS: Clopidogrel Bisulfate 75 MG TAB PO SCH (13:54)
[2018-06-22] MEDS: Losartan 25 MG TAB PO SCH (13:54)
[2018-06-22] MEDS: Aspirin 325 MG TAB PO SCH (13:54)
[2018-06-22] MEDS: Sevelamer Carbonate 800 MG TAB PO SCH ×2 (13:55→17:49)
[2018-06-22] MEDS: Carvedilol 6.25 MG TAB PO SCH ×2 (13:58→17:49)
[2018-06-22] MEDS: cloNIDine 0.2 MG TAB PO SCH ×2 (13:59→20:05)
[2018-06-22 16:08] VITALS: BMI 40.1
[2018-06-22] MEDS: Sodium Chloride 0.9% 1,000 ML IV SCH ×2 (16:14→18:03)
--- NOTE | 2018-06-22 16:24 | HP ---
PRIMARY CARE PHYSICIAN: Vandana Beard. CHIEF COMPLAINT: Foot infection. HISTORY OF PRESENT ILLNESS: Ms. Avila is a pleasant 58-year-old female, who has a history of diabetes mellitus and hypertension as well as end-stage renal disease. She was in her usual state of health until the last couple of weeks. She says that she has had a chronic infection on her foot that she sees Dr. Velasquez for this and she has a home health nurse that helps with dressing changes and about a little over week ago, she noticed a foul odor in the wound and they removed the dressing and she says she cleaned it and a piece of bone came out. She says they dressed it again and then about couple of days later when they came back to change the wound, the home health team, they opened it up and at this time, it was blistering and had some purulent drainage from it. She says in the interim she had talked with Dr. Martinez and she had told her that the toe would likely need to be amputated and given the new findings with the last home health check, she was asked to come to the hospital for evaluation. Other than having discomfort and noticing worse infection in the foot, she has had no other complaints such as chest pain, shortness of breath, PND, orthopnea, etc., and she denies any abdominal pain. No nausea or vomiting. REVIEW OF SYSTEMS: All systems were reviewed and are negative except for that mentioned in the history of present illness. PAST MEDICAL HISTORY: Significant for hypertension; diabetes mellitus, type 2; coronary artery disease; end-stage renal disease, on hemodialysis; hyperlipidemia; obesity; and obesity. PAST SURGICAL HISTORY: She has had a dialysis access placed, an AV fistula, I and D of the nail abscess, adenoidectomy, amputation of the left great toe, and tonsillectomy. ALLERGIES: TO LEVAQUIN, IODINE, AND SHELLFISH. SOCIAL HISTORY: She is a nonsmoker and nondrinker and full code. FAMILY HISTORY: Significant for coronary artery disease. CURRENT MEDICATIONS: Include; 1. Clonidine 0.2 mg twice a day. 2. Losartan 100 mg once daily. 3. Carvedilol 6.25 mg twice a day. 4. Protonix 40 mg daily. 5. Plavix 75 mg daily. 6. Nitroglycerin 0.4 sublingual p.r.n. 7. Alprazolam 25 mg as needed. 8. Isosorbide mononitrate 30 mg once a day. 9. Calcitriol 75 mcg, on nondialysis days. 10. Metoclopramide 5 mg 3 times a day. 11. Hydroxyzine 25 mg as needed. 12. Benadryl 25 mg as needed. 13. MiraLAX 17 g as needed. 14. Tylenol No. 3 q.4 hours as needed. PHYSICAL EXAMINATION: GENERAL: She is alert and oriented. She appears to be in no acute distress. She is well developed and well nourished. VITAL SIGNS: Blood pressure is 189/73, heart rate 75, respiratory rate of 20, temperature is 98.6, and O2 sat is 96% on room air. HEENT: Pupils are equal, round, and reactive to light. Extraocular muscles are intact. Her sclerae are anicteric. Throat, there is no erythema. No exudates. NECK: No adenopathy. No bruits. LUNGS: Clear to auscultation. There is no wheezing. No rales. No rhonchi. CARDIOVASCULAR: She has a normal S1 and S2. There is no S3 or S4. No murmurs, clicks, or rubs. ABDOMEN: Obese. It is soft. She had some mild epigastric tenderness, but there is no rebound or guarding. EXTREMITIES: She has 2+ pitting edema bilaterally and there is no joint effusion. NEUROLOGIC: Her cranial nerves II through XII are grossly intact and muscle strength is 5/5 in upper and lower extremities. SKIN AND INTEGUMENT: She does have quite a few excoriations on her upper and lower extremities. She has a partial amputation on the right foot. On the left foot, she has the 3rd, 4th, and 5th toes are amputated. On the 2nd toe, it is edematous. There is a thick purulent drainage from the toe. On the dorsum of the foot, there is a dark purplish induration and her dorsalis pedis pulse is very faint, but palpable. LABORATORY RESULTS: The sodium was 136, potassium 3.6, chloride is 97, CO2 is 30, BUN of 20, creatinine 3.81, and glucose is 229. Alkaline phosphatase was 254. C-reactive protein is 7.59. White blood cell count 7.7, hemoglobin 11.1, hematocrit is 35.3, and platelet count is 189. ASSESSMENT AND PLAN: This is a pleasant 58-year-old female, who is being admitted for a diabetic foot infection. She has been found to have findings consistent with osteomyelitis. She will be admitted and started on broad-spectrum IV antibiotics. General Surgery will be consulted as she will likely need amputation. 1. For diabetes, we will continue her home medications as well as a sliding-scale insulin. 2. End-stage renal disease, on hemodialysis. We will consult Dr. Talley for maintenance hemodialysis. 3. Hypertension. We will continue her usual antihypertensive medications as well as p.r.n. medicines. Job ID: [id number]
[2018-06-22] MEDS: hydrOXYzine 25 MG TAB PO PRN ×2 (16:39→23:53)
[2018-06-22] MEDS: Heparin 5,000 UNITS/ML VIAL SC SCH ×2 (17:48→20:02)
[2018-06-22] MEDS: HumaLOG 300 UNITS/3 ML VIAL SC PRN (17:55)
[2018-06-22] MEDS ORDERED: Vancomycin HCl 1.25 GM in Sodium Chloride 0.9% 250 ML 250 ML IVPB SCH (18:15)
[2018-06-22] MEDS ORDERED: Vancomycin HCl 750 MG in Sodium Chloride 0.9% 250 ML 250 ML IVPB SCH (18:15)
[2018-06-22] MEDS ORDERED: HOLD VANCOMYCIN FOR LEVEL >20 FS SCH (18:15)
[2018-06-22] MEDS ORDERED: Vancomycin HCl 1.5 GM in Sodium Chloride 0.9% 250 ML 300 ML IVPB SCH (18:15)
[2018-06-22] MEDS: Ondansetron PF 4 MG/2 ML Vial IVP PRN (20:01)
[2018-06-22] MEDS: ALPRAZolam 0.25 MG TAB PO PRN (20:04)
[2018-06-22] MEDS: HumuLIN 70/30 (300 UNITS/3 ML VIAL) SC SCH (20:05)
[2018-06-22] MEDS ORDERED: Vancomycin HCl 1 GM in Premix Bag 1 BAG IVPB SCH (21:00)
[2018-06-23] MEDS ORDERED: Senokot S 8.6-50 MG TAB PO PRN (00:37)
[2018-06-23] MEDS ORDERED: Morphine 4 MG/ML VIAL SLOW IVP SCH (00:45)
[2018-06-23] MEDS: Ondansetron PF 4 MG/2 ML Vial IVP PRN ×2 (02:25→20:28)
[2018-06-23] MEDS: ALPRAZolam 0.25 MG TAB PO PRN (04:26)
[2018-06-23] MEDS: HYDROcodone/Acetaminophen 5/325 mg Tablet PO PRN (04:27)
[2018-06-23] MEDS: HumaLOG 300 UNITS/3 ML VIAL SC PRN (04:31)
[2018-06-23] MEDS: Piperacillin/Tazobactam 2.25 GM in Sodium Chloride 0.9% 100 ML IVPB SCH ×3 (04:32→20:27)
[2018-06-23] MEDS: Morphine 4 MG/ML VIAL SLOW IVP PRN ×3 (05:20→17:45)
[2018-06-23] MEDS: Sodium Chloride 0.9% 1,000 ML IV SCH ×2 (05:21→20:26)
[2018-06-23 06:07] LABS: #Basophils 0.1 thou/uL (0.0-0.2); #Eosinphils 0.2 thou/uL (0.0-0.7); #Lymphocytes 0.6 thou/uL (1.20-3.40); #Monocytes 0.6 thou/uL (0.11-0.59); #Neutrophils 6.1 thou/uL (1.40-6.50); %Basophils 0.8 % (0.0-1.0); %Eosinophils 2.5 % (0.0-10.0); %Lymphocytes 8.2 % (21.0-51.0); %Monocytes 7.7 % (0.0-10.0); %Neutrophils 80.8 % (42.0-75.0); Hemoglobin 10.8 g/dL (12.0-16.0); Mean Corpuscular Volume 96.7 fL (78.0-98.0); Mean Platelet Volume 10.7 fL (7.4-10.4); Platelet Count 168 thou/uL (130-400); RBC Distribution Width 14.6 % (11.5-14.5); Red Blood Cell (RBC) Count 3.71 mill/uL (4.20-5.40); White Blood Cell (WBC) Count 7.6 thou/uL (4.8-10.8)
--- NOTE | 2018-06-23 06:30 | CON ---
DATE OF CONSULTATION: REASON FOR CONSULT: Osteomyelitis. HISTORY OF PRESENT ILLNESS: Ms. Avila is a 58-year-old woman, well known to me from previous admissions. She has end-stage renal failure and severe neuropathy and has undergone an amputation of the left great toe in the past. She has hammertoe deformity and has had problems with sores on the second toe and states that her home health nurses have been helping her with her wounds due to her visual problems and her nurse became quite concerned with the appearance of her left second toe recently. The patient states that when she was cleaning the wound herself a little bit of bone came out of it and her nurse told her today that there was bone in the wound and that she needed to come to the emergency room. She has noticed some odor to the wound recently and more drainage. She has an open wound on her right great toe as well from a toenail removal, but states that this is healing well with Medihoney. She is undergoing dialysis regularly without problems through a left [place] fistula and denies any shortness of breath, chest pain, nausea, or vomiting. She does have chronic abdominal pain and nausea for which she has made an appoint with her turfgrass management professor. PAST MEDICAL HISTORY: Hypertension, diabetes, coronary artery disease, end-stage renal failure, currently on hemodialysis, hyperlipidemia, and obesity. PAST SURGICAL HISTORY: She has a functioning left [place] AV fistula. She has had a tonsillectomy, amputation of the left great toe, placement and later removal of peritoneal dialysis catheter as well as multiple tunneled hemodialysis catheters. ALLERGIES: SHE HAS ALLERGIES TO LATEX, LEVOFLOXACIN, ADHESIVE TAPE. OUTPATIENT MEDICATIONS: Include warm well perfused. PHYSICAL EXAMINATION: EXTREMITIES: First [place] fistula has an excellent thrill. Her toes are pink and warm, although I cannot appreciate a pedal pulse on the left. On the right, she has a palpable dorsalis pedis pulse. Her right great toenail removal site is clean. The base is granulating. There is no erythema, induration, swelling or drainage. On the left first toe amputation site is completely healed. The 2nd toe has a large erosion into the joint of the proximal interphalangeal joint with expressible pus. The toe was quite swollen and red, but the forefoot looks fairly normal without lymphangitis, swelling, induration, or heat. NEUROLOGIC: The patient is diffusely weak and has impaired vision. PSYCHIATRIC: Alert oriented and appropriate. LABORATORY DATA: White count is 7.7, hematocrit 35, platelets 189. BUN and creatinine are 20 and 3.8 and other LFTs are normal except for alkaline phosphatase, which is somewhat elevated. X-ray of the foot is reviewed and I agree with the written report. There is erosion of the interphalangeal joint of the left second toe along with lot of soft tissue swelling. ASSESSMENT: Osteomyelitis with abscess joint. I have recommended a left second toe amputation to contain the infection and the patient is agreeable to proceed with this. We will try to get this on the operating room schedule for tomorrow. She understands wound will need to be left open due to the active infection. She has had problems with back dressings before and thinks she may be allergic to the adhesive. I will discuss her options with the Wound Care team. Job ID: [id number]
[2018-06-23 06:35] LABS: Anion Gap 17 mmol/L (10-20); BUN (Urea Nitrogen) 30 mg/dL (9.8-20.1); Calc. Creatinine Clearance 21 mL/min (70-130); Calcium 8.8 mg/dL (7.8-10.44); Carbon Dioxide 24 mmol/L (22-29); Chloride 98 mmol/L (98-107); Estimated GFR-MDRD 8; Glucose 200 mg/dL (70-105); Potassium 4.4 mmol/L (3.5-5.1); Sodium 135 mmol/L (136-145)
[2018-06-23] MEDS: Carvedilol 6.25 MG TAB PO SCH ×2 (08:31→17:49)
[2018-06-23] MEDS: Sevelamer Carbonate 800 MG TAB PO SCH ×3 (08:31→18:01)
[2018-06-23 08:35] LABS: Vancomycin, Random 10.4 ug/mL (See Comment)
[2018-06-23] MEDS: Vancomycin HCl 1 GM in Premix Bag 1 BAG IVPB SCH (09:36)
--- NOTE | 2018-06-23 10:08 | CON ---
DATE OF CONSULTATION: HISTORY OF PRESENT ILLNESS: Ms. Avila is a 58-year-old female with known history of ESRD from diabetic nephropathy and was admitted for left foot infection. She was diagnosed with osteomyelitis. The plan is for her to undergo left foot surgery this afternoon. We are following this patient for her maintenance hemodialysis. I am currently at the bedside supervising her dialysis. She is tolerating said treatment. REVIEW OF SYSTEMS: Positive for chronic left foot infection. No chest pain. No shortness of breath. No nausea. No vomiting. Appetite fair. Energy level is fair. No headache. No diplopia. No fever or chills. No gross hematuria. No dysuria. No melena. No hematochezia. No abdominal pain. No headache. Occasional pruritus. MEDICATIONS: Currently, 1. Schuyler 5/325 q.4 p.r.n. 2. Xanax 0.25 mg q.6. 3. Aspirin 325 mg once a day. 4. Coreg 6.25 mg p.o. b.i.d. 5. Clonidine 0.2 mg p.o. b.i.d. 6. Plavix 75 mg once a day. 7. Heparin 5000 units subcu t.i.d. 8. Atarax 25 mg tablet t.i.d. p.r.n. 9. Humulin 70/30 30 units subcu b.i.d. 10. Imdur ER 30 mg once a day. 11. Losartan 100 mg once a day. 12. Morphine 4 mg IV q.4 p.r.n., status post vancomycin. 13. Zosyn 2.25 g IV q.8. 14. Renvela 800 mg one tablet t.i.d. with meals. PAST MEDICAL HISTORY: 1. ESRD from diabetic nephropathy. 2. Type 2 diabetes mellitus. 3. Peripheral vascular disease. 4. Status post CHF secondary to diastolic dysfunction. 5. History of noncompliance. 6. Longstanding hypertension. 7. Diabetic neuropathy. 8. Coronary artery disease. 9. GERD. 10. ? COPD. 11. History of diabetic gastroparesis. PAST SURGICAL HISTORY: Status post PD catheter placement with subsequent removal, status post cardiac cath with coronary artery stent placement, status post cholecystectomy, status post upper GI endoscopy, status post cuffed hemodialysis catheter placement, and status post AV fistula placement. ALLERGIES: LEVAQUIN AND LATEX. TRAUMA: None. IMMUNIZATION: Up-to-date. HOSPITALIZATIONS: Please see past medical history. SOCIAL HISTORY: The patient is . Lives in [place]. Four children. Sedentary lifestyle. Education, high school. Status post multiple blood transfusion. No alcohol use. 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 No IV drug abuse. FAMILY HISTORY: No family history of ESRD. PHYSICAL EXAMINATION: VITAL SIGNS: Blood pressure 130/83, heart rate 79, respiratory rate 18, temperature 97.3, and pulse ox 94%. GENERAL: Awake, supine, comfortable, not in distress. SKIN: Adequate turgor. HEENT: She has slightly pale conjunctivae. Anicteric sclerae. NECK: No neck mass. No carotid bruits. No JVD. CHEST: No deformities. LUNGS: Clear breath sounds. No wheezing. No crackles. HEART: Normal sinus rhythm. No murmurs, gallops or rubs. ABDOMEN: Globular, soft, and nontender. No masses. EXTREMITIES: No edema. Positive for left foot dressing. NEUROLOGICAL: Awake, alert, and oriented to 3 spheres. Moving all extremities. No tremors. No asterixis. LABORATORY DATA: June 23, 2018; white count 7.6, hemoglobin 10.8. Sodium 135, potassium 4.4, chloride 98, carbon dioxide 24, BUN 30, creatinine 5.33, glucose 200, and calcium 8.8. June 21, 2018, x-ray of the left foot shows osteomyelitis of the proximal phalanx. ASSESSMENT AND PLAN: 1. Left foot osteomyelitis - for surgical amputation of the involved extremity. Currently, on empiric IV antibiotics. 2. End-stage renal disease, stable, tolerating current hemodialysis regimen. Review of her last Kt/V suggests she is adequately dialyzed with the current dialysis regimen. 3. Borderline anemia. We will continue to observe. If this further worsens, consider restarting back her Epogen. 4. Overall, agree with current management. Job ID: [id number]
[2018-06-23] MEDS: Aspirin 325 MG TAB PO SCH (12:56)
[2018-06-23] MEDS: Clopidogrel Bisulfate 75 MG TAB PO SCH (12:56)
[2018-06-23] MEDS: cloNIDine 0.2 MG TAB PO SCH ×2 (12:56→20:26)
[2018-06-23] MEDS: Heparin 5,000 UNITS/ML VIAL SC SCH ×3 (12:56→20:27)
[2018-06-23] MEDS: HumuLIN 70/30 (300 UNITS/3 ML VIAL) SC SCH ×2 (12:59→22:24)
[2018-06-23] MEDS: Losartan 25 MG TAB PO SCH (13:00)
[2018-06-23] MEDS ORDERED: Bupivacaine/Epinephrine 0.25% 30 ML VIAL ONE (14:23)
[2018-06-23] MEDS ORDERED: Neomycin-Polymyxin 1 ML AMP ONE (14:23)
[2018-06-23] MEDS ORDERED: Maxitrol 0.1% Opth Oint 3.5 GM TUBE ONE (14:33)
[2018-06-23] MEDS ORDERED: Fentanyl 100 MCG/2 ML VIAL ONE ×3 (14:33→16:10)
[2018-06-23] MEDS ORDERED: Lidocaine 1% PF 5 ML VIAL ONE (15:16)
[2018-06-23] MEDS ORDERED: Ondansetron PF 4 MG/2 ML Vial ONE (15:16)
[2018-06-23] MEDS ORDERED: PROPOFOL 200 MG/20 ML VIAL ONE (15:16)
--- NOTE | 2018-06-23 15:51 | PDOC.PN ---
- Subjective Encounter Start Date: 06/23/18 Encounter Start Time: 15:50 Ms. Avila was seen today in follow-up of diabetic foot infection. She is going for surgery today. she notes some abdominal pain. she says this has been chronic but getting worse. She had a referral to see Dr. Montiel before this hospitalization. - Objective Resuscitation Status - Order Detail: 06/22/18 10:42 Resuscitation Status Routine Resuscitation Status: FULL: Full Resuscitation MAR Reviewed: Yes Vital Signs & Weight: Vital Signs (12 hours) Temp Pulse Resp BP BP BP Pulse Ox 06/23/18 14:20 156/68 H 06/23/18 13:00 97.9 F 82 18 190/91 H 90 L 06/23/18 12:56 190/90 H 06/23/18 08:31 156/79 H 06/23/18 07:36 97.3 F L 79 18 130/83 94 L 06/23/18 07:30 94 L 06/23/18 04:00 97.8 F 89 20 152/83 H 93 L Weight Admit Weight 248 lb 12.8 oz Weight 248 lb 12.8 oz I&O: 06/22/18 06/23/18 06/24/18 06:59 06:59 06:59 Intake Total 1862 Output Total 200 Balance 1662 Result Diagrams: 06/23/18 05:43 06/23/18 05:43 Additional Labs: Accuchecks 06/23/18 06/23/18 06/22/18 12:53 04:10 19:26 POC Glucose 104 192 H 160 H 06/22/18 17:49 POC Glucose 206 H Phys Exam - Physical Examination HEENT: PERRLA Respiratory: no wheezing, no rales, no rhonchi, clear to auscultation bilateral Cardiovascular: RRR, no significant murmur, no rub Gastrointestinal: soft, non-tender, no distention, positive bowel sounds Musculoskeletal: pulses present, edema present Foot dressed Dx/Plan (1) Diabetic infection of left foot Code(s): E11.628 - TYPE 2 DIABETES MELLITUS WITH OTHER SKIN COMPLICATIONS; L08.9 - LOCAL INFECTION OF THE SKIN AND SUBCUTANEOUS TISSUE, UNSP Status: Acute (2) DM type 2 (diabetes mellitus, type 2) Status: Chronic Qualifiers: Comment: NPH 70/30, 30u SC BID, ISS (3) ESRD (end stage renal disease) on dialysis Code(s): N18.6 - END STAGE RENAL DISEASE; Z99.2 - DEPENDENCE ON RENAL DIALYSIS Status: Chronic Comment: (4) HTN (hypertension) Code(s): I10 - ESSENTIAL (PRIMARY) HYPERTENSION Status: Chronic Qualifiers: Comment: (5) Peripheral neuropathy Code(s): G62.9 - POLYNEUROPATHY, UNSPECIFIED Status: Chronic (6) Abdominal pain Code(s): R10.9 - UNSPECIFIED ABDOMINAL PAIN Status: Acute Qualifiers: Abdominal location: generalized Qualified Code(s): R10.84 - Generalized abdominal pain Comment: ? etiology, resolving with supportive mgmt, d/c Zosyn, suspect secondary to DM gastroparesis - Plan * Diabetic foot infection- continue Vancomycin and Zosyn. Discussed with Dr. Martinez following her surgery- she believes the patient will need nursing home antibiotics * Will consult ID to aid in antibiotic choice, and length of therapy * HTN- blood pressure is elevated- will re-start her medications post- surgery as appropriate * DM- blood glucose is stable * Abdominal pain- ( chronic) may need GI consult- will monitor her symptoms.
[2018-06-23] MEDS ORDERED: Labetalol HCl 100 MG/20 ML VIAL ONE (16:19)
[2018-06-23] MEDS: hydrOXYzine 25 MG TAB PO PRN (17:53)
[2018-06-24] MEDS: Piperacillin/Tazobactam 2.25 GM in Sodium Chloride 0.9% 100 ML IVPB SCH ×3 (04:19→20:08)
[2018-06-24] MEDS: hydrOXYzine 25 MG TAB PO PRN ×2 (04:20→14:45)
[2018-06-24] MEDS: Morphine 4 MG/ML VIAL SLOW IVP PRN ×4 (04:20→20:10)
[2018-06-24 06:46] LABS: #Eosinphils 0.2 thou/uL (0.0-0.7); #Lymphocytes 0.8 thou/uL (1.20-3.40); #Monocytes 0.7 thou/uL (0.11-0.59); #Neutrophils 4.3 thou/uL (1.40-6.50); %Basophils 0.4 % (0.0-1.0); %Eosinophils 3.2 % (0.0-10.0); %Lymphocytes 13.8 % (21.0-51.0); %Monocytes 11.6 % (0.0-10.0); %Neutrophils 71.1 % (42.0-75.0); Mean Corpuscular HGB CONC 32.4 g/dL (32.0-36.0); Mean Corpuscular Hemoglobin 30.5 pg (27.0-31.0); Mean Corpuscular Volume 94.2 fL (78.0-98.0); Mean Platelet Volume 10.9 fL (7.4-10.4); Platelet Count 177 thou/uL (130-400); RBC Distribution Width 14.5 % (11.5-14.5); Red Blood Cell (RBC) Count 3.59 mill/uL (4.20-5.40)
[2018-06-24 07:04] LABS: Anion Gap 17 mmol/L (10-20); BUN (Urea Nitrogen) 17 mg/dL (9.8-20.1); Calc. Creatinine Clearance 30 mL/min (70-130); Calcium 8.7 mg/dL (7.8-10.44); Carbon Dioxide 24 mmol/L (22-29); Chloride 98 mmol/L (98-107); Estimated GFR-MDRD 12; Glucose 136 mg/dL (70-105); Potassium 4.2 mmol/L (3.5-5.1); Sodium 135 mmol/L (136-145)
[2018-06-24] MEDS ORDERED: Midazolam HCl 2 mg/2 ml Vial ONE (08:23)
[2018-06-24] MEDS ORDERED: Fentanyl 100 MCG/2 ML VIAL ONE (08:23)
[2018-06-24] MEDS: Sevelamer Carbonate 800 MG TAB PO SCH ×3 (09:04→17:22)
[2018-06-24] MEDS: Losartan 25 MG TAB PO SCH (09:04)
[2018-06-24] MEDS: Clopidogrel Bisulfate 75 MG TAB PO SCH (09:04)
[2018-06-24] MEDS: Aspirin 325 MG TAB PO SCH (09:04)
[2018-06-24] MEDS: Heparin 5,000 UNITS/ML VIAL SC SCH ×3 (09:05→20:07)
[2018-06-24] MEDS: cloNIDine 0.2 MG TAB PO SCH ×2 (09:05→20:07)
[2018-06-24] MEDS: Carvedilol 6.25 MG TAB PO SCH ×2 (09:05→17:22)
[2018-06-24] MEDS: HumuLIN 70/30 (300 UNITS/3 ML VIAL) SC SCH ×2 (09:06→20:08)
[2018-06-24] MEDS: Ondansetron PF 4 MG/2 ML Vial IVP PRN ×2 (09:18→20:10)
--- NOTE | 2018-06-24 09:59 | PRG ---
DATE OF SERVICE: 06/24/2018 SUBJECTIVE: Ms. Avila is a 58-year-old female with ESRD and followed by the [facility] for maintenance hemodialysis. She underwent dialysis yesterday without any difficulty. She was initially admitted for osteomyelitis of her left fourth toe. She underwent a toe amputation yesterday with Dr. Martinez. She is doing well. No complaints of chest pain or shortness of breath. However, she does complain of abdominal pain. GI consult has been done. She was also noted to have decreased p.o. intake and has been having easy satiety. OBJECTIVE: VITAL SIGNS: Blood pressure is 134/81, heart rate 73, respiratory rate 16, temperature 98, and pulse oximetry 92%. GENERAL: Awake, alert, sitting comfortable, not in distress. SKIN: Adequate turgor. HEENT: Pinkish conjunctivae. Anicteric sclerae. No neck mass. No carotid bruits. No JVD. CHEST: No deformities. LUNGS: Clear breath sounds. HEART: Normal sinus rhythm. No murmur. No gallops. No rubs. ABDOMEN: Globular, soft, nontender. No masses. EXTREMITIES: No edema. No deformities. Positive for left foot dressing. MEDICATIONS: Of June 24, 2018, reviewed. LABORATORY DATA: Of June 24, 2018; white count 6, hemoglobin 11. Sodium 135, potassium 4.2, chloride 98, carbon dioxide 24, BUN 17, creatinine 3.78, glucose 136, and calcium 8.7. ASSESSMENT AND PLAN: 1. Left fourth toe osteomyelitis, status post fourth toe amputation. Currently, on IV antibiotics. 2. Decreased p.o. intake/nausea and abdominal pain, GI consultation has been done. 3. End-stage renal disease, stable. We will continue current Wednesday, , and Wednesday dialysis. She is tolerating said treatment. We will hold heparin due to the recent surgery. Overall, agree with current management. Job ID: [id number]
[2018-06-24] MEDS ORDERED: Fat Emulsion 0 ML ONE (12:07)
--- NOTE | 2018-06-24 17:20 | PDOC.GSPN ---
Surgery Progress Note: Subj - Subjective Narrative: Patient feels okay. The dressing change was painful but other than that she has been reasonably comfortable. She did have some bleeding during the dressing change which was controlled with Surgicel. MRSA is going to be managed as an outpatient with vancomycin while on dialysis per Dr. Dick. Unfortunately the patient has a reaction to the adhesive of the VAC dressing so we are going to need to manage her with wound packing. She thinks that her home health nurse will be able to come out daily for this. If that is the case and she doesn't have any significant bleeding with dressing changes this weekend, she can go home once outpatient antibiotics and wound care are arranged. If not, I will see the patient on Wednesday. Surgery Progress Note: Obj - Vital signs Vital signs: Vital Signs - Most Recent Temp Pulse Resp BP Pulse Ox 97.8 F 64 15 151/76 H 90 L 06/24/18 11:36 06/24/18 11:36 06/24/18 11:36 06/24/18 11:36 06/24/18 11:36 Surgery Progress Note: Results - Labs Result Diagrams: 06/24/18 06:07 06/24/18 06:07 Lab results: Laboratory Results - last 24 hr 06/24/18 06/24/18 06/24/18 05:09 06:07 06:07 WBC 6.0 RBC 3.59 L Hgb 11.0 L Hct 33.8 L MCV 94.2 MCH 30.5 MCHC 32.4 RDW 14.5 Plt Count 177 MPV 10.9 H Neutrophils % 71.1 Lymphocytes % 13.8 L Monocytes % 11.6 H Eosinophils % 3.2 Basophils % 0.4 Neutrophils # 4.3 Lymphocytes # 0.8 L Monocytes # 0.7 H Eosinophils # 0.2 Basophils # 0.0 Sodium 135 L Potassium 4.2 Chloride 98 Carbon Dioxide 24 Anion Gap 17 BUN 17 Creatinine 3.78 H Estimated GFR (MDRD) 12 Glucose 136 H POC Glucose 139 H Calcium 8.7 06/24/18 06/24/18 11:19 16:37 WBC RBC Hgb Hct MCV MCH MCHC RDW Plt Count MPV Neutrophils % Lymphocytes % Monocytes % Eosinophils % Basophils % Neutrophils # Lymphocytes # Monocytes # Eosinophils # Basophils # Sodium Potassium Chloride Carbon Dioxide Anion Gap BUN Creatinine Estimated GFR (MDRD) Glucose POC Glucose 172 H 123 H Calcium
[2018-06-24] MEDS: Sodium Chloride 0.9% 1,000 ML IV SCH (17:25)
--- NOTE | 2018-06-24 17:49 | PDOC.PN ---
- Subjective Encounter Start Date: 06/24/18 Encounter Start Time: 17:47 Ms. Avila was seen today in follow-up of diabetic infection of the left foot. She notes some bleeding from the foot, but otherwise ok. She also notes continued abdominal pain. - Objective Resuscitation Status - Order Detail: 06/22/18 10:42 Resuscitation Status Routine Resuscitation Status: FULL: Full Resuscitation MAR Reviewed: Yes Vital Signs & Weight: Vital Signs (12 hours) Temp Pulse Resp BP BP Pulse Ox 06/24/18 17:22 148/77 H 06/24/18 11:36 97.8 F 64 15 151/76 H 90 L 06/24/18 09:05 134/81 06/24/18 07:52 98 F 73 16 134/81 92 L Weight Admit Weight 248 lb 12.8 oz Weight 248 lb 12.8 oz I&O: 06/23/18 06/24/18 06/25/18 06:59 06:59 06:59 Intake Total 1862 1740 1160 Output Total 200 2000 Balance 1662 -260 1160 Result Diagrams: 06/24/18 06:07 06/24/18 06:07 Additional Labs: Accuchecks 06/24/18 06/24/18 06/24/18 16:37 11:19 05:09 POC Glucose 123 H 172 H 139 H 06/23/18 19:49 POC Glucose 107 Phys Exam - Physical Examination HEENT: PERRLA Respiratory: no wheezing, no rales, no rhonchi, clear to auscultation bilateral Cardiovascular: RRR, no significant murmur, no rub Gastrointestinal: soft, non-tender, no distention, positive bowel sounds Musculoskeletal: pulses present foot wound is dressed Dx/Plan (1) Diabetic infection of left foot Code(s): E11.628 - TYPE 2 DIABETES MELLITUS WITH OTHER SKIN COMPLICATIONS; L08.9 - LOCAL INFECTION OF THE SKIN AND SUBCUTANEOUS TISSUE, UNSP Status: Acute (2) DM type 2 (diabetes mellitus, type 2) Status: Chronic Qualifiers: Comment: NPH 70/30, 30u SC BID, ISS (3) ESRD (end stage renal disease) on dialysis Code(s): N18.6 - END STAGE RENAL DISEASE; Z99.2 - DEPENDENCE ON RENAL DIALYSIS Status: Chronic Comment: (4) HTN (hypertension) Code(s): I10 - ESSENTIAL (PRIMARY) HYPERTENSION Status: Chronic Qualifiers: Comment: (5) Peripheral neuropathy Code(s): G62.9 - POLYNEUROPATHY, UNSPECIFIED Status: Chronic (6) Abdominal pain Code(s): R10.9 - UNSPECIFIED ABDOMINAL PAIN Status: Acute Qualifiers: Abdominal location: generalized Qualified Code(s): R10.84 - Generalized abdominal pain Comment: ? etiology, resolving with supportive mgmt, d/c Zosyn, suspect secondary to DM gastroparesis - Plan * Diabetic foot infection- continue IV antibiotics. Wound culture is growing Staph, await final sensitivities * Await ID recommendations * Continue local woundcare * HTN- blood pressure is stable * DM- blood glucose is stable * ESRD- stable * Continued Abdominal pain- will consult GI.
--- NOTE | 2018-06-24 21:39 | CON ---
DATE OF CONSULTATION: 06/24/2018 REASON FOR CONSULTATION: Left foot osteomyelitis. HISTORY OF PRESENT ILLNESS: This is 58-year-old patient whom I had seen in 2016. At that time, she presented with a history of type 2 diabetes, end-stage renal disease, on hemodialysis through an AV fistula as well as coronary artery disease and a left first toe osteomyelitis. She underwent amputation and antimicrobial therapy and this time she presents with inflammatory changes at the second toe which is the only one remaining. She underwent amputation. I spoke with Dr. Martinez and she noticed that there was still residual osteomyelitis in the remaining portion of the metatarsal, but it was getting too close to the hind foot area and she decided to stop the debridement right there. She had a previous vascular evaluation which showed adequate blood supply. She has not tolerated negative pressure dressings before and therefore she is going to undergo just regular dressing changes. Currently, she is in the chair at the bedside. She denies any headaches. She has no changes in her visual impairments. No sore throat, odynophagia, or dysphagia. No neck pain. No dyspnea or chest pain. No cough. No abdominal pain or diarrhea. Does not have much in terms of urinary output. No other joint inflammatory process noted. PAST MEDICAL HISTORY: Type 2 diabetes, end-stage renal disease on hemodialysis through an AV fistula, obesity, hyperlipidemia, multiple complications related to neuropathy in the feet with multiple amputations. SURGICAL HISTORY: Dialysis access placement and removal, AV fistula, multiple toe amputations. ALLERGIES: LEVOFLOXACIN, IODINE. SOCIAL HISTORY: Never smoker. Lives in [place] with . FAMILY HISTORY: Coronary artery disease. CURRENT MEDICATIONS: 1. [place]. 2. Xanax. 3. Aspirin. 4. Coreg. 5. Catapres. 6. Plavix. 7. Atarax. 8. Insulin. 9. Imdur. 10. Cozaar. 11. Zosyn. 12. Vancomycin sliding scale. PHYSICAL EXAMINATION: VITAL SIGNS: Temperature max 98.4, blood pressure 150/70, pulse 64, respirations 15, O2 saturation 90-92% on room air. SKIN: Shows the initial findings with a markedly swollen to deformed second toe. She has still the third, fourth and fifth toe in the left foot remain in place and the first toe was amputated. There is some darkening of the skin in the distal dorsal forefoot. There was an ulcerated region in the dorsal aspect of the second toe with bone exposure and she has the left upper extremity AV fistula with the dilated veins. The patient has no lymphadenopathy. HEENT: Ocular movements conjugate. Oral cavity with dentures. Moist mucosa. No lesions. NECK: No jugular vein distention or carotid bruits. No thyromegaly. LUNGS: Symmetric air entry. HEART: S1, S2. Regular rate without murmurs. ABDOMEN: Soft, not distended or tender. No ascites. No bladder distention. BACK: No back tenderness. EXTREMITIES: Pulses are 1+ in popliteal and dorsalis pedis. NEUROLOGICAL: She is able to move extremities on command. She is awake, oriented, follows commands. Good recollection. Speech appears to be normal. LABORATORY DATA: Her white cell count is 6.0, hemoglobin 11, platelets 177. Sodium 135, creatinine 3.78, bilirubin 0.8, AST 8 and ALT less than 7, alkaline phosphatase 254. Microbiology: We have MRSA from June 21 cultures from the toe and likely the same organisms from the bone cultures yet to be fully identified and susceptibility tested. Pathology from the surgical specimen is still pending. ASSESSMENT: Type 2 diabetes, end-stage renal disease, on hemodialysis with an arteriovenous fistula, multiple complications in distal lower extremities related to neuropathy from diabetes mellitus with various amputations and now with a second toe amputation. DISCUSSION: It looks like she does have adequate blood supply to the area as per previous recent arterial duplex study, but she does have residual osteomyelitis remaining in place. She is at high risk for amputation at the BKA level going forward. We will treat with a protracted vancomycin sliding scale given at dialysis. Await for the final results of cultures. Probably for the first 4 weeks we will also add Flagyl. Gram-negative coverage will not be needed if the cultures remain just with MRSA. Monitor wound progress. May need follow up imaging studies, specifically just plain films to evaluate the residual metatarsal. She does not appear to have had bacteremia and no evidence of other sites of distant dissemination at this point in time. Job ID: [id number] MTDD
[2018-06-25] MEDS: Morphine 4 MG/ML VIAL SLOW IVP PRN ×3 (02:03→20:34)
[2018-06-25] MEDS: hydrOXYzine 25 MG TAB PO PRN ×3 (02:04→22:30)
[2018-06-25] MEDS: Piperacillin/Tazobactam 2.25 GM in Sodium Chloride 0.9% 100 ML IVPB SCH ×2 (04:47→13:00)
[2018-06-25] MEDS: Heparin 5,000 UNITS/ML VIAL SC SCH ×2 (09:14→20:26)
[2018-06-25] MEDS: Carvedilol 6.25 MG TAB PO SCH ×3 (09:56→18:12)
[2018-06-25] MEDS: Sevelamer Carbonate 800 MG TAB PO SCH ×3 (09:56→18:10)
[2018-06-25] MEDS: Sodium Chloride 0.9% 1,000 ML IV SCH (09:57)
[2018-06-25] MEDS: Aspirin 325 MG TAB PO SCH ×2 (09:57→13:27)
[2018-06-25] MEDS: Vancomycin HCl 1 GM in Premix Bag 1 BAG IVPB SCH (10:12)
--- NOTE | 2018-06-25 10:57 | PRG ---
DATE OF SERVICE: 06/25/2018 SERVICE: Renal Medicine. SUBJECTIVE: Ms. Avila is a 58-year-old female followed up for her ESRD. Currently undergoing dialysis. I am at the bedside supervising her dialysis. She underwent recently left toe amputation. Doing well. She is complaining of some abdominal discomfort. GI has been consulted. No complaints of chest pain or shortness of breath. OBJECTIVE: VITAL SIGNS: Blood pressure 149/80, heart rate 61, respiratory rate 19, temperature 97.5, pulse ox 90%. GENERAL: Awake, alert, comfortable, not in overt distress. SKIN: Adequate turgor. HEENT: Pinkish conjunctivae. Anicteric sclerae. NECK: No neck mass. No carotid bruits. No JVD. CHEST: No deformities. LUNGS: Clear breath sounds. HEART: Normal sinus rhythm. No murmurs, gallops, or rubs. ABDOMEN: Globular, soft, nontender. No masses. EXTREMITIES: Trace edema. Left foot dressing noted. MEDICATIONS: Medications of June 25, 2018, reviewed. LABORATORY DATA: Laboratories of June 24, 2018; sodium 135, potassium 4.2, chloride 98, carbon dioxide 24, BUN 17, creatinine 3.78, glucose 136, calcium 8.7. On June 25, 2018, glucose 149, hemoglobin 11. ASSESSMENT AND PLAN: 1. End-stage renal disease, stable. Continue current Wednesday, , and Wednesday dialysis regimen. Attempting fluid removal between 4 and 5 L as tolerated. Using no heparin. 2. Left toe osteomyelitis, status post left toe amputation, on IV antibiotics. 3. Abdominal pain/discomfort-GI to evaluate the patient. Job ID: [id number]
--- NOTE | 2018-06-25 13:18 | PDOC.PN ---
- Subjective Encounter Start Date: 06/25/18 Encounter Start Time: 13:16 Patient seen and examined. No new complaints. No overnight events. having abd pain. had HD today. - Objective Resuscitation Status - Order Detail: 06/22/18 10:42 Resuscitation Status Routine Resuscitation Status: FULL: Full Resuscitation MAR Reviewed: Yes Vital Signs & Weight: Vital Signs (12 hours) Temp Pulse Resp BP BP Pulse Ox 06/25/18 12:00 97.8 F 71 17 199/68 H 96 06/25/18 09:56 157/82 H 06/25/18 07:28 97.5 F L 61 19 149/80 H 90 L 06/25/18 04:40 97.5 F L 66 16 146/70 H 92 L Weight Admit Weight 248 lb 12.8 oz Weight 248 lb 12.8 oz I&O: 06/24/18 06/25/18 06/26/18 06:59 06:59 06:59 Intake Total 1740 2175 Output Total 1999 Balance -260 2175 Result Diagrams: 06/24/18 06:07 06/24/18 06:07 Additional Labs: Accuchecks 06/25/18 06/24/18 06/24/18 04:53 19:35 16:37 POC Glucose 149 H 160 H 123 H Phys Exam - Physical Examination Constitutional: NAD HEENT: sclera anicteric Neck: supple Respiratory: no wheezing, no rales Cardiovascular: RRR Gastrointestinal: soft Musculoskeletal: edema present Neurological: non-focal, moves all 4 limbs Psychiatric: normal affect, A&O x 3 Skin: no rash Dx/Plan (1) Osteomyelitis Code(s): M86.9 - OSTEOMYELITIS, UNSPECIFIED Status: Acute (2) Diabetic infection of left foot Code(s): E11.628 - TYPE 2 DIABETES MELLITUS WITH OTHER SKIN COMPLICATIONS; L08.9 - LOCAL INFECTION OF THE SKIN AND SUBCUTANEOUS TISSUE, UNSP Status: Acute (3) Abdominal pain Code(s): R10.9 - UNSPECIFIED ABDOMINAL PAIN Status: Acute Qualifiers: Abdominal location: generalized Qualified Code(s): R10.84 - Generalized abdominal pain Comment: ? 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 continue Vanc with HD and pharmacy to dose. will add flagyl per ID recs will stop IV fluids. HD per renal GI eval pending for abd pain. AM labs
[2018-06-25] MEDS: Clopidogrel Bisulfate 75 MG TAB PO SCH (13:29)
[2018-06-25] MEDS: cloNIDine 0.2 MG TAB PO SCH ×2 (13:30→20:23)
[2018-06-25] MEDS: HumuLIN 70/30 (300 UNITS/3 ML VIAL) SC SCH ×2 (13:31→20:25)
[2018-06-25] MEDS: Losartan 25 MG TAB PO SCH (13:42)
[2018-06-25] MEDS: metroNIDAZOLE 500 MG TAB PO SCH ×2 (15:21→20:23)
[2018-06-25] MEDS: Metoclopramide 10 MG/10 ML UDCUP PO SCH ×2 (18:11→20:27)
[2018-06-25] MEDS ORDERED: Amitriptyline HCl 10 MG TAB PO SCH (21:00)
--- NOTE | 2018-06-25 21:01 | CON ---
DATE OF CONSULTATION: 06/25/2018 REASON FOR CONSULTATION: Abdominal pain. HISTORY OF PRESENT ILLNESS: Ms. Avila is a 58-year-old female, who actually came to the hospital, was admitted on 06/21 for severe toe pain, was found to have osteomyelitis, subsequently went on an amputation and is going to be on long-term antibiotics. She notes that she actually came in for the foot, but while being here, her stomach has been started hurting worse and worse. She has had problems. She states with this for about the past 2 to 3 months. The pain is generalized in the abdomen and seems to go into her back, some of it started around the umbilicus and go up to the epigastric area and then going to her back. They will often worsen with meals and she cannot eat very much, she can throw up. She has had normal lipase on admission. She has had mild anemia, which has been stable for years and has normal liver function tests. Imaging arcos in the late May 2018, she had a CAT scan of the abdomen and pelvis and a CT dissection protocol. It showed previous cholecystectomy. No biliary tract dilatation, mild pancreatic atrophy, mild splenomegaly, mild hepatomegaly and minimal free fluid in the abdomen and pelvis, severe diverticulosis as well. A dissection protocol on 06/05 showed a "normal aorta," cardiac stents to the chronic mesenteric artery showed mild atherosclerosis at the origin of the celiac without significant stenosis and as well as the SMA without significant stenosis. There is no comment on if there is any dilatation of these vessels. She denies any chest pain. She denies any overt reflux. She does take a PPI daily. On reviewing her records, she has had pain in the past. We have seen her with chronic abdominal pain on and off for the past several years. In fact, in 2015, she had an upper endoscopy at this hospital with Dr. Ewing for epigastric pain. I could find no evidence in her records of previous gastric emptying studies. She says the pain is not like her biliary symptoms she has had in the past. She denies any melena, hematochezia, or hematemesis. She denies any weight loss. She does have postprandial nausea, but no vomiting. Eating does seem to make the symptoms worse. She does note she has been constipated here in the hospital. She has had about 8 CAT scans of the abdomen and pelvis since March of 2015. PAST MEDICAL HISTORY: Hypertension, type 2 diabetes with end-stage renal disease on dialysis, coronary artery disease, previous stents, hyperlipidemia, and obesity. CHF secondary to diastolic dysfunction. Had diabetic neuropathy, history of diabetic gastroparesis per Dr. Talley. Diabetic peripheral neuropathy. PAST SURGICAL HISTORY: Dialysis access AV fistula, I and D of nail abscess, adenoidectomy, amputation of left great toe, tonsillectomy, and previous appendectomy. She has had previous colonoscopy at 16 with some polyps removed or small. She has had a previous EGD in 2016, which was normal except for mild gastritis with no H. pylori. On surgery, she has had a previous peritoneal dialysis catheter, which has been removed showed multiple tunneled hemodialysis catheters. Multiple amputations of the feet. ALLERGIES: LEVOFLOXACIN AND IODINE. SOCIAL HISTORY: She never smoked. She lives with her , who is at the bedside. FAMILY HISTORY: Coronary artery disease. MEDICATIONS: At home; 1. Renvela. 2. Isosorbide mononitrate daily. 3. Aspirin 325 daily. 4. Catapres daily. 5. Tylenol. 6. Reglan 5 p.o. q.a.c. 7. Pantoprazole 40 mg p.o. daily. 8. Nitroglycerin 0.4 subcu. 9. Alprazolam 0.25 q.6 hours p.r.n. 10. Insulin 30 units subcu b.i.d. 11. Plavix 75 mg daily. 12. Coreg 6.25 mg b.i.d. 13. Calcitriol. 14. Cozaar. 15. Hydroxyzine. 16. She is on vancomycin. 17. Medrol. 18. Senokot p.r.n. 19. Protonix. 20. Zofran p.r.n. 21. Morphine p.r.n. 22. Flagyl started today. 23. Losartan. 24. Imdur. 25. Insulin sliding scale 70/30 b.i.d. 26. P.R.N. [place]. 27. Plavix. 28. Clonidine. 29. Carvedilol. REVIEW OF SYSTEMS: Negative for dysphagia or odynophagia. Negative for weight loss. Negative for hematemesis, melena, or hematochezia. Negative for chest pain. She does get dyspnea on exertion. She has poor mobility. She has a lot of skin lesions. She has a history of diabetes. PHYSICAL EXAMINATION: VITAL SIGNS: Temperature is 97.8 and blood pressure is 199/68. GENERAL: She is resting in bed. HEENT: Oropharynx without lesions. There is no evidence of thrush. NECK: Supple. CHEST: Lungs are clear. HEART: Regular rhythm and rate. ABDOMEN: Soft. It is protuberant. There is no overt shifting dullness or fluid wave. There is palpable hepatosplenomegaly. There is no rebound. There is no guarding. There is no large hernias palpated. No inguinal hernias palpated. RECTAL: Deferred. EXTREMITIES: Reveal edema. There are healed skin wounds, presently more peripherally and she has a bandage over the toe that was amputated. IMAGING STUDIES: As reviewed in HPI. I have personally viewed the CT dissection protocol from a few days ago. There is no post truncal dilation of the celiac or SMA to indicate changes of chronic mesenteric ischemia from major occlusions at the takeoff of these vessels. There is no gallbladder in place. The pancreas appears normal. There is minimal fluid, but nothing there is available to tap. She does have fatty liver or infiltration of liver. These are fatty material. LABORATORY DATA: Her last hemoglobin A1c was 8.7 on 05/28, 1 was 9.3 on 09/23, 7 in 2011. On 06/21, she had BUN and creatinine of 20 and 3.8. Electrolytes were otherwise normal. Bilirubin 0.8, AST and ALT are 8 and 7 with alkaline phosphatase of 254, bilirubin 0.8, globulin is 3.8, albumin 3.5, protein was 7.3, and lipase was 15. White count 6 on the , hemoglobin 11, and platelet count 177. Previous hepatitis A, B, and C serology are negative. ASSESSMENT: Chronic abdominal pain. It seems that this is pretty similar to what she has had in the past, although she seems to be more uncomfortable now, reports it has been worse over the past couple of months. She had an outpatient followup to be seen with Dr. Montiel in a week or 2. Since this admission, she has been feeling worse. Some of this may be related to antibiotics she has received for her infection. The possibility of gastroparesis exacerbated by the fact that she is off on her home Reglan and some to be considered. I am not sure about the diagnosis of gastroparesis. It makes sense that she likely suffers from this based on her symptoms and other end-stage diabetes has done to her body, but I cannot find a gastric emptying scan in the [facility]. We will have to look at our clinical chart in the office when it is available. Other compounding factors to cause her abdominal pain could be immobility and relative constipation. Ischemia is a concern in followup, this is discovering what she has; however, she has not had any weight loss. She has no signs of acute mesenteric ischemia presently and although the symptoms could be a component of chronic mesenteric ischemia. She has had no weight loss. Unfortunately, the CT dissection protocol showed no severe stenosis. This could be further evaluated by Cardiology or Radiology with formal angiograms or even Doppler studies, although her size and weight are probably to be to get reasonable Doppler studies on her celiac and SMA. I had a long conversation with the patient and her family about differential diagnosis. PLAN: 1. We will start her on some low-dose Elavil to help with some pain. I will reinstitute her Reglan. 2. I have seen that she was started on Flagyl p.o. I am not sure she is going to tolerate that, it led to GI side effects, but we will see. She is already on a PPI. To make sure not missing a Tamiko infection or ulcers, we will proceed with EGD tomorrow. We will follow along with you. Job ID: [id number]
[2018-06-25] MEDS: ALPRAZolam 0.25 MG TAB PO PRN (22:30)
[2018-06-25] MEDS ORDERED: diphenhydrAMINE 50 MG/ML VIAL IVP SCH (23:15)
[2018-06-26 06:11] LABS: Hemoglobin A1c 5.9 % (4.0-6.0)
[2018-06-26] MEDS: Metoclopramide 10 MG/10 ML UDCUP PO SCH ×4 (08:33→20:24)
[2018-06-26] MEDS: Heparin 5,000 UNITS/ML VIAL SC SCH ×3 (08:34→20:26)
[2018-06-26] MEDS: HumuLIN 70/30 (300 UNITS/3 ML VIAL) SC SCH ×2 (08:34→20:25)
[2018-06-26] MEDS: Carvedilol 6.25 MG TAB PO SCH ×2 (08:34→17:27)
[2018-06-26] MEDS: Aspirin 325 MG TAB PO SCH ×2 (08:34→11:59)
[2018-06-26] MEDS: Sevelamer Carbonate 800 MG TAB PO SCH ×3 (08:34→17:28)
[2018-06-26] MEDS ORDERED: Ondansetron HCl/PF 4 MG/2 ML Vial IVP PRN ×2 (09:46→10:56)
[2018-06-26] MEDS ORDERED: Ketamine 50 MG/ML (10ML VIAL) ONE (09:48)
[2018-06-26] MEDS ORDERED: Promethazine HCl 25 MG/ML VIAL IM PRN (10:56)
[2018-06-26] MEDS ORDERED: Promethazine HCl 25 MG/ML VIAL SLOW IVP PRN (10:56)
--- NOTE | 2018-06-26 11:44 | PDOC.PN ---
- Subjective Encounter Start Date: 06/26/18 Encounter Start Time: 11:42 Patient seen and examined. No new complaints. No overnight events. had egd today and pain better. No N/V. - Objective Resuscitation Status - Order Detail: 06/22/18 10:42 Resuscitation Status Routine Resuscitation Status: FULL: Full Resuscitation MAR Reviewed: Yes Vital Signs & Weight: Vital Signs (12 hours) Temp Pulse Resp BP Pulse Ox 06/26/18 11:39 97.1 F L 66 16 151/70 H 95 06/26/18 07:15 59 L 19 129/76 94 L 06/26/18 04:29 98.1 F 72 18 127/73 98 06/26/18 00:49 97.4 F L 63 18 120/71 96 Weight Admit Weight 248 lb 12.8 oz Weight 248 lb 12.8 oz I&O: 06/25/18 06/26/18 06/27/18 06:59 06:59 06:59 Intake Total 2175 590 Output Total 5000 Balance 2175 -4410 Result Diagrams: 06/24/18 06:07 06/24/18 06:07 Additional Labs: Accuchecks 06/26/18 06/26/18 06/26/18 08:15 04:26 03:12 POC Glucose 192 H 72 40 L* 06/25/18 06/25/18 06/25/18 19:22 15:22 13:08 POC Glucose 187 H 114 H 94 Phys Exam - Physical Examination Constitutional: NAD HEENT: sclera anicteric Neck: supple Respiratory: no wheezing, no rales Cardiovascular: RRR Gastrointestinal: soft Musculoskeletal: no edema Neurological: non-focal Psychiatric: normal affect, A&O x 3 Skin: no rash Dx/Plan (1) Osteomyelitis Code(s): M86.9 - OSTEOMYELITIS, UNSPECIFIED Status: Acute (2) Diabetic infection of left foot Code(s): E11.628 - TYPE 2 DIABETES MELLITUS WITH OTHER SKIN COMPLICATIONS; L08.9 - LOCAL INFECTION OF THE SKIN AND SUBCUTANEOUS TISSUE, UNSP Status: Acute (3) Abdominal pain Code(s): R10.9 - UNSPECIFIED ABDOMINAL PAIN Status: Acute Qualifiers: Abdominal location: generalized Qualified Code(s): R10.84 - Generalized abdominal pain Comment: ? etiology, resolving with supportive mgmt, d/c Zosyn, suspect secondary to DM gastroparesis (4) DM type 2 (diabetes mellitus, type 2) Status: Chronic Qualifiers: Comment: NPH 70/30, 30u SC BID, ISS (5) ESRD (end stage renal disease) on dialysis Code(s): N18.6 - END STAGE RENAL DISEASE; Z99.2 - DEPENDENCE ON RENAL DIALYSIS Status: Chronic Comment: (6) HTN (hypertension) Code(s): I10 - ESSENTIAL (PRIMARY) HYPERTENSION Status: Chronic Qualifiers: Comment: - Plan cont current plan of care, continue antibiotics, DVT proph w/heparin * . continue vanc and flagyl s/p EGD today started on Elavil yesterday for abd pain HD per renal DC planning
[2018-06-26] MEDS: Morphine 4 MG/ML VIAL SLOW IVP PRN ×2 (11:45→16:08)
[2018-06-26] MEDS: Losartan 25 MG TAB PO SCH (11:58)
[2018-06-26] MEDS: Clopidogrel Bisulfate 75 MG TAB PO SCH (11:59)
[2018-06-26] MEDS: cloNIDine 0.2 MG TAB PO SCH ×2 (12:00→20:26)
[2018-06-26] MEDS: hydrOXYzine 25 MG TAB PO PRN (12:00)
[2018-06-26] MEDS: metroNIDAZOLE 500 MG TAB PO SCH ×3 (12:00→20:24)
[2018-06-26] MEDS ORDERED: PROPOFOL 200 MG/20 ML VIAL ONE (15:34)
[2018-06-26] MEDS: HumaLOG 300 UNITS/3 ML VIAL SC PRN (17:29)
--- NOTE | 2018-06-26 19:32 | OP ---
DATE OF PROCEDURE: 06/26/2018 PROCEDURE PERFORMED: Esophagogastroduodenoscopy. PREPROCEDURE DIAGNOSES: 1. Chronic epigastric pain. 2. Normal CAT scan. Normal liver enzymes. 3. End-stage renal disease secondary to diabetes. 4. Peripheral vascular disease, coronary artery disease. POSTPROCEDURE DIAGNOSES: 1. Normal esophagus. 2. Moderate amount of retained gastric content consistent with gastroparesis. No evidence of gastric outlet obstructions, ulcers, or erosions. 3. Poor visualization of proximal stomach secondary to retained food, which not able to be irrigated or removed from the stomach. 4. Normal duodenum. RECOMMENDATIONS: 1. Continue Reglan. 2. Stop Elavil as this will impair gastric emptying. 3. We will review old records regarding question concern for possible previous mesenteric vessel stenting brought out by Anesthesia. I did not see anything in the record about that after we review her records and look for that. ANESTHESIA: TIVA. PROCEDURE IN DETAIL: The patient was informed of the risks, benefits, and possible complications of endoscopy including perforation, reaction to medication, and aspiration. Informed consent was obtained. The patient was brought to the endoscopy suite, where she was sedated in standard fashion. Once she was comfortable, a bite block was placed inside the orifice. The endoscope was advanced through the stomach and the second and third portions of the duodenum, and slowly removed. There was good visualization of the mucosa. The esophagus showed evidence of Tamiko strictures or esophagitis. The stomach was entered and found to be without any overt parched masses, bleeding, old blood, or ulcers. Retroflexed views revealed retained gastric contents of the proximal stomach mainly solid, some liquid suctioned away, but the solids could not be removed, and could not rule out possible small underlying lesion in this area. The antrum had some retained contents as well, which were irrigated away and the antrum was fairly fully visualized. No mass or lesions. The incisura looked normal. The pyloric channel was clear. The duodenum was normal at third portion. The scope was removed. The patient tolerated the procedure well. There were no complications. Job ID: [id number]
[2018-06-27] MEDS: Morphine 4 MG/ML VIAL SLOW IVP PRN ×2 (00:39→12:52)
[2018-06-27 07:45] VITALS: TEMP 97.3
[2018-06-27] MEDS: Losartan 25 MG TAB PO SCH (07:50)
[2018-06-27] MEDS: hydrOXYzine 25 MG TAB PO PRN (07:50)
[2018-06-27] MEDS: Carvedilol 6.25 MG TAB PO SCH (07:50)
[2018-06-27] MEDS: Heparin 5,000 UNITS/ML VIAL SC SCH (07:53)
[2018-06-27] MEDS: Metoclopramide 10 MG/10 ML UDCUP PO SCH ×2 (07:54→11:28)
[2018-06-27] MEDS: Sevelamer Carbonate 800 MG TAB PO SCH ×2 (07:54→11:28)
[2018-06-27] MEDS: Clopidogrel Bisulfate 75 MG TAB PO SCH (07:54)
[2018-06-27] MEDS: metroNIDAZOLE 500 MG TAB PO SCH (07:54)
[2018-06-27] MEDS: Aspirin 325 MG TAB PO SCH (07:54)
[2018-06-27] MEDS: cloNIDine 0.2 MG TAB PO SCH (07:55)
[2018-06-27] MEDS: HumuLIN 70/30 (300 UNITS/3 ML VIAL) SC SCH (07:59)
[2018-06-27 08:15] VITALS: BP 113/54
--- NOTE | 2018-06-27 09:20 | PRG ---
DATE OF SERVICE: 06/27/2018 SUBJECTIVE: Ms. Avila is a 58-year-old female with ESRD and followed up by the [facility] for her maintenance hemodialysis. No new complaints today. She is feeling better. She was evaluated by GI due to the abdominal discomfort, nausea, and vomiting. She underwent upper GI endoscopy. No intrinsic abnormality was noted. The feeling is that she may have an underlying diabetic gastroparesis. This morning, the patient is feeling better. OBJECTIVE: VITAL SIGNS: Blood pressure is 113/54, heart rate 71, respiratory rate 22, temperature 97.3, and pulse ox 93%. GENERAL: Noted to be awake, alert, comfortable, not in overt distress. SKIN: Adequate turgor. HEENT: She has a pinkish conjunctivae. Anicteric sclerae. NECK: No neck mass. No carotid bruits. No JVD. CHEST: No deformities. LUNGS: Clear breath sounds. No wheezing. No crackles. HEART: Normal sinus rhythm. No murmur, no gallops, no rubs. ABDOMEN: Globular, soft, nontender. No masses. EXTREMITIES: Trace edema. No deformities. MEDICATIONS: Medications of June 27, 2018, were reviewed. LABORATORY DATA: Laboratories of June 24, 2018; white count 6 and hemoglobin 11. Sodium 135, potassium 4.2, chloride 98, carbon dioxide 24, BUN 17, creatinine 3.78, calcium 8.7. ASSESSMENT AND PLAN: 1. End-stage renal disease, stable. No indication for an emergent hemodialysis. Continue current management. Continue Wednesday, , and Wednesday dialysis. Fluid removal only as tolerated. 2. Infected left toe-status post toe amputation-currently on IV antibiotics. Wound Care is following. 3. Nausea, vomiting/abdominal discomfort-secondary to diabetic gastroparesis. GI following. The patient will resume back on Reglan. Overall, agree with current management. Job ID: [id number]
[2018-06-27 10:12] LABS: Fungus Stain Final report (.)
--- NOTE | 2018-06-27 13:12 | DIS ---
DATE OF ADMISSION: 06/21/2018 DATE OF DISCHARGE: 06/27/2018 DISCHARGE DIAGNOSES: 1. Osteomyelitis of the left second toe with methicillin-resistant Staphylococcus aureus. 2. Status post amputation of the left second toe with wound packing. 3. Diabetic left foot infection. 4. Diabetic gastroparesis. 5. Diabetes mellitus type 2 with end-stage renal disease. 6. End-stage renal disease with hemodialysis. CONSULTATIONS: 1. Dr. Martinez with General Surgery Service. 2. Dr. Esteban Dick with Infectious Disease Service. PERTINENT LAB AND X-RAY FINDINGS: Creatinine ranged between 3.78-5.33. Estimated GFR ranged between 8-12. CRP 7.59. CBC showed a white blood cell count ranged between 6.0 to 7.7, hemoglobin ranged between 10.8 to 11.1. Wound culture from the left second toe dated 06/21/2018, positive for methicillin-resistant Staphylococcus aureus. Blood cultures x2 dated 06/21/2018 showed no growth at 5 days. Bone culture dated 06/23/2018, positive for methicillin-resistant Staphylococcus aureus. Three views of the left foot dated 06/21/2018, showed osteomyelitis of the proximal phalanx, second toe, head and neck as well as involvement of the middle phalanx with septic arthritis. EGD dated 06/26/2018 showed normal esophagus with poor visualization of the proximal stomach due to retained food. Normal duodenum noted. HOSPITAL COURSE: The patient was initially admitted after presenting with diabetic left foot infection in the context of known previous osteomyelitis with amputation of multiple toes of the left foot. The patient presented with edematous left second toe with plain radiographs showing evidence of osteomyelitis of the proximal and middle phalanx. The patient was evaluated by General Surgery Service with recommendations to proceed with a localized amputation. The patient continued on IV antibiotic therapy to include vancomycin with hemodialysis and patient received consultation with Infectious Disease Service. Additional metronidazole was added to the regimen for anaerobic coverage. Wound and bone cultures from the left foot and toe were positive for methicillin-resistant Staphylococcus aureus. The patient received local wound care with wound packing changes as the patient was unable to tolerate wound VAC due to the adhesive dressing required for the wound VAC application. Current recommendations are for daily wound changes with home health services upon discharge. The patient continued maintenance hemodialysis without complication during the hospital course and overall remained clinically stable. The patient did have recurrent complaints of abdominal pain, undergoing evaluation by the GI Service with eventual EGD performed. No specific anatomic abnormality was noted and the patient was treated for likely diabetic gastroparesis with Reglan. Overall, the patient did remain clinically stable during the hospital course, tolerating regular oral intake. I have examined the patient at the time of discharge and discussed followup instructions. The patient verbalized understanding and agreement ready for discharge on 06/27/2018. DISCHARGE MEDICATIONS: 1. Xanax 0.25 mg p.o. q.6 hours p.r.n. 2. Tylenol 500 mg p.o. b.i.d. p.r.n. 3. Enteric-coated aspirin 325 mg p.o. daily. 4. Clonidine 0.2 mg p.o. b.i.d. 5. Plavix 75 mg p.o. daily. 6. Hydroxyzine 25 mg p.o. t.i.d. p.r.n. 7. NovoLog 70/30, 30 units subcutaneously b.i.d. 8. Imdur 30 mg p.o. daily. 9. Losartan 100 mg p.o. daily. 10. Protonix 40 mg p.o. daily. 11. Renvela 3200 mg p.o. t.i.d. with meals. 12. Coreg 6.25 mg p.o. b.i.d. 13. Reglan 5 mg p.o. before meals and at bedtime. 14. Metronidazole 500 mg p.o. t.i.d. x3 weeks. 15. Vancomycin sliding scale with hemodialysis 3 times per week. 16. Nitroglycerin 0.4 mg sublingually q.5 minutes p.r.n. chest pain. FOLLOWUP: The patient is to follow up with her primary care provider, Vandana Beard, within 7 days of discharge. The patient will follow up with Dr. Talley with Nephrology Service with hemodialysis. The patient will follow up with Dr. Martinez with General Surgery Service and to call our office for appointment time and date. The patient will follow up with Dr. Esteban Dick with Infectious Disease Service. CONDITION ON DISCHARGE: Stable. ACTIVITY: Ad-marcia. DIET: ADA, heart healthy, and renal. CODE STATUS: Full. DISPOSITION: Discharged home with Home Health services including wound care. TIME SPENT: Total time preparing and coordinating discharge is 35 minutes. Job ID: [id number]
--- NOTE | 2018-06-27 15:08 | PRG ---
DATE OF SERVICE: 06/27/2018 SUBJECTIVE: Ms. Avila states she feels much better since starting back on her Reglan. Her EGD yesterday was normal. LABORATORY DATA: None today. OBJECTIVE: GENERAL: The patient is resting comfortably in bed. She has no distress. ABDOMEN: Soft and nontender. VITAL SIGNS: Temperature 97.3, pulse 71, and blood pressure 113/53. ASSESSMENT: 1. Diabetic gastroparesis. 2. Obstipation. 3. Osteomyelitis of toes with poor peripheral vascular circulation. RECOMMENDATIONS: Continue Reglan 5 mg p.o. q.a.c. and h.s., MiraLAX p.r.n. for constipation and PPI for reflux. We will follow from a distance. She is doing much better now. She will follow with Dr. Montiel in [facility] in her regularly scheduled appointment. Job ID: [id number]
--- NOTE | 2018-06-29 09:22 | PDOC.OP ---
Operative Note - Operative Note Operative Note: PROCEDURE: Left second toe transmetatarsal amputation SURGEON: Luis Enrique Martinez M.D. DATE: 06/23/2018 PREOPERATIVE DIAGNOSIS: Osteomyelitis of the left second toe POSTOPERATIVE DIAGNOSIS: Osteomyelitis of the left second toe HISTORY: Patient with severe diabetic neuropathy and a chronic ulcer on her left second toe which began to drain pus. Plain film showed osteomyelitis of the mid and distal phalanx. Amputation was recommended. PROCEDURE IN DETAIL: After informed consent was obtained and appropriate preoperative antibiotics continued the patient was taken to the operating room where she was placed in supine position and anesthesia was administered. Local anesthesia was infused for a toe block and a paddle-shaped incision made at the base of the toe. Dissection was carried down to the proximal phalanx which was transected but the bone at this level appeared spongy and osteomyelitic. Therefore dissection was carried up to the metatarsophalangeal joint of the proximal phalanx resected. The metatarsal head was rongeured back but also appeared grossly abnormal and spongy. The wound was extended proximally to allow further debridement of the metatarsal bone. This was resected back until the bone appeared more normal in consistency. Bone chips were sent for bone culture. At no point was there an abscess cavity or any necrotic soft tissue encountered, as the initial transection was above the level of the patient's chronic abscess. The tissues appeared healthy and viable and hemostasis was obtained using Bovie electrocautery. The wound was packed with gauze and secured with Kerlix and Benigno wrap and the patient was taken to recovery in good condition. Estimated loss was minimal. There were no complications. Specimens are left second toe, with left second metatarsal bone for bone culture.
== END 2018-06-27 17:15 | disposition home health service (06) | DRG 638 ==
LOC: ERS 17:44 → T4-B 22:10 → ERHOLD 23:47 → T4-B 06-22 15:35
PROVIDERS: ADMIT Family Medicine; ATTEND Family Medicine
PROC: 0DJ08ZZ Inspection of Upper Intestinal Tract, Via Natural or Artificial Opening Endoscopic (ICD-10-PCS; principal; 2018-06-21)
DX: E11.69 Type 2 diabetes mellitus with other specified complication (principal); M86.8X7 Other osteomyelitis, ankle and foot; Z68.41 Body mass index [BMI] 40.0-44.9, adult; I13.2 Hypertensive heart and chronic kidney disease with heart failure and with stage 5 chronic kidney disease, or end stage renal disease; I50.32 Chronic diastolic (congestive) heart failure; E11.22 Type 2 diabetes mellitus with diabetic chronic kidney disease; N18.6 End stage renal disease; Z99.2 Dependence on renal dialysis; I25.10 Atherosclerotic heart disease of native coronary artery without angina pectoris; E66.9 Obesity, unspecified; J44.9 Chronic obstructive pulmonary disease, unspecified; K21.9 Gastro-esophageal reflux disease without esophagitis; E11.43 Type 2 diabetes mellitus with diabetic autonomic (poly)neuropathy; K31.84 Gastroparesis; D63.1 Anemia in chronic kidney disease; E11.42 Type 2 diabetes mellitus with diabetic polyneuropathy; Z89.422 Acquired absence of other left toe(s); B95.62 Methicillin resistant Staphylococcus aureus infection as the cause of diseases classified elsewhere; K59.00 Constipation, unspecified
CPT/HCPCS: 36415; 36416; 80048; 80053; 80202; 83036; 83605; 83690; 85025; 85652; 86140; 87040; 87070; 87076; 87077; 87102; 87186; 87205; 87206; 88305; 90935; 96361; 96365; 96367; 96375; 96376; G0257; J0696; J1200; J1644; J1815; J2001; J2060; J2250; J2270; J2405; J2543; J2704; J3010; J3370; J3490; J8597; Q0162

== ENCOUNTER 2018-07-18 18:41 | Emergency (ER) | payer MEDICARE ==
--- NOTE | 2018-07-18 21:23 | RAD ---
XR Chest 1 View Portable History: [Dyspnea] Comparison: Radiograph will third 2019 Findings: Heart size is enlarged. Moderate edema. Small effusions. No pneumothorax. Calcified granulo ma left upper lobe. Impression: Moderate pulmonary edema, small effusions, and cardiomegaly.
--- NOTE | 2018-07-18 21:24 | RAD ---
XR Thoracic Spine 3 V STANDARD History: [Back pain] Comparison: Chest radiograph 2019 Findings: No acute fracture or malalignment. Mild spondylosis lower thoracic spine. There appears to be a compression deformity of L1. Impression: Compression deformity of L1.
--- NOTE | 2018-07-18 21:26 | RAD ---
XR Lumbar Spine 2 Or 3 View History: [Pain] Comparison: None. Findings: There are compression deformities of L1, similar to the June 03, 2018 examination. Large b ridging anterior osteophyte at L1/L2. Impression: Compression deformity of L1 with minimal retropulsion. Approximately 30% anterior height loss.
--- NOTE | 2018-07-18 21:32 | CT ---
CT Cervical Spine WO Con History: [Pain.] Comparison: None. Findings: The occipital condyles are intact. The odontoid process is intact. There is no acute fractu re or malalignment of cervical spine. Multilevel ligamentum flavum calcifications. Lung apices are clear. The thyroid is enlarged. No prevertebral hematoma. No adenopathy. Dense calcifications of the intradural vertebral arteries. Impression: No acute fracture or malalignment.
--- NOTE | 2018-07-18 21:34 | CT ---
CT Thoracic Spine WO Con History: [Back pain.] Comparison: CT aortic dissection protocol May 2018. Findings: No acute fracture or malalignment of the thoracic spine. Spinous processes are intact. Sim ilar appearance of the L1 compression fracture with approximately 30% anterior height loss and minimal retropulsion which is healed. Mild atelectasis in the lung bases. Kidneys are atrophic. Mild third spacing of fluid. Visualized posterior ribs are intact. Impression: No acute fracture or malalignment of the thoracic spine. L1 compression deformity is unch anged.
--- NOTE | 2018-07-18 21:37 | CT ---
CT Lumbar Spine WO Con History: [Back pain] Comparison: CT angiogram May 2018 Findings: L1 compression deformity is similar. Approximately 30% anterior height loss with minimal re tropulsion which is healed. No acute superimposed fracture. Likely a small intraosseous hemangioma posteriorly at L5. Paraspinal soft tissues are unremarkable aside from mild third spacing of fluid. Impression: No acute fracture of the lumbar spine.
[2018-07-18 21:39] LABS: #Basophils 0.1 thou/uL (0.0-0.2); #Eosinphils 0.3 thou/uL (0.0-0.7); #Lymphocytes 1.2 thou/uL (1.20-3.40); #Monocytes 0.4 thou/uL (0.11-0.59); #Neutrophils 3.2 thou/uL (1.40-6.50); %Basophils 1.2 % (0.0-1.0); %Eosinophils 5.8 % (0.0-10.0); %Lymphocytes 22.5 % (21.0-51.0); %Monocytes 8.3 % (0.0-10.0); %Neutrophils 62.2 % (42.0-75.0); Hemoglobin 12.2 g/dL (12.0-16.0); Mean Corpuscular HGB CONC 31.7 g/dL (32.0-36.0); Mean Corpuscular Hemoglobin 30.6 pg (27.0-31.0); Mean Corpuscular Volume 96.6 fL (78.0-98.0); Platelet Count 167 thou/uL (130-400); RBC Distribution Width 15.4 % (11.5-14.5); Red Blood Cell (RBC) Count 3.98 mill/uL (4.20-5.40); White Blood Cell (WBC) Count 5.1 thou/uL (4.8-10.8)
[2018-07-18 22:01] LABS: ALT (SGPT) Less than 7 U/L (8-55); AST (SGOT) 9 U/L (5-34); Albumin 3.8 g/dL (3.5-5.0); Alkaline Phosphatase 236 U/L (40-150); Anion Gap 17 mmol/L (10-20); BUN (Urea Nitrogen) 37 mg/dL (9.8-20.1); Bilirubin, Total 0.9 mg/dL (0.2-1.2); Calc. Creatinine Clearance 0 mL/min (70-130); Calcium 9.9 mg/dL (7.8-10.44); Carbon Dioxide 29 mmol/L (22-29); Chloride 94 mmol/L (98-107); Estimated GFR-MDRD 8; Globulin 3.7 g/dL (2.4-3.5); Glucose 176 mg/dL (70-105); Potassium 4.6 mmol/L (3.5-5.1); Protein, Total 7.5 g/dL (6.0-8.3); Sodium 135 mmol/L (136-145)
== END 2018-07-18 23:50 | disposition home or self-care (01) ==
LOC: ERS 18:41
DX: I12.0 Hypertensive chronic kidney disease with stage 5 chronic kidney disease or end stage renal disease (principal); N18.6 End stage renal disease; E87.70 Fluid overload, unspecified; E11.22 Type 2 diabetes mellitus with diabetic chronic kidney disease; F41.9 Anxiety disorder, unspecified; Z99.2 Dependence on renal dialysis; Z87.891 Personal history of nicotine dependence; Z79.891 Long term (current) use of opiate analgesic; Z79.899 Other long term (current) drug therapy
CPT/HCPCS: 36415; 71045; 72072; 72100; 72125; 72128; 72131; 80053; 83880; 84484; 85025; 93005

== ENCOUNTER 2018-12-19 16:55 | Emergency (ER) | payer MEDICARE ==
[2018-12-19] MEDS ORDERED: diphenhydrAMINE 25 MG CAP ONE (18:20)
== END 2018-12-19 18:28 | disposition home or self-care (01) ==
LOC: ERS 16:55
DX: K13.0 Diseases of lips (principal); I25.10 Atherosclerotic heart disease of native coronary artery without angina pectoris; E11.22 Type 2 diabetes mellitus with diabetic chronic kidney disease; I12.0 Hypertensive chronic kidney disease with stage 5 chronic kidney disease or end stage renal disease; N18.6 End stage renal disease; F41.9 Anxiety disorder, unspecified; Z87.891 Personal history of nicotine dependence; Z79.899 Other long term (current) drug therapy; Z79.4 Long term (current) use of insulin
CPT/HCPCS: 99283; Q0163

== ENCOUNTER 2018-12-29 05:58 | Day surgery (SDC) | payer MEDICARE ==
[2018-12-28 16:28] VITALS: BMI 35.0
[2018-12-29] MEDS ORDERED: EPINEPHrine 0.3 MG, Dextrose 50% 3 ML in Ophthalmic Irrigation Solution 500 ML FS SCH (06:00)
[2018-12-29] MEDS ORDERED: Cyclopentolate 1% Opth Drop 2 ML BOT ONE (06:06)
[2018-12-29] MEDS ORDERED: Phenylephrine 2.5% Ophth Soln 5 ML BOT ONE (06:06)
[2018-12-29] MEDS ORDERED: Midazolam HCl 2 mg/2 ml Vial ONE (06:09)
[2018-12-29] MEDS ORDERED: PROPOFOL 20 ML ONE (06:09)
[2018-12-29] MEDS ORDERED: Fentanyl 100 MCG/2 ML VIAL ONE (06:09)
--- NOTE | 2018-12-29 12:03 | OP ---
DATE OF PROCEDURE: 12/29/2018 PRINCIPAL PREOPERATIVE DIAGNOSES: 1. Vitreous hemorrhage, left eye. 2. Proliferative diabetic retinopathy, left eye. ESTIMATED BLOOD LOSS: None. SPECIMENS REMOVED: None. COMPLICATIONS: None. ANESTHESIA: MAC with retrobulbar block. SUMMARY OF OPERATION: The patient was identified in the preoperative holding area, where the correct eye being the left eye was marked for surgery. The patient was taken to the operating room, where MAC anesthesia was induced. A retrobulbar block was administered to the left eye. The block consisted of 1:1 ratio of 4% lidocaine and 0.75% Marcaine. A total of 5 mL was administered. The left eye was prepped and draped in the usual sterile ophthalmic fashion for surgery. A wire lid speculum was placed. A standard 25-gauge pars plana vitrectomy platform was fashioned with trocars placed approximately 3.5 mm from the limbus. The infusion was noted to be within the vitreous cavity prior to being turned on to infusion pressure of 30 mmHg. The light pipe Micro vitrector introduced in the eye under visualization of BIOM viewing system. A significant vitreous hemorrhage was noted, obscuring a significant portion of the view of the fundus. A careful core and peripheral shave vitrectomy were performed, which allowed for complete clearance of the vitreous hemorrhage. A neovascular frond was noted a few disk diameters inferior to the optic nerve. Following complete clearance of the vitreous hemorrhage, the additional PRP was added to supplement the pre-existing PRP. The majority of the additional PRP was placed anterior to the pre-existing laser. Following laser, the cannulas were sequentially removed and all sclerotomy was noted to be watertight. Subconjunctival Ancef and Kenalog were injected. The wire lid speculum removed followed by application of TobraDex ophthalmic ointment and a light patch and shield. Job ID: [id number]
== END 2018-12-29 08:35 | disposition home or self-care (01) ==
LOC: SDC 05:58
PROVIDERS: ATTEND Ophthalmology Retina Specialist
PROC: 08T53ZZ Resection of Left Vitreous, Percutaneous Approach (ICD-10-PCS; principal; 2018-12-29)
PROC: 08QF3ZZ Repair Left Retina, Percutaneous Approach (ICD-10-PCS; 2018-12-29)
DX: E11.3592 Type 2 diabetes mellitus with proliferative diabetic retinopathy without macular edema, left eye (principal); H43.12 Vitreous hemorrhage, left eye; I13.0 Hypertensive heart and chronic kidney disease with heart failure and stage 1 through stage 4 chronic kidney disease, or unspecified chronic kidney disease; E11.22 Type 2 diabetes mellitus with diabetic chronic kidney disease; N18.9 Chronic kidney disease, unspecified; I50.9 Heart failure, unspecified; F17.200 Nicotine dependence, unspecified, uncomplicated; Z79.4 Long term (current) use of insulin; Z79.82 Long term (current) use of aspirin; Z79.899 Other long term (current) drug therapy; Z88.1 Allergy status to other antibiotic agents; Z91.013 Allergy to seafood; Z91.018 Allergy to other foods; Z91.040 Latex allergy status; Z91.041 Radiographic dye allergy status; Z91.048 Other nonmedicinal substance allergy status; Z95.5 Presence of coronary angioplasty implant and graft
CPT/HCPCS: 36416; J0171; J2250; J2704; J3010

== ENCOUNTER 2019-02-19 14:40 | Emergency (ER) | payer MEDICARE | END 2019-02-19 15:49 | disposition home or self-care (01) | LOC: ERS 14:40 | DX: L03.211 Cellulitis of face (principal); I10 Essential (primary) hypertension; I25.10 Atherosclerotic heart disease of native coronary artery without angina pectoris; E11.22 Type 2 diabetes mellitus with diabetic chronic kidney disease; N18.6 End stage renal disease; Z99.2 Dependence on renal dialysis; F41.9 Anxiety disorder, unspecified; Z87.891 Personal history of nicotine dependence; Z79.899 Other long term (current) drug therapy; Z79.2 Long term (current) use of antibiotics | CPT/HCPCS: 99283 ==

== ENCOUNTER 2019-03-07 17:27 | Observation (INO) | payer MEDICARE ==
[2019-03-07] MEDS ORDERED: Nitroglycerin 0.4 MG TAB 1 EACH ONE (17:45)
[2019-03-07 18:12] LABS: #Eosinphils 0.1 thou/uL (0.0-0.7); #Lymphocytes 0.6 thou/uL (1.20-3.40); #Monocytes 0.7 thou/uL (0.11-0.59); #Neutrophils 6.1 thou/uL (1.40-6.50); %Basophils 0.4 % (0.0-1.0); %Lymphocytes 8.1 % (21.0-51.0); %Monocytes 8.6 % (0.0-10.0); %Neutrophils 81.9 % (42.0-75.0); Hemoglobin 11.3 g/dL (12.0-16.0); Mean Corpuscular Hemoglobin 31.2 pg (27.0-31.0); Mean Corpuscular Volume 94.4 fL (78.0-98.0); Mean Platelet Volume 11.6 fL (7.4-10.4); Platelet Count 140 thou/uL (130-400); RBC Distribution Width 14.3 % (11.5-14.5); Red Blood Cell (RBC) Count 3.62 mill/uL (4.20-5.40); White Blood Cell (WBC) Count 7.5 thou/uL (4.8-10.8)
[2019-03-07] MEDS ORDERED: Ondansetron PF 4 MG/2 ML Vial ONE (18:12)
[2019-03-07] MEDS ORDERED: Morphine 4 MG/ML VIAL ONE (18:12)
[2019-03-07] MEDS ORDERED: Labetalol HCl 100 MG/20 ML VIAL ONE (18:15)
[2019-03-07 18:27] LABS: ALT (SGPT) 12 U/L (8-55); AST (SGOT) 14 U/L (5-34); Albumin 3.8 g/dL (3.5-5.0); Alkaline Phosphatase 222 U/L (40-110); Anion Gap 20 mmol/L (10-20); BUN (Urea Nitrogen) 33 mg/dL (9.8-20.1); Bilirubin, Total 0.9 mg/dL (0.2-1.2); Calc. Creatinine Clearance 0 mL/min (70-130); Calcium 9.1 mg/dL (7.8-10.44); Carbon Dioxide 25 mmol/L (22-29); Chloride 97 mmol/L (98-107); Estimated GFR-MDRD 9; Globulin 3.9 g/dL (2.4-3.5); Glucose 201 mg/dL (70-105); Potassium 4.5 mmol/L (3.5-5.1); Protein, Total 7.7 g/dL (6.0-8.3); Sodium 137 mmol/L (136-145)
--- NOTE | 2019-03-07 18:27 | RAD ---
EXAM: CHEST ONE VIEW HISTORY: Chest pain which has progressively gotten worse. COMPARISON: 07/18/2018 FINDINGS: Cardiac silhouette remains enlarged. There is mild prominence of the central pulmonary vasculature. T he lungs are clear. There is mild elevation of the right hemidiaphragm. There has been no other significant interval change from prior exam. IMPRESSION: 1. Cardiomegaly with mild prominence of the central pulmonary vasculature.
[2019-03-07] MEDS ORDERED: Acetaminophen 500 MG TAB ONE (18:41)
[2019-03-07] MEDS ORDERED: cloNIDine 0.1 MG TAB ONE (19:58)
[2019-03-07] MEDS ORDERED: Dextrose 50% Abboject 50 ML SYRINGE SLOW IVP PRN (21:18)
[2019-03-07] MEDS ORDERED: HumaLOG 300 UNITS/3 ML VIAL SC PRN ×2 (21:18)
[2019-03-07] MEDS ORDERED: Guaifenesin DM 100-10/5 ML UDCUP PO PRN (21:18)
[2019-03-07] MEDS ORDERED: Dextrose 5% in Water 1,000 ML IV PRN (21:18)
[2019-03-07] MEDS ORDERED: Ondansetron ODT 4 MG TAB PO PRN (21:18)
[2019-03-07] MEDS ORDERED: Acetaminophen 650 MG Suppository PR PRN (21:18)
[2019-03-07] MEDS ORDERED: Ondansetron PF 4 MG/2 ML Vial IVP PRN (21:18)
[2019-03-07] MEDS ORDERED: Acetaminophen 325 MG TAB PO PRN (21:18)
[2019-03-07] MEDS ORDERED: Senokot S 8.6-50 MG TAB PO PRN (21:18)
[2019-03-07] MEDS ORDERED: hydrOXYzine 25 MG TAB PO PRN (21:18)
[2019-03-07] MEDS ORDERED: hydrALAZINE 20 MG/ML VIAL SLOW IVP PRN (21:18)
[2019-03-07] MEDS ORDERED: Acetaminophen/Codeine 30-300mg Tablet PO PRN (21:18)
--- NOTE | 2019-03-07 21:21 | HP ---
PRIMARY CARE PHYSICIAN: Vandana Beard. CHIEF COMPLAINT: Chest pain. HISTORY OF PRESENT ILLNESS: This is a 58-year-old female with a history of end-stage renal disease, on dialysis; diabetes mellitus type 2, insulin dependent; hypertension; and diabetic gastroparesis with chronic intermittent nausea, vomiting, and mid epigastric pain. The patient reports that she was in her normal state of health until early this morning; around 3:30, she started having chest pain. The pain was pressure sensation, substernal just above the mid epigastrium radiating into both sides of the chest. Pain was coming and going in intensity throughout the day and then it became worse in the early afternoon. Pain was associated with some interval increase of her chronic nausea and vomiting. She did vomit 4 times per day. She does not usually vomit more than twice in a day. She also, for the last couple days, has had some congestion, some runny nose, and some scratchy throat with a mild cough with minimal sputum. She states that several people have had colds at the dialysis center where she goes for dialysis. The patient eventually came into the emergency room because of the chest discomfort. In the ER, she was found to have a temperature of a 101. They did give her nitroglycerin and morphine with resolution of her pain and she now has no pain or nausea at this time. She also got some Extra Strength Tylenol and the temperature has come down to 99. Her blood pressure was initially very elevated in the 200s/90s. After the nitroglycerin and a small dose of labetalol, it came down into the 170s and then back into the 180s and she is now getting her home clonidine dose. REVIEW OF SYSTEMS: CONSTITUTIONAL: Fevers and chills today only. EYES: No double vision or blurred vision. ENT: See HPI. CARDIOVASCULAR: See HPI. PULMONARY: See HPI. GASTROINTESTINAL: See HPI. No diarrhea or constipation. GENITOURINARY: She produces minimal urine. No complaints of pain or blood in the urine. MUSCULOSKELETAL: No muscle aches or joint pains. SKIN: She has chronic recurrent sores on her skin. She just finished a course of antibiotics of doxycycline and clindamycin about a week ago for some of these on her face. She is a known MRSA carrier. The patient also has had a lesion on her 3rd left toe, area of ulceration, but no pus and no spreading redness. She has been treating this with cleaning and with regular bandage changes. This has not changed recently. NEUROLOGIC: She denies any focal neurologic symptoms. No numbness, tingling, or weakness. No headaches. PAST MEDICAL HISTORY: 1. End-stage renal disease, on dialysis. 2. Diabetes mellitus type 2, insulin dependent. 3. Coronary artery disease. 4. Hypertension. 5. Hyperlipidemia. 6. Obesity. 7. Diabetic gastroparesis. PAST SURGICAL HISTORY: 1. Multiple amputations of toes on the left foot. 2. Tonsillectomy. 3. Adenoidectomy. 4. AV fistula placement. ALLERGIES: 1. LEVAQUIN. 2. IODINE. 3. SHELLFISH. FAMILY HISTORY: Significant for coronary artery disease. SOCIAL HISTORY: The patient does not smoke. No alcohol use. No illicit drug use. She did previously use crack cocaine, but none for over 10 years. No smoking for over 10 years. CURRENT MEDICATIONS: 1. Clonidine 0.2 mg twice a day. 2. Losartan 100 mg daily. 3. Carvedilol 6.25 mg twice a day. 4. Protonix 40 mg daily. 5. Clopidogrel 75 mg daily. 6. Nitroglycerin sublingual as needed. 7. Alprazolam 0.25 mg as needed. 8. Isosorbide mononitrate 30 mg daily. 9. Calcitriol 0.75 mcg orally on nondialysis days. 10. Hydroxyzine 25 mg every 6 hours as needed for itching. 11. Tylenol Extra Strength as needed for pain. 12. MiraLAX 17 g daily as needed for constipation. 13. Tylenol with Codeine #3 one tablet every 4 hours as needed for pain. 14. NovoLog 70/30, 30 units twice a day. PHYSICAL EXAMINATION: VITAL SIGNS: Blood pressure 181/75, pulse 77, respirations 21, temperature 99.3, O2 saturation 98%. GENERAL: This is a well-developed, well-nourished female, in no acute distress. HEENT: Pupils are equal, round, and reactive to light. Oropharynx is clear without lesions, erythema, or exudate. NECK: Supple. No lymphadenopathy. No thyroid nodules or enlargement. HEART: Regular rate and rhythm. No murmurs, rubs, or gallops. LUNGS: Clear to auscultation bilaterally. No wheezes, crackles, or rhonchi. ABDOMEN: Soft, nontender to palpation. Normoactive bowel sounds. No hepatosplenomegaly or other masses. EXTREMITIES: No clubbing, cyanosis, or edema. She does have a very superficial ulcer on the 3rd toe of her left foot and is surgically missing her 1st and 2nd toes of her left foot. No evidence of cellulitis or infection. SKIN: See ulcer as above. The patient also has multiple healed sores also covering her body. No actively infected ulcerations or sores. NEUROLOGIC: Patient moves all extremities with equal strength. No facial droop. PSYCHIATRIC: Alert and oriented x3. Normal mood and affect. LABORATORY DATA: CBC with a normal white blood cell count of 7.5, hemoglobin 11.3, hematocrit 34.2, platelet count 140. Complete metabolic panel is notable for a chloride of 97, a BUN of 33, a creatinine of 5.11, a glucose of 201, and alkaline phosphatase of 222; the rest is normal. Troponin was negative x1, 0.011. Influenza swab negative for type A and type B influenza. Chest x-ray; I did review the chest x-ray done in the emergency room along with the radiologist's report; it did show some cardiomegaly and some mild increased central pulmonary vasculature, but no evidence of pneumonia or infectious changes. ASSESSMENT: 1. Chest pain. The patient does have a history of coronary artery disease, so she is at risk for having a cardiac etiology. We will get serial enzymes on her and have Cardiology evaluate her in the morning. There is a possibility that this chest pain is actually related to her recurrent symptoms of gastroparesis. I will go ahead and give her some Reglan before meals, which she has been on in the past with good results. 2. Fever. This patient does not have any leukocytosis or tachycardia or other evidence of sepsis at this time, but her fever was remarkable over 101. We will monitor her fever curve and we will get blood cultures due to her end-stage renal disease, on dialysis and her diabetes, putting her at risk for significant bacterial infection. At this point, given her lack of septic symptoms and mild upper respiratory symptoms, I think this is most likely a virus and we will hold off on antibiotics at this time. 3. Hypertensive urgency, resolved with medications in the emergency room. She is still running somewhat high and we will resume her home medications including clonidine and we will give p.r.n. hydralazine as needed. 4. Diabetes mellitus type 2, insulin dependent. We will resume patient's insulin and then put her on sliding scale with q.a.c. and at bedtime blood sugars. 5. Nausea and vomiting. This is a chronic symptom for her, but worse currently likely because of her active infection. We will give her Zofran as needed and put her on a regular Reglan. 6. Gastrointestinal prophylaxis. We will continue patient's Protonix. 7. Deep vein thrombosis prophylaxis. We will encourage patient to ambulate. We will hold off on SCDs due to the ulcers in her feet and we will hold off on blood thinners currently because she has a tendency to bleed easily. 8. Code status. I did discuss this with the patient. She is a full code. Should she be incapacitated, she states that her would be her medical decision maker. His name is Markus Syed. Job ID: [id number]
[2019-03-07] MEDS ORDERED: cloNIDine 0.2 MG TAB PO SCH (21:45)
[2019-03-07] MEDS ORDERED: Metoclopramide HCl 10 MG TAB PO SCH (22:00)
[2019-03-07] MEDS ORDERED: HumuLIN 70/30 (300 UNITS/3 ML VIAL) SC SCH (22:00)
[2019-03-07 22:10] VITALS: BMI 38.2
[2019-03-07 22:16] LABS: Troponin I 0.026 ng/mL (< 0.028)
[2019-03-08 00:20] LABS: Troponin I 0.031 ng/mL (< 0.028)
[2019-03-08 05:16] VITALS: TEMP 98.2
[2019-03-08 05:24] LABS: #Eosinphils 0.1 thou/uL (0.0-0.7); #Lymphocytes 0.8 thou/uL (1.20-3.40); #Monocytes 0.8 thou/uL (0.11-0.59); %Basophils 0.2 % (0.0-1.0); %Eosinophils 1.2 % (0.0-10.0); %Lymphocytes 10.6 % (21.0-51.0); %Monocytes 10.8 % (0.0-10.0); %Neutrophils 77.2 % (42.0-75.0); Hemoglobin 11.7 g/dL (12.0-16.0); Mean Corpuscular HGB CONC 33.2 g/dL (32.0-36.0); Mean Corpuscular Hemoglobin 31.7 pg (27.0-31.0); Mean Corpuscular Volume 95.4 fL (78.0-98.0); Mean Platelet Volume 11.2 fL (7.4-10.4); Platelet Count 136 thou/uL (130-400); RBC Distribution Width 14.8 % (11.5-14.5); Red Blood Cell (RBC) Count 3.69 mill/uL (4.20-5.40); White Blood Cell (WBC) Count 7.8 thou/uL (4.8-10.8)
[2019-03-08 05:39] LABS: Anion Gap 21 mmol/L (10-20); BUN (Urea Nitrogen) 40 mg/dL (9.8-20.1); Calc. Creatinine Clearance 17 mL/min (70-130); Calcium 9.2 mg/dL (7.8-10.44); Carbon Dioxide 24 mmol/L (22-29); Chloride 96 mmol/L (98-107); Estimated GFR-MDRD 7; Glucose 180 mg/dL (70-105); Potassium 5.1 mmol/L (3.5-5.1); Sodium 136 mmol/L (136-145)
[2019-03-08] MEDS ORDERED: Metoclopramide HCl 10 MG TAB PO SCH (07:30)
[2019-03-08] MEDS ORDERED: Sevelamer Carbonate 800 MG TAB PO SCH (08:00)
[2019-03-08] MEDS ORDERED: Carvedilol 6.25 MG TAB PO SCH (08:00)
[2019-03-08] MEDS ORDERED: Aspirin 325 MG TAB PO SCH (08:00)
[2019-03-08 08:31] VITALS: BP 162/72
[2019-03-08] MEDS ORDERED: cloNIDine 0.2 MG TAB PO SCH (09:00)
[2019-03-08] MEDS ORDERED: HumuLIN 70/30 (300 UNITS/3 ML VIAL) SC SCH (09:00)
[2019-03-08] MEDS ORDERED: Calcitriol 0.25 MCG CAP PO SCH (09:00)
[2019-03-08] MEDS ORDERED: Losartan 25 MG TAB PO SCH (09:00)
[2019-03-08] MEDS ORDERED: Clopidogrel Bisulfate 75 MG TAB PO SCH (09:00)
[2019-03-08] MEDS ORDERED: Isosorbide Mononitrate (ER) 30 MG TAB PO SCH (09:00)
--- NOTE | 2019-03-08 09:42 | CON ---
DATE OF CONSULTATION: HISTORY OF PRESENT ILLNESS: Ms. Avila is a 58-year-old female with ESRD from diabetic nephropathy, on maintenance hemodialysis and admitted for chest pain. She was also noted to have a low-grade fever. In addition, the chest pain has resolved this morning. However, on close questioning, she complains more of difficulty/dysphagia and not able to eat. The working diagnosis is that this may be diabetic gastroparesis with this patient. Please note, she has longstanding history of diabetes mellitus. We were consulted for management of her ESRD. REVIEW OF SYSTEMS: Positive for fever. Positive for some nausea, but no diarrhea. Some difficulty eating. No gross hematuria. No dysuria. Chronic skin lesions. No headache. No diplopia. No syncopal episode ? of chest pain, but no shortness of breath. She has also some numbness and tingling sensation of her extremities. PAST MEDICAL HISTORY: ESRD from diabetic nephropathy-on maintenance dialysis, type 2 diabetes mellitus, coronary artery disease, hypertension, hyperlipidemia, morbid obesity, diabetic gastroparesis, coronary artery disease, history of noncompliance status post CHF secondary to diastolic dysfunction, peripheral vascular disease, GERD, and ? of COPD. PAST SURGICAL HISTORY: Status post PD catheter placement subsequent removal, status post cardiac cath with coronary artery stent placement, status post cholecystectomy, status post upper GI endoscopy, status post cuffed hemodialysis catheter placement, and status post AV fistula placement. ALLERGIES: LEVAQUIN AND LATEX. TRAUMA: None. IMMUNIZATIONS: Up-to-date. HOSPITALIZATIONS: Please see past medical history. SOCIAL HISTORY: The patient is . Lives in [place]. Four children. Sedentary lifestyle. Education, high school. Status post multiple blood transfusion. 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 No IV drug abuse. No alcohol use. FAMILY HISTORY: No family history of ESRD. MEDICATIONS: Currently on; 1. Acetaminophen with codeine 1 tablet q.6 p.r.n. 2. Aspirin 325 mg once a day. 3. Calcitriol 0.75 mcg p.o. daily. 4. Coreg 6.25 mg b.i.d. 5. Vitamin D3 of 2000 international units daily. 6. Clonidine 0.2 mg b.i.d. 7. Clopidogrel 75 mg once a day. 8. Glucagon p.r.n. 9. Humalog sliding scale. 10. Humulin 70/30 of 30 units subcu b.i.d. 11. Hydroxyzine 25 mg p.o. t.i.d. p.r.n. 12. Imdur 30 mg tablet once a day. 13. Losartan 100 mg daily. 14. Reglan 10 mg p.o. before meals. 15. Zofran 4 mg IV q.6 p.r.n. 16. Protonix 40 mg tablet once a day. 17. Renvela 800 mg 3 tablets t.i.d. with meals. PHYSICAL EXAMINATION: VITAL SIGNS: Blood pressure 162/72, heart rate 74, respiratory rate 20, temperature 98.2, and pulse ox 92%. GENERAL: Noted to be awake, alert, comfortable, not in distress. SKIN: Adequate turgor. HEENT: She has a pinkish conjunctivae. Anicteric sclerae. NECK: No neck mass. No carotid bruits. No JVD. CHEST: No deformities. LUNGS: Clear breath sounds. No wheezing. No crackles. HEART: Normal sinus rhythm. No murmur. No gallops. No rubs. ABDOMEN: Globular, soft, nontender. No masses. EXTREMITIES: No edema. No deformities. LABORATORY DATA: Laboratories of March 08, 2019; white count 7.8 and hemoglobin 11.7. Sodium 136, potassium 5.1, chloride 96, carbon dioxide 24, BUN 40, creatinine 6.06, glucose 180, and calcium 9.2. Troponin I 0.026. ASSESSMENT AND PLAN: 1. Dysphagia-presumptive diabetic gastroparesis. Currently, on Reglan. Continue supportive care. 2. End-stage renal disease, stable. No indication for any emergent hemodialysis with this patient. We will resume her back on her regular 3 times a week hemodialysis regimen of Wednesday, , and Wednesday. 3. Hypertension, continue current BP medications. 4. Hyperphosphatemia, currently on Renvela. 5. Review of her last Kt/V suggests she is adequately dialyzed with the current dialysis regimen. Job ID: [id number]
--- NOTE | 2019-03-08 11:04 | DIS ---
DATE OF ADMISSION: 03/07/2019 DATE OF DISCHARGE: 03/08/2019 DISCHARGE DIAGNOSES: 1. Chest pain, ruled out for acute coronary syndrome. 2. Hypertensive urgency. 3. Fevers of unspecified etiology. Presumed viral etiology. 4. End-stage renal disease, on hemodialysis. 5. Coronary artery disease history with prior stenting, last in 2014, with last stress test 2 to 3 months ago. 6. 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 7. Chronic skin and soft tissue changes. 8. Morbid obesity with body mass index of 38. 9. History of gastroparesis. DISCHARGE MEDICATIONS: Continue all home medications. Please see discharge medication reconciliation. DISCHARGE ACTIVITY: Up ad marcia with Rollator. DISCHARGE DIET: Renal diet. FOLLOWUP INSTRUCTIONS: Continue your routine hemodialysis. Resume all home medications. Monitor your blood pressures. Monitor your salt and water intake. Protonix refill prescription sent to the pharmacy. Monitor for recurrent fevers or worsening of symptoms. CONSULTANTS DURING HOSPITALIZATION COURSE: Nephrology. BRIEF HOSPITALIZATION COURSE: A 58-year-old morbidly obese female with past medical history of coronary artery disease, status post stenting in 2011 and 2014 with last stress test three months ago, reportedly unremarkable, compliant on CAD preventing medications including dual anti-platelet therapy; ESRD, on hemodialysis via left upper extremity access, last on 03/06/2019; type 2 diabetes mellitus, insulin dependent with microvascular complication including prior toe amputations, who has been battling a recent foot ulcer, completing course of oral antibiotics with clindamycin and doxycycline, hypertension who presented to [facility] ER for complaints of chest pain and shortness of breath that started Wednesday morning at 3:30 a.m. and lasted for 12-hour duration. The patient reports the night prior eating chicken and broccoli that was cooked by a family member and awakening in cans vacuum tester hours with aforementioned complaints, described as discomfort in the right side of the chest that traversed across to the left side of the chest with ambulation and exertion, associated with shortness of breath, and relieved with rest and lying in left lateral decubitus position. The patient is compliant with all home medications. She reports sick contacts with her [id number] and her son who have recently been diagnosed with flu. Furthermore, she reports recent nasal drainage for about 3 to 4 days and reports other sick contacts in dialysis unit. In ER, she was noted to have a T-max of 101.3 in the absence of leukocytosis or any other SIRS criteria. Initial blood pressures were hypertensive. Influenza antigen was negative. Blood cultures were obtained. Initial troponin was mildly elevated at 0.031 with 12-lead EKG revealing normal sinus rhythm with some T-wave flattening in the lateral leads. The patient is admitted for further observation. Serial cardiac biomarkers were monitored and negative. The patient's home blood pressure medications were restarted with normotensive blood pressure readings. Her symptoms resolved. She did not have any recurrence of fevers. Blood cultures were no growth to date. She was seen by Nephrology and recommended routine hemodialysis, which is scheduled on 03/09/2019 due to holiday schedule. Chest x-ray did suggest some pulmonary vascular congestion, but the patient is not exhibiting signs of oxygen desaturation and was functional in her baseline. Her symptoms resolved back to her baseline. She felt well to go home. She notes recent stress test three months ago by her novelties sales representative, Dr. Lerma, and has otherwise had no other anginal complaints. She notes no other signs of skin or soft tissue infection. She denies any prior history of bloodstream infection from dialysis access site. Thus, she will be discharged home in stable condition. She should continue all of her home medications. Blood pressures were normotensive again. Prescription refill for Protonix will be sent to pharmacy. She should monitor salt and water intake, and monitor her blood pressures and for any recurrence of fevers. She should continue wound care to ulcer on left third toe and removed toenail on the right hallux. She verbalizes full understanding of all discharge plan and instructions, was seen and evaluated and discharged today with a [id number] encounter, will be discharged home in stable condition. DISCHARGE PHYSICAL EXAMINATION: VITAL SIGNS: On date of discharge, temperature 98.2, pulse 74, blood pressure 150/64 to 162/72, oxygen saturation 92% on room air, respirations 17 and unlabored. GENERAL APPEARANCE: Middle-aged obese female who is awake, alert, oriented, quite lucid, speaking in full complete sentences, nontoxic in appearance. HEENT: Normocephalic, atraumatic. No facial asymmetry. Pupils are equally round. Extraocular muscles are intact. NECK: Supple. CARDIOVASCULAR SYSTEM: S1 and S2. Regular rate and rhythm. No harsh murmurs. No reproducible chest wall tenderness to palpation. LUNGS: Bilateral equal air entry on posterior auscultation. Symmetrical chest expansion. No wheezing or rales. Nonlabored respirations. ABDOMEN: Soft, nontender, nondistended. No peritoneal signs. EXTREMITIES: There is chronic skin and soft tissue changes noted overlying the entirety of body with no evidence of cellulitis. There is evidence of amputation in the left foot and a scabbed lesion overlying the left third toe without purulence, overlying necrosis or signs of infection. There is a removed toenail on the right great hallux. There is a left upper extremity dialysis access site with palpable thrill. SKIN: Warm to touch without rash or pallor. Scattered skin and soft tissue changes throughout body. Job ID: [id number]
== END 2019-03-08 12:00 | disposition home or self-care (01) ==
LOC: ERS 17:27 → 2SW 19:47
PROVIDERS: ADMIT Emergency Medicine; ATTEND Emergency Medicine
DX: R07.89 Other chest pain (principal); I16.0 Hypertensive urgency; K31.84 Gastroparesis; I12.0 Hypertensive chronic kidney disease with stage 5 chronic kidney disease or end stage renal disease; E11.22 Type 2 diabetes mellitus with diabetic chronic kidney disease; N18.6 End stage renal disease; E66.01 Morbid (severe) obesity due to excess calories; I25.10 Atherosclerotic heart disease of native coronary artery without angina pectoris; R50.9 Fever, unspecified; Z68.38 Body mass index [BMI] 38.0-38.9, adult; Z79.4 Long term (current) use of insulin; Z79.82 Long term (current) use of aspirin; Z79.83 Long term (current) use of bisphosphonates; Z79.899 Other long term (current) drug therapy; Z87.891 Personal history of nicotine dependence; Z88.1 Allergy status to other antibiotic agents; Z91.013 Allergy to seafood; Z91.018 Allergy to other foods; Z91.040 Latex allergy status; Z91.041 Radiographic dye allergy status; Z91.048 Other nonmedicinal substance allergy status; Z95.5 Presence of coronary angioplasty implant and graft; Z89.429 Acquired absence of other toe(s), unspecified side; Z99.2 Dependence on renal dialysis
CPT/HCPCS: 71045; 80048; 80053; 82962 ×2; 83605; 84484 ×2; 85025 ×2; 87040; 87804 ×2; 93005; 96374; 96375; 97139; 99285; G0378 ×3; 36415; 36416; J1815; J2270; J2405

== ENCOUNTER 2019-05-30 11:30 | Emergency (ER) | payer MEDICARE ==
[2019-05-30] MEDS ORDERED: Morphine 4 MG/ML VIAL ONE (12:45)
== END 2019-05-30 13:06 | disposition home or self-care (01) ==
LOC: ERS 11:30
DX: S01.20XA Unspecified open wound of nose, initial encounter (principal); L08.9 Local infection of the skin and subcutaneous tissue, unspecified; I25.10 Atherosclerotic heart disease of native coronary artery without angina pectoris; I12.0 Hypertensive chronic kidney disease with stage 5 chronic kidney disease or end stage renal disease; E11.22 Type 2 diabetes mellitus with diabetic chronic kidney disease; N18.6 End stage renal disease; Z87.891 Personal history of nicotine dependence; Z79.899 Other long term (current) drug therapy; Z79.4 Long term (current) use of insulin; X58.XXXA Exposure to other specified factors, initial encounter
CPT/HCPCS: 96372; 99283; J2270

== ENCOUNTER 2019-08-23 22:53 | Inpatient (IN) | payer MEDICARE, OTHER ==
--- NOTE | 2019-08-23 23:35 | RAD ---
XR Chest 1 View Portable HISTORY: Chest pain, shortness of breath COMPARISON: 03/07/2019 FINDINGS: The heart is enlarged. Mild infiltrate is seen in the right lower lung. No pneumothoraces o r large effusions are seen. There is mild prominence of the pulmonary vascularity.
[2019-08-23 23:37] LABS: #Basophils 0.1 thou/uL (0.0-0.2); #Eosinphils 0.2 thou/uL (0.0-0.7); #Lymphocytes 1.1 thou/uL (1.20-3.40); #Monocytes 0.7 thou/uL (0.11-0.59); #Neutrophils 13.7 thou/uL (1.40-6.50); %Basophils 0.4 % (0.0-1.0); %Eosinophils 1.3 % (0.0-10.0); %Lymphocytes 7.1 % (21.0-51.0); %Monocytes 4.2 % (0.0-10.0); Hemoglobin 11.1 g/dL (12.0-16.0); Mean Corpuscular HGB CONC 33.1 g/dL (32.0-36.0); Mean Corpuscular Hemoglobin 31.1 pg (27.0-31.0); Mean Corpuscular Volume 93.8 fL (78.0-98.0); Mean Platelet Volume 10.7 fL (7.4-10.4); Platelet Count 161 thou/uL (130-400); RBC Distribution Width 14.2 % (11.5-14.5); Red Blood Cell (RBC) Count 3.57 mill/uL (4.20-5.40); White Blood Cell (WBC) Count 15.8 thou/uL (4.8-10.8)
[2019-08-24 00:02] LABS: ALT (SGPT) 9 U/L (8-55); AST (SGOT) 14 U/L (5-34); Albumin 3.8 g/dL (3.5-5.0); Alkaline Phosphatase 125 U/L (40-110); Anion Gap 21 mmol/L (10-20); BUN (Urea Nitrogen) 51 mg/dL (9.8-20.1); Bilirubin, Total 0.7 mg/dL (0.2-1.2); Calc. Creatinine Clearance 0 mL/min (70-130); Calcium 9.1 mg/dL (7.8-10.44); Carbon Dioxide 26 mmol/L (22-29); Chloride 96 mmol/L (98-107); Estimated GFR-MDRD 6; Globulin 3.9 g/dL (2.4-3.5); Glucose 179 mg/dL (70-105); Potassium 5.5 mmol/L (3.5-5.1); Protein, Total 7.7 g/dL (6.0-8.3); Sodium 137 mmol/L (136-145)
[2019-08-24 00:17] LABS: CKMB 1.2 ng/mL (0-6.6)
[2019-08-24] MEDS ORDERED: Aspirin 325 MG TAB ONE (00:20)
[2019-08-24] MEDS ORDERED: Cefepime 2 GM in Sodium Chloride 0.9% 100 ML IVPB SCH (00:30)
[2019-08-24 00:34] LABS: INR-International Normal Ratio 1.1; PTT 31.7 sec (22.9-36.1); Prothrombin Time 14.4 sec (12.0-14.7)
[2019-08-24] MEDS ORDERED: Cefepime 2 GM VIAL ONE (01:00)
[2019-08-24] MEDS ORDERED: Acetaminophen 650 MG Suppository PR PRN (03:02)
[2019-08-24] MEDS ORDERED: Acetaminophen 325 MG TAB PO PRN (03:02)
[2019-08-24] MEDS ORDERED: Nitroglycerin 0.4 MG TAB (25 Tab Bottle) PO PRN (03:04)
[2019-08-24 03:08] LABS: Troponin I 0.022 ng/mL (< 0.028)
[2019-08-24] MEDS ORDERED: Dextrose 5% in Water 1,000 ML IV PRN (03:21)
[2019-08-24] MEDS ORDERED: Dextrose 50% Abboject 50 ML SYRINGE SLOW IVP PRN (03:21)
[2019-08-24] MEDS ORDERED: HumaLOG 300 UNITS/3 ML VIAL SC PRN (03:21)
[2019-08-24] MEDS ORDERED: Ondansetron ODT 4 MG TAB PO PRN (03:46)
[2019-08-24] MEDS ORDERED: Ondansetron PF 4 MG/2 ML Vial IVP PRN (03:46)
[2019-08-24] MEDS ORDERED: cloNIDine 0.2 MG TAB PO SCH (04:00)
[2019-08-24 04:17] VITALS: BMI 43.4
--- NOTE | 2019-08-24 04:59 | HP ---
TIME OF ASSESSMENT: 0200 hours. PRIMARY CARE PHYSICIAN: [facility]. CHIEF COMPLAINT: Left-sided chest pain. HISTORY OF PRESENT ILLNESS: Ms. Avila is a 59-year-old woman, who presents to the Emergency Department following an episode of chest pain that started around 5 p.m. this evening while she was lying down watching TV. The patient states she was lying on her left side and she suddenly experienced pain that started in her left arm and trailed up towards her shoulder into the left side of her chest. She states it felt sharp in nature, lasting 1 minute and recurring every 10 minutes until she received aspirin in the Emergency Department. The patient states the pain was a 7/10 in severity. Denies any associated shortness of breath or diaphoresis. Does report feeling nauseated, but that has settled since she received Zofran in the Emergency Department. She states she often does experience mild nausea especially when undergoing dialysis. The patient appears apparently has had issues with chest pain that would occur during dialysis and she was advised by her compliance administrator, Dr. Lerma to inform him if she developed any recurrent pain again. The patient also reports having a persistent dry cough for the last several days. She has found out that she has had several exposures to other people who were potentially positive for COVID. She states she received a letter from the dialysis unit stating a nurse and the patient was found to be COVID positive. Her [id number], who attends appointments with the patient recently visited her ex-, who was found to be COVID positive. The patient states her current works at [employer] and is awaiting COVID testing, which was ordered for all employees. She denies having any fevers or chills. ALLERGIES: 1. LEVAQUIN. 2. LATEX GLOVES. 3. IODINE. 4. ADHESIVE TAPE. 5. SHELLFISH CONTAINING PRODUCTS. CURRENT MEDICATIONS: 1. Clonidine. 2. Losartan. 3. Carvedilol. 4. Protonix. 5. Clopidogrel. 6. Nitroglycerin sublingual. 7. Alprazolam. 8. Isosorbide mononitrate. 9. Calcitriol. 10. Hydroxyzine. 11. Tylenol Extra Strength. 12. MiraLAX. 13. Tylenol with Codeine No. 3. 14. NovoLog. 15. Clindamycin. 16. Lidocaine. 17. Tramadol. PAST MEDICAL HISTORY: 1. Diabetes mellitus. 2. Hypertension. 3. CAD. 4. End-stage renal disease on hemodialysis. PAST SURGICAL HISTORY: 1. Two toes amputated. 2. Cholecystectomy. 3. Tonsillectomy. 4. Bilateral cataract surgery. 5. Cardiac stents x2. 6. Left arm shunt placement. 7. LASIK surgery. 8. Nasal surgery. SOCIAL HISTORY: The patient lives with her second . Apparently a former drug user including cocaine and crack. The patient is a former tobacco user, but denies any current tobacco use or alcohol consumption. Denies any current illicit drug use. She apparently quit smoking more than 10 years ago. PHYSICAL EXAMINATION: GENERAL: The patient appears well developed, obese, in no acute distress. VITAL SIGNS: Temperature 98, pulse 70, blood pressure 133/78, O2 saturation 97% on room air, and respiratory rate 16. HEENT: Normocephalic and atraumatic. Pupils are equal, round, and reactive to light. Sclerae icterus. Oropharynx is clear. NECK: Supple. LUNGS: Clear to auscultation bilaterally without wheezes, rales, or rhonchi. CARDIAC: Regular rate and rhythm. ABDOMEN: Soft, nontender, and nondistended. Normoactive bowel sounds present. Obese. No guarding or rigidity. No renal angle tenderness. EXTREMITIES: Notable for multiple skin lesions, which the patient states are reactions to dialysis. These are present on her forearms and on the left side extending up her shoulder and around to her back. No fresh wounds. NEUROLOGIC: Alert and oriented x3. No neuro deficits on exam. LABORATORY DATA: White count 15.8, hemoglobin 11.1, hematocrit 33.5, platelets 161, and neutrophils 87%. PT 14.4, INR 1.1, and PTT 31.7. Sodium 137, potassium 5.5, chloride 96, BUN 51, creatinine 7.1, GFR 6, glucose 129, and alkaline phosphatase 125. Troponin indeterminate at 0.033, second troponin 0.022. BNP 1997.9, this is significantly lower from previous BNP of 4880 and albumin 3.8. IMAGING DATA: Chest x-ray obtained in the ED showed an enlarged heart. Mild infiltrate seen in the right lower lobe. No pneumothoraces or large effusion seen. Mild prominence of pulmonary vascularity. ED COURSE: EKG done in the Emergency Department showed normal sinus rhythm. Investigations as mentioned above. The patient was started on IV antibiotics with cefepime. She was given aspirin 324 mg p.o. on arrival. She remains pain free since arriving to the Emergency Department. She is being referred for continued observation and further workup. ASSESSMENT AND PLAN: Ms. Avila is a pleasant 59-year-old woman, with multiple comorbidities, who presents with left-sided chest pain that she experienced earlier this evening. The patient being admitted for management of the following. 1. Acute coronary syndrome rule out. We will continue to trend troponins. She is known to Dr. Lerma, whom she states instructed her to notify him if she had any recurrent chest pain, which she has felt in the past during dialysis. Consultation has been placed with Dr. Lerma as per her request. We will continue to trend troponins. We will check magnesium, lipid panel, and TSH with morning labs, which will be due shortly. 2. Leukocytosis. Possibly associated with underlying pneumonia. Chest x-ray did not demonstrate a mild asymmetry in the right lower lung and she has an elevated white count. We will add lactic acid to labs. The patient given IV antibiotics in the Emergency Department, which we will continue. COVID testing obtained and results pending. 3. Hypertension. Monitor blood pressure. Resume home medications once verified. 4. Diabetes mellitus. Initiate sliding scale. Monitor blood glucose. 5. End-stage renal disease. The patient due for dialysis tomorrow. We will consult Dr. Talley, who is her data compiler. 6. Gastrointestinal prophylaxis with famotidine. 7. Code status, full. Surrogate decision maker: The patient states she wants to discuss this further as she is unsure, which one of her son she would like to give medical power of prosecuting attorney to, and is in fact interested in speaking to someone about establishing medical power of prosecuting attorney more formally. The patient's case discussed with attending, who agrees with plan of care as described above. Job ID: [id number]
[2019-08-24 06:07] LABS: Anion Gap 21 mmol/L (10-20); BUN (Urea Nitrogen) 58 mg/dL (9.8-20.1); Calc. Creatinine Clearance 16 mL/min (70-130); Calcium 9.4 mg/dL (7.8-10.44); Carbon Dioxide 25 mmol/L (22-29); Cardiac Risk 2.1 (Less than 4.5); Chloride 96 mmol/L (98-107); Cholesterol 128 mg/dl (< 200 Desired); Estimated GFR-MDRD 6; Glucose 195 mg/dL (70-105); HDL Cholesterol 60 mg/dL (>60 Neg Risk); LDL Cholesterol, Calculated 53 mg/dL; Potassium 5.2 mmol/L (3.5-5.1); Sodium 137 mmol/L (136-145); Triglycerides 77 mg/dL (Less than 150)
[2019-08-24 06:11] LABS: Troponin I 0.024 ng/mL (< 0.028)
[2019-08-24] MEDS ORDERED: Acetaminophen/Codeine 30-300mg Tablet PO PRN (07:26)
[2019-08-24] MEDS ORDERED: Calcium Carbonate 500 MG ChewTAB PO PRN (07:26)
--- NOTE | 2019-08-24 07:45 | ULT ---
BILATERAL LOWER EXTREMITY VENOUS ULTRASOUND: COMPARISON: 08/26/2015. HISTORY: Bilateral lower extremity pain and edema. TECHNIQUE: Multiplanar, love scale, and color Doppler images were obtained in a bilateral lower extremity venous ultrasound. Spectral analysis of the Doppler waveforms was performed. FINDINGS: Bilateral common femoral veins, profunda femoral veins, superficial femoral veins, and popliteal vein s are normal in appearance without visible thrombus. These vessels demonstrate normal compression, f low, and augmentation. The posterior tibial veins and greater saphenous veins are also patent. IMPRESSION: No evidence of deep vein thrombosis. POS: ELAN
[2019-08-24] MEDS: Calcitriol 0.25 MCG CAP PO SCH (08:34)
[2019-08-24] MEDS: Aspirin Chewable 81 MG TAB PO SCH (08:35)
[2019-08-24] MEDS: Carvedilol 6.25 MG TAB PO SCH ×2 (08:35→16:45)
[2019-08-24] MEDS: Clopidogrel Bisulfate 75 MG TAB PO SCH (08:35)
[2019-08-24] MEDS: Docusate 100 MG CAP PO SCH ×2 (08:35→21:39)
[2019-08-24] MEDS: Losartan 25 MG TAB PO SCH (08:35)
[2019-08-24] MEDS: HumuLIN 70/30 (300 UNITS/3 ML VIAL) SC SCH ×2 (08:36→16:38)
[2019-08-24] MEDS ORDERED: Aspirin 81 mg Enteric Coated Tablet PO SCH (09:00)
[2019-08-24] MEDS: Famotidine/PF 20 mg/2ml Vial SLOW IVP SCH (09:03)
[2019-08-24 09:31] LABS: #Basophils 0.1 thou/uL (0.0-0.2); #Eosinphils 0.3 thou/uL (0.0-0.7); #Lymphocytes 1.1 thou/uL (1.20-3.40); #Monocytes 0.6 thou/uL (0.11-0.59); %Basophils 0.6 % (0.0-1.0); %Eosinophils 2.5 % (0.0-10.0); %Monocytes 6.3 % (0.0-10.0); %Neutrophils 79.5 % (42.0-75.0); Hemoglobin 11.2 g/dL (12.0-16.0); Mean Corpuscular HGB CONC 32.5 g/dL (32.0-36.0); Mean Corpuscular Hemoglobin 30.7 pg (27.0-31.0); Mean Corpuscular Volume 94.2 fL (78.0-98.0); Mean Platelet Volume 11.3 fL (7.4-10.4); Platelet Count 138 thou/uL (130-400); RBC Distribution Width 14.2 % (11.5-14.5); Red Blood Cell (RBC) Count 3.64 mill/uL (4.20-5.40); White Blood Cell (WBC) Count 10.1 thou/uL (4.8-10.8)
[2019-08-24] MEDS: Cefepime 2 GM in Sodium Chloride 0.9% 100 ML IVPB SCH (16:44)
[2019-08-24] MEDS ORDERED: hydrALAZINE 20 MG/ML VIAL SLOW IVP PRN (17:09)
[2019-08-24] MEDS ORDERED: hydrALAZINE 20 MG/ML VIAL SLOW IVP SCH (17:15)
--- NOTE | 2019-08-24 17:23 | CON ---
DATE OF CONSULTATION: 08/24/2019 HISTORY OF PRESENT ILLNESS: Ms. Avila is a 59-year-old female with ESRD, admitted for left-sided chest pain. She is being ruled out for myocardial infarction. She is also being ruled out for a COVID testing. We are being consulted for maintenance hemodialysis. REVIEW OF SYSTEMS: Positive for left-sided chest pain. No shortness of breath. No fever or chills. No diarrhea. No constipation. No productive cough. No gross hematuria. No dysuria. No urinary frequency. Appetite and energy level are fair. No headache. No diplopia. ALLERGIES: 1. LEVAQUIN. 2. LATEX. 3. IODINE. 4. SHELLFISH CONTAINING PRODUCTS. TRAUMA: None. IMMUNIZATIONS: Up-to-date. HOSPITALIZATIONS: Please see past medical history. MEDICATIONS: Medications of August 24, 2019; 1. Acetaminophen 1 tab q.6 p.r.n. 2. Aspirin 81 mg tablet once a day. 3. Atorvastatin 40 mg tablet at bedtime. 4. Calcitriol 0.75 mcg one tablet daily. 5. Carvedilol 6.25 mg p.o. b.i.d. 6. Cefepime 2 g IV q.12. 7. Clopidogrel 75 mg once a day. 8. Famotidine 20 mg IV daily. 9. Humalog sliding scale. 10. Imdur 30 mg once a day. 11. Losartan 100 mg daily. 12. Protonix 40 mg tablet once a day. PAST MEDICAL HISTORY: 1. ESRD from diabetic nephropathy, currently on maintenance hemodialysis Wednesday, , and Wednesday. 2. Type 2 diabetes mellitus, coronary artery disease, status post CHF, diabetic gastroparesis, history of noncompliance, status post CHF secondary to diastolic dysfunction, peripheral vascular disease, GERD, ? Of COPD, longstanding hypertension, hyperlipidemia, morbid obesity. PAST SURGICAL HISTORY: Status post AV fistula placement, status post cuffed hemodialysis catheter placement, status post PD catheter placement with subsequent removal, status post cardiac cath with coronary artery stent placement, status post upper GI endoscopy, status post cholecystectomy. FAMILY HISTORY: No family history of ESRD. SOCIAL HISTORY: The patient lives in [place]. , 4 children. Sedentary lifestyle. 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 No IV drug abuse. Currently, no smoking, no alcohol intake. PHYSICAL EXAMINATION: VITAL SIGNS: Blood pressure is noted at 181/80, heart rate 73, respiratory rate 18, temperature 95.6, O2 saturation 94%. GENERAL: Noted to be awake, alert, comfortable, not in overt distress. SKIN: Adequate turgor. HEENT: She has pinkish conjunctivae. Anicteric sclerae. NECK: No neck mass. No carotid bruits. No JVD. CHEST: No deformities. LUNGS: Clear breath sounds. No wheezing. No crackles. HEART: Normal sinus rhythm. No murmur. No gallops. No rubs. ABDOMEN: Globular, soft, nontender. No masses. EXTREMITIES: No edema. IMAGING STUDIES: Chest x-ray showed mild infiltrate is seen in the right lower lung. There are increased lung markings. LABORATORY DATA: Laboratories of August 24, 2019; white count 10.1, hemoglobin 11.2. Sodium 137, potassium 5.2, chloride 96, carbon dioxide 25, BUN 58, creatinine 7.34, glucose 195, calcium 9.4. ASSESSMENT AND PLAN: 1. End-stage renal disease, was scheduled for hemodialysis today. We will do hemodialysis within 3 or 4 hours. Fluid removal as tolerated by the patient. 2. COVID-19 exposure-patient being ruled out for COVID. 3. Chest pain. The patient is ruling out for myocardial infarction. Please note, she had a cardiac cath with stent placement several months ago. Consider Cardiology consult if needed. 4. Overall agree with current management. ADDENDUM: Review of the last Kt/V suggests the patient is adequately dialyzed with the current dialysis regimen. Job ID: [id number]
[2019-08-24 17:29] LABS: SARS-CoV-2 MS2 Positive; SARS-CoV-2 N Gene Negative; SARS-CoV-2 S Gene Negative; SARS-CoV-2 orf1ab Negative
[2019-08-24] MEDS: HumaLOG 300 UNITS/3 ML VIAL SC PRN (18:17)
[2019-08-24] MEDS ORDERED: Atorvastatin Calcium 40 MG TAB PO SCH (21:00)
[2019-08-25] MEDS: Cefepime 2 GM in Sodium Chloride 0.9% 100 ML IVPB SCH (00:16)
[2019-08-25] MEDS ORDERED: hydrOXYzine 25 MG TAB PO SCH (00:45)
[2019-08-25] MEDS ORDERED: diphenhydrAMINE 25 MG CAP PO SCH (03:15)
[2019-08-25] MEDS: HumaLOG 300 UNITS/3 ML VIAL SC PRN (06:32)
--- NOTE | 2019-08-25 08:51 | PRG ---
DATE OF SERVICE: SUBJECTIVE: Ms. Avila is a 59-year-old female with ESRD and was initially admitted for chest pain and shortness of breath. We are following her up for her ESRD. She did undergo hemodialysis with about 3.5 L fluid removal yesterday. She is feeling better. She still has some pain on the left upper extremity as well as occasional lower leg pain. No complaints of chest pain or shortness of breath right now. She is also ruled out for COVID. OBJECTIVE: VITAL SIGNS: Blood pressure 106/68, heart rate 118, respiratory rate 16, temperature 97.3, and O2 sat 94% room air. GENERAL: Awake, alert, comfortable, not in distress. SKIN: Adequate turgor. HEENT: The patient has pinkish conjunctivae. Anicteric sclerae. No neck mass. No carotid bruits. No JVD. CHEST: No deformities. LUNGS: Clear breath sounds. No wheezing. No crackles. HEART: Normal sinus rhythm. No murmur. No gallops. No rubs. ABDOMEN: Globular and soft. EXTREMITIES: No edema. LABORATORY DATA: August 24, 2019; white count 10.1, hemoglobin 11.2, sodium 137, potassium 5.2, chloride 96, carbon dioxide 25, BUN 58, creatinine 7.34, glucose 195, and calcium 9.4. August 23, 2019; chest x-ray, increased lung marking. ASSESSMENT AND PLAN: 1. End-stage renal disease, stable, tolerating current hemodialysis regimen. We will continue Wednesday, and Wednesday dialysis regimen. Fluid removal as tolerated. 2. Chest pain, resolved. Still has some left upper extremity pain and lower leg pain, which could be all related to a diabetic neuropathy. 3. Overall agree with current management. Job ID: [id number] [facility]
[2019-08-25] MEDS: Calcitriol 0.25 MCG CAP PO SCH (08:56)
[2019-08-25] MEDS: Losartan 25 MG TAB PO SCH (08:57)
[2019-08-25] MEDS: Clopidogrel Bisulfate 75 MG TAB PO SCH (08:58)
[2019-08-25] MEDS: Famotidine/PF 20 mg/2ml Vial SLOW IVP SCH (08:58)
[2019-08-25] MEDS: Docusate 100 MG CAP PO SCH (08:58)
[2019-08-25] MEDS: Aspirin Chewable 81 MG TAB PO SCH (09:09)
[2019-08-25] MEDS: Carvedilol 6.25 MG TAB PO SCH (09:10)
[2019-08-25] MEDS: HumuLIN 70/30 (300 UNITS/3 ML VIAL) SC SCH (09:14)
[2019-08-25 14:00] VITALS: BP 138/75; TEMP 98.3
--- NOTE | 2019-08-25 16:51 | CON ---
DATE OF CONSULTATION: REASON FOR CONSULTATION: Chest pain. HISTORY OF PRESENT ILLNESS: Ms. Avila is a 59-year-old woman, who I have seen and evaluated in the past. She has a history of CAD, status post stent placement to the LAD. She recently presented with chest pain. She actually states her pain begins in her left arm and moves up into her left shoulder. This can occur intermittently at the end of dialysis. Once dialysis ends, her symptoms improve. Her CKs, troponins have been negative. Her EKG also was felt to be nonspecific. PAST MEDICAL HISTORY: End-stage renal disease, hypertension, diabetes mellitus, CAD, hypertension. PAST SURGICAL HISTORY: Status post stent placement, cataract surgery, tonsillectomy, cholecystectomy, and nasal surgery. SOCIAL HISTORY: No current tobacco or alcohol use. Previous illicit drug use. REVIEW OF SYSTEMS: A 10-point review of systems is reviewed and as above, otherwise negative. PHYSICAL EXAMINATION: GENERAL: Patient is a pleasant 59-year-old woman, who is in no acute distress. The patient appears their stated age. VITAL SIGNS: Blood pressure 130/75, pulse 78, temperature 98.3. NEUROLOGIC: The patient is alert and oriented x3 with no focal neurologic deficits. HEENT: Sclerae without icterus. Mouth has moist mucous membranes with normal pallor. NECK: No JVD. Carotid upstroke brisk. No bruits bilaterally. LUNGS: Clear to auscultation with unlabored respirations. BACK: No scoliosis or kyphosis. CARDIAC: Regular rate and rhythm with normal S1 and S2. No S3 or S4 noted. No significant rubs, murmurs, thrills, or gallops noted throughout the precordium. PMI is not displaced. There is no parasternal heave. ABDOMEN: Soft, nontender, nondistended. No peritoneal signs present. No hepatosplenomegaly. No abnormal striae. EXTREMITIES: 2+ femoral and 2+ dorsalis pedis pulses. No cyanosis, clubbing, or edema. SKIN: No gross abnormalities. PERTINENT LABORATORY DATA: Hemoglobin 11.2, hematocrit 34.3. IMPRESSION: 1. Recurrent chest pain. 2. Abnormal stress study. 3. Coronary artery disease. 4. Status post stent placed. 5. End-stage renal disease. RECOMMENDATIONS: Discussed several options with Ms. Avila. I did discuss proceeding with coronary angiography plus PCI. I discussed the procedure in full detail with Ms. Avila. The risks of the procedure were also discussed. The risks of the procedure include but are not limited to the following: , stroke, CO, need for emergency surgery, loss of limb, bleeding, and infection, as well as a reaction to the dye causing kidney failure and needing long-term dialysis. I also discussed the risks of PCI to include all of the above including coronary dissection and perforation in addition to acute stent thrombosis and restenosis. All questions about the procedure were answered. Given the above, the patient agreed to proceed with coronary angiography and possible PCI. She gave consent. Also, discussed proceeding with medical therapy. She does have a dye allergy, and proceeding with coronary angiography would have to wait until Wednesday. Based on the 2 options, she prefers a medical approach. We therefore add low-dose Imdur 30 mg p.o. q.a.m. Plan is to follow up Ms. Avila next week in the office. We would certainly schedule an outpatient heart catheterization if needed, if her symptoms continue. Job ID: [id number]
--- NOTE | 2019-08-25 21:38 | DIS ---
DATE OF ADMISSION: 08/24/2019 DATE OF DISCHARGE: 08/25/2019 DISCHARGE DIAGNOSES: 1. Left-sided chest pain likely musculoskeletal. 2. Hypertension, stable. 3. End-stage renal disease with hemodialysis. 4. Diabetes mellitus type 2, insulin requiring. CONSULTATIONS: 1. Dr. Lerma with Cardiology Service. 2. Dr. Talley with Nephrology Service. PERTINENT LABORATORY AND X-RAY FINDINGS: Potassium ranged between 5.2 to 5.5. Creatinine ranged between 7.01 to 7.34. Estimated GFR of 6. Troponin I ranged between 0.022 to 0.033. BNP 1997, previously 4881, 07/18/2018. Total cholesterol 128, triglyceride 77, HDL 60, LDL 53. CBC showed a white blood cell count ranging between 10.1 to 15.8, hemoglobin 11. COVID-19 PCR not detected, 08/24/2019. Portable chest x-ray dated 08/23/2019, showed no acute cardiopulmonary process. Mild prominence of the pulmonary vasculature. Bilateral lower extremity venous Doppler study dated 08/24/2019, showed no evidence for DVT. HOSPITAL COURSE: The patient was initially admitted after presenting with left-sided chest pain in the context of end-stage renal disease, hypertension, and coronary artery disease. The patient underwent serial cardiac biomarkers, which were essentially negative x3. Telemetry monitoring showed no acute arrhythmia or dysrhythmia. The patient was evaluated by the Cardiology Service due to the chest pain complaints, however, no specific recommendation for cardiac catheterization at this time and recommendations include medical management including long-acting nitroglycerin. The patient was ruled out for any infectious process including COVID-19 PCR. The patient remained clinically stable during the hospital course with stable vital signs at the time of discharge. I have examined the patient at the time of discharge and discussed followup instructions. The patient verbalizes understanding and agreement, ready for discharge on 08/25/2019. DISCHARGE MEDICATIONS: 1. Tylenol No.4, 300/30 mg one tablet p.o. q.6 hours p.r.n. pain. 2. Enteric-coated aspirin 81 mg p.o. daily. 3. Lipitor 40 mg p.o. daily. 4. Calcitriol 0.25 mcg three tabs p.o. daily. 5. Calcium carbonate 1000 mg p.o. q.i.d. 6. Vitamin D3 of 2000 units p.o. daily. 7. Catapres 0.2 mg p.o. b.i.d. 8. Plavix 75 mg p.o. daily. 9. Hydroxyzine 25 mg p.o. t.i.d. p.r.n. 10. NovoLog 70/30, 30 units subcutaneously q.a.m. 11. Isosorbide mononitrate 30 mg p.o. daily. 12. Cozaar 100 mg p.o. daily. 13. Coreg 6.25 mg p.o. b.i.d. 14. Protonix 40 mg p.o. daily. FOLLOWUP: The patient to follow up with her primary care provider at [place], [place]. The patient will follow up with Dr. Florian Talley with Nephrology Service. The patient will follow up with Dr. Lerma with Cardiology Service. CONDITION ON DISCHARGE: Stable. ACTIVITY: Ad-marcia. DIET: Heart healthy ADA and renal. CODE STATUS: Full. DISPOSITION: Home, 08/25/2019. TIME SPENT: Total time preparing and coordinating discharge, 31 minutes. Job ID: [id number]
--- NOTE | 2019-08-27 23:30 | PQF ---
DIAMOND BUSH CHARLES [id number] CLINICAL DOCUMENTATION CLARIFICATION FORM: POST DISCHARGE Addendum to original discharge summary date: ____ Late entry note date: __ DATE: 08/27/2019 ATTN:Alber Oliver Please exercise your independent, professional judgment in responding to the clarification form. Clinical indicators are provided on the bottom of this form for your review Please check appropriate box(s) to clarify if the following diagnosis has been ruled in or ruled out: Myocardial infarction [ ] Ruled in diagnosis [ ] Continue to treat [ ] Resolved [ x ] Ruled out diagnosis [ ] Cannot rule out diagnosis [ ] Other diagnosis [ ] Unable to determine In addition, please specify: Present on Admission (POA): [ ] Yes [ x ] No [ ] Unable to determine For continuity of documentation, please document condition throughout progress notes and discharge summary. Thank You. CLINICAL INDICATORS - SIGNS / SYMPTOMS / LABS Consult 08/23 "chest pain-the patient is rulling out for myocardial infarction" ED Notes 08/22 "presented with chest pain,chills with SOB" ED Notes 08/22 "normal EKG, ST segment normal and T waves normal" Labs Troponin: 08/22=0.033 08/23=0.022,0.024 RISK FACTORS DM-ED Notes 08/22 HTN-ED Notes 08/22 CAD-ED Notes 08/22 ESRD-ED Notes 08/22 Former Smoker-ED Notes 08/22 CHF-Consult 08/23 HLD-Consult 08/23 TREATMENTS EKG-ED Notes 08/22 Monitor troponin-HP 08/23 Cardiology consult-DS 08/24 Aspirin 81mg Oral-MAR 08/23 (This form is maintained as a part of the permanent medical record) 2014 [employer]. All Rights Reserved [email or web address]
== END 2019-08-25 14:08 | disposition home or self-care (01) | DRG 313 ==
LOC: ERS 22:53 → 2SW 08-24 01:06 → 2NO 08-24 20:34
PROVIDERS: ADMIT Internal Medicine; ATTEND Internal Medicine
PROC: 5A1D70Z Performance of Urinary Filtration, Intermittent, Less than 6 Hours Per Day (ICD-10-PCS; principal; 2019-08-24)
DX: R07.89 Other chest pain (principal); N18.6 End stage renal disease; I13.2 Hypertensive heart and chronic kidney disease with heart failure and with stage 5 chronic kidney disease, or end stage renal disease; Z68.41 Body mass index [BMI] 40.0-44.9, adult; Z20.828 Contact with and (suspected) exposure to other viral communicable diseases; E11.22 Type 2 diabetes mellitus with diabetic chronic kidney disease; I25.10 Atherosclerotic heart disease of native coronary artery without angina pectoris; E66.01 Morbid (severe) obesity due to excess calories; I50.9 Heart failure, unspecified; E11.43 Type 2 diabetes mellitus with diabetic autonomic (poly)neuropathy; K31.84 Gastroparesis; E11.51 Type 2 diabetes mellitus with diabetic peripheral angiopathy without gangrene; K21.9 Gastro-esophageal reflux disease without esophagitis; E78.5 Hyperlipidemia, unspecified; Z91.19 Patient's noncompliance with other medical treatment and regimen; Z99.2 Dependence on renal dialysis; Z95.5 Presence of coronary angioplasty implant and graft; Z89.429 Acquired absence of other toe(s), unspecified side; Z90.49 Acquired absence of other specified parts of digestive tract; Z98.42 Cataract extraction status, left eye; Z98.41 Cataract extraction status, right eye; Z87.891 Personal history of nicotine dependence; Z88.8 Allergy status to other drugs, medicaments and biological substances; Z88.1 Allergy status to other antibiotic agents; Z91.040 Latex allergy status; Z91.013 Allergy to seafood; Z79.4 Long term (current) use of insulin; Z79.899 Other long term (current) drug therapy
CPT/HCPCS: 36415; 36416; 71045; 80048; 80053; 80061; 82553; 83880; 84484; 85025; 85610; 85730; 87635; 90935; 93005; 93970; 96365; G0257; J0360; J0692; J1815; J3490; Q0162; Q0163; S0028; U0003

== ENCOUNTER 2019-09-24 11:41 | Emergency (ER) | payer MEDICARE ==
--- NOTE | 2019-09-24 12:55 | RAD ---
RADIOGRAPH RIGHT THIRD DIGIT 3VIEWS: DATE: 09/24/2019 HISTORY: 59-year-old female with right middle finger infection, pain, and swelling FINDINGS: There is no evidence of fracture or dislocation. There is no evidence of periostitis, permeative lesi on, osteolytic lesion, or osteoblastic lesion. The joint spaces are maintained without erosions or significant osteophytes. There is prominent atherosclerosis of artery in the middle finger. IMPRESSION: 1. No osseous abnormality involving third digit of right hand. 2. Atherosclerosis.
[2019-09-24 13:15] LABS: #Basophils 0.1 thou/uL (0.0-0.2); #Eosinphils 0.3 thou/uL (0.0-0.7); #Lymphocytes 1.1 thou/uL (1.20-3.40); #Monocytes 0.7 thou/uL (0.11-0.59); %Basophils 1.5 % (0.0-1.0); %Eosinophils 4.5 % (0.0-10.0); %Lymphocytes 18.4 % (21.0-51.0); %Monocytes 10.7 % (0.0-10.0); Hemoglobin 11.8 g/dL (12.0-16.0); Mean Corpuscular Volume 93.8 fL (78.0-98.0); Mean Platelet Volume 11.4 fL (7.4-10.4); Platelet Count 173 thou/uL (130-400); Red Blood Cell (RBC) Count 3.82 mill/uL (4.20-5.40); White Blood Cell (WBC) Count 6.2 thou/uL (4.8-10.8)
[2019-09-24 13:36] LABS: ALT (SGPT) 11 U/L (8-55); AST (SGOT) 19 U/L (5-34); Albumin 3.9 g/dL (3.5-5.0); Alkaline Phosphatase 147 U/L (40-110); Anion Gap 20 mmol/L (10-20); BUN (Urea Nitrogen) 41 mg/dL (9.8-20.1); Bilirubin, Total 0.6 mg/dL (0.2-1.2); Calc. Creatinine Clearance 0 mL/min (70-130); Calcium 9.1 mg/dL (7.8-10.44); Carbon Dioxide 25 mmol/L (22-29); Chloride 98 mmol/L (98-107); Estimated GFR-MDRD 8; Globulin 4.3 g/dL (2.4-3.5); Glucose 231 mg/dL (70-105); Potassium 4.5 mmol/L (3.5-5.1); Protein, Total 8.2 g/dL (6.0-8.3); Sodium 138 mmol/L (136-145)
[2019-09-24] MEDS ORDERED: cefTRIAXone\\ROCEPHIN 1 GM VIAL ONE (13:37)
[2019-09-24] MEDS ORDERED: Vancomycin HCl 1.25 GM in Sodium Chloride 0.9% 250 ML 250 ML IVPB SCH (13:45)
[2019-09-24] MEDS ORDERED: Morphine 4 MG/ML VIAL ONE (14:03)
== END 2019-09-24 16:31 | disposition home or self-care (01) ==
LOC: ERS 11:41
DX: S61.212A Laceration without foreign body of right middle finger without damage to nail, initial encounter (principal); E78.5 Hyperlipidemia, unspecified; I12.0 Hypertensive chronic kidney disease with stage 5 chronic kidney disease or end stage renal disease; N18.6 End stage renal disease; E11.22 Type 2 diabetes mellitus with diabetic chronic kidney disease; I25.10 Atherosclerotic heart disease of native coronary artery without angina pectoris; Z99.2 Dependence on renal dialysis; Z87.891 Personal history of nicotine dependence; Z79.899 Other long term (current) drug therapy; X58.XXXA Exposure to other specified factors, initial encounter
CPT/HCPCS: 36415; 80053; 85025; 85652; 86140; 96365; 96367; 96375; J0696; J2270; J3370; J7050

== ENCOUNTER 2019-09-29 15:15 | Emergency (ER) | payer MEDICARE ==
[2019-09-29] MEDS ORDERED: HYDROcodone/Acetaminophen 5/325 mg Tablet ONE (17:47)
== END 2019-09-29 18:01 | disposition home or self-care (01) ==
LOC: ERS 15:15
DX: M79.641 Pain in right hand (principal); E78.5 Hyperlipidemia, unspecified; E11.9 Type 2 diabetes mellitus without complications; Z87.891 Personal history of nicotine dependence; E11.22 Type 2 diabetes mellitus with diabetic chronic kidney disease; I12.0 Hypertensive chronic kidney disease with stage 5 chronic kidney disease or end stage renal disease; N18.6 End stage renal disease; Z99.2 Dependence on renal dialysis; Z79.899 Other long term (current) drug therapy
CPT/HCPCS: 99283

== ENCOUNTER 2019-11-09 13:48 | Inpatient (IN) | payer MEDICARE, OTHER ==
[~2019-11-09 13:48] MED LIST changes: +Glycopyrrolate 0.2 MG/ML 5 ML SYRINGE ONE; -ISOVUE-370 76%-LOCM 1 ML ONE; +Lidocaine 1% PF 5 ML VIAL ONE; +Ondansetron PF 4 MG/2 ML Vial ONE; +Succinylcholine Chloride 20 MG/ML 10 ml SYRINGE FS ONE
--- NOTE | 2019-11-09 14:46 | CT ---
CT Pelvis WO Con History: Wound of thigh Comparison: None. Findings: Incompletely evaluated splenomegaly. Kidneys are atrophic. No significant free fluid within the pelvis. No SI joint widening. There is a very large infected fluid collection along the anterior superficial fascia of the thigh me asuring at least 18 cm in transverse with the AP dimension of 6.2 cm and a length of 17 cm. This does not extend beyond the superficial muscular fascia. No intrafascial edema. No asymmetric enlargem ent of the abductors or quadriceps. Motion artifact in the femurs. Impression: Large infected fluid collection along the anterior right thigh without evidence for fasci itis or myositis. Collection is just deep to the greater saphenous vein proximally although it does traverse the collection distally.
[2019-11-09 15:00] LABS: #Eosinphils 0.2 thou/uL (0.0-0.7); #Lymphocytes 0.8 thou/uL (1.20-3.40); #Monocytes 1.2 thou/uL (0.11-0.59); #Neutrophils 12.2 thou/uL (1.40-6.50); %Basophils 0.2 % (0.0-1.0); %Eosinophils 1.4 % (0.0-10.0); %Lymphocytes 5.7 % (21.0-51.0); %Monocytes 8.1 % (0.0-10.0); %Neutrophils 84.7 % (42.0-75.0); Hemoglobin 9.5 g/dL (12.0-16.0); Mean Corpuscular HGB CONC 32.2 g/dL (32.0-36.0); Mean Corpuscular Hemoglobin 28.8 pg (27.0-31.0); Mean Corpuscular Volume 89.5 fL (78.0-98.0); Mean Platelet Volume 11.5 fL (7.4-10.4); Platelet Count 255 thou/uL (130-400); RBC Distribution Width 16.5 % (11.5-14.5); White Blood Cell (WBC) Count 14.5 thou/uL (4.8-10.8)
[2019-11-09] MEDS ORDERED: Sodium Chloride 0.9% 500 ML IV SCH (15:00)
[2019-11-09] MEDS ORDERED: Piperacillin/Tazobactam 3.375 GM VIAL ONE (15:06)
[2019-11-09 15:22] LABS: ALT (SGPT) Less than 7 U/L (8-55); AST (SGOT) 7 U/L (5-34); Albumin 3.2 g/dL (3.5-5.0); Alkaline Phosphatase 150 U/L (40-110); Anion Gap 17 mmol/L (10-20); BUN (Urea Nitrogen) 14 mg/dL (9.8-20.1); Bilirubin, Total 0.6 mg/dL (0.2-1.2); Calc. Creatinine Clearance 0 mL/min (70-130); Calcium 8.2 mg/dL (7.8-10.44); Carbon Dioxide 26 mmol/L (22-29); Chloride 99 mmol/L (98-107); Estimated GFR-MDRD 17; Globulin 3.5 g/dL (2.4-3.5); Glucose 256 mg/dL (70-105); Potassium 3.7 mmol/L (3.5-5.1); Protein, Total 6.7 g/dL (6.0-8.3); Sodium 138 mmol/L (136-145)
--- NOTE | 2019-11-09 15:48 | CON ---
DATE OF CONSULTATION: 11/09/2019 HISTORY OF PRESENT ILLNESS: Ms. Avila is a 59-year-old woman, who underwent cardiac catheterization on 10/26. Since that time, she has had right groin pain. She says they had to hold pressure post cath for a very long time. She presented through the emergency department with groin pain. She has a large indurated area that is exceedingly painful to touch. There is necrotic skin overlying this. The area measures approximately 15 cm x 10 cm overlying her right groin. She has no other complaints currently. PAST MEDICAL HISTORY: 1. End-stage renal disease, on hemodialysis. 2. Coronary artery disease. 3. Hypertension. 4. Dyslipidemia. 5. Diabetes mellitus. PAST SURGICAL HISTORY: 1. Toe amputation. 2. Cholecystectomy. 3. Tonsillectomy. 4. Bilateral cataracts. 5. History of coronary stenting. 6. Left arm AV graft. 7. LASIK surgery. 8. Nasal surgery. SOCIAL HISTORY: She is a former drug user. She does not smoke cigarettes anymore. She lives with her . PHYSICAL EXAMINATION: VITAL SIGNS: Her pulse is 100 and regular, blood pressure is 85/66, and oxygen saturations are 100% on room air. LUNGS: Clear bilaterally. CARDIAC: Heart rhythm is regular. ABDOMEN: Soft and nontender. EXTREMITIES: Over her right groin, there is the above indurated area. RADIOLOGY: CT scan has been performed showing a large fluid and air-filled pocket over her right groin. ASSESSMENT AND PLAN: This is a right groin abscess after having had significant difficulty, obtaining hemostasis in the right groin. She is not on any anticoagulants. Laboratories are pending, but she needs to have I and D performed. We discussed wound VAC placement also with her and she is agreeable. Job ID: [id number]
[2019-11-09] MEDS ORDERED: Midazolam HCl 2 mg/2 ml Vial ONE (16:35)
[2019-11-09] MEDS ORDERED: Famotidine/PF 20 mg/2ml Vial ONE (16:35)
[2019-11-09] MEDS ORDERED: Fentanyl 100 MCG/2 ML VIAL ONE ×4 (16:35→18:58)
[2019-11-09 16:55] LABS: SARS-CoV-2 NAA Rapid Test Not Detected (NotDetected)
[2019-11-09] MEDS ORDERED: Ondansetron PF 4 MG/2 ML Vial ONE ×2 (17:05→19:30)
[2019-11-09] MEDS ORDERED: Ketamine 50 MG/ML (10ML VIAL) ONE (17:12)
[2019-11-09] MEDS ORDERED: Piperacillin/Tazobactam 3.375 GM in Sodium Chloride 0.9% 100 ML IVPB SCH (18:00)
[2019-11-09] MEDS ORDERED: Labetalol HCl 100 MG/20 ML VIAL ONE ×2 (18:29→23:48)
[2019-11-09] MEDS ORDERED: Promethazine HCl 25 MG/ML VIAL IM PRN (18:37)
[2019-11-09] MEDS ORDERED: Promethazine HCl 25 MG/ML VIAL SLOW IVP PRN (18:37)
[2019-11-09] MEDS ORDERED: Labetalol HCl 100 MG/20 ML VIAL SLOW IVP PRN (18:37)
[2019-11-09] MEDS ORDERED: Ondansetron HCl/PF 4 MG/2 ML Vial IVP PRN (18:37)
--- NOTE | 2019-11-09 18:53 | OP ---
DATE OF PROCEDURE: 11/09/2019 PREOPERATIVE DIAGNOSIS: Right groin abscess post cath. POSTOPERATIVE DIAGNOSIS: Right groin abscess post cath. PROCEDURE: I and D of 150 sq cm skin, subcu, and fascia with evacuation of approximately 1200 mL of infected hematoma. ANESTHESIA: General endotracheal. ESTIMATED BLOOD LOSS: Minimal. DRAINS: None. SPECIMENS: Cultures. DESCRIPTION OF PROCEDURE: After consent was obtained, the patient was brought to the operating room and placed in supine position on the operating room table. Appropriate central line and monitors were placed and general endotracheal anesthesia was induced. Right groin was prepped and draped in usual sterile fashion. The overlying skin that was necrotic and subcutaneous tissue were sharply debrided. The abscess was entered and a large volume of infected material evacuated. This had a very foul odor. Cultures were taken. The wound was copiously irrigated with 3 L of saline. She will need to be brought back for further washout tomorrow and VAC placement. Job ID: [id number]
[2019-11-09] MEDS ORDERED: Dextrose 5% in Water 1,000 ML IV PRN (18:54)
[2019-11-09] MEDS ORDERED: Dextrose 50% Abboject 50 ML SYRINGE SLOW IVP PRN (18:54)
[2019-11-09] MEDS ORDERED: HYDROcodone/Acetaminophen 5/325 mg Tablet PO PRN (18:54)
[2019-11-09] MEDS ORDERED: Vancomycin 1 GM/200 ML BAG ONE (20:50)
[2019-11-09] MEDS: Vancomycin 1 GM in Premix Bag 1 BAG IVPB SCH (20:54)
[2019-11-09] MEDS: NIFEdipine XL 30 MG TAB PO SCH (22:21)
[2019-11-09] MEDS ORDERED: Promethazine HCl 25 MG/ML VIAL ONE (22:39)
[2019-11-10] MEDS: Piperacillin/Tazobactam 2.25 GM in Sodium Chloride 0.9% 100 ML IVPB SCH ×5 (00:20→20:41)
[2019-11-10] MEDS ORDERED: Fentanyl 100 MCG/2 ML VIAL ONE ×4 (00:22→13:27)
[2019-11-10] MEDS: HYDROcodone/Acetaminophen 5/325 mg Tablet PO PRN ×3 (02:55→20:40)
[2019-11-10] MEDS: Ondansetron PF 4 MG/2 ML Vial IVP PRN (02:56)
[2019-11-10] MEDS: Iron Polysaccharides Complex 150 MG CAP PO SCH ×3 (03:34→20:41)
[2019-11-10] MEDS: cloNIDine 0.2 MG TAB PO SCH ×3 (03:34→20:41)
[2019-11-10] MEDS: Metoclopramide HCl 10 MG TAB PO SCH ×4 (03:34→20:41)
[2019-11-10] MEDS: Carvedilol 6.25 MG TAB PO SCH ×2 (10:11→17:49)
[2019-11-10] MEDS: Vancomycin 1 GM in Premix Bag 1 BAG IVPB SCH (10:16)
[2019-11-10] MEDS: Atorvastatin Calcium 40 MG TAB PO SCH (10:29)
[2019-11-10] MEDS: Calcitriol 0.25 MCG CAP PO SCH (10:29)
[2019-11-10] MEDS: Aspirin Chewable 81 MG TAB PO SCH (10:29)
[2019-11-10] MEDS: Cholecalciferol 1,000 UNITS (25 MCG) TAB PO SCH (10:29)
[2019-11-10] MEDS: NIFEdipine XL 30 MG TAB PO SCH ×2 (10:30→20:34)
[2019-11-10] MEDS: Losartan 25 MG TAB PO SCH (10:30)
[2019-11-10] MEDS ORDERED: Succinylcholine Chloride 20 MG/ML 10 ml SYRINGE FS ONE (11:16)
[2019-11-10] MEDS ORDERED: Lidocaine 1% PF 5 ML VIAL ONE (11:16)
[2019-11-10] MEDS ORDERED: PROPOFOL 200 MG/20 ML VIAL ONE (11:16)
[2019-11-10] MEDS ORDERED: Ondansetron PF 4 MG/2 ML Vial ONE (11:16)
[2019-11-10] MEDS ORDERED: Neomycin-Polymyxin 1 ML AMP ONE (12:02)
[2019-11-10] MEDS ORDERED: Ketorolac Tromethamine 30 MG/ML VIAL IVP PRN (13:08)
[2019-11-10] MEDS ORDERED: Promethazine HCl 25 MG/ML VIAL IM PRN (13:08)
[2019-11-10] MEDS ORDERED: Ondansetron HCl/PF 4 MG/2 ML Vial IVP PRN (13:08)
[2019-11-10] MEDS ORDERED: Promethazine HCl 25 MG/ML VIAL SLOW IVP PRN (13:08)
[2019-11-10] MEDS ORDERED: Ketorolac Tromethamine 30 MG/ML VIAL ONE (13:11)
[2019-11-10] MEDS: Acetaminophen/Codeine 30-300mg Tablet PO PRN ×2 (17:49→23:37)
[2019-11-10] MEDS: HumaLOG 300 UNITS/3 ML VIAL SC PRN ×2 (17:54→20:42)
--- NOTE | 2019-11-10 19:40 | OP ---
DATE OF PROCEDURE: 11/10/2019 PREOPERATIVE DIAGNOSIS: Right groin abscess. POSTOPERATIVE DIAGNOSIS: Right groin abscess. PROCEDURE PERFORMED: I and D of right groin with application of wound VAC. ANESTHESIA: General endotracheal. ESTIMATED BLOOD LOSS: Minimal. DESCRIPTION OF PROCEDURE: The patient was brought to the operating room and placed under general anesthesia by Dr. Sabino Robertson. The right groin was prepped and draped in usual sterile fashion. Packing was removed. There were two Kerlix packs that were left in place yesterday evening and these were both removed. The wound was copiously irrigated with 3 L of laden irrigation fluid. Devitalized tissue was sharply debrided from the wound. The wound care team was then brought in, and a wound VAC was placed. The patient will be brought back to the operating room on Wednesday for re-I and D and replacement of VAC. Job ID: [id number]
[2019-11-11] MEDS: Piperacillin/Tazobactam 2.25 GM in Sodium Chloride 0.9% 100 ML IVPB SCH ×4 (00:42→18:42)
[2019-11-11 04:21] LABS: Anion Gap 17 mmol/L (10-20); Calcium 8.4 mg/dL (7.8-10.44); Carbon Dioxide 23 mmol/L (22-29); Chloride 99 mmol/L (98-107); Glucose 141 mg/dL (70-105); Potassium 4.1 mmol/L (3.5-5.1); Sodium 135 mmol/L (136-145)
[2019-11-11 05:11] LABS: BUN (Urea Nitrogen) 30 mg/dL (9.8-20.1)
[2019-11-11 05:32] LABS: Calc. Creatinine Clearance 22 mL/min (70-130); Estimated GFR-MDRD 9
[2019-11-11] MEDS ORDERED: Vancomycin 1 GM in Premix Bag 1 BAG IVPB SCH (08:00)
[2019-11-11] MEDS: HYDROcodone/Acetaminophen 5/325 mg Tablet PO PRN ×4 (08:59→23:12)
[2019-11-11] MEDS: Carvedilol 6.25 MG TAB PO SCH ×2 (10:35→18:35)
[2019-11-11] MEDS: cloNIDine 0.2 MG TAB PO SCH ×2 (10:38→19:22)
[2019-11-11] MEDS: Calcitriol 0.25 MCG CAP PO SCH (10:38)
[2019-11-11] MEDS: Cholecalciferol 1,000 UNITS (25 MCG) TAB PO SCH (10:38)
[2019-11-11] MEDS: Atorvastatin Calcium 40 MG TAB PO SCH (10:38)
[2019-11-11] MEDS: Aspirin Chewable 81 MG TAB PO SCH (10:38)
[2019-11-11] MEDS: NIFEdipine XL 30 MG TAB PO SCH ×2 (10:39→19:23)
[2019-11-11] MEDS: Iron Polysaccharides Complex 150 MG CAP PO SCH ×2 (10:39→20:34)
[2019-11-11] MEDS: Losartan 25 MG TAB PO SCH (10:39)
[2019-11-11] MEDS: Metoclopramide HCl 10 MG TAB PO SCH ×3 (10:39→20:34)
[2019-11-11] MEDS: HumaLOG 300 UNITS/3 ML VIAL SC PRN ×2 (11:20→18:31)
[2019-11-11] MEDS: Acetaminophen/Codeine 30-300mg Tablet PO PRN (11:20)
--- NOTE | 2019-11-11 16:01 | CON ---
DATE OF CONSULTATION: HISTORY OF PRESENT ILLNESS: Ms. Avila is a 59-year-old female with known history of ESRD and was admitted due to a right groin abscess. She did undergo I and D of the right groin with application of wound VAC. The plan is to bring her back to the operating room this coming Wednesday for further exploration. We are being consulted for management of her ESRD. The patient is due for dialysis today. I have scheduled her for her hemodialysis later this afternoon. REVIEW OF SYSTEMS: Positive for severe right groin pain. No nausea. No vomiting. No diarrhea. No fever or chills. No syncopal episode. No chest pain. No shortness of breath. No dysuria. No urinary frequency. No occasional leg edema. Appetite and energy level are fair. MEDICATIONS: 1. [place] 5/325 q.4 p.r.n. 2. Aspirin 81 mg tablet daily. 3. Lipitor 40 mg at bedtime. 4. Calcitriol 0.75 mcg tablet daily. 5. Coreg 6.25 mg p.o. b.i.d. 6. Vitamin D3 of 2000 international units daily. 7. Clonidine 0.2 mg p.o. b.i.d. 8. Atarax 25 mg p.o. t.i.d. p.r.n. 9. Humalog sliding scale. 10. Imdur 60 mg daily. 11. Losartan 100 mg daily. 12. Nifedipine 30 mg XL tablet b.i.d. 13. Zofran p.r.n. 14. Zosyn 2.25 g IV q.8 hours. 15. Niferex 150 mg p.o. b.i.d. PAST MEDICAL HISTORY: 1. ESRD from diabetic nephropathy. 2. Type 2 diabetes mellitus. 3. Hyperlipidemia. 4. Hypertension. 5. Coronary artery disease. 6. Diabetic gastroparesis. 7. Status post CHF. 8. COPD. 9. Morbid obesity. 10. Peripheral vascular disease. 11. The patient also has history of diastolic dysfunction. PAST SURGICAL HISTORY: Status post AV fistula placement, recently status post exploration/I and D of right groin abscess, status post PD catheter placement with subsequent removal, status post cuffed dialysis catheter placement, status post cardiac cath with coronary artery stent placement, status post upper GI endoscopy, status post cholecystectomy. FAMILY HISTORY: No family history of ESRD. SOCIAL HISTORY: The patient lives in [place]. , 4 children. 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 No IV drug abuse. Sedentary lifestyle. No smoking. No alcohol. PHYSICAL EXAMINATION: VITAL SIGNS: Blood pressure is noted at 134/62, heart rate 64, respiratory rate 17, and O2 saturation 100%. GENERAL: Awake, alert, comfortable, obese, not in distress. SKIN: Adequate turgor. HEENT: Pinkish conjunctivae. Anicteric sclerae. NECK: No neck mass. No carotid bruits. No JVD. CHEST: No deformities. LUNGS: Clear breath sounds. No wheezing. No crackles. HEART: Normal sinus rhythm. No murmur. No gallops. No rubs. ABDOMEN: Globular, soft, and nontender. No masses. EXTREMITIES: No edema. Right groin dressing noted with wound VAC. LABORATORY DATA: Laboratories of November 09, 2019; white count 14.5, hemoglobin 9.5. On November 11, 2019; sodium 135, potassium 4.1, chloride 99, carbon dioxide 23, BUN 30, creatinine 5.06, glucose 141, and calcium 8.4. ASSESSMENT AND PLAN: 1. End-stage renal disease, stable. We will continue current Wednesday, , and Wednesday hemodialysis regimen. Fluid removal only as tolerated. 2. Right groin abscess, status post I and D, currently on IV antibiotics. For future surgical debridement this coming Wednesday with Dr. Campos. 3. Discolored right middle finger - the patient was supposed to see a specialist in [place], but this was canceled. 4. Anemia. Hold Epogen until next week when the infection is much more controlled. Job ID: [id number] [facility]
[2019-11-12] MEDS: Piperacillin/Tazobactam 2.25 GM in Sodium Chloride 0.9% 100 ML IVPB SCH ×3 (01:21→17:17)
[2019-11-12] MEDS: HYDROcodone/Acetaminophen 5/325 mg Tablet PO PRN ×4 (03:24→22:21)
[2019-11-12] MEDS: HumaLOG 300 UNITS/3 ML VIAL SC PRN ×3 (05:55→21:16)
[2019-11-12] MEDS: Losartan 25 MG TAB PO SCH (09:42)
[2019-11-12] MEDS: Metoclopramide HCl 10 MG TAB PO SCH ×3 (09:42→21:15)
[2019-11-12] MEDS: NIFEdipine XL 30 MG TAB PO SCH ×2 (09:43→21:17)
[2019-11-12] MEDS: Calcitriol 0.25 MCG CAP PO SCH (09:43)
[2019-11-12] MEDS: cloNIDine 0.2 MG TAB PO SCH ×2 (09:43→21:15)
[2019-11-12] MEDS: Aspirin Chewable 81 MG TAB PO SCH (09:43)
[2019-11-12] MEDS: Atorvastatin Calcium 40 MG TAB PO SCH (09:44)
[2019-11-12] MEDS: Carvedilol 6.25 MG TAB PO SCH ×2 (09:44→17:16)
[2019-11-12] MEDS: Cholecalciferol 1,000 UNITS (25 MCG) TAB PO SCH (09:44)
[2019-11-12] MEDS: Iron Polysaccharides Complex 150 MG CAP PO SCH ×2 (09:45→21:15)
--- NOTE | 2019-11-12 11:35 | PRG ---
DATE OF SERVICE: 11/12/2019 SUBJECTIVE: Ms. Avila is a 59-year-old female with ESRD and was admitted for right groin infection. An I and D was done by Dr. Campos. The plan is for her to go down back to the OR tomorrow for further surgical debridement. A wound VAC has been placed. She is feeling better, but does complain of some right groin pain. No complaints of chest pain or shortness of breath. OBJECTIVE: VITAL SIGNS: Blood pressure 142/48, heart rate 61, respiratory rate 15, O2 saturation 93%. GENERAL: The patient is awake, comfortable, not in distress. SKIN: Adequate turgor. HEENT: She has slightly pale conjunctivae. Anicteric sclerae. NECK: No neck mass. No carotid bruits. No JVD. CHEST: No deformities. LUNGS: Clear breath sounds. HEART: Normal sinus rhythm. No murmur. No gallops. No rubs. ABDOMEN: Globular, soft, nontender. No masses. EXTREMITIES: No edema. Positive for right groin dressing with wound VAC. MEDICATIONS: Medications of November 12, 2019, were reviewed. LABORATORY DATA: Laboratories of November 09, 2019; white count 14.5, hemoglobin 9.5. On November 12, 2019, glucose 144. On November 11, 2019; potassium 4.1, BUN 30, creatinine 5.06, calcium 8.4. ASSESSMENT AND PLAN: 1. End-stage renal disease, stable. We will continue current Wednesday, , and Wednesday hemodialysis. The patient underwent hemodialysis yesterday and tolerated said treatment. Fluid removal was also tolerated by the patient. There is no indication for any emergent hemodialysis today. We will be checking a serum phosphorus tomorrow. 2. Secondary hyperparathyroidism, currently on calcitriol. 3. Right groin abscess - currently on IV antibiotics for further surgical debridement tomorrow. 4. Anemia. Recheck CBC in a.m. Job ID: [id number]
[2019-11-12] MEDS: hydrOXYzine 25 MG TAB PO PRN (22:21)
[2019-11-13] MEDS: Piperacillin/Tazobactam 2.25 GM in Sodium Chloride 0.9% 100 ML IVPB SCH ×3 (01:10→17:46)
[2019-11-13] MEDS: HYDROcodone/Acetaminophen 5/325 mg Tablet PO PRN ×3 (02:25→22:37)
[2019-11-13 04:25] LABS: #Basophils 0.1 thou/uL (0.0-0.2); #Eosinphils 0.3 thou/uL (0.0-0.7); #Lymphocytes 1.2 thou/uL (1.20-3.40); #Monocytes 0.8 thou/uL (0.11-0.59); #Neutrophils 7.2 thou/uL (1.40-6.50); %Basophils 0.6 % (0.0-1.0); %Eosinophils 3.3 % (0.0-10.0); %Lymphocytes 12.7 % (21.0-51.0); %Monocytes 8.2 % (0.0-10.0); %Neutrophils 75.2 % (42.0-75.0); Hemoglobin 8.5 g/dL (12.0-16.0); Mean Corpuscular Hemoglobin 27.5 pg (27.0-31.0); Mean Corpuscular Volume 88.7 fL (78.0-98.0); Mean Platelet Volume 11.7 fL (7.4-10.4); Platelet Count 242 thou/uL (130-400); RBC Distribution Width 16.6 % (11.5-14.5); White Blood Cell (WBC) Count 9.5 thou/uL (4.8-10.8)
[2019-11-13 04:48] LABS: Phosphorus 5.1 mg/dL (2.3-4.7)
[2019-11-13 04:49] LABS: Anion Gap 19 mmol/L (10-20); BUN (Urea Nitrogen) 41 mg/dL (9.8-20.1); Calc. Creatinine Clearance 16 mL/min (70-130); Calcium 8.6 mg/dL (7.8-10.44); Carbon Dioxide 22 mmol/L (22-29); Chloride 97 mmol/L (98-107); Estimated GFR-MDRD 6; Glucose 230 mg/dL (70-105); Potassium 4.1 mmol/L (3.5-5.1); Sodium 134 mmol/L (136-145)
[2019-11-13] MEDS: HumaLOG 300 UNITS/3 ML VIAL SC PRN ×3 (06:15→20:34)
[2019-11-13] MEDS ORDERED: Midazolam HCl 5 mg/5 ml Vial ONE (06:46)
[2019-11-13] MEDS ORDERED: Fentanyl 250 MCG/5 ML VIAL ONE (06:46)
[2019-11-13] MEDS ORDERED: Dexmedetomidine 200 MCG/2 ML VIAL ONE (06:46)
[2019-11-13] MEDS: Aspirin Chewable 81 MG TAB PO SCH (07:20)
[2019-11-13] MEDS: Atorvastatin Calcium 40 MG TAB PO SCH (07:20)
[2019-11-13] MEDS: Metoclopramide HCl 10 MG TAB PO SCH ×3 (07:21→20:34)
[2019-11-13] MEDS: Cholecalciferol 1,000 UNITS (25 MCG) TAB PO SCH (07:21)
[2019-11-13] MEDS: Iron Polysaccharides Complex 150 MG CAP PO SCH ×2 (07:21→20:33)
[2019-11-13] MEDS: cloNIDine 0.2 MG TAB PO SCH ×3 (07:21→22:37)
[2019-11-13] MEDS: Calcitriol 0.25 MCG CAP PO SCH (07:21)
[2019-11-13] MEDS: NIFEdipine XL 30 MG TAB PO SCH ×2 (07:21→20:33)
[2019-11-13] MEDS: Losartan 25 MG TAB PO SCH (07:21)
[2019-11-13] MEDS: Carvedilol 6.25 MG TAB PO SCH ×2 (08:55→17:45)
[2019-11-13] MEDS ORDERED: Epoetin (ESRD) 20,000 UNITS/ML SC SCH (09:00)
--- NOTE | 2019-11-13 09:17 | PRG ---
DATE OF SERVICE: 11/13/2019 SUBJECTIVE: Ms. Avila is a 59-year-old female with ESRD and currently on maintenance hemodialysis. She was admitted for right groin infection. I and D was done. The patient was told by her surgeon she will need a surgical debridement with that right groin lesion today. She has been scheduled for surgery. No new complaints today. No chest pain or shortness of breath. We are following up this patient for her maintenance hemodialysis. OBJECTIVE: VITAL SIGNS: Blood pressure 157/74, heart rate is 59, respiratory rate 17, O2 saturation 92%, and temperature 97.4. GENERAL: The patient is awake, alert, and comfortable, not in overt distress. SKIN: Adequate turgor. HEENT: She has slightly pale conjunctivae. Anicteric sclerae. No neck mass. No carotid bruits. No JVD. CHEST: No deformities. LUNGS: Clear breath sounds. HEART: Normal sinus rhythm. No murmur. No gallops. No rubs. ABDOMEN: Globular, soft, and nontender. No masses. EXTREMITIES: No edema. No deformities. Right groin wound dressing noted. Positive for wound VAC. MEDICATION: Of November 13, 2019 was reviewed. LABORATORY DATA: Laboratories of November 13, 2019; white count 9.5, hemoglobin 8.5, sodium 134, potassium 4.1, chloride 97, carbon dioxide 22, BUN 41, creatinine 6.71, calcium 8.6, and phosphorus 5.1. ASSESSMENT AND PLAN: 1. Hyperphosphatemia. Start Renvela 800 mg one tablet t.i.d. 2. End-stage renal disease, stable. We will continue current Wednesday, , and Wednesday dialysis regimen. Fluid removal only as tolerated. 3. Right groin abscess/wound-for surgical debridement today, also on IV antibiotics. 4. Anemia, start Epogen 7500 units subcu every week. Job ID: [id number]
[2019-11-13] MEDS ORDERED: SUGAMMADEX SODIUM 200 MG/2 ML VIAL ONE (09:23)
[2019-11-13] MEDS ORDERED: Ketamine 50 MG/ML (10ML VIAL) ONE (10:29)
[2019-11-13] MEDS ORDERED: Ondansetron PF 4 MG/2 ML Vial ONE (10:32)
[2019-11-13] MEDS ORDERED: Succinylcholine Chloride 20 MG/ML 10 ml SYRINGE FS ONE (10:32)
[2019-11-13] MEDS ORDERED: Glycopyrrolate 0.2 MG/ML 5 ML SYRINGE ONE (10:32)
[2019-11-13] MEDS ORDERED: EPHEDRINE 25 MG/5 ML SYRINGE ONE (10:32)
[2019-11-13] MEDS ORDERED: Midazolam HCl 2 mg/2 ml Vial ONE (10:34)
[2019-11-13] MEDS ORDERED: Neomycin-Polymyxin 1 ML AMP ONE (10:37)
[2019-11-13] MEDS ORDERED: Fentanyl 100 MCG/2 ML VIAL ONE ×2 (11:46→12:15)
[2019-11-13] MEDS ORDERED: Promethazine HCl 25 MG/ML VIAL SLOW IVP PRN (11:52)
[2019-11-13] MEDS ORDERED: Promethazine HCl 25 MG/ML VIAL IM PRN (11:52)
[2019-11-13] MEDS ORDERED: Ondansetron HCl/PF 4 MG/2 ML Vial IVP PRN (11:52)
--- NOTE | 2019-11-13 12:15 | OP ---
DATE OF PROCEDURE: 11/13/2019 PREOPERATIVE DIAGNOSIS: Right groin abscess. POSTOPERATIVE DIAGNOSIS: Right groin abscess. PROCEDURE PERFORMED: I and D of right groin. ANESTHESIA: General endotracheal, Dr. Jose Luis Reyes. ESTIMATED BLOOD LOSS: Minimal. DESCRIPTION OF PROCEDURE: The patient was brought to the operating room and placed under general anesthesia. Wound VAC was removed. The groin was irrigated with 3 L of laden solution. The VAC was replaced. The patient was awakened, extubated, and transferred back to the [facility] in good condition. Job ID: [id number]
[2019-11-13] MEDS: Sevelamer Carbonate 800 MG TAB PO SCH ×2 (13:48→17:49)
[2019-11-13] MEDS: EPOETIN ALFA-EPBX (ESRD) 4,000 UNIT/ML VIAL SC SCH (13:48)
[2019-11-13] MEDS: Acetaminophen/Codeine 30-300mg Tablet PO PRN (21:41)
[2019-11-14] MEDS: Piperacillin/Tazobactam 2.25 GM in Sodium Chloride 0.9% 100 ML IVPB SCH ×3 (00:35→17:11)
[2019-11-14] MEDS: HYDROcodone/Acetaminophen 5/325 mg Tablet PO PRN ×5 (02:37→23:07)
[2019-11-14] MEDS: Losartan 25 MG TAB PO SCH (08:17)
[2019-11-14] MEDS: NIFEdipine XL 30 MG TAB PO SCH ×2 (08:17→20:36)
[2019-11-14] MEDS: cloNIDine 0.2 MG TAB PO SCH ×2 (08:17→20:36)
[2019-11-14] MEDS: Sevelamer Carbonate 800 MG TAB PO SCH ×3 (08:39→17:10)
--- NOTE | 2019-11-14 10:17 | PRG ---
DATE OF SERVICE: 11/14/2019 SUBJECTIVE: Ms. Avila is a 59-year-old female with ESRD and currently being followed up for her maintenance hemodialysis. She is undergoing hemodialysis today. She was initially admitted for right groin abscess. She underwent an I and D of the right groin yesterday under general anesthesia. No new complaints today. OBJECTIVE: VITAL SIGNS: Blood pressure is noted at 125/53 with a heart rate of 67, respiratory rate 16. GENERAL: She is awake, comfortable, not in distress, obese. SKIN: Adequate turgor. HEENT: Pinkish conjunctivae. Anicteric sclerae. NECK: No neck mass. No carotid bruits. No JVD. CHEST: No deformities. LUNGS: Clear breath sounds. HEART: Normal sinus rhythm. No murmur. No gallops. No rubs. ABDOMEN: Globular, soft, nontender, no masses. EXTREMITIES: No edema. Positive for right groin wound with a wound VAC. MEDICATIONS: Of November 14, 2019, reviewed. LABORATORY DATA: Of November 13, 2019, white count 9.5, hemoglobin 8.5. Sodium 134, potassium 4.1, chloride 97, carbon dioxide 22, BUN 41, creatinine 6.71, and phosphorus 5.1. ASSESSMENT AND PLAN: 1. End-stage renal disease, stable, currently undergoing hemodialysis. Attempting 3 L fluid removal with the patient. No heparin use due to the recent surgery. 2. Hyperphosphatemia, currently on Renvela 800 mg one tablet t.i.d. with meals. 3. Right groin abscess, status post incision and drainage, currently on IV antibiotics. 4. Anemia, on weekly Epogen. Job ID: [id number]
[2019-11-14] MEDS: Iron Polysaccharides Complex 150 MG CAP PO SCH ×2 (13:45→20:31)
[2019-11-14] MEDS: Calcitriol 0.25 MCG CAP PO SCH (13:46)
[2019-11-14] MEDS: Aspirin Chewable 81 MG TAB PO SCH (13:46)
[2019-11-14] MEDS: Atorvastatin Calcium 40 MG TAB PO SCH (13:47)
[2019-11-14] MEDS: Cholecalciferol 1,000 UNITS (25 MCG) TAB PO SCH (13:47)
[2019-11-14] MEDS: Sulfameth/Trimethoprim DS 800-160mg TAB PO SCH ×2 (13:47→20:31)
[2019-11-14] MEDS: Carvedilol 6.25 MG TAB PO SCH ×2 (13:49→17:10)
[2019-11-14] MEDS: Metoclopramide HCl 10 MG TAB PO SCH ×3 (13:49→20:31)
[2019-11-14] MEDS: HumaLOG 300 UNITS/3 ML VIAL SC PRN ×2 (18:17→20:32)
[2019-11-15] MEDS: Piperacillin/Tazobactam 2.25 GM in Sodium Chloride 0.9% 100 ML IVPB SCH ×3 (00:36→16:48)
[2019-11-15] MEDS: HYDROcodone/Acetaminophen 5/325 mg Tablet PO PRN ×2 (03:17→08:41)
[2019-11-15] MEDS: HumaLOG 300 UNITS/3 ML VIAL SC PRN ×2 (05:49→20:52)
[2019-11-15] MEDS: Losartan 25 MG TAB PO SCH (08:39)
[2019-11-15] MEDS: cloNIDine 0.2 MG TAB PO SCH ×2 (08:40→20:56)
[2019-11-15] MEDS: NIFEdipine XL 30 MG TAB PO SCH ×2 (08:40→20:56)
[2019-11-15] MEDS: Sevelamer Carbonate 800 MG TAB PO SCH ×4 (08:40→16:49)
[2019-11-15] MEDS: Calcitriol 0.25 MCG CAP PO SCH (08:40)
[2019-11-15] MEDS: Carvedilol 6.25 MG TAB PO SCH ×2 (08:42→16:47)
[2019-11-15] MEDS: Atorvastatin Calcium 40 MG TAB PO SCH (08:42)
[2019-11-15] MEDS: Cholecalciferol 1,000 UNITS (25 MCG) TAB PO SCH (08:42)
[2019-11-15] MEDS: Metoclopramide HCl 10 MG TAB PO SCH ×3 (08:43→20:49)
[2019-11-15] MEDS: Iron Polysaccharides Complex 150 MG CAP PO SCH ×2 (08:43→20:51)
[2019-11-15] MEDS: Aspirin Chewable 81 MG TAB PO SCH (08:43)
[2019-11-15] MEDS: Sulfameth/Trimethoprim DS 800-160mg TAB PO SCH ×2 (08:43→20:49)
--- NOTE | 2019-11-15 09:36 | PRG ---
DATE OF SERVICE: 11/15/2019 SUBJECTIVE: Ms. Avila is a 59-year-old female with ESRD and currently on hemodialysis. She underwent hemodialysis yesterday without any difficulty. She was also admitted for right groin abscess. She has undergone surgical debridement with this yesterday. Wound Care is following. No complaints of chest pain or shortness of breath. OBJECTIVE: VITAL SIGNS: Blood pressure is noted at 162/54, heart rate 61, respiratory rate 17, temperature 97.7. GENERAL: Awake, alert, comfortable, not in distress. SKIN: Adequate turgor. HEENT: She has slightly pale conjunctivae. Anicteric sclerae. NECK: No neck mass. No carotid bruits. No JVD. CHEST: No deformities. LUNGS: Clear breath sounds. HEART: Normal sinus rhythm. No murmur. No gallops. No rubs. ABDOMEN: Globular, soft, nontender. No masses. EXTREMITIES: No edema, no deformities. Positive for right groin dressing with wound VAC. MEDICATIONS: November 15, 2019, reviewed. LABORATORY DATA: November 13, 2019, white count 9.5, hemoglobin 8.5. November 15, 2019, glucose 256. November 13, 2019, potassium 4.1, BUN 41, creatinine 6.71, phosphorus 5.1. ASSESSMENT AND PLAN: 1. Hyperphosphatemia, continuing Renvela. 2. Endstage renal disease, stable. No indication for any emergent hemodialysis. Continue Wednesday, , Wednesday hemodialysis regimen with fluid removal. 3. Anemia, on weekly Epogen. 4. Right groin abscess-status post surgical debridement, on IV antibiotics. Recheck CBC, base met in a.m. Job ID: [id number]
[2019-11-15] MEDS: Acetaminophen/Codeine 30-300mg Tablet PO PRN (11:42)
[2019-11-15] MEDS ORDERED: HYDROcodone/Acetaminophen 7.5/325 mg Tablet PO PRN (11:48)
[2019-11-15] MEDS: HYDROcodone/Acetaminophen 7.5/325 mg Tablet PO PRN ×2 (13:44→20:50)
[2019-11-15] MEDS: Ondansetron PF 4 MG/2 ML Vial IVP PRN (23:27)
[2019-11-16] MEDS: HYDROcodone/Acetaminophen 7.5/325 mg Tablet PO PRN ×2 (01:37→13:33)
[2019-11-16] MEDS: Piperacillin/Tazobactam 2.25 GM in Sodium Chloride 0.9% 100 ML IVPB SCH (01:38)
[2019-11-16 04:15] LABS: Anion Gap 24 mmol/L (10-20); BUN (Urea Nitrogen) 36 mg/dL (9.8-20.1); Calc. Creatinine Clearance 17 mL/min (70-130); Calcium 8.8 mg/dL (7.8-10.44); Carbon Dioxide 22 mmol/L (22-29); Chloride 95 mmol/L (98-107); Estimated GFR-MDRD 7; Glucose 203 mg/dL (70-105); Potassium 4.2 mmol/L (3.5-5.1); Sodium 137 mmol/L (136-145)
[2019-11-16 04:25] LABS: #Basophils 0.1 thou/uL (0.0-0.2); #Eosinphils 0.3 thou/uL (0.0-0.7); #Lymphocytes 1.2 thou/uL (1.20-3.40); #Monocytes 0.8 thou/uL (0.11-0.59); #Neutrophils 7.1 thou/uL (1.40-6.50); %Basophils 0.8 % (0.0-1.0); %Eosinophils 3.6 % (0.0-10.0); %Lymphocytes 12.4 % (21.0-51.0); %Neutrophils 75.2 % (42.0-75.0); Anisocytosis SLIGHT = 6-15 cells (100X) (0-5/hpf); Hemoglobin 9.2 g/dL (12.0-16.0); MDiff Complete? YES; Mean Corpuscular HGB CONC 30.7 g/dL (32.0-36.0); Mean Corpuscular Hemoglobin 27.7 pg (27.0-31.0); Mean Corpuscular Volume 90.3 fL (78.0-98.0); Mean Platelet Volume 11.1 fL (7.4-10.4); Platelet Count 230 thou/uL (130-400); RBC Distribution Width 17.6 % (11.5-14.5); Red Blood Cell (RBC) Count 3.31 mill/uL (4.20-5.40); White Blood Cell (WBC) Count 9.4 thou/uL (4.8-10.8)
--- NOTE | 2019-11-16 09:59 | PRG ---
DATE OF SERVICE: SUBJECTIVE: Ms. Avila is a 59-year-old female with ESRD, currently on maintenance hemodialysis. She was admitted for right groin abscess. She has been started on IV antibiotics. Surgical debridement has been done. We are following her up for her ESRD. She is undergoing hemodialysis today. No new complaints. No chest pain or shortness of breath. OBJECTIVE: VITAL SIGNS: Blood pressure 155/62, heart rate 60, respiratory rate 17. GENERAL: Awake, alert, comfortable, obese, not in distress. SKIN: Adequate turgor. HEENT: Slightly pale conjunctivae. Anicteric sclerae. NECK: No neck mass. No carotid bruits. No JVD. CHEST: No deformities. LUNGS: Clear breath sounds. No wheezing. No crackles. HEART: Normal sinus rhythm. No murmur. No gallops. No rubs. ABDOMEN: Globular, soft, nontender. No masses. EXTREMITIES: No edema. No deformities. MEDICATIONS: Medications of November 16, 2019, reviewed. LABORATORY DATA: Laboratories of November 16, 2019; white count 9.4, hemoglobin 9.2. Sodium 137, potassium 4.2, chloride 95, carbon dioxide 22, BUN 36, creatinine 6.29, glucose 203, calcium 8.8. ASSESSMENT AND PLAN: 1. End-stage renal disease-stable. The patient currently tolerating current hemodialysis regimen. I am attempting to remove about 3 L of fluid with this dialysis today. 2. Anemia. We have started the patient on her weekly Epogen regimen. 3. Right groin abscess, stable. Currently has a wound VAC, on IV antibiotics. Recently, she is status post surgical debridement. Job ID: [id number]
[2019-11-16] MEDS: Sevelamer Carbonate 800 MG TAB PO SCH ×3 (13:38→17:32)
[2019-11-16] MEDS: Atorvastatin Calcium 40 MG TAB PO SCH (13:39)
[2019-11-16] MEDS: Calcitriol 0.25 MCG CAP PO SCH (13:43)
[2019-11-16] MEDS: Aspirin Chewable 81 MG TAB PO SCH (13:43)
[2019-11-16] MEDS: Metoclopramide HCl 10 MG TAB PO SCH ×3 (13:44→21:04)
[2019-11-16] MEDS: Cholecalciferol 1,000 UNITS (25 MCG) TAB PO SCH (13:44)
[2019-11-16] MEDS: Sulfameth/Trimethoprim DS 800-160mg TAB PO SCH ×2 (13:44→21:04)
[2019-11-16] MEDS: cloNIDine 0.2 MG TAB PO SCH ×2 (13:45→21:04)
[2019-11-16] MEDS: Losartan 25 MG TAB PO SCH (13:45)
[2019-11-16] MEDS: Carvedilol 6.25 MG TAB PO SCH ×2 (13:45→17:32)
[2019-11-16] MEDS: NIFEdipine XL 30 MG TAB PO SCH ×2 (13:46→21:05)
[2019-11-16] MEDS: Iron Polysaccharides Complex 150 MG CAP PO SCH ×2 (13:52→21:04)
--- NOTE | 2019-11-16 16:47 | PQF ---
CLINICAL DOCUMENTATION CLARIFICATION FORM: Dear Dr. Sonja NARAYANAN Date: 11/16/2019 2798 Please exercise your independent, professional judgment in responding to the clarification form. Clinical indicators are provided on the bottom of this form for your review. Please check appropriate box(es): is a complication of current/recent surgery [ ] RIGHT GROIN ABSCESS is a complication of recent surgery. [ ] RIGHT GROIN ABSCESS is not a complication of recent surgery [ x ] Other diagnosis complication after cath - this is in the er note___ _ [ ] Unable to determine In addition, please specify: Present on Admission (POA): [ ] Yes [ ] No [ ] Unable to determine For continuity of documentation, please document condition throughout progress notes and discharge summary. Thank You. To be completed by CDI/Coding staff for physician review: CLINICAL INDICATORS - SIGNS / SYMPTOMS / LABS / RESULTS AND LOCATION IN MR 11/08 WBC 14.5 11/08 CONSULT ([facility]) SHE PRESENTED THROUGH THE EMERGENCY DEPARTMENT WITH GROIN PAIN. SHE HAS A LARGE INDURATED AREA THAT IS EXCEEDINGLY PAINFUL TO TOUCH. THERE IS NECROTIC SKIN OVERLYING THIS. 11/08 OPERATIVE NOTE ([facility]) EVACUATION OF APPROXIMATELY 1200 ML OF INFECTED HEMATOMA. 11/08 RT GROIN CULTURES : BACTERIAL CULTURE RESULTS: RAOUTELLA PLANTICOLA, METHICILLIN RESISTANT S. AUREUS, PRESUMPTIVE PSEUDO AERUGINOSA, PRESUMPTIVE ENTEROCOCCUS SP. ANAEROBIC CULTURE: FINEGOLDIA MAGNA RISK FACTORS / RESULTS AND LOCATION IN MR INFECTED HEMATOMA (OP NOTE/[facility]) 11/08 RECENT CARDIAC CATHETERIZATION (10/26) (CONSULT/[facility]) 11/08 TREATMENT / RESULTS AND LOCATION IN MR ZOSYN IV (11/10 PRESENT) INCISION AND DRAINAGE RT GROIN (11/08 ,11/09 ,11/12) APPLICATION OF WOUND VAC ( 11/09) CDS Signature: RYLEY BROUSSARD RN Phone #: [phone] Date: 11/16/2019 This is a permanent part of the Medical Record [facility]
[2019-11-16] MEDS: HumaLOG 300 UNITS/3 ML VIAL SC PRN (21:08)
[2019-11-17] MEDS: HYDROcodone/Acetaminophen 7.5/325 mg Tablet PO PRN ×4 (03:46→21:28)
[2019-11-17] MEDS: HumaLOG 300 UNITS/3 ML VIAL SC PRN (05:53)
[2019-11-17] MEDS: Atorvastatin Calcium 40 MG TAB PO SCH (09:02)
[2019-11-17] MEDS: cloNIDine 0.2 MG TAB PO SCH ×2 (09:03→21:26)
[2019-11-17] MEDS: Calcitriol 0.25 MCG CAP PO SCH (09:04)
[2019-11-17] MEDS: Sevelamer Carbonate 800 MG TAB PO SCH ×3 (09:04→16:38)
[2019-11-17] MEDS: Aspirin Chewable 81 MG TAB PO SCH (09:05)
[2019-11-17] MEDS: Iron Polysaccharides Complex 150 MG CAP PO SCH ×2 (09:06→21:27)
[2019-11-17] MEDS: Cholecalciferol 1,000 UNITS (25 MCG) TAB PO SCH (09:07)
[2019-11-17] MEDS: NIFEdipine XL 30 MG TAB PO SCH ×2 (09:08→21:25)
[2019-11-17] MEDS: Metoclopramide HCl 10 MG TAB PO SCH ×3 (09:09→21:25)
[2019-11-17] MEDS: Carvedilol 6.25 MG TAB PO SCH ×2 (09:09→16:38)
[2019-11-17] MEDS: Sulfameth/Trimethoprim DS 800-160mg TAB PO SCH ×2 (09:12→21:27)
[2019-11-17] MEDS: Losartan 25 MG TAB PO SCH (09:13)
[2019-11-17] MEDS: Ondansetron PF 4 MG/2 ML Vial IVP PRN (12:13)
--- NOTE | 2019-11-17 19:03 | PRG ---
DATE OF SERVICE: 11/17/2019 SUBJECTIVE: Ms. Avila is a 59-year-old female with ESRD and currently on maintenance hemodialysis. She was initially admitted for an infected right groin. surgical debridement. She is doing well. She is on IV antibiotics. No new complaints today. OBJECTIVE: VITAL SIGNS: Blood pressure is 143/53, heart rate 61, respiratory rate 16, temperature is 97. GENERAL: Awake, alert, comfortable, not in distress. SKIN: Adequate turgor. HEENT: Pinkish conjunctivae. Anicteric sclerae. No neck mass. No carotid bruits. No JVD. CHEST: No deformities. LUNGS: Clear breath sounds. HEART: Normal sinus rhythm. No murmurs. No gallops. No rubs. ABDOMEN: Globular, soft, nontender. No masses. EXTREMITIES: No edema. No deformities. MEDICATIONS: Medications of reviewed. LABORATORY DATA: Laboratories of November 16, 2019; white count 9.4, hemoglobin 9.2. On November 17, 2019, glucose 169. ASSESSMENT AND PLAN: 1. End-stage renal disease, stable. Continue current Wednesday, , and Wednesday hemodialysis regimen. She is tolerating said treatment. There is no indication for emergent hemodialysis. 2. Right groin abscess, status post surgical debridement, on IV antibiotics. 3. Chronic anemia. Continuing weekly Epogen. P.r.n. blood transfusion. The patient is tolerating current dialysis regimen. Job ID: [id number]
[2019-11-18] MEDS: hydrOXYzine 25 MG TAB PO PRN ×2 (00:58→19:58)
[2019-11-18] MEDS: Calcitriol 0.25 MCG CAP PO SCH (08:32)
[2019-11-18] MEDS: NIFEdipine XL 30 MG TAB PO SCH ×2 (08:32→19:57)
[2019-11-18] MEDS: Sevelamer Carbonate 800 MG TAB PO SCH ×3 (08:33→17:23)
[2019-11-18] MEDS: Iron Polysaccharides Complex 150 MG CAP PO SCH ×2 (08:33→19:57)
[2019-11-18] MEDS: Atorvastatin Calcium 40 MG TAB PO SCH (08:33)
[2019-11-18] MEDS: Losartan 25 MG TAB PO SCH (08:33)
[2019-11-18] MEDS: Sulfameth/Trimethoprim DS 800-160mg TAB PO SCH ×2 (08:34→19:58)
[2019-11-18] MEDS: Carvedilol 6.25 MG TAB PO SCH ×2 (08:34→17:23)
[2019-11-18] MEDS: Metoclopramide HCl 10 MG TAB PO SCH ×3 (08:34→19:57)
[2019-11-18] MEDS: Aspirin Chewable 81 MG TAB PO SCH (08:34)
[2019-11-18] MEDS: cloNIDine 0.2 MG TAB PO SCH ×2 (08:34→19:57)
[2019-11-18] MEDS: Cholecalciferol 1,000 UNITS (25 MCG) TAB PO SCH (08:35)
--- NOTE | 2019-11-18 12:03 | PRG ---
DATE OF SERVICE: 11/18/2019 SUBJECTIVE: Ms. Avila is a 59-year-old female, followed up by the [facility] for management of her ESRD. I have scheduled her for regular hemodialysis today. Fluid removal will be done. She was initially admitted for right groin abscess and has undergone IV antibiotics, surgical debridement and placement of wound VAC. No new complaints today. No chest pain or shortness of breath. OBJECTIVE: VITAL SIGNS: Blood pressure 148/79, heart rate 53, respiratory rate 16, temperature 97.4, and O2 saturation is 94%. GENERAL: The patient is awake, alert, and comfortable, not in distress. SKIN: Adequate turgor. HEENT: Slightly pale conjunctivae. Anicteric sclerae. NECK: No neck mass. No carotid bruits. No JVD. CHEST: No deformities. LUNGS: Clear breath sounds. No wheezing. No crackles. HEART: Normal sinus rhythm. No murmurs. No gallops. No rubs. ABDOMEN: Globular, soft, and nontender. No masses. EXTREMITIES: No edema. No deformities. MEDICATIONS: Medications of November 18, 2019, reviewed. LABORATORY DATA: Laboratories of November 16, 2019, hemoglobin 9.2; on November 18, 2019, glucose 182; on November 16, 2019, potassium 4.2, BUN 36, creatinine 6.29, and calcium 8.8. ASSESSMENT AND PLAN: 1. End-stage renal disease, stable, continuing Wednesday, , and Wednesday hemodialysis regimen. Fluid removal between 2 and 3 L as tolerated by the patient. 2. Anemia, continuing weekly Epogen. 3. Right groin abscess, doing well, status post surgical debridement. Continuing IV antibiotics. Job ID: [id number]
[2019-11-18] MEDS: HYDROcodone/Acetaminophen 7.5/325 mg Tablet PO PRN (19:58)
[2019-11-19] MEDS: HumaLOG 300 UNITS/3 ML VIAL SC PRN ×3 (06:07→18:22)
[2019-11-19] MEDS: NIFEdipine XL 30 MG TAB PO SCH ×2 (08:44→20:26)
[2019-11-19] MEDS: Calcitriol 0.25 MCG CAP PO SCH (08:44)
[2019-11-19] MEDS: Aspirin Chewable 81 MG TAB PO SCH (08:44)
[2019-11-19] MEDS: Sulfameth/Trimethoprim DS 800-160mg TAB PO SCH ×2 (08:44→20:27)
[2019-11-19] MEDS: Sevelamer Carbonate 800 MG TAB PO SCH ×3 (08:44→17:52)
[2019-11-19] MEDS: Losartan 25 MG TAB PO SCH (08:45)
[2019-11-19] MEDS: cloNIDine 0.2 MG TAB PO SCH ×2 (08:45→20:30)
[2019-11-19] MEDS: Carvedilol 6.25 MG TAB PO SCH ×2 (08:45→17:08)
[2019-11-19] MEDS: Iron Polysaccharides Complex 150 MG CAP PO SCH ×2 (08:45→20:30)
[2019-11-19] MEDS: Atorvastatin Calcium 40 MG TAB PO SCH (08:45)
[2019-11-19] MEDS: Cholecalciferol 1,000 UNITS (25 MCG) TAB PO SCH (08:45)
[2019-11-19] MEDS: Metoclopramide HCl 10 MG TAB PO SCH ×3 (08:46→20:25)
--- NOTE | 2019-11-19 11:16 | PRG ---
DATE OF SERVICE: 11/19/2019 SUBJECTIVE: Ms. Avila is a 59-year-old female with ESRD and currently on maintenance hemodialysis. She underwent hemodialysis yesterday without any difficulty. We were able to remove several liters of fluid. No new complaints today. She is requesting refill of her diclofenac gel. This will be written with orders today. No complaints of chest pain or shortness of breath. We are awaiting wound VAC supply for the house. OBJECTIVE: VITAL SIGNS: Blood pressure is 168/85, heart rate 61, respiratory rate 17, temperature 97.7, O2 saturation 96%. GENERAL: Awake, alert, comfortable, not in overt distress. SKIN: Adequate turgor. HEENT: She has slightly pale conjunctivae. Anicteric sclerae. NECK: No neck mass. No carotid bruits. No JVD. CHEST: No deformities. LUNGS: Clear breath sounds. HEART: Normal sinus rhythm. No murmur. No gallops. No rubs. ABDOMEN: Globular. Soft. Nontender. No masses. EXTREMITIES: No edema. No deformities. Slightly cyanotic fingertips, right hand. MEDICATIONS: Medications of November 19, 2019, reviewed. LABORATORY DATA: Laboratories of November 16, 2019, white count 9.4, hemoglobin 9.2. On November 19, 2019, glucose 247. November 16, 2019, potassium 4.2, BUN 36, creatinine 6.29. ASSESSMENT AND PLAN: 1. End-stage renal disease, stable, tolerating current hemodialysis regimen of Wednesday, , and Wednesday. Again, fluid removal only as tolerated. There is no indication for any dialytic intervention today. The patient looks euvolemic and has no other complaints. 2. Anemia, continue weekly Epogen. P.r.n. blood transfusion for hemoglobin less than 7. 3. Right groin abscess/wound - the patient is on IV antibiotics and status post surgical debridement. We will recheck CBC, basic metabolic in a.m. Job ID: [id number]
[2019-11-19] MEDS: Diclofenac 1% 100 GM GEL TP SCH ×2 (15:44→20:28)
[2019-11-19] MEDS: HYDROcodone/Acetaminophen 7.5/325 mg Tablet PO PRN (23:48)
[2019-11-20] MEDS ORDERED: Lorazepam 2 MG/ML VIAL SLOW IVP PRN (02:34)
[2019-11-20] MEDS: HumaLOG 300 UNITS/3 ML VIAL SC PRN (04:28)
[2019-11-20] MEDS: HYDROcodone/Acetaminophen 7.5/325 mg Tablet PO PRN ×2 (04:31→10:38)
[2019-11-20 05:51] LABS: #Basophils 0.1 thou/uL (0.0-0.2); #Eosinphils 0.4 thou/uL (0.0-0.7); #Lymphocytes 1.4 thou/uL (1.20-3.40); #Monocytes 0.7 thou/uL (0.11-0.59); #Neutrophils 7.8 thou/uL (1.40-6.50); %Basophils 0.5 % (0.0-1.0); %Eosinophils 3.7 % (0.0-10.0); %Lymphocytes 13.3 % (21.0-51.0); %Monocytes 6.7 % (0.0-10.0); %Neutrophils 75.7 % (42.0-75.0); Hemoglobin 9.1 g/dL (12.0-16.0); Mean Corpuscular HGB CONC 30.4 g/dL (32.0-36.0); Mean Corpuscular Hemoglobin 27.6 pg (27.0-31.0); Mean Corpuscular Volume 90.7 fL (78.0-98.0); Mean Platelet Volume 12.3 fL (7.4-10.4); Platelet Count 197 thou/uL (130-400); RBC Distribution Width 17.6 % (11.5-14.5); Red Blood Cell (RBC) Count 3.31 mill/uL (4.20-5.40); White Blood Cell (WBC) Count 10.3 thou/uL (4.8-10.8)
[2019-11-20 06:24] LABS: Anion Gap 20 mmol/L (10-20); BUN (Urea Nitrogen) 38 mg/dL (9.8-20.1); Calc. Creatinine Clearance 19 mL/min (70-130); Calcium 8.7 mg/dL (7.8-10.44); Carbon Dioxide 19 mmol/L (22-29); Chloride 97 mmol/L (98-107); Estimated GFR-MDRD 8; Glucose 230 mg/dL (70-105); Potassium 5.1 mmol/L (3.5-5.1); Sodium 131 mmol/L (136-145)
[2019-11-20] MEDS: Iron Polysaccharides Complex 150 MG CAP PO SCH ×2 (08:00→20:43)
[2019-11-20] MEDS: Calcitriol 0.25 MCG CAP PO SCH (08:00)
[2019-11-20] MEDS: Carvedilol 6.25 MG TAB PO SCH ×2 (08:00→16:36)
[2019-11-20] MEDS: Atorvastatin Calcium 40 MG TAB PO SCH (08:00)
[2019-11-20] MEDS: Aspirin Chewable 81 MG TAB PO SCH (08:00)
[2019-11-20] MEDS: Metoclopramide HCl 10 MG TAB PO SCH ×3 (08:01→20:42)
[2019-11-20] MEDS: Sevelamer Carbonate 800 MG TAB PO SCH ×3 (08:01→16:36)
[2019-11-20] MEDS: NIFEdipine XL 30 MG TAB PO SCH ×2 (08:01→20:43)
[2019-11-20] MEDS: cloNIDine 0.2 MG TAB PO SCH ×2 (08:01→20:44)
[2019-11-20] MEDS: Sulfameth/Trimethoprim DS 800-160mg TAB PO SCH ×2 (08:02→20:43)
[2019-11-20] MEDS: Losartan 25 MG TAB PO SCH (08:02)
[2019-11-20] MEDS: Cholecalciferol 1,000 UNITS (25 MCG) TAB PO SCH (08:03)
[2019-11-20] MEDS: Diclofenac 1% 100 GM GEL TP SCH ×3 (08:03→20:44)
[2019-11-20] MEDS: EPOETIN ALFA-EPBX (ESRD) 4,000 UNIT/ML VIAL SC SCH (12:23)
[2019-11-20 12:43] VITALS: BMI 41.1
[2019-11-20 23:48] VITALS: TEMP 97.9
[2019-11-21] MEDS: hydrOXYzine 25 MG TAB PO PRN (04:12)
[2019-11-21] MEDS: HumaLOG 300 UNITS/3 ML VIAL SC PRN (06:43)
[2019-11-21 07:17] VITALS: BP 164/76
[2019-11-21] MEDS: Calcitriol 0.25 MCG CAP PO SCH (07:59)
[2019-11-21] MEDS: cloNIDine 0.2 MG TAB PO SCH (08:00)
[2019-11-21] MEDS: NIFEdipine XL 30 MG TAB PO SCH (08:00)
[2019-11-21] MEDS: Sevelamer Carbonate 800 MG TAB PO SCH ×3 (08:00→16:38)
[2019-11-21] MEDS: Cholecalciferol 1,000 UNITS (25 MCG) TAB PO SCH (08:00)
[2019-11-21] MEDS: Iron Polysaccharides Complex 150 MG CAP PO SCH (08:00)
[2019-11-21] MEDS: Losartan 25 MG TAB PO SCH (08:00)
[2019-11-21] MEDS: Atorvastatin Calcium 40 MG TAB PO SCH (08:01)
[2019-11-21] MEDS: Metoclopramide HCl 10 MG TAB PO SCH ×2 (08:01→15:04)
[2019-11-21] MEDS: Carvedilol 6.25 MG TAB PO SCH ×2 (08:01→16:38)
[2019-11-21] MEDS: Aspirin Chewable 81 MG TAB PO SCH (08:01)
[2019-11-21] MEDS: Sulfameth/Trimethoprim DS 800-160mg TAB PO SCH (08:01)
[2019-11-21] MEDS: Diclofenac 1% 100 GM GEL TP SCH ×2 (08:02→15:05)
--- NOTE | 2019-11-21 09:53 | PRG ---
DATE OF SERVICE: SUBJECTIVE: Ms. Avila is a 59-year-old female with ESRD, who was initially admitted for right groin abscess. She underwent IV antibiotic therapy as well as surgical debridement. We are following her up for maintenance hemodialysis. She is currently undergoing dialysis and tolerating said treatment. OBJECTIVE: VITAL SIGNS: Blood pressure is 164/76, heart rate 75, respiratory rate 18, temperature 97.9, O2 saturation 97% on room air. GENERAL: The patient is awake, alert, comfortable, not in distress. SKIN: Adequate turgor. HEENT: She has a slightly pale conjunctivae. Anicteric sclerae. NECK: No neck mass. No carotid bruits. No JVD. CHEST: No deformities. LUNGS: Clear breath sounds. No wheezing. No crackles. HEART: Normal sinus rhythm. No murmurs. No gallops. No rubs. ABDOMEN: Globular, soft, nontender. No masses. EXTREMITIES: No edema. Positive for right groin dressing-positive for wound VAC. MEDICATIONS: Medications of November 21, 2019, was reviewed. LABORATORY DATA: Laboratories of November 20, 2019; white count 10.3, hemoglobin 9.1. Sodium 131, potassium 5.1, chloride 97, carbon dioxide 19, BUN 38, creatinine 5.69, glucose 230, calcium 8.7. ASSESSMENT AND PLAN: 1. End-stage renal disease, stable. Continue current hemodialysis regimen Wednesday, , Wednesday-fluid removal is being tolerated. 2. Anemia-currently on weekly Epogen. 3. Right groin abscess-status post surgical debridement. Currently, on wound VAC. 4. Recheck CBC and basic met in a.m. Job ID: [id number]
--- NOTE | 2019-11-22 02:50 | DIS ---
DATE OF ADMISSION: 11/09/2019 DATE OF DISCHARGE: 11/21/2019 DIAGNOSIS: Status post cardiac catheterization with a large infected right groin abscess/hematoma. PROCEDURES: 1. I and D of groin abscess. 2. I and D of groin abscess. 3. I and D of groin abscess. DESCRIPTION OF HOSPITAL STAY: Ms. Avila was admitted through the Emergency Department, taken directly to the operating room with a large erythematous fluctuant tender right groin mass. She undergone cardiac catheterization about two weeks prior and had a difficult time with hemostasis post catheterization. She had had multiple Zoom meetings with her senior financial, but never been seen. She finally came to the Emergency Department with a large groin mass. A CT scan was obtained by the Emergency Department doctors are showing a fluid and air-filled abscess cavity. She was taken to the operating room and underwent I and D with initial packing. She was taken back the following day for washout and packing again. She was taken back two days later with a washout and VAC placement. She has undergone VAC changes on the floor. She has been on oral antibiotics for multi organism growth. She is being discharged to home today with a home wound VAC and I will see her back in a couple weeks in the office. Job ID: [id number]
== END 2019-11-21 17:55 | disposition home health service (06) | DRG 856 ==
LOC: ERS 13:48 → SDC 16:27 → SURG A 18:54 → IMCU/EMU 11-10 02:40 → T4-B 11-17 20:07
PROVIDERS: ADMIT Thoracic Surgery (Cardiothoracic Vascular Surgery); ATTEND Thoracic Surgery (Cardiothoracic Vascular Surgery)
PROC: 0J9L0ZZ Drainage of Right Upper Leg Subcutaneous Tissue and Fascia, Open Approach (ICD-10-PCS; principal; 2019-11-09)
PROC: 0JDL0ZZ Extraction of Right Upper Leg Subcutaneous Tissue and Fascia, Open Approach (ICD-10-PCS; 2019-11-09)
PROC: 0JDL0ZZ Extraction of Right Upper Leg Subcutaneous Tissue and Fascia, Open Approach (ICD-10-PCS; 2019-11-10)
PROC: 0J9C0ZZ Drainage of Pelvic Region Subcutaneous Tissue and Fascia, Open Approach (ICD-10-PCS; 2019-11-13)
PROC: 5A1D70Z Performance of Urinary Filtration, Intermittent, Less than 6 Hours Per Day (ICD-10-PCS; 2019-11-14)
DX: T81.41XA Infection following a procedure, superficial incisional surgical site, initial encounter (principal); N18.6 End stage renal disease; L76.32 Postprocedural hematoma of skin and subcutaneous tissue following other procedure; L02.214 Cutaneous abscess of groin; I12.0 Hypertensive chronic kidney disease with stage 5 chronic kidney disease or end stage renal disease; N25.81 Secondary hyperparathyroidism of renal origin; Z20.828 Contact with and (suspected) exposure to other viral communicable diseases; E78.5 Hyperlipidemia, unspecified; I25.10 Atherosclerotic heart disease of native coronary artery without angina pectoris; E11.22 Type 2 diabetes mellitus with diabetic chronic kidney disease; Y84.0 Cardiac catheterization as the cause of abnormal reaction of the patient, or of later complication, without mention of misadventure at the time of the procedure; E11.43 Type 2 diabetes mellitus with diabetic autonomic (poly)neuropathy; K31.84 Gastroparesis; E11.51 Type 2 diabetes mellitus with diabetic peripheral angiopathy without gangrene; D63.1 Anemia in chronic kidney disease; E83.39 Other disorders of phosphorus metabolism; Z99.2 Dependence on renal dialysis; Z90.49 Acquired absence of other specified parts of digestive tract; Z98.42 Cataract extraction status, left eye; Z98.41 Cataract extraction status, right eye; Z89.429 Acquired absence of other toe(s), unspecified side; Z87.891 Personal history of nicotine dependence; Z79.899 Other long term (current) drug therapy; Z79.82 Long term (current) use of aspirin; Z79.4 Long term (current) use of insulin
CPT/HCPCS: 36415; 36416; 72192; 80048; 80053; 83605; 84100; 85025; 86850; 86900; 86901; 87040; 87070; 87076; 87077; 87186; 87205; 90935; 96365; G0257; J1885; J2250; J2405; J2543; J2550; J2704; J3010; J3370; J3490; Q5105; S0028; U0002

== ENCOUNTER 2019-11-28 14:58 | Outpatient (CLI) | payer MEDICARE, OTHER ==
[2019-11-29 12:35] LABS: SARS-CoV-2 MS2 Positive; SARS-CoV-2 N Gene Negative; SARS-CoV-2 S Gene Negative; SARS-CoV-2 by NAA Not Detected (NotDetected); SARS-CoV-2 orf1ab Negative
== END 2019-11-28 14:59 | disposition home or self-care (01) ==
LOC: LABBT 14:58
PROVIDERS: ATTEND Thoracic Surgery (Cardiothoracic Vascular Surgery)
DX: L02.415 Cutaneous abscess of right lower limb (principal); Z20.828 Contact with and (suspected) exposure to other viral communicable diseases
CPT/HCPCS: 87635; U0003

== ENCOUNTER 2019-11-29 12:00 | Day surgery (SDC) | payer MEDICARE ==
[2019-11-28 15:43] VITALS: BMI 42.0
[~2019-11-29 12:00] MED LIST changes: -Glycopyrrolate 0.2 MG/ML 5 ML SYRINGE ONE; +PROPOFOL 200 MG/20 ML VIAL ONE; -Succinylcholine Chloride 20 MG/ML 10 ml SYRINGE FS ONE; +diphenhydrAMINE 50 MG/ML VIAL ONE
[2019-11-29] MEDS ORDERED: Clindamycin/D5W 900 mg/50 ml Premix Bag ONE (13:09)
[2019-11-29] MEDS ORDERED: Famotidine/PF 20 mg/2ml Vial ONE (13:19)
[2019-11-29] MEDS ORDERED: Scopolamine 1.5 mg/72 hour Patch ONE (13:20)
[2019-11-29] MEDS ORDERED: Ondansetron PF 4 MG/2 ML Vial ONE (13:20)
[2019-11-29] MEDS ORDERED: Midazolam HCl 2 mg/2 ml Vial ONE (13:21)
[2019-11-29] MEDS ORDERED: Fentanyl 100 MCG/2 ML VIAL ONE ×2 (13:25→17:06)
[2019-11-29] MEDS ORDERED: Neomycin-Polymyxin 1 ML AMP ONE (16:17)
[2019-11-29] MEDS ORDERED: Morphine 2 MG/ML VIAL ONE ×2 (16:53→17:05)
[2019-11-29] MEDS ORDERED: HYDROcodone/Acetaminophen 5/325 mg Tablet ONE (17:53)
--- NOTE | 2019-12-06 07:47 | OP ---
DATE OF PROCEDURE: 11/29/2019 PREOPERATIVE DIAGNOSIS: Open right groin wound for I and D. POSTOPERATIVE DIAGNOSIS: Open right groin wound for I and D. PROCEDURE: I and D with wound VAC placement. DESCRIPTION OF PROCEDURE: The patient was placed under general anesthesia. Right groin was prepped and draped in usual sterile fashion. Some devitalized tissue at the ends of both of the incision was sharply debrided. Wound was copiously irrigated with Pulsavac and wound VAC reapplied. Job ID: [id number]
== END 2019-11-29 18:30 | disposition home or self-care (01) ==
LOC: SDC 12:00 → EDSTATUS 14:38 → SDC 18:30
PROVIDERS: ATTEND Thoracic Surgery (Cardiothoracic Vascular Surgery)
PROC: 0JBC0ZZ Excision of Pelvic Region Subcutaneous Tissue and Fascia, Open Approach (ICD-10-PCS; principal; 2019-11-29)
DX: S31.103A Unspecified open wound of abdominal wall, right lower quadrant without penetration into peritoneal cavity, initial encounter (principal); I12.0 Hypertensive chronic kidney disease with stage 5 chronic kidney disease or end stage renal disease; E11.22 Type 2 diabetes mellitus with diabetic chronic kidney disease; N18.6 End stage renal disease; I25.10 Atherosclerotic heart disease of native coronary artery without angina pectoris; E78.5 Hyperlipidemia, unspecified; Z79.4 Long term (current) use of insulin; Z79.82 Long term (current) use of aspirin; Z79.899 Other long term (current) drug therapy; Z88.1 Allergy status to other antibiotic agents; Z91.013 Allergy to seafood; Z91.018 Allergy to other foods; Z91.040 Latex allergy status; Z91.041 Radiographic dye allergy status; Z91.048 Other nonmedicinal substance allergy status
CPT/HCPCS: 11042; 82962; 97139 ×2; J2270; 36416; J1200; J2250; J2405; J2704; J3010; J3490; S0028

== ENCOUNTER 2019-12-05 16:07 | Emergency (ER) | payer MEDICARE ==
[2019-12-05] MEDS ORDERED: Acetaminophen 500 MG TAB ONE (19:00)
[2019-12-05 19:09] LABS: #Eosinphils 0.3 thou/uL (0.0-0.7); #Lymphocytes 0.9 thou/uL (1.20-3.40); #Monocytes 0.8 thou/uL (0.11-0.59); #Neutrophils 5.4 thou/uL (1.40-6.50); %Basophils 0.5 % (0.0-1.0); %Eosinophils 3.7 % (0.0-10.0); %Lymphocytes 11.5 % (21.0-51.0); %Monocytes 10.2 % (0.0-10.0); %Neutrophils 74.1 % (42.0-75.0); Hemoglobin 9.4 g/dL (12.0-16.0); Mean Corpuscular HGB CONC 32.3 g/dL (32.0-36.0); Mean Corpuscular Hemoglobin 28.5 pg (27.0-31.0); Mean Corpuscular Volume 88.3 fL (78.0-98.0); Platelet Count 161 thou/uL (130-400); RBC Distribution Width 18.8 % (11.5-14.5); White Blood Cell (WBC) Count 7.3 thou/uL (4.8-10.8)
[2019-12-05 19:30] LABS: ALT (SGPT) 26 U/L (8-55); AST (SGOT) 10 U/L (5-34); Albumin 3.6 g/dL (3.5-5.0); Alkaline Phosphatase 218 U/L (40-110); Anion Gap 17 mmol/L (10-20); BUN (Urea Nitrogen) 16 mg/dL (9.8-20.1); Bilirubin, Total 0.5 mg/dL (0.2-1.2); Calc. Creatinine Clearance 0 mL/min (70-130); Calcium 8.4 mg/dL (7.8-10.44); Carbon Dioxide 28 mmol/L (22-29); Chloride 97 mmol/L (98-107); Estimated GFR-MDRD 13; Globulin 3.6 g/dL (2.4-3.5); Glucose 295 mg/dL (70-105); Lipase 14 U/L (8-78); Potassium 3.6 mmol/L (3.5-5.1); Protein, Total 7.2 g/dL (6.0-8.3); Sodium 138 mmol/L (136-145)
== END 2019-12-05 20:31 | disposition home or self-care (01) ==
LOC: ERS 16:07
DX: T82.7XXA Infection and inflammatory reaction due to other cardiac and vascular devices, implants and grafts, initial encounter (principal); E78.5 Hyperlipidemia, unspecified; E78.00 Pure hypercholesterolemia, unspecified; I25.10 Atherosclerotic heart disease of native coronary artery without angina pectoris; I12.0 Hypertensive chronic kidney disease with stage 5 chronic kidney disease or end stage renal disease; N18.6 End stage renal disease; Z99.2 Dependence on renal dialysis; E11.22 Type 2 diabetes mellitus with diabetic chronic kidney disease; Z87.891 Personal history of nicotine dependence; Z79.899 Other long term (current) drug therapy; Z79.4 Long term (current) use of insulin
CPT/HCPCS: 36415; 80053; 83605; 83690; 83880; 85025; 87040; 99283

== ENCOUNTER 2020-06-20 15:00 | Outpatient (CLI) | payer MEDICARE | END 2020-06-20 15:01 | disposition home or self-care (01) | LOC: BICULT 15:00 | PROVIDERS: ATTEND Internal Medicine Nephrology | DX: I73.9 Peripheral vascular disease, unspecified (principal); R93.6 Abnormal findings on diagnostic imaging of limbs | CPT/HCPCS: 93923 ==

== ENCOUNTER 2020-07-20 12:55 | Inpatient (IN) | payer MEDICARE ==
[2020-07-20 13:28] LABS: #Lymphocytes 0.6 thou/uL (1.20-3.40); #Monocytes 0.8 thou/uL (0.11-0.59); #Neutrophils 13.4 thou/uL (1.40-6.50); %Basophils 0.2 % (0.0-1.0); %Lymphocytes 4.1 % (21.0-51.0); %Monocytes 5.6 % (0.0-10.0); %Neutrophils 90.2 % (42.0-75.0); Mean Corpuscular HGB CONC 31.6 g/dL (32.0-36.0); Mean Corpuscular Hemoglobin 29.1 pg (27.0-31.0); Mean Corpuscular Volume 92.3 fL (78.0-98.0); Mean Platelet Volume 11.3 fL (7.4-10.4); Platelet Count 191 thou/uL (130-400); RBC Distribution Width 17.2 % (11.5-14.5); Red Blood Cell (RBC) Count 4.11 mill/uL (4.20-5.40); White Blood Cell (WBC) Count 14.9 thou/uL (4.8-10.8)
[2020-07-20 13:37] LABS: INR-International Normal Ratio 1.1; PTT 30.4 sec (22.9-36.1); Prothrombin Time 14.5 sec (12.0-14.7)
[2020-07-20] MEDS ORDERED: Labetalol HCl 100 MG/20 ML VIAL ONE (13:47)
[2020-07-20 13:55] LABS: ALT (SGPT) 9 U/L (8-55); AST (SGOT) 21 U/L (5-34); Albumin 3.3 g/dL (3.5-5.0); Alkaline Phosphatase 209 U/L (40-110); Anion Gap 25 mmol/L (10-20); BUN (Urea Nitrogen) 62 mg/dL (9.8-20.1); Bilirubin, Total 0.8 mg/dL (0.2-1.2); Calc. Creatinine Clearance 0 mL/min (70-130); Calcium 8.8 mg/dL (7.8-10.44); Carbon Dioxide 22 mmol/L (22-29); Chloride 98 mmol/L (98-107); Globulin 4.2 g/dL (2.4-3.5); Glucose 273 mg/dL (70-105); Potassium 6.5 mmol/L (3.5-5.1); Protein, Total 7.5 g/dL (6.0-8.3); Sodium 138 mmol/L (136-145)
[2020-07-20] MEDS ORDERED: niCARdipine 20MG In NaCl 20 MG/200 ML BAG ONE (14:15)
[2020-07-20 14:25] LABS: SARS-CoV-2 NAA Rapid Test Not Detected (NotDetected)
[2020-07-20] MEDS ORDERED: Ondansetron PF 4 MG/2 ML Vial IVP PRN (15:32)
[2020-07-20] MEDS ORDERED: Morphine 4 MG/ML VIAL SLOW IVP PRN (15:37)
[2020-07-20] MEDS ORDERED: Lorazepam 2 MG/ML VIAL SLOW IVP PRN (15:38)
== END 2020-07-20 19:09 | disposition expired | DRG 64 ==
LOC: ERS 12:55 → ERHOLD 15:00
PROVIDERS: ADMIT Internal Medicine; ATTEND Internal Medicine
PROC: 5A1935Z Respiratory Ventilation, Less than 24 Consecutive Hours (ICD-10-PCS; principal; 2020-07-20)
PROC: 0D9670Z Drainage of Stomach with Drainage Device, Via Natural or Artificial Opening (ICD-10-PCS; 2020-07-20)
DX: I61.3 Nontraumatic intracerebral hemorrhage in brain stem (principal); N18.6 End stage renal disease; G93.6 Cerebral edema; G93.5 Compression of brain; J96.01 Acute respiratory failure with hypoxia; I12.0 Hypertensive chronic kidney disease with stage 5 chronic kidney disease or end stage renal disease; Z20.822 Contact with and (suspected) exposure to COVID-19; Z66 Do not resuscitate; Z51.5 Encounter for palliative care; E78.5 Hyperlipidemia, unspecified; I25.10 Atherosclerotic heart disease of native coronary artery without angina pectoris; E78.00 Pure hypercholesterolemia, unspecified; E11.22 Type 2 diabetes mellitus with diabetic chronic kidney disease; Z99.2 Dependence on renal dialysis; Z91.041 Radiographic dye allergy status; Z91.040 Latex allergy status; Z91.013 Allergy to seafood; Z91.018 Allergy to other foods; Z79.82 Long term (current) use of aspirin; Z79.4 Long term (current) use of insulin; Z79.899 Other long term (current) drug therapy; Z88.1 Allergy status to other antibiotic agents; Z95.5 Presence of coronary angioplasty implant and graft; Z90.49 Acquired absence of other specified parts of digestive tract; Z98.890 Other specified postprocedural states; Z87.891 Personal history of nicotine dependence; Z89.422 Acquired absence of other left toe(s)
CPT/HCPCS: 36415; 36416; 70450; 71045; 71250; 72125; 74177; 80053; 83605; 84484; 85025; 85610; 85730; 86850; 86900; 86901; 93005; 94002; 96365; 96375; U0002